=== PATIENT | male | born 1965 | race Caucasian/White ===

== ENCOUNTER → 2017-09-19 06:57 | Outpatient (CLI) | payer BC, SELFPAY ==
--- NOTE | 2017-09-19 07:17 | MRI_ITS ---
STUDY: MRI CERVICAL SPINE WITHOUT CONTRAST REASON FOR EXAM: Male, 52 years old. Neck pain. TECHNIQUE: Standardized fat and water weighted pulse sequences were obtained in the sagittal and axial planes. COMPARISON: Radiographs of cervical spine dated January 08, 2017. FINDINGS: Normal foramen magnum and brainstem-cervical cord junction. Normal craniovertebral junction. Normal anterior atlantoaxial articulation. Normal odontoid process. Normal cervical lordosis. Normal vertebral bodies and posterior osseous elements. C2-3: Normal endplates. Normal disc height and morphology. Normal central canal and intervertebral neural foramina. C3-4: There is a disc bulge and osteophyte complex. There is severe right-sided neural foraminal narrowing with potential nerve impingement. There is mild left-sided neural foraminal narrowing. There is no significant central acquired canal stenosis. C4-5: Normal endplates. Normal disc height, signal and morphology. Normal central canal. There is narrowing of bilateral intervertebral neural foramina without evidence for nerve impingement. There is mild degenerative arthropathy of the facet joints. C5-6: There is a disc bulge and osteophyte complex. There is severe bilateral neural foraminal narrowing with probable nerve impingement. There is no significant central acquired canal stenosis. C6-7: Normal endplates. Normal disc height, signal and morphology. Normal central canal and intervertebral neural foramina. C7-T1: Normal endplates. Normal disc height, signal and morphology. Normal central canal and intervertebral neural foramina. Normal cervical cord. There is no demonstrated cervical cord syrinx cavity. Normal visualized soft tissue structures. MRI/Spine Cervical (Routine) IMPRESSION: Multilevel degenerative disc disease and degenerative arthropathy of cervical spine with neural foraminal narrowing and potential nerve impingement, as described. Electronically Signed: Myranda Corley MD at 9:33 EDT , Service support ,
== END ==
PROVIDERS: Family Provider Family Medicine Geriatric Medicine; PCP Family Medicine Geriatric Medicine; Visit Provider Anesthesiology Pain Medicine
DX: M54.2 Cervicalgia (principal); M79.603 Pain in arm, unspecified
CPT/HCPCS: 72141

== ENCOUNTER → 2017-09-29 17:08 | Outpatient (CLI) | payer BC, SELFPAY | PROVIDERS: Family Provider Family Medicine Geriatric Medicine; PCP Family Medicine Geriatric Medicine; Visit Provider Family Medicine Geriatric Medicine | DX: R50.9 Fever, unspecified (principal) | CPT/HCPCS: 87633 ==

== ENCOUNTER → 2018-01-08 16:34 | Outpatient (CLI) | payer BC, SELFPAY | LOC: POLAB3 16:34 → PSN 16:45 | PROVIDERS: Family Provider Family Medicine Geriatric Medicine; PCP Family Medicine Geriatric Medicine; Referring Provider Family Medicine Geriatric Medicine; Visit Provider Family Medicine Geriatric Medicine | DX: R68.83 Chills (without fever) (principal) | CPT/HCPCS: 36415; 84403; 87633 ==

== ENCOUNTER → 2018-02-16 15:22 | Outpatient (CLI) | payer BC, SELFPAY ==
[2018-02-16 17:15] LABS: Absolute Lymphocyte Count 2.68 X10^3/ul (0.83-4.51); Absolute Neutrophil Count 6.3 X10^3/uL (2.0-7.7); Basophil# 0.03 X10^3/uL; Basophil% 0.3 % (0-1); Eosinophil# 0.02 X10^3/uL; Eosinophils% 0.2 % (0-5); Hematocrit 46.6 % (40-54); Hemoglobin 16.1 g/dl (13.0-16.5); Lymphocyte # 2.68 X10^3/ul (4.0); Lymphocyte % 27.7 % (19-41); Mean Corp Hgb Conc 34.5 g/gl (32-36); Mean Corpuscular Hgb 32.6 pg (27.0-32.0); Mean Corpuscular Volume 94.3 fL (80-94); Mean Platelet Vol. 10.9 fl (6.2-12.0); Monocyte# 0.65 X10^3/uL; Monocyte% 6.7 % (0-10); Neutrophil # 6.27 X10^3/uL (2.7-7.7); Neutrophil % 64.9 % (47-70); Platelet Count 268 K/mm3 (150-450); RBC Distribution Width CV 12.9 % (11.6-14.6); RBC Distribution Width SD 43.6 fl (35.1-43.9); Red Blood Count 4.94 M/mm3 (4.6-6.2); White Blood Count 9.7 K/mm3 (4.4-11.0)
[2018-02-16 17:16] LABS: POSITIVE COUNT NO; POSITIVE DIFFERENTIAL NO; POSITIVE MORPHOLOGY NO
[2018-02-16 17:24] LABS: ALB/GLOB Ratio 1.1 RATIO (0.9-2.4); AST(SGOT) 25 U/L (15-37); Alanine Aminotransfer ALT/SGPT 44 U/L (16-61); Albumin, Serum 4.1 g/dL (3.2-5.0); Alkaline Phosphatase 86 U/L (45-117); Anion Gap 8 (5-15); BUN 11 mg/dL (7-18); BUN/Creat Ratio 12.1 RATIO (10-20); Calcium,Total 9.5 mg/dL (8.5-10.1); Chloride 103 mmol/L (98-107); Creatinine, Serum 0.91 mg/dL (0.70-1.30); EST Glomerular Filtration Rate 93 mL/min (>60); Est Glom Filt Rate - Afr Amer 112 mL/min (>60); Globulin 3.7 g/dL (2.2-4.2); Glucose 84 mg/dL (74-106); Potassium 4.2 mmol/L (3.5-5.1); Protein, Total 7.8 g/dL (6.4-8.2); Sodium Level 141 mmol/L (136-145); Thyroid Stim Hormone (TSH) 2.73 uIU/mL (0.358-3.74)
== END ==
PROVIDERS: Family Provider Family Medicine Geriatric Medicine; PCP Family Medicine Geriatric Medicine; Visit Provider Family Medicine Geriatric Medicine
DX: I10 Essential (primary) hypertension (principal); E23.6 Other disorders of pituitary gland
CPT/HCPCS: 36415; 80053; 84403; 84443; 85025

== ENCOUNTER → 2018-10-07 17:20 | Outpatient (CLI) | payer BC, SELFPAY ==
[2018-10-07 17:52] LABS: Absolute Lymphocyte Count 2.71 X10^3/uL (0.83-4.51); Absolute Neutrophil Count 2.7 X10^3/uL (2.0-7.7); Basophil# 0.04 X10^3/uL; Basophil% 0.6 % (0-1); Eosinophil# 0.44 X10^3/uL; Eosinophils% 6.9 % (0-5); Hematocrit 42.7 % (40-54); Hemoglobin 14.5 g/dL (13.0-16.5); Lymphocyte # 2.71 X10^3/ul (4.0); Lymphocyte % 42.3 % (19-41); Mean Corpuscular Hgb 31.9 pg (27.0-32.0); Mean Corpuscular Volume 94.1 fL (80-94); Mean Platelet Vol. 11.5 fl (6.2-12.0); Monocyte# 0.53 X10^3/uL; Monocyte% 8.3 % (0-10); NRBC Flagged by Analyzer 0 % (0-5); Neutrophil # 2.67 X10^3/uL (2.7-7.7); Neutrophil % 41.6 % (47-70); Platelet Count 221 K/mm3 (150-450); RBC Distribution Width SD 41.8 fl (35.1-43.9); Red Blood Count 4.54 M/mm3 (4.6-6.2); White Blood Count 6.4 K/mm3 (4.4-11.0)
[2018-10-07 18:25] LABS: Anion Gap 6 (5-15); BUN 16 mg/dL (7-18); BUN/Creat Ratio 17.6 RATIO (10-20); Calcium,Total 8.7 mg/dL (8.5-10.1); Chloride 107 mmol/L (98-107); Creatinine, Serum 0.91 mg/dL (0.70-1.30); EST Glomerular Filtration Rate 92 mL/min (>60); Est Glom Filt Rate - Afr Amer 112 mL/min (>60); Glucose 79 mg/dL (74-106); Potassium 4.2 mmol/L (3.5-5.1); Sodium Level 143 mmol/L (136-145); T3 Uptake 29 % (33-40); Thyroid Stim Hormone (TSH) 5.06 uIU/mL (0.358-3.74)
== END ==
PROVIDERS: Family Provider Family Medicine Geriatric Medicine; PCP Family Medicine Geriatric Medicine; Visit Provider Family Medicine Geriatric Medicine
DX: R53.83 Other fatigue (principal)
CPT/HCPCS: 36415; 80048; 84439; 84443; 84479; 85025

== ENCOUNTER → 2018-10-20 17:40 | Outpatient (CLI) | payer BC, SELFPAY ==
--- NOTE | 2018-10-20 17:48 | RAD_ITS ---
STUDY: X-RAY - LUMBAR SPINE REASON FOR EXAM: Male, 53 years old. Pain TECHNIQUE: 3 view(s) of the lumbar spine were obtained. COMPARISON: None FINDINGS: Normal lumbar lordosis. There is no substantial scoliosis. There is a normal alignment of the vertebrae. Degenerative changes of the vertebral bodies with spurring at the endplates. Minimal wedge compression of L1 and L2. Slightly narrowed L5-S1 disc space with vacuum phenomenon. The soft tissue structures are unremarkable. RAD/Lumbar Spine 2 or 3 Views IMPRESSION: Degenerative changes of the lumbar spine. Electronically Signed: Kentrell Koo DO at 18:14 EDT Tel [phone], Service support ,
== END ==
PROVIDERS: Family Provider Family Medicine Geriatric Medicine; PCP Family Medicine Geriatric Medicine; Referring Provider Family Medicine Geriatric Medicine; Visit Provider Family Medicine Geriatric Medicine
DX: M54.5 Low back pain (principal)
CPT/HCPCS: 72100

== ENCOUNTER → 2019-01-25 16:43 | Outpatient (CLI) | payer BC, SELFPAY ==
--- NOTE | 2019-01-25 16:50 | MRI_ITS ---
STUDY: MRI LUMBAR SPINE WITHOUT CONTRAST REASON FOR EXAM: Male, 53 years old. LOWER BACK PAIN RADIATING INTO TESTICLES, NO RELIEF WITH EPIDURAL INJECTIONS TECHNIQUE: Standardized fat and water weighted pulse sequences were obtained in the sagittal and axial planes. COMPARISON: Radiographs 10/20/2018 FINDINGS: T12-L1: Normal endplates. Normal disc height, hydration and morphology. Normal bilateral facet joints. Normal central canal and bilateral lateral recesses. Normal bilateral intervertebral neural foramina. Normal lumbar lordosis. There is no substantial scoliosis. Normal conus medullaris that terminates at the L1-2 level. L1-2: Bulging annulus with mild central canal stenosis. L2-3: Bulging annulus with mild central canal stenosis. L3-4: Bulging annulus and broad left subarticular disc protrusion with deflection of the transiting left L4 nerve root and moderate left and mild right foraminal stenoses. L4-5: Bulging annulus and bilateral facet hypertrophy with mild central canal stenosis and moderate bilateral foraminal stenoses. L5-S1: Disc space narrowing and desiccation with discogenic endplate changes and anterior osteophytes. Bulging annulus and bilateral facet hypertrophy with severe right and moderate to severe left foraminal stenoses. There is mass effect on the exiting right L5 nerve root. Normal visualized sacral ala. Normal visualized paraspinous soft tissue structures. MRI/Spine Lumbar (Routine) IMPRESSION: Multilevel degenerative disease as described. Left-sided disc protrusion at L3-4 with deflection of the transiting left L4 nerve root. Severe right foraminal stenosis at L5-S1, with mass effect on the exiting right L5 nerve root. Electronically Signed: Isaias Lin MD at 21:20 EST Tel , Service support ,
== END ==
PROVIDERS: Family Provider Family Medicine Geriatric Medicine; PCP Family Medicine Geriatric Medicine; Referring Provider Anesthesiology Pain Medicine; Visit Provider Anesthesiology Pain Medicine
DX: M54.9 Dorsalgia, unspecified (principal)
CPT/HCPCS: 72148

== ENCOUNTER → 2019-02-18 16:22 | Outpatient (CLI) | payer BC, SELFPAY ==
[2019-02-18 16:51] LABS: Absolute Lymphocyte Count 3.81 X10^3/uL (0.83-4.51); Absolute Neutrophil Count 4.5 X10^3/uL (2.0-7.7); Basophil# 0.05 X10^3/uL; Basophil% 0.5 % (0-1); Eosinophil# 0.21 X10^3/uL; Eosinophils% 2.2 % (0-5); Hematocrit 43.5 % (40-54); Hemoglobin 14.9 g/dL (13.0-16.5); Lymphocyte # 3.81 X10^3/ul (4.0); Lymphocyte % 40.7 % (19-41); Mean Corp Hgb Conc 34.3 g/dL (32-36); Mean Corpuscular Hgb 32.1 pg (27.0-32.0); Mean Corpuscular Volume 93.8 fL (80-94); Mean Platelet Vol. 10.3 fl (6.2-12.0); Monocyte# 0.81 X10^3/uL; Monocyte% 8.7 % (0-10); NRBC Flagged by Analyzer 0 % (0-5); Neutrophil # 4.45 X10^3/uL (2.7-7.7); Neutrophil % 47.6 % (47-70); Platelet Count 260 K/mm3 (150-450); RBC Distribution Width CV 12.3 % (11.6-14.6); RBC Distribution Width SD 42.5 fl (35.1-43.9); Red Blood Count 4.64 M/mm3 (4.6-6.2); White Blood Count 9.4 K/mm3 (4.4-11.0)
[2019-02-18 17:46] LABS: ALB/GLOB Ratio 1.2 RATIO (0.9-2.4); AST(SGOT) 24 U/L (15-37); Alanine Aminotransfer ALT/SGPT 39 U/L (16-61); Alkaline Phosphatase 101 U/L (45-117); Anion Gap 3 (5-15); BUN 21 mg/dL (7-18); BUN/Creat Ratio 17.2 RATIO (10-20); Chloride 104 mmol/L (98-107); Creatinine, Serum 1.22 mg/dL (0.70-1.30); EST Glomerular Filtration Rate 66 mL/min (>60); Est Glom Filt Rate - Afr Amer 80 mL/min (>60); Globulin 3.4 g/dL (2.2-4.2); Glucose 88 mg/dL (74-106); Potassium 4.2 mmol/L (3.5-5.1); Protein, Total 7.4 g/dL (6.4-8.2); Sodium Level 138 mmol/L (136-145); Thyroid Stim Hormone (TSH) 4.43 uIU/mL (0.358-3.74)
== END ==
PROVIDERS: Family Provider Family Medicine Geriatric Medicine; PCP Family Medicine Geriatric Medicine; Visit Provider Family Medicine Geriatric Medicine
DX: I10 Essential (primary) hypertension (principal); E23.6 Other disorders of pituitary gland
CPT/HCPCS: 36415; 80053; 84403; 84443; 85025

== ENCOUNTER → 2019-03-16 15:57 | Outpatient (CLI) | payer BC, SELFPAY | PROVIDERS: Family Provider Family Medicine Geriatric Medicine; PCP Family Medicine Geriatric Medicine; Referring Provider Family Medicine Geriatric Medicine; Visit Provider Family Medicine Geriatric Medicine | DX: R68.83 Chills (without fever) (principal) | CPT/HCPCS: 87633 ==

== ENCOUNTER → 2019-05-24 | Outpatient (CLI) | payer BC, SELFPAY ==
--- NOTE | 2019-05-24 14:51 | CT_ITS ---
STUDY: CT BRAIN AND SINUSES WITHOUT CONTRAST REASON FOR EXAM: Male, 53 years old. SINUSITIS RADIATION DOSAGE (If Supplied By Facility): CTDIvol = ( 33.06 ) mGy, DLP = ( 871.04 ) mGycm TECHNIQUE: Transaxial CT imaging of the brain was performed without administration of contrast. Individualized dose optimization techniques were used for this CT. COMPARISON: No relevant priors. FINDINGS: CT BRAIN Normal soft tissue structures. Normal calvarium. Normal size ventricles and extra-axial spaces for the patient''s age. Normal white matter tracts of the cerebral hemispheres. Normal basal ganglia and thalami. Normal brainstem. Normal cerebellum. There is no intracranial hemorrhage. There are no findings of an acute ischemic infarction. CT SINUSES Post Surgical Changes: Postsurgical changes status post left uncinatectomy Frontal Sinus and Recess: Normal aeration without mucosal inflammatory disease. Ethmoidal Sinuses: Mild mucosal thickening of the anterior ethmoid air cells bilaterally without air-fluid level. Maxillary Sinuses: There is moderate mucosal thickening of both maxillary sinuses portions of which are calcified on the left. There is no air-fluid level Ostiomeatal Complex: Clear. Sphenoid Sinus: Normal aeration without mucosal inflammatory disease. Sphenoethmoidal Recess: Clear. Nasal Turbinate (Right): Middle Turbinate (Right): Normal. Middle Turbinate (Left): Normal. Inferior Turbinate (Right): Normal. Inferior Turbinate (Left): Normal. Nasal Septum: Midline. Nasal Airway: Clear. Cribiform Plate / Anterior Cranial Fossa: Normal. Orbits: Normal. CT/Sinus/Facial Bone IMPRESSION: Normal enhanced CT scan of the brain. Moderate bilateral maxillary sinusitis and mild anterior ethmoid sinus disease Status post left maxillary uncinatectomy Electronically Signed: Ryan Murdock MD at 16:35 EDT , Service support ,
== END | disposition home or self-care (01) ==
PROVIDERS: PCP Family Medicine Geriatric Medicine; Referring Provider Otolaryngology; Visit Provider Otolaryngology
DX: J32.0 Chronic maxillary sinusitis (principal)
CPT/HCPCS: 70486

== ENCOUNTER → 2019-08-26 | Outpatient (CLI) | payer BC, SELFPAY ==
--- NOTE | 2019-08-26 14:25 | RAD_ITS ---
STUDY: X-RAY - LEFT SHOULDER REASON FOR EXAM: Male, 54 years old. BILAT SHOULDER PAIN, RIGHT SIDE GREATER THAN LEFT SIDE. HX FALL TO RIGHT SHOULDER AND SURGERY TO LEFT SHOULDER TECHNIQUE: 4 view(s) of the shoulder. COMPARISON: None. FINDINGS: Normal glenohumeral articulation. Normal acromioclavicular joint. Normal acromion. Normal humeral head and visualized proximal humerus. The soft tissue structures are unremarkable. There is no demonstrated fracture. Normal visualized pulmonary apex. RAD/Shoulder min 2 Views IMPRESSION: Normal x-ray examination of the shoulder. Electronically Signed: Silver Blair MD at 14:58 EDT , Service support ,
--- NOTE | 2019-08-26 14:25 | RAD_ITS ---
STUDY: X-RAY - RIGHT SHOULDER REASON FOR EXAM: Male, 54 years old. BILAT SHOULDER PAIN, RIGHT SIDE GREATER THAN LEFT SIDE. HX FALL TO RIGHT SHOULDER AND SURGERY TO LEFT SHOULDER TECHNIQUE: 4 view(s) of the shoulder. COMPARISON: None. FINDINGS: Normal glenohumeral articulation. Normal acromioclavicular joint. Normal acromion. Normal humeral head and visualized proximal humerus. The soft tissue structures are unremarkable. There is no demonstrated fracture. Normal visualized pulmonary apex. RAD/Shoulder min 2 Views IMPRESSION: Normal x-ray examination of the shoulder. Electronically Signed: Silver Blair MD at 20:25 EDT , Service support ,
== END | disposition home or self-care (01) ==
PROVIDERS: PCP Family Medicine Geriatric Medicine; Referring Provider Anesthesiology Pain Medicine; Visit Provider Anesthesiology Pain Medicine
DX: M25.512 Pain in left shoulder (principal); M25.511 Pain in right shoulder
CPT/HCPCS: 73030

== ENCOUNTER 2019-09-24 12:21 | Day surgery (SDC) | payer BC, SELFPAY ==
[2019-09-24 12:47] VITALS: BP 130/81; PULSE 59; RESP 14; TEMP 36.9; O2SAT 98; BMI 23.8
[2019-09-24] MEDS: Lactated Ringers 1,000 ML 75 ML IV (13:04)
--- NOTE | 2019-09-24 13:18 | EKG12_ITS ---
Test Reason : PRE OP Blood Pressure : / mmHG Vent. Rate : 051 BPM Atrial Rate : 051 BPM P-R Int : 168 ms QRS Dur : 100 ms QT Int : 444 ms P-R-T Axes : 062 021 007 degrees QTc Int : 409 ms Sinus bradycardia Otherwise normal ECG Confirmed by ANTOINETTE BARBOUR, LYLY ([id number]), commercial production editor TRAMAINE CORTÉS ([id number]) on 09/28/2019 10:19:09 AM Referred By: Fan Dejesus Confirmed By:LYLY CURRY MD
--- NOTE | 2019-09-24 13:25 | CHO_PTH ---
PATIENT: GEN LÓPEZ LOC: [facility] [place] U#:[id number] AGE/SX: 54/M ROOM: RE09/24/[address]: Dr. Fan Dejesus MD : 1965 BED: DIS: 09/24/2019 SPEC #: [id number] RECD: 09/27/19 07:44 STATUS: [place] REJosr #: [id number] GRICEL: 09/24/19 13:[address]: Fan Dejesus DEPT: SURGICAL PATHOLOGY RECD BY: John Rodrigues ENTERED: 09/27/19 09:11 SP TYPE: CHOLESTEAT OTHR DR: Dr. Rogelio Anderson MD Tissues: Soft tissues, NOS Procedures: Surgery Specimen Level III HEADER OPERATION: Tympanoplasty with graft PRE-OP DIAGNOSIS: Cholesteatoma middle ear, hearing loss TISSUE SUBMITTED: Cholesteatoma right middle ear MICROSCOPIC DIAGNOSIS Cholesteatoma of right middle ear, biopsy: Consistent with cholesteatoma. AM:duane 09/28/19 MICROSCOPIC DESCRIPTION Slides are reviewed. GROSS DESCRIPTION Received in fixative is one container labeled with the patient's name and designated cholesteatoma right ear. The specimen consists of multiple irregular fragments of light malik soft tissue that in aggregate measure 0.6 x 0.3 x 0.1 cm. The specimen is totally submitted in one cassette. / AM:duane 09/27/19 TC:5 CPT: 86185
[2019-09-24] MEDS: Epinephrine (1 mg/ml) 1 MG/ML VIAL (15:50)
[2019-09-24] MEDS: Bacitracin 500 UNITS/GM PACKET (15:52)
--- NOTE | 2019-09-24 16:11 | DCINST_ITS ---
You will use the following diet at home:: No restrictions Your food should be the consistency of: Regular Discharge Activity: Return to Normal Activity, May not drive while taking narcotic pain medications. Call your doctor if your incision/area has: Sudden Increased Bleeding, Increased Pain/ Swelling Call your doctor if you observe: Fever of 101 or Higher, Uncontrolled pain Allergies/Adverse Reactions: Allergies No Known Allergies Allergy (Verified 09/16/19 10:12) Medications to take at Discharge montelukast 10 mg tablet 10 mg PO QHS 04/15/17 Azelastine HCl [Astelin] 1 spray NASAL BID 05/31/19 Fluticasone Propionate [Flonase Allergy Relief] 9.9 ml NS DAILY 05/31/19 Naproxen Sodium [Aleve] 440 mg PO BID 05/31/19 Ropinirole HCl [Requip] 3 mg PO QHS 05/31/19 Tramadol HCl [Ultram] 50 mg PO BID 05/31/19 Oxymetazoline 0.05% [Afrin (BKC)] 15 spray NASAL DAILY 09/16/19 Primary Care Physician: Rogelio Anderson Chi, MD [Primary Care Provider] - Test Results: Test results from this visit will be discussed in further detail at your follow- up appointment, if applicable. Please Follow Up With: Fan Dejesus MD When: 2 weeks
--- NOTE | 2019-09-24 16:13 | OP.PCM_ITS ---
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 (2) Perforation of tympanic membrane Status: Chronic Qualifiers: Laterality: right Qualified Code(s): H72.91 - Unspecified perforation of tympanic membrane, right ear Report of Operation Date of Procedure: 09/24/19 Pre-Operative Diagnosis: Right middle ear cholesteatoma, right tympanic membrane perforation Post-Operative Diagnosis: Same Surgery/Procedure Performed:: Right tympanoplasty, excision of right middle ear cholesteatoma, fascial graft harvest with facial nerve monitoring Description of Surgical Findings:: Archie is a 54-year-old male with prior history of tympanoplasty on the right and had suffered persistent perforation. Reaccumulation of cholesteatoma within the middle ear cleft was additionally noted and this had become inflamed with drainage which responded well to otic topical therapy. Surgical treatment to prevent additional progression of the cholesteatoma was advised and he was eager to proceed. The risk of coronavirus transmission during this period was discussed however he was agreeable to accept this risk in the interest of addressing his chronic middle ear disease. The risks, alternatives, potential complications, and benefits were discussed at length and any questions answered to the patient and/or caregiver's satisfaction. Witnessed informed consent was obtained in the office, and the patient and/or caregiver was agreeable to proceed. Procedure went as follows: The patient was identified in the preoperative holding brought to the operating room and was placed under general anesthesia and intubated. The operative ear had been site marked preoperatively in accordance with the office notes patient exam and history. The patient was then placed under general anesthesia and the right ear prepped and draped in usual sterile fashion. The facial nerve monitoring electrodes were then placed in the confirmed to be operational in accordance with the manufactures directions. The planned postauricular incision site for fascial graft harvest was then injected with 1% lidocaine with 100,000 epinephrine for a total of 4 mL. Through a #4 otic speculum the operative microscope was brought into the field and the external auditory canal and tympanic membrane visualized. The lateral canal wall was then injected with 1% lidocaine with 100,000 epinephrine for a total of 0.4 cc. Using a sickle knife the edge of the perforation was then sharply resected and extended to the posterior canal where extensive cholesteatoma of the middle ear cleft encasing the long process of the malleus was encountered. This was then draped anteriorly to allow visualization of the middle ear cleft which was noted to be involved with cholesteatoma. Using a sickle knife this was sharply resected along the length of the malleus and this was withdrawn from middle ear cleft careful examination of the attic and eustachian tube orifice showed no residual squamous epithelium. A 3 cm incision was then created a 15 blade scalpel posterior to the auricle at the previous injection site. The skin and subcutaneous tissues were then dissected and the posterior auricular muscle sharply transected. The subfascial plane was then widely developed and a 2.5 x 2.5 centimeter portion of loose a reolar tissue was then harvested and set aside on a Jacky block for reconstruction of the tympanic membrane. The wound edges were then cauterized with electrocautery for hemostasis and closed deeply with interrupted 3-0 Vicryl sutures followed by running 5-0 Monocryl to the skin. This completed the graft harvest portion of the procedure. Attention was then turned to reconstruction of the tympanic membrane. The operative microscope was replaced and through an otic speculum the middle ear cleft filled with Gelfoam packing material after removal of the epinephrine soaked cotton balls. The previously harvested graft tissue was then placed in an underlay fashion catching it underneath the malleus where a slit in the graft had been created and ensuring that it completely covered the tympanic membrane perforation. The posterior aspect of the graft was then draped over the medial external auditory canal posteriorly. Additional Gelfoam material was then placed to secure the graft in position. Bacitracin ointment was then applied to secure the material and the patient then cleaned of prep solution and the facial nerve monitoring electrodes removed. The patient was then returned to anesthesia, revived and extubated without complication having tolerated the procedure well. Type of Anesthesia:: General Anesthesiologist: Derek Peep Special Medications: none Specimen's removed: cholesteatoma right middle ear Drains: none Estimated Blood Loss (mL): 0 mL Fluids Replaced: 500 mL Grafts/Implants Used: fascia graft - Complications none - Admit VTE Documentation VTE Present on Admission: No VTE Mechan Device Prophylaxis: SCD's VTE Pharm Prophylaxis ordered?: No
[2019-09-24 16:23] VITALS: BP 130/81; BP 146/86; PULSE 69; RESP 16; TEMP 36.7; O2SAT 98
[2019-09-24 16:30] VITALS: BP 130/81; BP 155/92; PULSE 63; RESP 16; TEMP 36.7; O2SAT 99
[2019-09-24 16:45] VITALS: BP 130/81; BP 155/85; PULSE 63; RESP 16; TEMP 36.7; O2SAT 99
[2019-09-24] MEDS: Ibuprofen 200 MG Tablet 400 MG PO (16:54)
[2019-09-24 17:35] VITALS: BP 130/81; BP 149/91; PULSE 52; RESP 16; TEMP 36.6; O2SAT 100
== END 2019-09-24 17:45 | disposition home or self-care (01) ==
LOC: SDC 12:23 → AC 12:23
PROVIDERS: Anesthesiology; PCP Family Medicine Geriatric Medicine; Referring Provider Otolaryngology; Visit Provider Otolaryngology
PROC: (CPT 21235; principal; 2019-09-24 12:55)
DX: H71.11 Cholesteatoma of tympanum, right ear (principal); H72.91 Unspecified perforation of tympanic membrane, right ear; H90.A31 Mixed conductive and sensorineural hearing loss, unilateral, right ear with restricted hearing on the contralateral side; H90.3 Sensorineural hearing loss, bilateral; J32.2 Chronic ethmoidal sinusitis; J32.0 Chronic maxillary sinusitis; G25.81 Restless legs syndrome; F17.200 Nicotine dependence, unspecified, uncomplicated; K21.9 Gastro-esophageal reflux disease without esophagitis; Z11.59 Encounter for screening for other viral diseases; Z79.899 Other long term (current) drug therapy
CPT/HCPCS: 00120; 21235; 69610; 69799; 87635; 88304; 93005; G2023; J7120; J2405; U0003

== ENCOUNTER 2020-04-21 07:54 | Day surgery (SDC) | payer BC, SELFPAY ==
[2019-12-10 09:07] VITALS: BMI 23.8
[2020-04-21 08:30] VITALS: BP 145/97; PULSE 72; RESP 16; TEMP 37.2; O2SAT 99; BMI 24.8
[2020-04-21] MEDS: Lactated Ringers 1,000 ML 100 ML IV ×2 (08:47→10:30)
--- NOTE | 2020-04-21 09:25 | ETH_PTH ---
PATIENT: GEN LÓPEZ LOC: [facility] [place] U#:[id number] AGE/SX: 54/M ROOM: RE04/21/[address]: Dr. Fan Dejesus MD : 1965 BED: DIS: 04/21/2020 SPEC #: [id number] RECD: 04/21/20 12:25 STATUS: [place] RASTA #: [id number] GRICEL: 04/21/20 09:[address]: Fan Dejesus DEPT: SURGICAL PATHOLOGY RECD BY: Dahiana Lopez ENTERED: 04/24/20 09:51 SP TYPE: ETH TISS OTHR DR: Dr. Rogelio Anderson MD Tissues: A - Ethmoid sinus, NOS B - Ethmoid sinus, NOS Procedures: Decalcification bone/plaque Surgery Specimen Level III HEADER OPERATION: Endoscopic nasal sinus with total ethmoidectomy/endoscopic PRE-OP DIAGNOSIS: Chronic maxillary and ethmoidal sinusitis TISSUE SUBMITTED: A - Right maxillary and ethmoid sinus contents, B - Left maxillary and ethmoid sinus contents MICROSCOPIC DIAGNOSIS A. Right maxillary and ethmoid sinus contents, curettage: Consistent with chronic sinusitis. Minute fragments of bone with no pathologic change. B. Left maxillary and ethmoid sinus contents, curettage: Consistent with chronic sinusitis. Minute fragments of bone with no pathologic change. Abundant bacterial colonies present with associated acute inflammation. AM:duane 04/27/2020 MICROSCOPIC DESCRIPTION Slides are reviewed. GROSS DESCRIPTION A - Received in fixative is one container labeled with the patient's name and designated right maxillary and ethmoid sinus contents. The specimen consists of multiple fragments of hemorrhagic soft tissue that in aggregate measure 5 x 5 x 1.5 cm. Also present in the container is a piece of mucosal tissue consistent with turbinate tissue measuring 1.5 x 0.5 x 0.3 cm. Bone Grinder tissue is submitted in three cassettes. Cassette 3 contains the turbinate tissue and submitted after decalcification. B - Received in fixative is one container labeled with the patient's name and designated left maxillary and ethmoid sinus contents. The specimen consists of multiple fragments of hemorrhagic soft tissue that in aggregate measure 6 x 5 x 2 cm. Also present in the container are multiple fragments of malik mucoid tissue measuring in aggregate 3 x 2.5 x 0.2 cm. Bone Grinder tissue is submitted in three cassettes after decalcification as follows: 1 & 2 - hemorrhagic soft tissue, 3 - malik mucoid tissue, submitted in entirety. / SJ:duane 04/24/20 TC:2 CPT: 74382 x2, 56347 x2
[2020-04-21] MEDS: Lidocaine 4% 50 ML Bottle (10:30)
[2020-04-21] MEDS: Oxymetazoline 0.05% 1 SPRAY SPRAY.BTL 15 SPRAY (10:30)
--- NOTE | 2020-04-21 11:19 | OP.PCM_ITS ---
Problem List (1) Chronic ethmoidal sinusitis Status: Chronic (2) Chronic maxillary sinusitis Status: Chronic (3) Chronic sphenoidal sinusitis Status: Chronic Report of Operation Date of Procedure: 04/21/20 Pre-Operative Diagnosis: Chronic sinus disease Post-Operative Diagnosis: Same Surgery/Procedure Performed:: Bilateral revision endoscopic maxillary antrostomies, ethmoidectomies, and sphenoidotomies Description of Surgical Findings:: Yasmany is a 54-year-old male with history of chronic sinusitis and previous surgery. Despite this he continued to suffer large amounts of purulent discharge as well as foul nasal odor that was only temporary relieved by antibiotic therapy and nasal saline rinses. Revision surgery for improved drainage was advised and he was eager to proceed. The risk of coronavirus exposure in this time. Was also discussed and is agreeable accept this risk in exchange for venkat tment of his chronic underlying disease. The risks, alternatives, potential complications, and benefits were discussed at length and any questions answered to the patient and/or caregiver's satisfaction. Witnessed informed consent was obtained in the office, and the patient and/or caregiver was agreeable to proceed. Procedure went as follows: The patient was identified in the preoperative holdi ng and brought to the operating room, was placed under general anesthesia and intubated. When appropriate anesthesia was obtained, the navigational head gear was placed and confirmed to be operational in accordance with the curriculum and instruction specialist's directions. Pledgets soaked in a 50-50 mixture of oxymetazoline and 4% topical lidocaine were placed to decongest the nasal mucosa. These were then removed an d beginning on the left side using a 0? endoscope the nasal cavity examined. The insertion of the middle turbinate was then injected with 1% lidocaine with 100,000 epinephrine for a total of 2 mL, and a similar injection was then carried on the contralateral side. Upon returning to the left side, the middle turbinate was medialized with a Bullock elevator. This allowed examination of the maxillary sinus ostia which was then probed with a double ball seeker. This was noted to be significantly scarred with prior removal of the uncinate process noted. Copious purulent material was identified with portions of it taken for culture for identification of the organism. Instrumentation of the sinus revealed large clumps of mucopurulent material which were removed piecemeal fashion and the sinus irrigated clear with saline solution. Given the significant scarring of the maxillary antrum this was then widened along the posterior fontanelle recreating a wide maxillary antrostomy. Under navigation there is noted to be a posterior residual ethmoid cell which was then opened and widened and the intervening scar tissue obstructing the pre-existing ethmoidectomy sites was then removed. The sphenoid sinus ostia was noted to be occluded with scar tissue and this was then entered under navigational guidance and a wide sphenoidotomy carried out to facilitate drainage of the sinus. Given the extreme narrowing of the nasal passage the middle turbinate was then removed in the hopes of improved drainage from the maxillary and ethmoid sinuses. The posterior aspect of the resection was then cauterized with suction electrocautery to control any potential bleeding from the posterior middle turbinate stub. Attention was then carried to the contralateral side where similar procedure was performed. There is noted to be extensive scarring and obstruction of the ethmoid sinuses with incomplete resection of the ethmoid sinuses along the lateral aspect and along the lamina papyracea. These were then taken down individually using a J curette under navigational guidance improving the patency of this area. Similarly the maxillary sinus ostia was scarred and obstructed and this was again widened by taking down the scarring in the posterior fontanelle resulting in a wide maxillary antrostomy. There was similar scarring of the sphenoid sinus opening and this was again then widened creating a sphenoidotomy. Finally the middle turbinate was again removed and the posterior stub cauterized for hemostasis with suction cautery. Pledgets soaked in oxymetazoline were then placed for hemostasis and upon removal Floseal hemostatic agent was then applied. An NG tube was then placed to decompress the stomach and the patient returned to anesthesia, revived and extubated having tolerated the procedure well. Type of Anesthesia:: General Anesthesiologist: Derek Pepe Special Medications: none Specimen's removed: sinus contents, culture left maxilary sinus Drains: none Estimated Blood Loss (mL): 100 mL Fluids Replaced: 1300 mL Grafts/Implants Used: none - Admit VTE Documentation VTE Present on Admission: No VTE Mechan Device Prophylaxis: SCD's VTE Pharm Prophylaxis ordered?: No
[2020-04-21 11:30] VITALS: BP 145/97; BP 146/87; PULSE 78; RESP 14; TEMP 36.6; O2SAT 97
--- NOTE | 2020-04-21 11:31 | DCINST_ITS ---
- Discharge Diagnoses Current Active Problems: Current Active and Chronic Problems (Last Reviewed 04/15/17 @ 10:54 by Rosalba Ta) Chronic ethmoidal sinusitis (Chronic) Chronic maxillary sinusitis (Chronic) Chronic sphenoidal sinusitis (Chronic) You will use the following diet at home:: No restrictions Your food should be the consistency of: Regular Discharge Activity: Return to Normal Activity Call your doctor if your incision/area has: Sudden Increased Bleeding, Foul Smelling Discharge Call your doctor if you observe: Fever of 101 or Higher, Uncontrolled pain Allergies/Adverse Reactions: Allergies No Known Allergies Allergy (Verified 04/21/20 08:28) Medications to take at Discharge montelukast 10 mg tablet 10 mg PO QHS 04/15/17 Azelastine HCl [Astelin] 1 spray NASAL BID PRN 05/31/19 Fluticasone Propionate [Flonase Allergy Relief] 9.9 ml NS DAILY 05/31/19 Naproxen Sodium [Aleve] 440 mg PO BID 05/31/19 Ropinirole HCl [Requip] 3 mg PO QHS 05/31/19 Tramadol HCl [Ultram] 50 mg PO BID 05/31/19 Oxymetazoline 0.05% [Afrin (BKC)] 15 spray NASAL DAILY 09/16/19 Duloxetine Hcl [Cymbalta] 30 mg PO DAILY 04/14/20 Primary Care Physician: Rogelio Anderson Chi, MD [Primary Care Provider] - Test Results: Test results from this visit will be discussed in further detail at your follow- up appointment, if applicable. Please Follow Up With: Fan Dejesus MD When: 2 weeks
[2020-04-21 11:45] VITALS: BP 145/97; BP 149/93; PULSE 77; RESP 14; O2SAT 97
[2020-04-21 12:00] VITALS: BP 145/97; BP 149/99; PULSE 78; RESP 14; O2SAT 98
[2020-04-21 12:03] VITALS: BP 139/88; BP 145/97; PULSE 78; RESP 14; TEMP 36.9; O2SAT 98
[2020-04-21] MEDS: HYDROcodone Bitartrate/Apap 5/325 Tablet PO (12:41)
[2020-04-21 13:10] VITALS: BP 138/89; BP 145/97; PULSE 78; RESP 16; TEMP 37; O2SAT 96
== END 2020-04-21 13:20 | disposition home or self-care (01) ==
LOC: SDC 07:55 → AC 07:55
PROVIDERS: PCP Family Medicine Geriatric Medicine; Referring Provider Otolaryngology; Visit Provider Otolaryngology
PROC: (CPT 31254; principal; 2020-04-21 08:55)
DX: J32.2 Chronic ethmoidal sinusitis (principal); J32.0 Chronic maxillary sinusitis; J32.3 Chronic sphenoidal sinusitis; F17.200 Nicotine dependence, unspecified, uncomplicated; K21.9 Gastro-esophageal reflux disease without esophagitis; M19.90 Unspecified osteoarthritis, unspecified site; E78.5 Hyperlipidemia, unspecified; G25.81 Restless legs syndrome; Z79.899 Other long term (current) drug therapy; Z20.822 Contact with and (suspected) exposure to COVID-19
CPT/HCPCS: 00160; 31254; 31267; 31287; 87070; 87075; 87077; 87102; 87186; 87205; 87206; 87426; 88304; 88305; 88311; C9803; J7120; J2405

== ENCOUNTER → 2021-02-12 15:56 | Outpatient (CLI) | payer BC, SELFPAY ==
[2021-02-12 17:30] LABS: Absolute Lymphocyte Count 2.76 X10^3/uL (0.83-4.51); Absolute Neutrophil Count 4.6 X10^3/uL (2.0-7.7); Basophil# 0.05 X10^3/uL; Basophil% 0.6 % (0-1); Eosinophil# 0.18 X10^3/uL; Eosinophils% 2.2 % (0-5); Hematocrit 45.1 % (40-54); Hemoglobin 15.1 g/dL (13.0-16.5); Lymphocyte # 2.76 X10^3/ul (0.83-4.51); Lymphocyte % 34.1 % (19-41); Mean Corp Hgb Conc 33.5 g/dL (32-36); Mean Corpuscular Hgb 31.5 pg (27.0-32.0); Monocyte# 0.53 X10^3/uL; Monocyte% 6.5 % (0-10); NRBC Flagged by Analyzer 0 % (0-5); Neutrophil # 4.56 X10^3/uL (2.7-7.7); Neutrophil % 56.4 % (47-70); Platelet Count 254 K/mm3 (150-450); RBC Distribution Width CV 12.8 % (11.6-14.6); RBC Distribution Width SD 44.5 fl (35.1-43.9); White Blood Count 8.1 K/mm3 (4.4-11.0)
[2021-02-12 17:58] LABS: ALB/GLOB Ratio 0.9 RATIO (0.9-2.4); AST(SGOT) 32 U/L (15-37); Alanine Aminotransfer ALT/SGPT 73 U/L (16-61); Albumin, Serum 3.7 g/dL (3.2-5.0); Alkaline Phosphatase 111 U/L (45-117); Anion Gap 6 (5-15); BUN 14 mg/dL (7-18); BUN/Creat Ratio 17.3 RATIO (10-20); Calcium,Total 9.1 mg/dL (8.5-10.1); Chloride 104 mmol/L (98-107); Creatinine, Serum 0.81 mg/dL (0.70-1.30); EST Glomerular Filtration Rate 105 mL/min (>60); Est Glom Filt Rate - Afr Amer 127 mL/min (>60); Globulin 4.3 g/dL (2.2-4.2); Glucose 87 mg/dL (74-106); PSA,Total - Annual Screen 0.25 ng/mL (0.00-4.00); Potassium 3.8 mmol/L (3.5-5.1); Sodium Level 137 mmol/L (136-145)
[2021-02-15 11:11] LABS: Thyroid Stim Hormone (TSH) 2.61 uIU/mL (0.358-3.74)
== END ==
PROVIDERS: PCP Family Medicine Geriatric Medicine; Visit Provider Family Medicine Geriatric Medicine
DX: E23.6 Other disorders of pituitary gland (principal); I10 Essential (primary) hypertension; Z12.5 Encounter for screening for malignant neoplasm of prostate
CPT/HCPCS: 36415; 80053; 84153; 84403; 84443; 85025; G0103

== ENCOUNTER 2021-04-16 17:31 | Outpatient (CLI) | payer BC, SELFPAY ==
[2021-04-16 18:42] LABS: Amphetamine Urine VISTA NEGATIVE (<1000 ng/mL); Barbiturate Urine VISTA NEGATIVE (< 200 ng/mL); Benzodiazepine Urine VISTA NEGATIVE (< 200 ng/mL); Cocaine Urine VISTA NEGATIVE (< 300 ng/mL); Ecstacy Urine VISTA NEGATIVE (< 500 ng/mL); Methadone Urine VISTA NEGATIVE (< 300 ng/mL); PCP Urine VISTA NEGATIVE (< 25 ng/mL); THC Urine VISTA NEGATIVE (< 50 ng/mL); Vista UDS pH Range 5
== END 2021-04-16 23:59 | disposition short-term general hospital (02) ==
PROVIDERS: PCP Family Medicine Geriatric Medicine; Visit Provider Anesthesiology Pain Medicine
DX: F11.20 Opioid dependence, uncomplicated (principal)
CPT/HCPCS: 80307

== ENCOUNTER 2021-05-29 15:01 | Outpatient (CLI) | payer BC, SELFPAY ==
--- NOTE | 2021-05-29 15:28 | MRI_ITS ---
STUDY: MRI RIGHT SHOULDER REASON FOR EXAM: Right shoulder pain for 4 years. TECHNIQUE: Standardized fat and water weighted pulse sequences were obtained in all 3 orthogonal planes. COMPARISON: Radiographs 08/26/2019. FINDINGS: There is mild supraspinatus tendinosis and a small high-grade partial thickness tear of the articular surface of the distal anterior supraspinatus tendon at the greater tuberosity insertion (T2 coronal image 15; T2 sagittal image 17) measuring approximately 0.3 x 0.9 cm (length x width). There is mild infraspinatus tendinosis and a small low-grade partial-thickness tear of the articular surface of the distal infraspinatus tendon (T2 coronal image 8) measuring 0.3 cm in length. Normal subscapularis tendon. Normal teres minor tendon. Normal supraspinatus muscle. Normal infraspinatus muscle. Normal subscapularis muscle. Normal teres minor muscle. Normal glenohumeral articulation. Normal humeral head and visualized proximal humerus. Normal biceps labral complex. Normal intracapsular long biceps tendon. Normal labrum. Normal capsulo- ligamentous complex. There is acromioclavicular arthrosis with small undersurface osteophytes of the distal clavicle effacing the subacromial fat (T2 sagittal images 8, 9). There is a Type I morphology (flat undersurface), with a neutral orientation. There is a very small volume of subacromial-subdeltoid bursal fluid (T2 coronal images 9-11). Normal visualized coracohumeral and coracoacromial ligaments. Normal deltoid muscle. Normal trapezius muscle. MRI/Upper Ext Joint Only(Routine) IMPRESSION: Small partial-thickness tear and mild tendinosis of the supraspinatus tendon. Small partial-thickness tear and mild tendinosis of the infraspinatus tendon. Acromioclavicular arthrosis. Very mild subacromial-subdeltoid bursitis. Electronically Signed: Orville Chandler MD at 8:37 EDT ,
--- NOTE | 2021-05-29 16:01 | MRI_ITS ---
EXAM: MR LEFT UPPER EXTREMITY WITHOUT INTRAVENOUS CONTRAST, SHOULDER CLINICAL INDICATION: pain TECHNIQUE: Multiplanar and multisequence MR images of the left shoulder without intravenous contrast. This report was created using [employer] report [employer] technology. COMPARISON: None. FINDINGS: TENDONS: SUPRASPINATUS: Full-thickness tearing at the insertion of the supraspinatus tendon. INFRASPINATUS: Linear interstitial tear involving the infraspinatus tendon (extending all the way to the musculotendinous junction) and supraspinatus tendon at their respective footprints. SUBSCAPULARIS: Unremarkable. Intact. TERES MINOR: Unremarkable. Intact. BICEPS BRACHII, LONG HEAD: Lungs the biceps tendon is intact. The extra-articular biceps tendon is in the bicipital groove. LIGAMENTS: GLENOHUMERAL: Unremarkable. Intact. MUSCLES: No muscle atrophy or edema. FLUID: Unremarkable. No joint effusion. No subacromial-subdeltoid space bursal fluid. CARTILAGE: Unremarkable. Articular cartilage intact. GLENOID LABRUM: No labral tear. BONES/JOINTS: Unremarkable. No fracture. No abnormal bone marrow signal. OTHER SOFT TISSUES: Unremarkable. No rotator interval edema. MRI/Upper Ext Joint Only(Routine) IMPRESSION: 1. Focal full-thickness tear at the insertion of the supraspinatus tendon. 2. Low-grade partial-thickness tear involving the interstitial portion of the supraspinatus and infraspinatus tendon which are likely to be concealed at the time of arthroscopy. Electronically Signed: Bolivar Mcpherson MD at 4:30 EDT ,
== END 2021-05-29 23:59 | disposition home or self-care (01) ==
LOC: MRI 15:05
PROVIDERS: PCP Family Medicine Geriatric Medicine; Referring Provider Orthopaedic Surgery; Visit Provider Orthopaedic Surgery
DX: M75.21 Bicipital tendinitis, right shoulder (principal); M75.22 Bicipital tendinitis, left shoulder; M75.51 Bursitis of right shoulder; M75.52 Bursitis of left shoulder; M75.42 Impingement syndrome of left shoulder
CPT/HCPCS: 73221

== ENCOUNTER → 2021-08-24 | Outpatient (CLI) | payer BC, SELFPAY ==
--- NOTE | 2021-08-24 11:37 | CT_ITS ---
EXAM: CT ABDOMEN AND PELVIS WITH INTRAVENOUS CONTRAST CLINICAL INDICATION: ABD PAIN TECHNIQUE: Helically acquired images were obtained of the abdomen and pelvis with intravenous contrast. This CT exam was performed using one or more of the following dose reduction techniques: automated exposure control, adjustment of the mA and/or kV according to patient size, and/or use of iterative reconstruction technique. This report was created using [employer] report generation technology. CONTRAST: IV 100mL Isovue-300 COMPARISON: None. FINDINGS: LOWER THORAX: Unremarkable. Lung bases are clear. No cardiomegaly. No significant pericardial effusion. ABDOMEN: LIVER: Unremarkable. Homogeneous. No focal mass. GALLBLADDER AND BILE DUCTS: Unremarkable. No calcified gallstones. No gallbladder distention or wall edema. No intra- or extrahepatic biliary ductal dilation. PANCREAS: Unremarkable. No focal cystic or solid mass. SPLEEN: Unremarkable. Normal size without focal cystic or solid mass. ADRENALS: Unremarkable. No nodules. KIDNEYS AND URETERS: Unremarkable. Normal renal size and position. No hydronephrosis. STOMACH AND BOWEL: Unremarkable. No stomach or bowel distention. No focal inflammatory change. PELVIS: APPENDIX: No evidence of acute appendicitis. BLADDER: Unremarkable. REPRODUCTIVE: Unremarkable as visualized. No mass. ABDOMEN and PELVIS: INTRAPERITONEAL SPACE: Unremarkable. No ascites or other fluid collection. No free air. BONES/JOINTS: Unremarkable. No suspicious lytic or blastic abnormality. SOFT TISSUES: Unremarkable. No discrete abdominal or pelvic wall hernia. VASCULATURE: Unremarkable. Abdominal aorta is non-dilated. LYMPH NODES: Unremarkable. No enlarged lymph nodes. CT/Abdomen/Pelvis WITH Contrast IMPRESSION: Negative CT of the abdomen and pelvis with intravenous contrast. Electronically Signed: Micheal Sullivan MD at 14:29 EDT ,
[2021-08-24 12:30] LABS: Absolute Lymphocyte Count 2.88 X10^3/uL (0.83-4.51); Absolute Neutrophil Count 6.5 X10^3/uL (2.0-7.7); Basophil# 0.04 X10^3/uL; Basophil% 0.4 % (0-1); Eosinophil# 0.03 X10^3/uL; Eosinophils% 0.3 % (0-5); Hematocrit 43.9 % (40-54); Hemoglobin 14.9 g/dL (13.0-16.5); Lymphocyte # 2.88 X10^3/ul (0.83-4.51); Lymphocyte % 28.6 % (19-41); Mean Corp Hgb Conc 33.9 g/dL (32-36); Mean Corpuscular Hgb 32.7 pg (27.0-32.0); Mean Corpuscular Volume 96.3 fL (80-94); Mean Platelet Vol. 11.6 fl (6.2-12.0); Monocyte# 0.54 X10^3/uL; Monocyte% 5.4 % (0-10); NRBC Flagged by Analyzer 0 % (0-5); Neutrophil # 6.53 X10^3/uL (2.7-7.7); Neutrophil % 64.8 % (47-70); Platelet Count 271 K/mm3 (150-450); RBC Distribution Width CV 13.1 % (11.6-14.6); Red Blood Count 4.56 M/mm3 (4.6-6.2); White Blood Count 10.1 K/mm3 (4.4-11.0)
[2021-08-24 12:45] LABS: ALB/GLOB Ratio 1.2 RATIO (0.9-2.4); AST(SGOT) 21 U/L (15-37); Alanine Aminotransfer ALT/SGPT 63 U/L (16-61); Albumin, Serum 4.2 g/dL (3.2-5.0); Alkaline Phosphatase 82 U/L (45-117); Anion Gap 5 (5-15); BUN 15 mg/dL (7-18); BUN/Creat Ratio 16.6 RATIO (10-20); Calcium,Total 9.7 mg/dL (8.5-10.1); Chloride 105 mmol/L (98-107); EST Glomerular Filtration Rate 92 mL/min (>60); Est Glom Filt Rate - Afr Amer 111 mL/min (>60); Globulin 3.5 g/dL (2.2-4.2); Glucose 99 mg/dL (74-106); Potassium 4.3 mmol/L (3.5-5.1); Protein, Total 7.7 g/dL (6.4-8.2); Sodium Level 139 mmol/L (136-145)
== END | disposition home or self-care (01) ==
LOC: CT 11:22
PROVIDERS: PCP Family Medicine Geriatric Medicine; Visit Provider Family Medicine Geriatric Medicine
DX: R10.9 Unspecified abdominal pain (principal)
CPT/HCPCS: 36415; 74177; 80053; 85025; Q9967

== ENCOUNTER → 2022-02-13 | Outpatient (CLI) | payer BC, SELFPAY ==
[2022-02-13 17:03] LABS: Absolute Lymphocyte Count 2.83 X10^3/uL (0.83-4.51); Absolute Neutrophil Count 2.8 X10^3/uL (2.0-7.7); Basophil# 0.05 X10^3/uL; Basophil% 0.8 % (0-1); Eosinophils% 4.6 % (0-5); Hemoglobin 14.4 g/dL (13.0-16.5); Lymphocyte # 2.83 X10^3/ul (0.83-4.51); Lymphocyte % 43.5 % (19-41); Mean Corp Hgb Conc 33.5 g/dL (32-36); Mean Corpuscular Hgb 31.9 pg (27.0-32.0); Mean Corpuscular Volume 95.1 fL (80-94); Mean Platelet Vol. 11.4 fl (6.2-12.0); Monocyte# 0.49 X10^3/uL; Monocyte% 7.5 % (0-10); NRBC Flagged by Analyzer 0 % (0-5); Neutrophil # 2.82 X10^3/uL (2.7-7.7); Neutrophil % 43.3 % (47-70); Platelet Count 208 K/mm3 (150-450); RBC Distribution Width CV 13.2 % (11.6-14.6); RBC Distribution Width SD 46.5 fl (35.1-43.9); Red Blood Count 4.52 M/mm3 (4.6-6.2); White Blood Count 6.5 K/mm3 (4.4-11.0)
[2022-02-13 17:55] LABS: ALB/GLOB Ratio 1.3 RATIO (0.9-2.4); AST(SGOT) 14 U/L (15-37); Alanine Aminotransfer ALT/SGPT 27 U/L (16-61); Albumin, Serum 3.7 g/dL (3.2-5.0); Alkaline Phosphatase 83 U/L (45-117); Anion Gap 5 (5-15); BUN 18 mg/dL (7-18); BUN/Creat Ratio 21.1 RATIO (10-20); Calcium,Total 8.6 mg/dL (8.5-10.1); Chloride 109 mmol/L (98-107); Creatinine, Serum 0.85 mg/dL (0.70-1.30); EST Glomerular Filtration Rate 98 mL/min (>60); Est Glom Filt Rate - Afr Amer 119 mL/min (>60); Globulin 2.9 g/dL (2.2-4.2); Glucose 77 mg/dL (74-106); PSA,Total - Annual Screen 0.21 ng/mL (0.00-4.00); Potassium 3.8 mmol/L (3.5-5.1); Protein, Total 6.6 g/dL (6.4-8.2); Sodium Level 142 mmol/L (136-145); Thyroid Stim Hormone (TSH) 3.03 uIU/mL (0.358-3.74)
== END | disposition home or self-care (01) ==
LOC: POLAB3 15:54
PROVIDERS: PCP Family Medicine Geriatric Medicine; Visit Provider Family Medicine Geriatric Medicine
DX: R53.83 Other fatigue (principal); Z12.5 Encounter for screening for malignant neoplasm of prostate
CPT/HCPCS: 36415; 80053; 84153; 84443; 85025; G0103

== ENCOUNTER → 2023-04-29 | Outpatient (CLI) | payer BC, SELFPAY ==
[2023-04-29 16:26] LABS: Absolute Lymphocyte Count 3.17 X10^3/uL (0.83-4.51); Basophil# 0.05 X10^3/uL; Basophil% 0.7 % (0-1); Eosinophil# 0.37 X10^3/uL; Eosinophils% 5.3 % (0-5); Hematocrit 39.9 % (40-54); Lymphocyte # 3.17 X10^3/ul (0.83-4.51); Lymphocyte % 45.4 % (19-41); Mean Corp Hgb Conc 32.6 g/dL (32-36); Mean Corpuscular Hgb 30.4 pg (27.0-32.0); Mean Corpuscular Volume 93.4 fL (80-94); Mean Platelet Vol. 11.1 fl (6.2-12.0); Monocyte# 0.35 X10^3/uL; NRBC Flagged by Analyzer 0 % (0-5); Neutrophil # 3.02 X10^3/uL (2.7-7.7); Neutrophil % 43.3 % (47-70); Platelet Count 266 K/mm3 (150-450); RBC Distribution Width CV 12.4 % (11.6-14.6); RBC Distribution Width SD 42.5 fl (35.1-43.9); Red Blood Count 4.27 M/mm3 (4.6-6.2)
[2023-04-29 16:42] LABS: ALB/GLOB Ratio 1.1 RATIO (0.9-2.4); AST(SGOT) 16 U/L (15-37); Alanine Aminotransfer ALT/SGPT 18 U/L (16-61); Albumin, Serum 3.6 g/dL (3.2-5.0); Alkaline Phosphatase 109 U/L (45-117); Anion Gap 5 (5-15); BUN 15 mg/dL (7-18); BUN/Creat Ratio 18.5 RATIO (10-20); Calcium,Total 8.8 mg/dL (8.5-10.1); Chloride 108 mmol/L (98-107); Creatinine, Serum 0.81 mg/dL (0.70-1.30); EST Glomerular Filtration Rate 103 mL/min (>60); Est Glom Filt Rate - Afr Amer 125 mL/min (>60); Globulin 3.4 g/dL (2.2-4.2); Glucose 85 mg/dL (74-106); PSA,Total - Annual Screen 0.26 ng/mL (0.00-4.00); Potassium 3.9 mmol/L (3.5-5.1); Sodium Level 142 mmol/L (136-145); Thyroid Stim Hormone (TSH) 2.63 uIU/mL (0.358-3.74)
== END | disposition home or self-care (01) ==
LOC: POLAB3 14:38
PROVIDERS: PCP Family Medicine Geriatric Medicine; Visit Provider Family Medicine Geriatric Medicine
DX: Z12.5 Encounter for screening for malignant neoplasm of prostate (principal); R53.83 Other fatigue
CPT/HCPCS: 36415; 80053; 84153; 84443; 85025; G0103

== ENCOUNTER 2023-05-07 08:02 | Day surgery (SDC) | payer BC, SELFPAY ==
--- NOTE | 2023-04-29 13:35 | EKG12_ITS ---
Test Reason : PRE OP Blood Pressure : / mmHG Vent. Rate : 052 BPM Atrial Rate : 052 BPM P-R Int : 168 ms QRS Dur : 100 ms QT Int : 436 ms P-R-T Axes : 072 070 063 degrees QTc Int : 405 ms Sinus bradycardia Otherwise normal ECG Confirmed by Chilo Johnson ([id number]), acquisitions editor TRAMAINE CORTÉS ([id number]) on 04/30/2023 8:08:31 AM Referred By: James Justin Confirmed By:Chilo Johnson
[2023-05-07] VITALS (8 sets, daily range): BP systolic 125–145; BP diastolic 80–90; PULSE 51–71; RESP 14–16; TEMP 36.3–37.1; O2SAT 96–100; BMI 22.4
[2023-05-07] MEDS: Lactated Ringers 1,000 ML 15 ML IV (08:30)
--- OUTSIDE RECORDS SUMMARY | 2023-05-07 08:51 | XMS RPT_ITS | CCD ---
Author Name Unknown Address [address] [place] [id number] Organization [facility] Care Team Providers Care Health Information Clerk Name Role Phone Rogelio Anderson Chi Primary Care Provider [phone] CARI BRIAN Attending [facility] PHYSICIAN, NONE Primary Care Unavailable Allergies Allergy Classification Reported Allergen(s) Allergy Type Date of Onset Reaction(s) Facility (1 source) Acetaminophen / oxyCODONE Drug Allergy 7 Other: See Comments [facility] (1 source) Clarithromycin Drug Allergy 5 GI Upset [facility] Medications Current Medications Medication Drug Class(es) Dates Sig (Normalized) Sig (Original) amoxicillin 875 mg / clavulanate 125 mg oral tablet (1 source) Penicillin-class Antibacterial Start: 10-27-2021 End: 11-01-2021 take 1 tablet by mouth twice daily amoxicillin-clav ulanic acid (AUGMENTIN) 875-125 mg per tablet Indications: Viral URI with cough Take 1 tablet by mouth twice daily for 5 days. 10 tablet 0 10/27/2021 11/01/2021 Active Completed/Discontinued Medications Medication Drug Class(es) Dates Sig (Normalized) Sig (Original) cyclobenzaprine hydrochloride 10 mg oral tablet (1 source) Muscle Relaxant Start: 10-02-2021 take 1 tablet by mouth once daily cyclobenzaprine (FLEXERIL) 10 mg tablet Take 10 mg by mouth once daily. 0 10/02/2021 Active Problems Problem Classification Problem Date Documented Da te Episodic/Chronic Other circulatory disease (1 source) Elevated blood pressure; Translations: [Elevated blood-pressure reading, without diagnosis of hypertension] Episodic Other upper respiratory infections (1 source) Viral upper respiratory tract infection; Translations: [Acute upper respiratory infection, unspecified] Episodic Residual codes; unclassified (1 source) Past medication; Translations: [Personal history of other drug therapy] Episodic Results Test Name Value Interpretation Reference Range Facil ity Vital Signs Date Time Vital Sign Value Performing Clinician Johnny johnston 10-23-2021 14:22-0400 Body height 180.3 cm Nicolle Brewer APRN.EMORY Work Phone: [facility] 10-23-2021 14:22-0400 Body weight 78.47 kg Nicolle Brewer ADULT CARE MANAGER.FURNITURE RENTAL CONSULTANT Work Phone: [facility] 10-23-2021 14:22-0400 Diastolic blood pressure 80 mm[Hg] Nicolle Brewer ADULT CARE MANAGER.FURNITURE RENTAL CONSULTANT Work Phone: [facility] 10-23-2021 14:22-0400 Heart rate 69 /min Nicolle Brewer ADULT CARE MANAGER.FURNITURE RENTAL CONSULTANT Work Phone: [facility] 10-23-2021 14:22-0400 Respiratory rate 16 /min Nicolle Brewer ADULT CARE MANAGER.FURNITURE RENTAL CONSULTANT Work Phone: [facility] 10-23-2021 14:22-0400 Systolic blood pressure 153 mm[Hg] Nicolle Brewer ADULT CARE MANAGER.FURNITURE RENTAL CONSULTANT Work Phone: [facility] Encounters Encounter Date Encounter Type Care Provider Facility Start: 11-22-2021 End: 11-22-2021 ambulatory CARI SINGH APRN-EMORY Facility:A Start: 10-23-2021 End: 10-23-2021 Patient encounter procedure Nicolle Brewer APRN.FURNITURE RENTAL CONSULTANT Work Phone: [facility] Plan of Treatment Date Care Activity Detail Author Start: 11-15-2021 Influenza vaccination INFLUENZA (#1) [facility] Start: 08-10-2019 PROSTATE CANCER SCREENING DISCUSSION PROSTATE CANCER SCREENING DISCUSSION [facility] Start: 2014 SHINGRIX VACCINE (1 of 2) SHINGRIX VACCINE (1 of 2) [facility] Start: 2009 COLOGUARD (FIT-DNA) COLOGUARD (FIT-DNA) [facility] Start: 2009 Colonoscopy COLONOSCOPY [facility] Start: 2009 COLORECTAL CANCER SCREENING COLORECTAL CANCER SCREENING [facility] Start: [address] COLONOGRAPHY [facility] Start: 2009 DIABETES SCREEN DIABETES SCREEN [facility] Start: 2009 FECAL OCCULT BLOOD FECAL OCCULT BLOOD [facility] Start: 2009 SIGMOIDOSCOPY SIGMOIDOSCOPY [facility] Start: 08-10-1999 LIPID SCREEN LIPID SCREEN [facility] Start: 08-10-1983 Urine microalbumin profile DTAP,TDAP,TD (1 - Tdap) [facility] Start: 1982 HEPATITIS C SCREENING HEPATITIS C SCREENING [facility] Start: 1982 HIV SCREENING HIV SCREENING [facility] Start: 1976 Adult depression screening assessment DEPRESSION SCREENING [facility] Start: 02-09-1965 COVID-19 VACCINE (#1) COVID-19 VACCINE (#1) [facility] Start: 1964 HEPATITIS B (1 of 3 - 3-dose series) HEPATITIS B (1 of 3 - 3-dose series) [facility] SARS-CoV-2 (COVID-19 ) RNA [Presence] in Respiratory specimen by PO with probe detection 2019 CORONAVIRUS Microbiology Routine Viral URI with cough Ordered: 10/23/2021 [facility] Work Phone: Payers Date Payer Category Payer Unknown [id number] 2016 Unknown KIM RONNELL GARCIA PPO [id number] 2016-Present [phone] [id number] [place] [address] PPO [id number] 1965 Unknown [id number] Social History Date Type Detail Facility [facility] consumption unknown [facility] Start: 1965 Sex Assigned At Not on file C [facility] Start: 10-13-2021 End: 10-23-2021 Exposure to SARS-CoV-2 (event) Not sure [facility] Progress note 10-23-2021 Note Date & Type Note Facility 10-23-2021 Note HNO ID: [id number] Author: Nicolle Brewer APRN.FURNITURE RENTAL CONSULTANT Service: ? Author Type: Nurse Practitioner Type: Progress Notes Filed: 10/23/2021 2:41 PM Note Text: This note was created using NoteWriter. Subjective Gen Potts is a 56 year old male. HPI by patient: Gen Potts is a 56 year old male presenting to the office with the complaint of viral symptoms. Started approximately 4-5 days prior, on Friday. Associated symptoms include sinus congestion, facial pressure, right sided ear pain, headache, slight cough, chills, and fatigue. Has had nasal surgery. Denies shortness of breath, fevers, body aches, nausea, vomiting, and diarrhea. Vaccinated for influenza: yes. Covid Immunization Dates Overdue - COVID-19 VACCINE (1) Overdue - never done No completion, postpone, frequency change, or communication history exists for this topic. Personal history of Covid: none. Flu/RSV contacts: none. Strep contacts: none. Sick contacts: none. Covid + contacts: none. Travel in the last 14 days: none. Smoking history/second hand smoke: smoker. OTC saline lavage with vinegar. In the last 60 days no other antibiotic asides the Augmentin. ALLERGIES No Known Allergies No family history on file. Active Ambulatory Problems No Active Ambulatory Problems Resolved Ambulatory Problems No Resolved Ambulatory Problems No Additional Past Medical History Review of Systems Constitutional: Positive for chills and fatigue. Negative for fever. HENT: Positive for congestion, ear pain and sinus pressure. Negative for sore throat. Eyes: Negative. Respiratory: Positive for cough. Negative for shortness of breath. Cardiovascular: Negative. Gastrointestinal: Negative. Endocrine: Negative. Genitourinary: Negative. Musculoskeletal: Negative. Skin: Negative. Neurological: Positive for headaches. Objective BP 153/80 Pulse 69 Resp 16 Ht 180.3 cm (5' 11 ) Wt 78.5 kg (173 lb) BMI 24.13 kg/m? Physical Exam Vitals reviewed. Constitutional: General: He is awake. He is not in acute distress. Appearance: He is not ill-appearing, toxic-appearing or diaphoretic. HENT: Head: Normocephalic and atraumatic. Right Ear: Tympanic membrane, ear canal and external ear normal. Left Ear: Tympanic membrane, ear canal and external ear normal. Nose: Nose normal. Right Sinus: No maxillary sinus tenderness or frontal sinus tenderness. Left Sinus: No maxillary sinus tenderness or frontal sinus tenderness. Cardiovascular: Rate and Rhythm: Normal rate and regular rhythm. Pulmonary: Effort: Pulmonary effort is normal. Breath sounds: Normal breath sounds. Lymphadenopathy: Head: Right side of head: No submandibular or tonsillar adenopathy. Left side of head: No submandibular or tonsillar adenopathy. Cervical: No cervical adenopathy. Neurological: Mental Status: He is alert. Psychiatric: Behavior: Behavior is cooperative. Assessment and Plan (Z92.29) Antibiotic treatment within past 2 months (primary encounter diagnosis) (R03.0) Elevated blood pressure reading (J06.9) Viral URI with cough Plan: fluticasone (FLONASE ALLERGY RELIEF) 50 mcg/actuation nasal spray, dextromethorphan-guaiFENesin (MUCINEX DM) 30-600 mg per tablet, 2019 CORONAVIRUS, amoxicillin-clavulanic acid (AUGMENTIN) 875-125 mg per tablet Education on viral vs bacterial infections. Most viral infections will last 10 days, sometimes 14. It is possible to have back to back viral infections. An antibiotic will not treat a virus. -Covid test for rule out, results in 48 hours, isolation in the interim. Will call with result. Should you be positive and want outpatient covid treatment you can contact your primary care provider. If symptomatic for a full 10 days after starting supportive care, you may fill script for antibiotic. Please remember if no improvement, that is because this is likely not bacterial and needs to run it's course. -Drink lots of fluids and get plenty of rest. -Vaporizers, cool mist humidifiers, warm showers, and warm fluids help open respiratory and sinus passages. Clean humidifiers daily. -OTC tylenol as directed on the bottle. May use OTC Ibuprofen if there is no underlying blood pressure/heart disease. -Saline nasal spray as needed. Flonase twice daily can help reduce inflammation through the sinus cavities. -OTC Mucinex DM or generic version for cough/congestion for those over the age of 12. -Cough/deep breathing education, promote clearing of the airways and good lung expansion. -Make follow up with primary care for monitoring and resolution in symptoms, follow up in 2 weeks for blood pressure recheck. -Signs that warrant an ER evaluation: Sudden change/worsening in condition, lethargy, signs of dehydration, fever greater than 102 F that is not responding to Tylenol or ibuprofen (Motrin, Advil), drooling, difficulty swallowing, difficulty breathing, shortness o (more content not included)... [facility] History of Present illness Narrative 10-23-2021 Nicolle Brewer APRN.FURNITURE RENTAL CONSULTANT - 10/23/2021 2:19 PM EDT Note Date & Type Note Facility 10-23-2021 History of Presen t illness Narrative This note was created using RupeeTimesriter. Subjective Gen Potts is a 56 year old male. HPI by patient: Gen Potts is a 56 year old male presenting to the office with the complaint of viral symptoms. Started approximately 4-5 days prior, on Friday. Associated symptoms include sinus congestion, facial pressure, right sided ear pain, headache, slight cough, chills, and fatigue. Has had nasal surgery. Denies shortness of breath, fevers, body aches, nausea, vomiting, and diarrhea. Vaccinated for influenza: yes. Covid Immunization Dates Overdue - COVID-19 VACCINE (1) Overdue - never done No completion, postpone, frequency change, or communication history exists for this topic. Personal history of Covid: none. Flu/RSV contacts: none. Strep contacts: none. Sick contacts: none. Covid + contacts: none. Travel in the last 14 days: none. Smoking history/second hand smoke: smoker. OTC saline lavage with vinegar. In the last 60 days no other antibiotic asides the Augmentin. ALLERGIES No Known Allergies No family history on file. Active Ambulatory Problems No Active Ambulatory Problems Resolved Ambulatory Problems No Resolved Ambulatory Problems No Additional Past Medical History Review of Systems Constitutional: Positive for chills and fatigue. Negative for fever. HENT: Positive for congestion, ear pain and sinus pressure. Negative for sore throat. Eyes: Negative. Respiratory: Positive for cough. Negative for shortness of breath. Cardiovascular: Negative. Gastrointestinal: Negative. Endocrine: Negative. Genitourinary: Negative. Musculoskeletal: Negative. Skin: Negative. Neurological: Positive for headaches. Objective BP 153/80 Pulse 69 Resp 16 Ht 180.3 cm (5' 11 ) Wt 78.5 kg (173 lb) BMI 24.13 kg/m Physical Exam Vitals reviewed. Constitutional: General: He is awake. He is not in acute distress. Appearance: He is not ill-appearing, toxic-appearing or diaphoretic. HENT: Head: Normocephalic and atraumatic. Right Ear: Tympanic membrane, ear canal and external ear normal. Left Ear: Tympanic membrane, ear canal and external ear normal. Nose: Nose normal. Right Sinus: No maxillary sinus tenderness or frontal sinus tenderness. Left Sinus: No maxillary sinus tenderness or frontal sinus tenderness. Cardiovascular: Rate and Rhythm: Normal rate and regular rhythm. Pulmonary: Effort: Pulmonary effort is normal. Breath sounds: Normal breath sounds. Lymphadenopathy: Head: Right side of head: No submandibular or tonsillar adenopathy. Left side of head: No submandibular or tonsillar adenopathy. Cervical: No cervical adenopathy. Neurological: Mental Status: He is alert. Psychiatric: Behavior: Behavior is cooperative. Assessment and Plan (Z92.29) Antibiotic treatment within past 2 months (primary encounter diagnosis) (R03.0) Elevated blood pressure reading (J06.9) Viral URI with cough Plan: fluticasone (FLONASE ALLERGY RELIEF) 50 mcg/actuation nasal spray, dextromethorphan-guaiFENesin (MUCINEX DM) 30-600 mg per tablet, 2019 CORONAVIRUS, amoxicillin-clavulanic acid (AUGMENTIN) 875-125 mg per tablet Education on viral vs bacterial infections. Most viral infections will last 10 days, sometimes 14. It is possible to have back to back viral infections. An antibiotic will not treat a virus. -Covid test for rule out, results in 48 hours, isolation in the interim. Will call with result. Should you be positive and want outpatient covid treatment you can contact your primary care provider. If symptomatic for a full 10 days after starting supportive care, you may fill script for antibiotic. Please remember if no improvement, that is because this is likely not bacterial and needs to run it's course. -Drink lots of fluids and get plenty of rest. -Vaporizers, cool mist humidifiers, warm showers, and warm fluids help open respiratory and sinus passages. Clean humidifiers daily. -OTC tylenol as directed on the bottle. May use OTC Ibuprofen if there is no underlying blood pressure/heart disease. -Saline nasal spray as needed. Flonase twice daily can help reduce inflammation through the sinus cavities. -OTC Mucinex DM or generic version for cough/congestion for those over the age of 12. -Cough/deep breathing education, promote clearing of the airways and good lung expansion. -Make follow up with primary care for monitoring and resolution in symptoms, follow up in 2 weeks for blood pressure recheck. -Signs that warrant an ER evaluation: Sudden change/worsening in condition, lethargy, signs of dehydration, fever greater than 102 F that is not responding to Tylenol or ibuprofen (Motrin, Advil), drooling, difficulty swallowing, difficulty breathing, shortness of breath, chest pain, evidence of airway compromise (tripod position, neck extension, retractions), seizures, changes in mental status, or other concerns. The patient will pursue further outpatient evaluation with the primary care physician or another Urgent Care/Express Care as outlined in the after visit summary. The patient is agreeable to this plan of care and follow-up instructions have been explained in detail. The patient has received these instructions in written format and have expressed an understanding of the after visit summary. Medical Decision Making: Level: 3 - Low I spent a total of 20 minutes on the date of the service which included preparing to see the patient, [id number] patient care, completing clinical documentation, obtaining and/or reviewing separately obtained history, performing a medically appropriate examination, counseling and educating the patient/family/caregiver, and ordering medications, tests, or procedures. This patient encounter involved the screening or treatment of novel coronavirus infection (COVID-19). documented in this encounter [facility] Instructions 10-23-2021 Patient Instructions Note Date & Type Note Facility 10-23-2021 Instructions Nicolle Brewer APRN.CNP - 10/23/2021 2:19 PM EDT (Z92.29) Antibiotic treatment within past 2 months (primary encounter diagnosis) (R03.0) Elevated blood pressure reading (J06.9) Viral URI with cough Plan: fluticasone (FLONASE ALLERGY RELIEF) 50 mcg/actuation nasal spray, dextromethorphan-guaiFENesin (MUCINEX DM) 30-600 mg per tablet, 2019 CORONAVIRUS, amoxicillin-clavulanic acid (AUGMENTIN) 875-125 mg per tablet Education on viral vs bacterial infections. Most viral infections will last 10 days, sometimes 14. It is possible to have back to back viral infections. An antibiotic will not treat a virus. -Covid test for rule out, results in 48 hours, isolation in the interim. Will call with result. Should you be positive and want outpatient covid treatment you can contact your primary care provider. If symptomatic for a full 10 days after starting supportive care, you may fill script for antibiotic. Please remember if no improvement, that is because this is likely not bacterial and needs to run it's course. -Drink lots of fluids and get plenty of rest. -Vaporizers, cool mist humidifiers, warm showers, and warm fluids help open respiratory and sinus passages. Clean humidifiers daily. -OTC tylenol as directed on the bottle. May use OTC Ibuprofen if there is no underlying blood pressure/heart disease. -Saline nasal spray as needed. Flonase twice daily can help reduce inflammation through the sinus cavities. -OTC Mucinex DM or generic version for cough/congestion for those over the age of 12. -Cough/deep breathing education, promote clearing of the airways and good lung expansion. -Make follow up with primary care for monitoring and resolution in symptoms, follow up in 2 weeks for blood pressure recheck. -Signs that warrant an ER evaluation: Sudden change/worsening in condition, lethargy, signs of dehydration, fever greater than 102 F that is not responding to Tylenol or ibuprofen (Motrin, Advil), drooling, difficulty swallowing, difficulty breathing, shortness of breath, chest pain, evidence of airway compromise (tripod position, neck extension, retractions), seizures, changes in mental status, or other concerns. Clear. You re in the normal range. Straight mucus is mostly water, with proteins, antibodies and dissolved salts. Your nasal tissues produce it 24/7. Most of it flows down the back of your throat to be dissolved in the stomach. White. You re congested. Swollen, inflamed tissues in your nose are slowing the flow of mucus, causing it to lose moisture and become thick and cloudy. This can be a sign of a nasal infection or cold. Yellow. Your cold or infection is progressing. Infection-fighting cells might be rushing to the site of the microbial infection. White blood cells are among them as well. Once exhausted, they re carried off on the mucosal tide, lending it a yellowish tinge. Colds inevitably last 10 to 14 days. [place] down and wait it out. Green. Your immune system is really fighting back. The mucus is thick with white cells and other wreckage from the oliva. If you re still sick after about 12 days, you may want to see a doctor. It could be sinusitis, a bacterial infection. If you re feverish or nauseated, see a doctor soon. [place] or red. This is blood. Your nasal tissue in the nose has somehow become broken -- perhaps because it s dry, irritated or suffered some kind of impact. Brown. This shade could be blood, but likely it s something inhaled, like dirt, snuff or paprika. documented in this encounter [facility] Evaluation note 08-23-2021 Note Date & Type Note Facility documented in this encounter [facility] Summary Purpose Family History No Family History Records FoundNo Family History Records Found Advance Directives No Advanced Directives Records FoundNo Advanced Directives Records Found Additional Source Comments Source Comments (unrecognize d section and content) In the event this informatio n is protected by the Federal Confidentiality of Alcohol and Drug Abuse Patient Records regulations: The Federal rules restrict any use of the information to criminally investigate or prosecute any alcohol or drug abuse patient.[facility] Reason for Visit (unrecogniz ed section and content) Care Teams (unrecognized sec tion and content) (unrecognized sect ion and content) No Status Records FoundNo Status Records Found INFORMATION SOURCE (unrecogn ized section and content) DATE CREATED AUTHOR AUTHOR'S ORGANIZ ATION 11/27/2021 [facility] ([place]) FOR RECORDS PERTAINING TO PATIENTS WHO ARE OR HAVE BEEN ENROLLED IN A CHEMICAL DEPENDENCY/SUBSTANCEABUSE PROGRAM, SOME INFORMATION MAY BE OMITTED. This clinical summary was aggregated from multiple sources. Caution should be exercised in using it in the provision of clinical care. This summary normalizes information from multiple sources, and as a consequence, information in this document may materially change the coding, format and clinical context of patient data. In addition, data may be omitted in some cases. CLINICAL DECISIONS SHOULD BE BASED ON THE PRIMARY CLINICAL RECORDS. [facility]. provides no warranty or guarantee of the accuracy or completeness of information in this document.
--- NOTE | 2023-05-07 11:14 | PCM.HP.STD ---
HPI - General HPI Narrative GEN LÓPEZ, is a 57 M who presents for left shoulder arthroscopy, subacromial decompression, rotator cuff repair. no changes to h and p. shoulder marked. ok to proceed, rab and narcotic counselling, post op instructions given. MR#: [id number] Acct: [id number] Name: GEN LÓPEZ Rep #: [id number] : 1965 Provider: Dr. James Justin MD Age/Sex: 57/M Location: [facility] [place] Status: Signed Intake Vital Signs 04/21/2107:30 Height 5 ft 11 in Intake Visit Reasons: BI LAT SHOULDERS Chief Complaint: BL Shoulders Accompanied by: Self Is patient in pain?: Yes Allergies No Known Allergies Allergy (Verified 03/14/23 13:17) Medications naproxen sodium 220 mg capsule 440 mg PO BID 05/31/19 [History Confirmed 03/14/23] cyclobenzaprine 10 mg tablet 10 mg PO DAILY 04/27/21 [History Confirmed 03/14/23] tamsulosin 0.4 mg capsule 0.4 mg PO DAILY 04/27/21 [History Confirmed 03/14/23] tramadol 50 mg tablet 50 mg PO QHS 04/27/21 [History Confirmed 03/14/23] melatonin 10 mg capsule 10 mg PO HS PRN 04/05/22 [History Confirmed 03/14/23] pantoprazole 40 mg granules delayed-release for susp in packet 40 mg PO DAILY 04/05/22 [History Confirmed 03/14/23] pramipexole 1 mg tablet 1 mg PO BID 04/05/22 [History Confirmed 03/14/23] PFSH Medical History Cervicalgia Left rotator cuff tear Right rotator cuff tear Spondylosis of cervical region without myelopathy or radiculopathy Surgical History H/O shoulder surgery H/O sinus surgery Social History household members: spouse housing: house current occupational status: employed pets and animals: Yes Smoking Status: Current every day smoker tobacco type: cigarettes alcohol intake: never substance use type: does not use what type of physical activity do you participate in: none HPI BI LAT SHOULDERS Details: This documentation accurately reflects the service provided and the decisions made by me, Dr. James Justin MD 03/14/23 8603. Part of today?s visit was documented by [ ], acting as scribe. GEN LÓPEZ is a 57 year old M here today for bilateral shoulder pain. has had multiple injections into both shoulders. at first they were helping. in 2002 had an operation on the left side, bone spur per the patient did well for many years. then lots of problems. mostly anteriorly and 'inner' shoulder and posteriorly in the shoulder blade. 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 LHD. wakes him up at night. PT - went to [facility] [place] for a year. Ortho Exam General General: Yes no acute distress Neurologic: Yes alert and Yes oriented x3 Psychologic: Yes reasonable and appropriate Right Shoulder Skin/Wound: Yes CDI, No ecchymosis, No erythema and No swelling Testing: Positive Hawkin's, Neer's, TTP Biceps, empty can and belly press normal; Negative Speed's, TTP AC Joint, Drop Arm, cross arm or scapular winging SHOULDER: normal motor and sens to ax nerve, and MRU and AIN/PIN active fe 120, passive 160, er 45 Strength in forward elevation and external rotation both 4+/5. Strong radial pulse. Left Shoulder Skin/Wound: Yes CDI, No ecchymosis, No erythema and No swelling Testing: Yes Hawkin's, Yes Neer's, No Speed's, No TTP Biceps, No TTP AC Joint, Yes empty can, No Theresa, No scapular winging and Yes belly press normal SHOULDER: normal motor and sens to ax nerve, and MRU and AIN/PIN active fe 120, passive 160, er 45 Strength in forward elevation and external rotation both 4+/5. Strong radial pulse. Supplemental Info [facility] Imaging Services [address] [place] [address] Shoulder min 2 Views MR#: [id number] Acct: [id number] Name: GEN LÓPEZ . Rep #: [id number] : 1965 M 54 From: Silver Blair MD PCP: Dr. Rogelio Anderson MD Status: REG CLI Study: Shoulder min 2 Views Date of Exam: 08/26/19 Exam# [id number] Ordering Dr: Sowmya Conti MD STUDY: X-RAY - LEFT SHOULDER REASON FOR EXAM: Male, 54 years old. BILAT SHOULDER PAIN, RIGHT SIDE GREATER THAN LEFT SIDE. HX FALL TO RIGHT SHOULDER AND SURGERY TO LEFT SHOULDER TECHNIQUE: 4 view(s) of the shoulder. COMPARISON: None. FINDINGS: Normal glenohumeral articulation. Normal acromioclavicular joint. Normal acromion. Normal humeral head and visualized proximal humerus. The soft tissue structures are unremarkable. There is no demonstrated fracture. Normal visualized pulmonary apex. RAD/Shoulder min 2 Views IMPRESSION: Normal x-ray examination of the shoulder. Electronically Signed: Silver Blair MD at 14:58 EDT , Service support , [facility] Imaging Services [address] [place] [address] Shoulder min 2 Views MR#: [id number] Acct: [id number] Name: GEN LÓPEZ Jr. Rep #: [id number] : 1965 M 54 From: Silver Blair MD PCP: Dr. Rogelio Anderson MD Status: REG CLI Study: Shoulder min 2 Views Date of Exam: 08/26/19 Exam# [id number] Ordering Dr: Sowmya Conti MD STUDY: X-RAY - RIGHT SHOULDER REASON FOR EXAM: Male, 54 years old. BILAT SHOULDER PAIN, RIGHT SIDE GREATER THAN LEFT SIDE. HX FALL TO RIGHT SHOULDER AND SURGERY TO LEFT SHOULDER TECHNIQUE: 4 view(s) of the shoulder. COMPARISON: None. FINDINGS: Normal glenohumeral articulation. Normal acromioclavicular joint. Normal acromion. Normal humeral head and visualized proximal humerus. The soft tissue structures are unremarkable. There is no demonstrated fracture. Normal visualized pulmonary apex. RAD/Shoulder min 2 Views IMPRESSION: Normal x-ray examination of the shoulder. Electronically Signed: Silver Blair MD at 20:25 EDT , Service support , [facility] Imaging Services [address] [place] [id number] Upper Ext Joint Only(Routine) MR#: [id number] Acct: [id number] Name: GEN LÓPEZ Rep #: [id number] : 1965 M 55 From: Orville Chandler MD PCP: Dr. Rogelio Anderson MD Status: REG CLI Study: Upper Ext Joint Only(Routine) Date of Exam: 05/29/21 Exam# [id number] Ordering Dr: Sean Mckeon DO STUDY: MRI RIGHT SHOULDER REASON FOR EXAM: Right shoulder pain for 4 years. TECHNIQUE: Standardized fat and water weighted pulse sequences were obtained in all 3 orthogonal planes. COMPARISON: Radiographs 08/26/2019. FINDINGS: There is mild supraspinatus tendinosis and a small high-grade partial thickness tear of the articular surface of the distal anterior supraspinatus tendon at the greater tuberosity insertion (T2 coronal image 15; T2 sagittal image 17) measuring approximately 0.3 x 0.9 cm (length x width). There is mild infraspinatus tendinosis and a small low-grade partial-thickness tear of the articular surface of the distal infraspinatus tendon (T2 coronal image 8) measuring 0.3 cm in length. Normal subscapularis tendon. Normal teres minor tendon. Normal supraspinatus muscle. Normal infraspinatus muscle. Normal subscapularis muscle. Normal teres minor muscle. Normal glenohumeral articulation. Normal humeral head and visualized proximal humerus. Normal biceps labral complex. Normal intracapsular long biceps tendon. Normal labrum. Normal capsulo- ligamentous complex. There is acromioclavicular arthrosis with small undersurface osteophytes of the distal clavicle effacing the subacromial fat (T2 sagittal images 8, 9). There is a Type I morphology (flat undersurface), with a neutral orientation. There is a very small volume of subacromial-subdeltoid bursal fluid (T2 coronal images 9-11). Normal visualized coracohumeral and coracoacromial ligaments. Normal deltoid muscle. Normal trapezius muscle. MRI/Upper Ext Joint Only(Routine) IMPRESSION: Small partial-thickness tear and mild tendinosis of the supraspinatus tendon. Small partial-thickness tear and mild tendinosis of the infraspinatus tendon. Acromioclavicular arthrosis. Very mild subacromial-subdeltoid bursitis. Electronically Signed: Orville Chandler MD at 8:37 EDT Reading Location ID and State: [facility] / [place] Tel , Service support , [facility] Imaging Services [address] [place] [id number] Upper Ext Joint Only(Routine) MR#: [id number] Acct: [id number] Name: GEN LÓPEZ Rep #: [id number] : 1965 M 55 From: Bolivar Mcpherson MD PCP: Dr. Rogelio Anderson MD Status: REG CLI Study: Upper Ext Joint Only(Routine) Date of Exam: 05/29/21 Exam# [id number] Ordering Dr: Sean Mckeon DO EXAM: MR LEFT UPPER EXTREMITY WITHOUT INTRAVENOUS CONTRAST, SHOULDER CLINICAL INDICATION: pain TECHNIQUE: Multiplanar and multisequence MR images of the left shoulder without intravenous contrast. This report was created using [employer] report [employer] technology. COMPARISON: None. FINDINGS: TENDONS: SUPRASPINATUS: Full-thickness tearing at the insertion of the supraspinatus tendon. INFRASPINATUS: Linear interstitial tear involving the infraspinatus tendon (extending all the way to the musculotendinous junction) and supraspinatus tendon at their respective footprints. SUBSCAPULARIS: Unremarkable. Intact. TERES MINOR: Unremarkable. Intact. BICEPS BRACHII, LONG HEAD: Lungs the biceps tendon is intact. The extra-articular biceps tendon is in the bicipital groove. LIGAMENTS: GLENOHUMERAL: Unremarkable. Intact. MUSCLES: No muscle atrophy or edema. FLUID: Unremarkable. No joint effusion. No subacromial-subdeltoid space bursal fluid. CARTILAGE: Unremarkable. Articular cartilage intact. GLENOID LABRUM: No labral tear. BONES/JOINTS: Unremarkable. No fracture. No abnormal bone marrow signal. OTHER SOFT TISSUES: Unremarkable. No rotator interval edema. MRI/Upper Ext Joint Only(Routine) IMPRESSION: 1. Focal full-thickness tear at the insertion of the supraspinatus tendon. 2. Low-grade partial-thickness tear involving the interstitial portion of the supraspinatus and infraspinatus tendon which are likely to be concealed at the time of arthroscopy. Electronically Signed: Bolivar Mcpherson MD at 4:30 EDT Reading Location ID and State: [facility] [place] [facility] [place] / [place] Tel , Service support , Coding Level of Care Code Off vis,est,level 4 Diagnoses Subacromial bursitis of both shoulders M75.51; M75.52 Subacromial impingement of left shoulder M75.42 Subacromial impingement of right shoulder M75.41 Right rotator cuff tear M75.101 Left rotator cuff tear M75.102 Assessment and Plan Assessment and Plan (1) Subacromial bursitis of both shoulders: Status: Acute Plan: 57-year-old man bilateral shoulder pain and rotator cuff tears. These are small but the MRI was from 2 years ago however I favor this to be the same problem. Could consider getting new MRI but likely to be same picture. He had good results with subacromial decompression on the left side about 20 years ago. The patient has failed multiple rounds of conservative management over a year multiple injections the most recent one was about a week ago. His surgical option here would be arthroscopy subacromial decompression and rotator cuff repair we discussed the diagnosis prognosis aftercare and postop restrictions 2 weeks in the sling 6 weeks to regain range of motion and up to 3 to 6 months before going back to have any sort of heavy over head lifting. The patient is a 7 cigarette a day smoker that can increase the risks but the patient said he is going to quit. Other than that he does not have many surgical risks although I did warn him this can increase the chance of getting an infection the tendon not healing or having other problems postoperatively. He understands. Patient wishes to go ahead with left shoulder arthroscopy, subacromial decompression, rotator cuff repair. Booked and consented the patient for surgery today. We will delay this at least 6 weeks from last cortisone injection which was about a week ago dt incr chance of infection. Pros and cons risks and benefits were discussed with the patient including but not limited to infection, pain, stiffness, bleeding, damage to surrounding structures, neurovascular injury, recurrence or retear, failure or wear of hardware or fixation, instability, fracture, deep vein thrombosis and pulmonary embolism, anesthetic risks, , patient dissatisfaction, need for further surgery and other risks. Patient understood and wished to proceed with surgery, and signed the informed consent documentation. [facility] Medical History (Updated 04/28/23 @ 11:20 by Soco Tan) Anxiety Arthritis Back pain Cervicalgia Former smoker Gastric reflux History of steroid therapy Hx of head injury Injury of back Left rotator cuff tear Leg cramps Restless legs Right rotator cuff tear Spondylosis of cervical region without myelopathy or radiculopathy Wears contact lenses Home Medications naproxen sodium 220 mg capsule 220 mg PO BID 05/31/19 [History Last Taken Unknown] tamsulosin 0.4 mg capsule 0.4 mg PO DAILY 04/27/21 [History Last Taken Unknown] tramadol 50 mg tablet 50 mg PO QHS 04/27/21 [History Last Taken Unknown] melatonin 10 mg capsule 10 mg PO HS sleep 04/05/22 [History Last Taken Unknown] pramipexole 1 mg tablet 2 mg PO QHS 04/05/22 [History Last Taken Unknown] baclofen 10 mg tablet 10 mg PO QHS 04/28/23 [History Last Taken Unknown] multivitamin 1 tab PO DAILY 04/28/23 [History Last Taken Unknown] Allergy/AdvReac Type Severity Reaction Status Date / Time No Known Allergies Allergy Verified 05/07/23 08:24 Surgical History (Updated 04/28/23 @ 11:20 by Soco Tan) H/O shoulder surgery H/O sinus surgery History of ear surgery Social History household members: spouse housing: house current occupational status: employed pets and animals: Yes Smoking Status: Former smoker alcohol intake: never substance use type: does not use what type of physical activity do you participate in: none Vital Signs Vital Signs Vital Signs: 05/07/23 08:25 05/07/23 08:25 Temperature 98.7 F Temperature Source Temporal Pulse Rate 54 L Respiratory Rate 16 Respiratory Pattern Normal Blood Pressure 142/82 H Blood Pressure Mean 102 Blood Pressure Source Monitor Blood Pressure Position Semi-Fowlers Blood Pressure Location Right Arm Pulse Ox 100 Oxygen Delivery Method Room Air Weight Weight: 161 lb Body Mass Index (BMI) 22.4
--- NOTE | 2023-05-07 11:17 | SUR.PREOP ---
pt and family updated about delay
[2023-05-07] MEDS: Cefazolin 2 GM in 0.9% Normal Saline (100mL Bag) 100 ML IV (11:22)
[2023-05-07] MEDS: Epinephrine (1 mg/ml) 1 MG/ML VIAL (11:54)
--- NOTE | 2023-05-07 12:48 | OP.PCM_ITS ---
Problems Associated Problem List Diagnoses (1) Subacromial impingement of left shoulder: (2) Left rotator cuff tear: Report of Operation Date of Procedure: 05/07/23 Pre-Operative Diagnosis: L shoulder impingement and RC tear Post-Operative Diagnosis: same Surgery/Procedure Performed:: L shoulder arthroscopy, sub acromial decompression, RC repair Surgeon: James Justin Type of Anesthesia: Block,Regional and General Anesthesiologist: Fan Tom Estimated Blood Loss (mL): 50 Description of Procedure: Patient brought the operating room theater. Placed supine on the table. General anesthesia induced. 2 g IV Ancef administered prior to start of the procedure. Patient transferred to the left side up lateral decubitus beanbag positioner. Axillary roll used SCDs and legs all bony prominences padded. 10 pounds of inline traction with the arm in 35 degrees of abduction was used. Upp er extremity prepped and draped in the usual sterile fashion with chlorhexidine- based prep solution allowing over 3 minutes drying time prior to draping. Preoperative timeout performed to confirm the site patient with surgery. Began by inserting the scope into the intra-articular portion of the shoulder. Did a full diagnostic arthroscopy. Cartilage on the glenoid and humeral head was normal. Normal rotator interval normal, I made a standard inside-out spinal needle localized to anterior portal through the rotator interval just posterior to the biceps tendon. Biceps tendon appears normal no loose bodies. No SLAP tear. Slight fraying of the anterior labrum gently debrided. Obvious over 50% undersurface anterior leading edge tear of the supraspinatus tendon otherwise no rotator cuff tendon tears as well as upper border fraying of the subscapularis. arthroscope withdrawn into inserted into the subacromial space. Did a complete bursectomy for small amount of normal-appearing bursa and scar tissue. Identified the undersurface of the anterior leading edge of the acromion slight downsloping did a subacromial decompression to flat margins using a high-speed bur instrument. I had previously marked the tear through inside out with a spinal needle identified the tear. I completed this as it was almost full- thicknessabout 90%. I cleared away any soft tissue at the greater tuberosity. I slightly decorticated the bone as well as made multiple trephination's at the greater tuberosity for healing. I used inverted horizontal mattress fiber tape suture try to get the anterior limb anterior to the apex of the tear but the tissue was quite poor and frayed there it pulled out a few times so I had to put the stitch slightly posterior from the ideal position still very good bite into the tendon in that area. I then I used fiber link suture to create a ripstop configuration in the middle of the inverted horizontal mattress suture. I did a slight posterior to anterior shift of the tendon. I used the tap down to the second line and then inserted the [employer] bio composite swivel lock anchor 4.75 mm to appropriate depth at the lateral aspect of the GT. Turbine Blade Assembler was removed suture cut short and then I did use the knotless stay suture to then put another suture just anterior to my previous sutures to try to reapproximate the far anterior aspect of the tendon. This achieved good approximation of the 1 cm x 1 cm full-thickness tear. Arthroscopic pictures were taken and saved onto the system scope withdrawn. Skin cleaned with wet dry dressing followed by closure of the portals with 3-0 Monocryl sutures and Steri-Strips Adaptic 4 x 4 gauze ABD dressing cloth tape and abduction pillow sling for the upper extremity. Patient woken up from the general anesthetic transferred off the operating table taken postanesthetic care unit in stable addition. All sponge needle instrument counts were correct no complications. cpt 21358, [id number], ?[id number] Complications none Admit VTE Documentation VTE Present on Admission: No VTE Mechan Device Prophylaxis: SCD's VTE Pharm Prophylaxis ordered?: No Reason prophylaxis not ordered:: Treatment Not Indicated Procedures Musculoskeletal 20xxx-29xxx: Other Procedure See Report
--- NOTE | 2023-05-07 13:01 | DCINST_ITS ---
Discharge Instructions Diet Discharge Diet: No restrictions Activity Lifting Restrictions: pendulums 4x/day, ok for hand wrist elbow rom Dressing / Incision Call your doctor if your incision/area has: Continuous Slow Oozing, Sudden Increased Bleeding, Increased Pain/ Swelling, Increased Redness, Foul Smelling Discharge and Swelling at the incision site Change Dressing in: leave in place till F/U Follow Up Care Please Follow Up With: James Justin MD When: 2 days Test Results: Test results from this visit will be discussed in further detail at your follow- up appointment, if applicable. Discharge Plan Admission Attending Provider: James Justin Primary Care Provider: Rogelio Anderson Chi Instructions Patient Instructions: After Shoulder Arthroscopy Discharge Orders/Prescriptions Prescriptions: New oxycodone-acetaminophen [Endocet] 5-325 mg tablet 1 tab PO Q4H MDD 6 PRN (Reason: pain) 5 Days Qty: 30 0RF No Action tamsulosin 0.4 mg capsule 0.4 mg PO DAILY Patient Comments: take 1 capsule by mouth once daily take with dinner pramipexole 1 mg tablet 2 mg PO QHS melatonin 10 mg capsule 10 mg PO HS naproxen sodium 220 MG capsule 220 mg PO BID tramadol 50 mg tablet 50 mg PO QHS baclofen 10 mg tablet 10 mg PO QHS Patient Comments: take 1 tablet by mouth nightly multivitamin Tablet 1 tab PO DAILY Referrals / Follow Up: James Justin MD [Med Staff - Active Staff] - Rogelio Anderson Chi, MD [Primary Care Provider] - Disposition Disposition (needs filled in before D/C Order can be placed): Home, Self Care
== END 2023-05-07 14:14 | disposition home or self-care (01) ==
LOC: SDC 08:11 → AC 08:13
PROVIDERS: PCP Family Medicine Geriatric Medicine; Referring Provider Orthopaedic Surgery Sports Medicine; Visit Provider Orthopaedic Surgery Sports Medicine
PROC: (CPT 29805; principal; 2023-05-07 10:25)
DX: M75.102 Unspecified rotator cuff tear or rupture of left shoulder, not specified as traumatic (principal); M75.42 Impingement syndrome of left shoulder; M75.51 Bursitis of right shoulder; M75.52 Bursitis of left shoulder; M75.101 Unspecified rotator cuff tear or rupture of right shoulder, not specified as traumatic; M75.41 Impingement syndrome of right shoulder; M75.22 Bicipital tendinitis, left shoulder; F17.210 Nicotine dependence, cigarettes, uncomplicated; Z79.1 Long term (current) use of non-steroidal anti-inflammatories (NSAID); Z79.899 Other long term (current) drug therapy
CPT/HCPCS: 29826; 29827; 64415; 01630; 93005; J7120; J2405

== ENCOUNTER 2023-06-17 09:30 | Outpatient (RCR) | payer BC, SELFPAY ==
--- NOTE | 2023-05-14 10:12 | HP.PTEVAL_ITS ---
Patient's Visit Information Visit Information Visit Information: GEN LÓPEZ is a 57 year old M referred to Physical Therapy by Dr. James Justin MD with a diagnosis of L shoulder rot cuff repair 03/06/24. Date of Evaluation: 05/14/23 Physical Therapist: Bakari Sánchez, PT, ATC Visit Plan Frequency: 2-3x /Week Duration: 2-4 Months Plan: Begin with L shoulder PROM x 4 weeks, then progress to AROM. Begin strengthening when ordered by surgeon consisting of rot cuff strengthening, scap stab ex's, UBE, and HEP Subjective Subjective: DOS: 05/07/23. Pt reports he had a L rot cuff repair at that time. Pt reports he has lived with B shoulder pain chronically. Pt notes he had MRI's performed in 2021 which revealed B torn rot cuffs. Pt reports he has put the surgeries off secondary to work demanding the need for him to be there. Pt reports he has had significant sleep difficulty since DOS. Pt reports he has to sleep in an oversized moviie chair recliner in order to rest. Pt reports it is too early to tell if he is glad to have had the surgery yet secondary to pain. Pt is L hand dominant. Pt reports he still has intermittent L UE tingling and numbness at this time. 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 3/10 pain while sitting here at rest, 6/10 pain at worst. Pain L shoulder: Pain Intensity (Out of 10): 3 Pain Intensity Range: 6 Objective Objective: Neuro: B UE sensation is WNL to light touch. R bicipital reflex= 2/3 Observation: Incisions are healing well. No signs of infection. ROM: R shoulder AROM: flex= 125, abd= 100, ER= 55, IR= : L shoulder PROM flex= 80, abd= 80 MMT: R shoulder flex= 18, abd= 14, ER= 16, IR= 20; L shoulder not tested Balance/Special Test Scores Quick DASH Score: 65.9075 Goals Goal 1:: Decrease L shoulder pain x 50% to aid with sleep Goal Time Frame: 6-8 Weeks Goal 2:: Increase L shoulder flex and abd x 40 degrees to aid with overhead lifting Goal Time Frame: 6-8 Weeks Goal 3:: Increase L shoulder strength to equal 90 % of R shoulder to aid with RTW Goal Time Frame: 8-12 Weeks Goal 4:: I with HEP Goal Time Frame: 4-6 Weeks Rehabilitation Potential Physical Therapy Diagnosis: Pt has L shoulder pain, weakness, and limited ROM secondary to L rot cuff repair. Rehabilitation Potential: Good Anticipated Interventions Patient/Client Instruction: Educate patient on: Condition and Plan of Care For the Purpose of:: To improve self management Therapeutic Exercise to Include: Strength training, Endurance training, Flexibilty training, Passive ROM, Active ROM and Scapular Strength/Stabilization For the Purpose of:: To decrease pain, To increase ROM and To improve muscle performance and motor function Cryotherapy (ice pack, ice massage): Yes For the Purpose of:: To decrease pain Text: Thank you for the opportunity to evaluate your patient. For Medicare and Medicare HMO plans, please review the plan of care and approve it. It will need to be FAXED BACK to us at [phone] for Medicare purposes. For Medicare only, by signing this I certify the plan of care. Please let me know if there are questions or concerns regarding this plan of care. Physician Signature: Date:
--- NOTE | 2023-10-21 08:49 | HP.PT.NRP ---
Patient Information Patient Information: GEN LÓPEZ was seen in my office for initial evaluation on 05/14/23. The following Plan of Care was established for this patient: POC Established Initial Frequency: 2-3x /Week Initial Duration: 2-4 Months Anticipated Interventions Patient/Client Instruction: Educate patient on: Condition and Plan of Care For the Purpose of:: To improve self management Therapeutic Exercise to Include: Strength training, Endurance training, Flexibilty training, Passive ROM, Active ROM and Scapular Strength/Stabilization For the Purpose of:: To decrease pain, To increase ROM and To improve muscle performance and motor function Cryotherapy (ice pack, ice massage): Yes For the Purpose of:: To decrease pain Last Seen Last Seen: This patient was last seen in our office . Pertinent comments regarding their Physical therapy will appear below: Pt was treated for 5 PT visits for L shoulder pain through the date of 06/17/23. Pt has not returned through todays date and is discontinued at this time. At this point I will be discontinuing this patient from physical therapy. I would be happy to see this patient again in the future if found appropriate by the physician. Thank you! Bakari Sánchez, PT, ATC Balance/Gait/Functional tests Balance/Special Test Scores Quick DASH Score: 65.9075
== END 2023-06-17 19:00 | disposition home or self-care (01) ==
LOC: PT 09:30
PROVIDERS: PCP Family Medicine Geriatric Medicine; Referring Provider Orthopaedic Surgery Sports Medicine; Visit Provider Orthopaedic Surgery Sports Medicine
DX: M75.42 Impingement syndrome of left shoulder (principal); M75.102 Unspecified rotator cuff tear or rupture of left shoulder, not specified as traumatic
CPT/HCPCS: 97110; 97140; 97161

== ENCOUNTER → 2024-01-12 | Outpatient (CLI) | payer BC, SELFPAY ==
--- NOTE | 2024-01-12 16:12 | RAD_ITS ---
INDICATION: CHEST PAIN AND SOB EXAMINATION/TECHNIQUE: X-RAY - XR Chest 2 Views COMPARISON: No relevant prior comparison study available FINDINGS: LINES/DEVICES: None. LUNGS: No consolidation, edema or effusion. No pneumothorax. MEDIASTINUM AND CARDIOVASCULAR STRUCTURES: Cardiac silhouette not enlarged. Central airways and mediastinal contour are unremarkable. BONES AND SOFT TISSUES: Unremarkable. RAD/Chest PA and Lateral IMPRESSION: No radiographic evidence of acute cardiopulmonary disease. Electronically Signed: Hussein Pelayo MD at 11:16 EDT ,
[2024-01-12 17:16] LABS: Absolute Lymphocyte Count 3.42 X10^3/uL (0.83-4.51); Absolute Neutrophil Count 4.1 X10^3/uL (2.0-7.7); Basophil# 0.06 X10^3/uL; Basophil% 0.7 % (0-1); Eosinophil# 0.41 X10^3/uL; Eosinophils% 4.8 % (0-5); Hematocrit 45.5 % (40-54); Hemoglobin 14.8 g/dL (13.0-16.5); Lymphocyte # 3.42 X10^3/ul (0.83-4.51); Lymphocyte % 39.8 % (19-41); Mean Corp Hgb Conc 32.5 g/dL (32-36); Mean Corpuscular Hgb 30.3 pg (27.0-32.0); Mean Corpuscular Volume 93.2 fL (80-94); Monocyte# 0.58 X10^3/uL; Monocyte% 6.7 % (0-10); NRBC Flagged by Analyzer 0 % (0-5); Neutrophil % 47.7 % (47-70); Platelet Count 311 K/mm3 (150-450); RBC Distribution Width CV 13.1 % (11.6-14.6); RBC Distribution Width SD 44.9 fl (35.1-43.9); Red Blood Count 4.88 M/mm3 (4.6-6.2); White Blood Count 8.6 K/mm3 (4.4-11.0)
[2024-01-12 17:45] LABS: ALB/GLOB Ratio 0.9 RATIO (0.9-2.4); AST(SGOT) 14 U/L (15-37); Alanine Aminotransfer ALT/SGPT 25 U/L (16-61); Albumin, Serum 4.1 g/dL (3.2-5.0); Alkaline Phosphatase 128 U/L (45-117); Anion Gap 1 (5-15); BUN 16 mg/dL (7-18); BUN/Creat Ratio 18.3 RATIO (10-20); CPK Total, Creatine Kinase 88 U/L (39-308); Calcium,Total 9.9 mg/dL (8.5-10.1); Chloride 107 mmol/L (98-107); Creatinine, Serum 0.87 mg/dL (0.70-1.30); EST Glomerular Filtration Rate 95 mL/min (>60); Est Glom Filt Rate - Afr Amer 115 mL/min (>60); Globulin 4.4 g/dL (2.2-4.2); Glucose 88 mg/dL (74-106); Potassium 5.4 mmol/L (3.5-5.1); Protein, Total 8.5 g/dL (6.4-8.2); Sodium Level 137 mmol/L (136-145); Troponin-I HS 10 pg/mL (3.0-78.0)
[2024-01-12 18:15] LABS: D-Dimer Quantitative (DVT/PE) 0.51 FEU/ug/m (0.27-0.49)
[2024-01-14 08:13] LABS: Myoglobin, Serum 28 ng/mL (28-72)
== END | disposition home or self-care (01) ==
LOC: RAD 16:08 → LAB 16:24
PROVIDERS: PCP Family Medicine Geriatric Medicine; Referring Provider Family Medicine Geriatric Medicine; Visit Provider Family Medicine Geriatric Medicine
DX: I10 Essential (primary) hypertension (principal); R07.9 Chest pain, unspecified; R06.02 Shortness of breath; J40 Bronchitis, not specified as acute or chronic
CPT/HCPCS: 36415; 71046; 80053; 82550; 83874; 84484; 85025; 85379

== ENCOUNTER → 2024-01-13 | Outpatient (CLI) | payer BC, SELFPAY ==
--- NOTE | 2024-01-13 11:27 | CT_ITS ---
STUDY: CTA CHEST REASON FOR EXAM: Male, 58 years old. Other pulmonary embolism without acute cor pulmonale RADIATION DOSAGE (If Supplied By Facility): CTDIvol = ( 10.65 ) mGy, DLP = ( 423.60 ) mGycm TECHNIQUE: The examination was performed with the intravenous administration of IV 100mL Isovue-370. Post-processing of the angiographic images was performed, with multiplanar reformation and 3D reconstruction. The protocol utilizes one or more of the following dose reduction techniques: automated exposure control, adjustment of mA and/or kV according to patient size,and/or use of iterative reconstruction technique. COMPARISON: CT of the abdomen and pelvis dated August 24, 2021 FINDINGS: Normal enhancement of the main pulmonary artery and right and left pulmonary arteries. Normal enhancement of the bilateral peripheral pulmonary arteries. There is no demonstrated pulmonary embolism. Normal thoracic aorta and visualized great vessels. There is no demonstrated aortic dissection. There are calcifications of the coronary arteries. Normal mediastinum. There are mildly enlarged right hilar and mediastinal lymph nodes. Normal visualized trachea and bronchi. There are scattered bilateral groundglass opacities. There is minimal bibasilar atelectasis and/or scarring. Normal chest wall structures. There are degenerative changes of thoracic spine. Normal visualized upper abdomen. CT/CTA Chest W/WO Contrast IMPRESSION: No demonstrated pulmonary embolism or arterial dissection. Bilateral groundglass opacities, a nonspecific finding may reflect edema and/or an infectious process. Mildly enlarged right hilar and mediastinal lymph nodes, may be reactive. Atherosclerosis. Electronically Signed: Skylar Ambrosio MD at 11:58 EDT ,
--- OUTSIDE RECORDS SUMMARY | 2024-01-13 15:30 | XMS RPT_ITS | CCD ---
Author Organization [facility] Care Team Providers Care Tape Maker Name Role Phone Iftikhar Anderson [facility] Primary Care Provider CARI BRIAN Attending Unavailabl e PHYSICIAN, NONE Primary Care Unavailable DO QUIROS ALAN Attending Unavailable IFTIKHAR ANDERSON [facility] Primary Care Unavailable Allergies Allergy Classification Reported Allergen(s) Allergy Type Date of Onset Reaction(s) Facility (2 sources) Acetaminophen / oxyCODONE; Translations: [OXYCODONE-ACETAMI NOPHEN] Drug Allergy 7 Other: See Comments [facility] (2 sources) Clarithromycin; Translations: [CLARITHROMYCIN] Drug Allergy 5 GI Upset [facility] Medications Current Medications Medication Drug Class(es) Dates Sig (Normalized) Sig (Original) amoxicillin 875 mg / clavulanate 125 mg oral tablet (1 source) Penicillin-class Antibacterial Start: 10-27-2021 End: 11-01-2021 take 1 tablet by mouth twice daily amoxicillin-cla vulanic acid (AUGMENTIN) 875-125 mg per tablet Indications: Viral URI with cough Take 1 tablet by mouth twice daily for 5 days. 10 tablet 0 10/27/2021 11/01/2021 Active Comment on above: Take 1 tablet by bailey twice daily for 5 days. 12 hr dextromethorphan hydrobromide 30 mg / guaiFENesin 600 mg extended release oral tablet (1 source) Uncompetitive R-qtzkyh-U-aspartat e Receptor Antagonist, Sigma-1 Agonist Start: 10-23-2021 End: 10-30-2021 take 1 tablet by mouth twice daily dextromethorpha n-guaiFENesin (MUCINEX DM) 30-600 mg per tablet Indications: Viral URI with cough Take 1 tablet by mouth twice daily for 7 days. 14 tablet 0 10/23/2021 10/30/2021 Active Comment on above: Take 1 tablet by bailey th twice daily for 7 days. Completed/Discontinued Medications Medication Drug Class(es) Dates Sig (Normalized) Sig (Original) cyclobenzaprine hydrochloride 10 mg oral tablet (1 source) Muscle Relaxant Start: 10-02-2021 take 1 tablet by mouth once daily cyclobenzaprine (FLEXERIL) 10 mg tablet Take 10 mg by mouth once daily. 0 10/02/2021 Active Comment on above: Take 10 mg by mouth once daily. fluticasone propionate 0.05 mg/actuat metered dose nasal spray (1 source) Corticosteroid Start: 10-23-2021 take 1 spray(s) nasal route twice daily fluticasone (FLONASE ALLERGY RELIEF) 50 mcg/actuation nasal spray Indications: Viral URI with cough Use 1 [place] in each nostril twice daily. 1 Each 0 10/23/2021 Active Comment on above: Use 1 [place] in each nostril twice daily. magnesium oxide 400 mg oral tablet (1 source) Start: 08-27-2021 take 1 tablet by mouth once daily at bedtime magnesium oxide 400 mg magnesium tab Take 1 tablet by mouth daily at bedtime. 0 08/27/2021 Active Comment on above: Take 1 tablet by bailey th daily at bedtime. pantoprazole 40 mg delayed release oral tablet (1 source) Proton Pump Inhibitor Start: 09-21-2021 take 1 tablet by mouth twice daily pantoprazole DR (PROTONIX) 40 mg tablet Take 40 mg by mouth twice daily. 0 09/21/2021 Active Comment on above: Take 40 mg by mouth twice daily. pramipexole dihydrochloride 0.5 mg oral tablet (1 source) Nonergot Dopamine Agonist Start: 09-25-2021 take 1 tablet by mouth twice daily pramipexole (MIRAPEX) 0.5 mg tablet Take 0.5 mg by mouth twice daily. 0 09/25/2021 Active Comment on above: Take 0.5 mg by mouth twice daily. traMADol hydrochloride 50 mg oral tablet (1 source) Opioid Agonist Start: 10-02-2021 take 1 tablet by mouth twice daily traMADol (ULTRAM) 50 mg tablet Take 50 mg by mouth twice daily. 0 10/02/2021 Active Comment on above: Take 50 mg by mouth twice daily. Problems Problem Classification Problem Date Documented Da te Episodic/Chronic Essential hypertension (1 source) Essential (primary) hypertension; Translations: [Primary hypertension] Onset: 01-03-2024 Chronic Other circulatory disease (1 source) Elevated blood pressure; Translations: [Elevated blood-pressure reading, without diagnosis of hypertension] Episodic Other upper respiratory infections (1 source) Viral upper respiratory tract infection; Translations: [Acute upper respiratory infection, unspecified] Episodic Residual codes; unclassified (1 source) Past medication; Translations: [Personal history of other drug therapy] Episodic Residual codes; unclassified (1 source) Contact with and (suspected) exposure to other hazardous, chiefly nonmedicinal, chemicals; Translations: [Chemical exposure of eye] Onset: 01-03-2024 Episodic Substance-related disorders (1 source) Nicotine dependence, unspecified, uncomplicated; Translations: [Tobacco use disorder] Onset: 01-03-2024 Chronic Results Test Name Value Interpretation Reference Range Facil [facility] ED NOTEon 01-03-2024 ED NOTE HNO ID: [id number] Author: PATRICIA BARRAGAN, PHUONG Service: Emergency Medicine Author Type: Registered Nurse Type: ED Notes Filed: 01/03/2024 15:34 Note Text: Pt awake and alert at time of discharge. patient verbalizes understanding of discharge instructions and will follow up as recommended. Pt taken out to waiting room in wheelchair. Normal [facility] ED NOTE HNO ID: [id number] Author: TEJAS VENTURA RN Service: Emergency Medicine Author Type: Registered Nurse Type: ED Notes Filed: 01/03/2024 14:57 Note Text: pt tolerating eye wash station irrigation well Normal [facility] ED NOTE HNO ID: [id number] Author: CHEVY HERNANDEZ, PHUONG Service: Emergency Medicine Author Type: Registered Nurse Type: ED Notes Filed: 01/03/2024 14:43 Note Text: Pt states that today he accidentally got PVC primer in his right eye. PT states that he flushed his eyes 3 times after it happened and continues to have discomfort. Normal [facility] ED PROV NOTEon 01-03-2024 ED PROV NOTE HNO ID: [id number] Author: SAMSON QUIROS DO Service: Emergency Medicine Author Type: Physician Type: ED Provider Notes Filed: 01/03/2024 16:31 Note Text: ED Provider Note Patient Name: Yasmany Potts : 1965 SERVICE DATE: 01/03/24 History Patient presents with: Chemical Injury Eye This is a 58-year-old male patient who presents to the ED after exposure to right eye with PVC primer. It is a solvent utilized to prepare PVC pipes/plumbing pipes for gluing. It is not the glue. It is typically a combination of acetone and cyclohexanone as per the MDS. The pH of this is not available on the MDS. Poison control contacted. Patient complains of eye irritation and a little burning sensation in the lower eyelid. No blistering noted. No other exposure. No headache. No chest, back or abdominal pain. Patient otherwise without complaints he wears corrective lenses but only on the left side he. He does not utilize a corrective lenses at any time in the right eye and nor does he have 1 and now. No past medical history on file. No past surgical history on file. No family history on file. Social History Tobacco Use Smoking status: Not on file Smokeless tobacco: Not on file Substance and Sexual Activity Alcohol use: Not on file Drug use: Not on file Sexual activity: Not on file ALLERGIES Allergen Reactions Oxycodone-Acetamino* Other: See Comments Severe room spinning Clarithromycin GI Upset (Directed and focused review of systems obtained secondary to limited complaint) Review of Systems Constitutional: Negative for chills and fever. Eyes: Positive for redness. Negative for photophobia, discharge, itching and visual disturbance. Visual acuity 20/30 on involved side and 20/40 overall Skin: Negative for rash and wound. Physical Exam Vitals [01/03/24 1440] BP Pulse Temp Temp src Resp SpO2 Weight Height 172/95 78 37.1 ?C (98.7 ?F) Oral 20 98 % 78.5 kg (173 lb) -- (Directed and focused physical exam performed secondary limited complaint) Physical Exam Vitals reviewed. Constitutional: Appearance: Normal appearance. He is not ill-appearing or diaphoretic. Eyes: General: Lids are normal. Lids are everted, no foreign bodies appreciated. Vision grossly intact. Comments: The area that is encircled above is where he notes irritation however there is no skin findings. No erythema. No blistering. No cellulitis. No skin disruption or laceration. Visual acuity 20/30 on right-20/50 on the left and 20/40 overall Neurological: Mental Status: He is alert. Diagnostic Testing ED Labs Ordered and Reviewed - No data to display Procedures ED Course / Clinical Impression Clinical Impressions as of 01/03/24 1629 Chemical exposure of eye - Right Tobacco use disorder Primary hypertension MDM / Disposition / Plan This is a 58-year-old male patient who presents to ED. Poison control contacted. pH is not a factor with this substance as per their MDS and advised. They note the hydrocarbon component of the solvent is a problem should be in contact for prolonged period of time. Patient washed his eye 3 different times immediately after. We washed and flushed his eye at our eyewash station for approximately 20 minutes at arrival. His vision acuity is intact. He has minimal signs of conjunctival irritation. I will utilize tetracaine and fluorescein stain to see if there is any uptake. He has no signs of skin disruption. History and Record Review Clinical information obtained from an independent historian. History obtained from or confirmed by: see ED course. External record(s) reviewed: prior outpatient record. Findings from review of outpatient records: Last office visit was for multiple medical issues including cough Differential Diagnoses - Corneal injury - Globe injury/perforation is less likely for the following reason(s): HANDP not suggestive - Ocular foreign body is less likely for the following reason(s): HANDP not suggestive Re-evaluation Patient doing very well reassessment. After second flushing in the ED which was greater than 15 minutes at the eyewash station he had just a slight gritty sensation in the eye. No change in visual acuity as it was still intact. Poison control consulted. They have asked to be referred to the care assistant locally down the street from our facility. I given him that number. That has not appointment I can make for him. Patient placed on wetting drops. Encouraged to come back if symptoms get worse in any way. We discussed what to look for and when to return. Disposition The patient was discharged. Counseled patient and family regarding suspected diagnosis. SIGNATURE: DO Shaneka Lindsey ALAN 01/03/24 1631 Normal [facility] Vital Signs Date Time Vital Sign Value Performing Clinician Johnny johnston 10-23-2021 14:22-0400 Body height 180.3 cm Nicolle Brewer APRN.SUPERVISOR OF OFFICIALS Work Phone: [facility] 10-23-2021 14:22-0400 Body weight 78.47 kg Nicolle Brewer APRN.EMORY Work Phone: [facility] 10-23-2021 14:22-0400 Diastolic blood pressure 80 mm[Hg] Nicolle Brewer APRN.SUPERVISOR OF OFFICIALS Work Phone: [facility] 10-23-2021 14:22-0400 Heart rate 69 /min Nicolle Brewer TRACE CLERK.SUPERVISOR OF OFFICIALS Work Phone: [facility] 10-23-2021 14:22-0400 Respiratory rate 16 /min Nicolle Brewer APRN.SUPERVISOR OF OFFICIALS Work Phone: [facility] 10-23-2021 14:22-0400 Systolic blood pressure 153 mm[Hg] Nicolle Brewer APRN.SUPERVISOR OF OFFICIALS Work Phone: [facility] Encounters Encounter Date Encounter Type Care Provider Facility Start: 01-03-2024 End: 01-03-2024 Emergency department patient visit SAMSON QUIROS DO Facility:[facility] Start: 11-22-2021 End: 11-22-2021 ambulatory CARI ALANIS Facility: Start: 10-23-2021 End: 10-23-2021 Patient encounter procedure Nicolle Brewer APRN.SUPERVISOR OF OFFICIALS Work Phone: [facility] Comment on above: Antibiotic treatment within past 2 months (Primary Dx); Elevated blood pressure reading; Viral URI with cough Plan of Treatment Date Care Activity Detail Author Start: 11-15-2021 Influenza vaccination INFLUENZA (#1) [facility] Start: 08-10-2019 PROSTATE CANCER SCREENING DISCUSSION PROSTATE CANCER SCREENING DISCUSSION [facility] Start: 2014 SHINGRIX VACCINE (1 of 2) SHINGRIX VACCINE (1 of 2) [facility] Start: 2009 COLOGUARD (FIT-DNA) COLOGUARD (FIT-D NA) [facility] Start: 2009 Colonoscopy COLONOSCOPY [facility] Start: 2009 COLORECTAL CANCER SCREENING COLORECTAL CANCER SCREENING [facility] Start: [address] COLONOGRAPHY [facility] Start: 2009 DIABETES SCREEN DIABETES SCREEN [facility] Start: 2009 FECAL OCCULT BLOOD FECAL OCCULT BLOO D [facility] Start: 2009 SIGMOIDOSCOPY SIGMOIDOSCOPY [facility] Start: 08-10-1999 LIPID SCREEN LIPID SCREEN [facility] Start: 08-10-1983 Urine microalbumin profile DTAP,TDAP,TD (1 - Tdap) [facility] Start: 1982 HEPATITIS C SCREENING HEPATITIS C SC REENING [facility] Start: 1982 HIV SCREENING HIV SCREENING [facility] Start: 1976 Adult depression screening assessment DEPRESSION SCREENING [facility] Start: 02-09-1965 COVID-19 VACCINE (#1) COVID-19 VACCI NE (#1) [facility] Start: 1965 HEPATITIS B (1 of 3 - 3-dose series) HEPATITIS B (1 of 3 - 3-dose series) [facility] SARS-CoV-2 (COVID-19 ) RNA [Presence] in Respiratory specimen by PO with probe detection 2019 CORONAVIRUS Microbiology Routine Viral URI with cough Ordered: 10/23/2021 [facility] Work Phone: Comment on above: Ordered: 10/23/2021 Payers Date Payer Category Payer Unknown [id number] 2021 Unknown [id number] 2016 Unknown KIM GARCIA PPO [id number] 2016-Present [phone] [address] [place] [address] PPO [id number] 1965 Unknown [id number] Social History Date Type Detail Facility Tobacco smoking stat [facility] Tobacco smoking consumption unknown [facility] Start: 1965 Sex Assigned At Not on file [facility] Start: 10-13-2021 End: 10-23-2021 Exposure to SARS-CoV-2 (event) Not sure [facility] History of Present illness Narrative 10-23-2021 Nicolle Brewer APRN.[facility] - 10/23/2021 2:19 PM EDT Note Date & Type Note Facility 10-23-2021 History of Presen t illness Narrative This note was created using Swing by Swingriter. Subjective Yasmany Potts is a 56 year old male. HPI by patient: Yasmany Potts is a 56 year old male [...] which included preparing to see the patient, [id number] patient care, completing clinical documentation, obtaining and/or reviewing separately obtained history, performing a medically appropriate examination, counseling and educating the patient/family/caregiver, and ordering medications, tests, or procedures. This patient encounter involved the screening or treatment of novel coronavirus infection (COVID-19). documented in this encounter [facility] Instructions 10-23-2021 Patient Instructions Note Date & [...] Colds inevitably last 10 to 14 days. [place] down and wait it out. Green. Your immune system is really fighting back. The mucus is thick with white cells and other wreckage from the oliva. If you re still sick after about 12 days, you may want to see a doctor. It could be sinusitis, a bacterial infection. If you re feverish or nauseated, see a doctor soon. Orr or red. This is blood. Your nasal tissue in the nose has somehow become broken -- perhaps because it s dry, irritated or suffered some kind of impact. Brown. This shade could be blood, but likely it s something inhaled, like dirt, snuff or paprika. documented in this encounter [facility] Evaluation note 08-23-2021 Note Date & Type Note Facility 08-23-2021 Evaluation note Diagnosis Antibiotic treatment within past 2 months- Primary Elevated blood pressure reading Elevated blood pressure reading without diagnosis of hypertension Viral URI with cough Acute upper respiratory infections of unspecified site documented in this encounter [facility] Summary Purpose Family History No Family History [...] or prosecute any alcohol or drug abuse patient.[facility] Reason for Visit (unrecogniz ed section and content) Reason Comments Viral Syndrome Started 4 days ago Care Teams (unrecognized sec tion and content) Tape Maker Relationship Specialty Start Date End Date Justin Iftikhar Martinez [address] [facility] [address] [place] [address] PCP - General Gerontology 04/02/19 (unrecognized sect ion and content) No Status Records FoundNo Status Records Found INFORMATION SOURCE (unrecogn ized section and content) DATE CREATED AUTHOR [facility] DATE CREATED AUTHOR AUTHOR'S HUDSON YOUNG 01/05/2024 [facility] FOR RECORDS PERTAINING TO PATIENTS WHO ARE [...] BE BASED ON THE PRIMARY CLINICAL RECORDS. [employer] provides no warranty or guarantee of the accuracy or completeness of information in this document.
== END | disposition home or self-care (01) ==
PROVIDERS: PCP Family Medicine Geriatric Medicine; Referring Provider Family Medicine Geriatric Medicine; Visit Provider Family Medicine Geriatric Medicine
DX: I26.99 Other pulmonary embolism without acute cor pulmonale (principal); R68.83 Chills (without fever)
CPT/HCPCS: 71275; 87631; Q9967

== ENCOUNTER → 2024-01-14 | Outpatient (CLI) | payer BC, SELFPAY ==
[2024-01-14 16:53] LABS: Anion Gap 3 (5-15); BUN 16 mg/dL (7-18); Calcium,Total 9.1 mg/dL (8.5-10.1); Chloride 107 mmol/L (98-107); Creatinine, Serum 0.84 mg/dL (0.70-1.30); EST Glomerular Filtration Rate 99 mL/min (>60); Est Glom Filt Rate - Afr Amer 120 mL/min (>60); Glucose 83 mg/dL (74-106); Potassium 3.9 mmol/L (3.5-5.1); Sodium Level 139 mmol/L (136-145)
== END | disposition home or self-care (01) ==
PROVIDERS: PCP Family Medicine Geriatric Medicine; Referring Provider Family Medicine Geriatric Medicine; Visit Provider Family Medicine Geriatric Medicine
DX: I10 Essential (primary) hypertension (principal)
CPT/HCPCS: 36415; 80048

== ENCOUNTER → 2024-03-22 | Outpatient (CLI) | payer BC, SELFPAY ==
[2024-03-22 19:21] LABS: Amphetamine Urine VISTA NEGATIVE (<1000 ng/mL); Barbiturate Urine VISTA NEGATIVE (< 200 ng/mL); Benzodiazepine Urine VISTA NEGATIVE (< 200 ng/mL); Cocaine Urine VISTA NEGATIVE (< 300 ng/mL); Ecstacy Urine VISTA NEGATIVE (< 500 ng/mL); Methadone Urine VISTA NEGATIVE (< 300 ng/mL); PCP Urine VISTA NEGATIVE (< 25 ng/mL); THC Urine VISTA NEGATIVE (< 50 ng/mL); Vista UDS pH Range 5
== END | disposition home or self-care (01) ==
PROVIDERS: PCP Family Medicine Geriatric Medicine; Referring Provider Anesthesiology Pain Medicine; Visit Provider Anesthesiology Pain Medicine
DX: F11.20 Opioid dependence, uncomplicated (principal)
CPT/HCPCS: 80307

== ENCOUNTER → 2024-05-10 | Outpatient (CLI) | payer BC, SELFPAY | END | disposition home or self-care (01) | LOC: POLAB3 15:19 | PROVIDERS: PCP Family Medicine Geriatric Medicine; Visit Provider Family Medicine Geriatric Medicine | DX: R68.83 Chills (without fever) (principal) | CPT/HCPCS: 87631 ==

== ENCOUNTER → 2024-05-18 | Outpatient (CLI) | payer BC, SELFPAY | END | disposition home or self-care (01) | LOC: POLAB3 14:15 | PROVIDERS: PCP Family Medicine Geriatric Medicine; Visit Provider Family Medicine Geriatric Medicine | DX: R68.83 Chills (without fever) (principal) | CPT/HCPCS: 87631 ==

== ENCOUNTER → 2024-05-25 | Outpatient (CLI) | payer BC, SELFPAY ==
[2024-05-25 16:57] LABS: Absolute Lymphocyte Count 3.44 X10^3/uL (0.83-4.51); Absolute Neutrophil Count 4.8 X10^3/uL (2.0-7.7); Basophil# 0.04 X10^3/uL; Basophil% 0.5 % (0-1); Eosinophil# 0.07 X10^3/uL; Eosinophils% 0.8 % (0-5); Hematocrit 41.1 % (40-54); Lymphocyte # 3.44 X10^3/ul (0.83-4.51); Lymphocyte % 38.7 % (19-41); Mean Corp Hgb Conc 34.1 g/dL (32-36); Mean Corpuscular Volume 93.8 fL (80-94); Mean Platelet Vol. 10.8 fl (6.2-12.0); Monocyte# 0.55 X10^3/uL; Monocyte% 6.2 % (0-10); NRBC Flagged by Analyzer 0 % (0-5); Neutrophil # 4.75 X10^3/uL (2.7-7.7); Neutrophil % 53.5 % (47-70); Platelet Count 268 K/mm3 (150-450); RBC Distribution Width CV 13.7 % (11.6-14.6); RBC Distribution Width SD 47.3 fl (35.1-43.9); Red Blood Count 4.38 M/mm3 (4.6-6.2); White Blood Count 8.9 K/mm3 (4.4-11.0)
[2024-05-25 17:50] LABS: ALB/GLOB Ratio 1.4 RATIO (0.9-2.4); AST(SGOT) 19 U/L (<=37); Alanine Aminotransfer ALT/SGPT 18 U/L (<=46); Albumin, Serum 4.1 g/dL (3.5-5.0); Alkaline Phosphatase 74 U/L (40-129); Anion Gap 10 (5-15); BUN 18 mg/dL (4-19); Calcium,Total 9.2 mg/dL (7.6-11.0); Carbon Dioxide 24.2 mmol/L (21.0-32.0); Chloride 104 mmol/L (98-108); Creatinine, Serum 0.96 mg/dL (0.70-1.20); EST Glomerular Filtration Rate 91 (>60); Globulin 2.8 g/dL (2.2-4.2); Glucose 86 mg/dL (70-99); PSA,Total - Annual Screen 0.17 ng/mL (0.02-4.00); Protein, Total 6.9 g/dL (5.9-8.4); Sodium Level 138 mmol/L (133-145); Total Bilirubin 0.87 mg/dL (0.00-1.30)
== END | disposition home or self-care (01) ==
LOC: POLAB3 15:57
PROVIDERS: PCP Family Medicine Geriatric Medicine; Visit Provider Family Medicine Geriatric Medicine
DX: Z12.5 Encounter for screening for malignant neoplasm of prostate (principal); I10 Essential (primary) hypertension
CPT/HCPCS: 36415; 80053; 84153; 84443; 85025; G0103

== ENCOUNTER 2024-06-21 22:27 | Inpatient (IN) | payer BC, SELFPAY ==
[2024-06-21 22:30] VITALS: BP 154/88; PULSE 50; RESP 18; TEMP 36.6; O2SAT 98
[2024-06-21 22:33] VITALS: BMI 25.4
--- NOTE | 2024-06-21 22:46 | EKG12_ITS ---
Test Reason : ELEVATED TROPONINS Blood Pressure : */* mmHG Vent. Rate : 49 BPM Atrial Rate : 49 BPM P-R Int : 176 ms QRS Dur : 88 ms QT Int : 448 ms P-R-T Axes : 42 12 13 degrees QTcB Int : 404 ms Sinus bradycardia Inferior infarct , age undetermined Abnormal ECG Confirmed by LYLY CURRY MD ([id number]), image editor TRAMAINE CORTÉS ([id number]) on 06/24/2024 8:27:34 AM Referred By: NELLI Confirmed By: LYLY CURRY MD
--- NOTE | 2024-06-21 22:49 | CT_ITS ---
PROCEDURE: CTA CHEST W/WO CONTRAST 06/21/2024 REASON FOR EXAM: DYSPNEA TECHNIQUE: CTA axial imaging of the chest with intravenous contrast. Coronal and Sagittal reconstruction series were provided. 3D, 3D post processing, 3D reconstructions, Maximum intensity projection (MIPs) Volume rendering and Shaded surface rendering was provided. PATIENT PREPARATION: Per protocol CONTRAST: Isovue 370 VOLUME: 100 mL 18 gauge IV One or more dose reduction techniques were used (e.g., Automated exposure control, adjustment of the mA and/or kV according to patient size, use of iterative reconstruction technique). RADIATION DOSE SUMMARY: CTDlvol: 10.8 mGy DLP: 418.1 mGycm COMPARISON: Chest radiograph dated June 21, 2024 FINDINGS: Hardware: None available Lymph nodes: No lymphadenopathy Heart: Unremarkable RV/LV Diameter Ratio: Unremarkable Thoracic Aorta: Unremarkable Pulmonary Vessels: No evidence of acute pulmonary emboli through the major subsegmental branches. Most Proximal Level of Embolus (if embolus present): Lungs and Airways: Central airways are patent. Dependent bibasilar atelectasis. Pleura: Trace bilateral pleural effusion. Upper Abdomen: Unremarkable Bones: No aggressive osseous lesions. No acute fractures. CT/CTA Chest W/WO Contrast IMPRESSION: No evidence of pulmonary emboli up to the segmental arterial branches. More pe ripheral vessels are not well assessed. Reading Location: [facility]
[2024-06-21 22:58] LABS: Absolute Lymphocyte Count 2.79 X10^3/uL (0.83-4.51); Absolute Neutrophil Count 4.7 X10^3/uL (2.0-7.7); Basophil# 0.04 X10^3/uL; Basophil% 0.5 % (0-1); Eosinophil# 0.07 X10^3/uL; Eosinophils% 0.8 % (0-5); Hematocrit 39.6 % (40-54); Hemoglobin 13.6 g/dL (13.0-16.5); Lymphocyte # 2.79 X10^3/ul (0.83-4.51); Lymphocyte % 33.6 % (19-41); Mean Corp Hgb Conc 34.3 g/dL (32-36); Mean Corpuscular Hgb 32.5 pg (27.0-32.0); Mean Corpuscular Volume 94.5 fL (80-94); Monocyte# 0.66 X10^3/uL; NRBC Flagged by Analyzer 0 % (0-5); Neutrophil # 4.71 X10^3/uL (2.7-7.7); Neutrophil % 56.7 % (47-70); Platelet Count 239 K/mm3 (150-450); RBC Distribution Width CV 13.3 % (11.6-14.6); RBC Distribution Width SD 46.2 fl (35.1-43.9); Red Blood Count 4.19 M/mm3 (4.6-6.2); White Blood Count 8.3 K/mm3 (4.4-11.0)
[2024-06-21 23:07] LABS: Partial Thromboplast Time 28.6 Seconds (24.1-36.2); Prothrombin Time (Protime)PT. 13.1 SECONDS (11.7-14.9)
[2024-06-21 23:21] LABS: Pro- Brain NATRIURETIC PEPTIDE 368 pg/mL (<=900)
[2024-06-21 23:24] LABS: Anion Gap 12 (5-15); BUN 15 mg/dL (4-19); BUN/Creat Ratio 18.9 RATIO (10-20); Calcium,Total 8.7 mg/dL (7.6-11.0); Carbon Dioxide 21.2 mmol/L (21.0-32.0); Chloride 108 mmol/L (98-108); Creatinine, Serum 0.81 mg/dL (0.70-1.20); EST Glomerular Filtration Rate 102 (>60); Estimated Creatinine Clearance 104.58 ml/min (50-250); Glucose 105 mg/dL (70-99); Potassium 4.2 mmol/L (3.3-5.1); Sodium Level 141 mmol/L (133-145); Troponin T High Sensitivity 84 ng/L (<=22)
[2024-06-21 23:29] VITALS: PULSE 44; RESP 16; O2SAT 96
[2024-06-21] MEDS: Aspirin 81 MG TAB.CHEW 324 MG PO (23:29)
[2024-06-22] VITALS (11 sets, daily range): BP systolic 123–178; BP diastolic 77–102; PULSE 40–54; RESP 14–16; TEMP 36.2–36.8; O2SAT 95–100; BMI 24.7
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
--- NOTE | 2024-06-22 01:51 | EX.ED.DYSGE1 ---
HPI History of Present Illness Chief Complaint: Shortness of Breath Informant: patient and family Narrative Narrative: Patient is a 58-year-old male with past medical history of hypertension and tobacco abuse. He states he has been having intermittent chest discomfort and shortness of breath mainly with exertion for the last 1 to 2 weeks. He states that there is a strong family history of heart disease. Because of concern for cardio vascular event he was seen by his family doctor and outpatient laboratory studies were obtained. The patient's troponin was elevated at 73 and secondary to this he was sent to the ER for evaluation. Upon arrival to the ER he does confirm the history of intermittent shortness of breath and chest discomfort but states none are present at this time [facility] Medical History (Updated 06/22/24 @ 05:[address] Bolivar Lockett, ) Bilateral primary osteoarthritis of knee Bilateral knee pain Hx of head injury Wears contact lenses Anxiety History of steroid therapy Arthritis Back pain Injury of back Restless legs Gastric reflux Former smoker Leg cramps Left rotator cuff tear Right rotator cuff tear Cervicalgia Spondylosis of cervical region without myelopathy or radiculopathy Home Medications ?Medication ?Instructions ?Recorded ?Last Taken ?Type naproxen sodium 220 mg capsule 220 mg PO BID 05/31/19 Unknown History tamsulosin 0.4 mg capsule 0.4 mg PO DAILY 04/27/21 Unknown History melatonin 10 mg capsule 10 mg PO HS sleep 04/05/22 Unknown History multivitamin 1 tab PO DAILY 04/28/23 Unknown History tramadol 50 mg tablet 50 mg PO TID 05/20/23 Unknown History gabapentin 300 mg capsule 300 mg PO 4X/DAY 06/21/24 Unknown History metoprolol tartrate 25 mg tablet 25 mg PO BID 06/22/24 Unknown History Allergy/AdvReac Type Severity Reaction Status Date / Time No Known Allergies Allergy Verified 06/21/24 22:33 Surgical History History of arthroscopy of left shoulder History of ear surgery H/O shoulder surgery H/O sinus surgery Social History household members: spouse housing: house current occupational status: employed pets and animals: Yes Smoking Status: Former smoker alcohol intake: never substance use type: does not use what type of physical activity do you participate in: none ROS ROS ED Constitutional Constitutional ED: Denies chills or fever(s) Eyes Eyes: Denies blurry vision or change in vision ENT ENT ED: Denies sore throat Cardiovascular Cardiovascular: Reports chest pain; Denies palpitations or racing heartbeat Respiratory/Chest Respiratory/Chest: Reports dyspnea and dyspnea on exertion; Denies cough Gastrointestinal Gastrointestinal: Denies abdominal pain, diarrhea, nausea or vomiting Genitourinary Genitourinary ED: Denies dysuria Musculoskeletal Musculoskeletal: Denies myalgias Integumentary Denies rash Neurologic Neurologic: Denies headache(s) Hematologic/Lymphatic Hematologic/Lymphatic: Denies easy bleeding or easy bruising EXAM Physical Exam Const Vital Signs: 06/21/24 22:30 06/21/24 22:46 06/21/24 23:26 Temperature 97.8 F Temperature Source Oral Pulse Rate 50 L Respiratory Rate 18 Respiratory Effort Normal Blood Pressure 154/88 H Blood Pressure Mean 110 Pulse Ox 98 Oxygen Delivery Method Room Air Room Air 06/21/24 23:29 06/22/24 00:06 06/22/24 01:00 Temperature Temperature Source Pulse Rate 44 L 43 L 48 L Respiratory Rate 16 14 16 Respiratory Effort Blood Pressure 178/89 H 160/91 H Blood Pressure Mean 118 114 Pulse Ox 96 96 96 Oxygen Delivery Method Room Air Room Air Room Air 06/22/24 01:33 06/22/24 02:00 06/22/24 03:00 Temperature 98.0 F Temperature Source Pulse Rate 43 L 45 L 41 L Respiratory Rate 14 Respiratory Effort Blood Pressure 167/89 H Blood Pressure Mean 115 Pulse Ox 97 Oxygen Delivery Method Positive well nourished and well developed General Appearance ED: well developed; Negative for pallor HEENT HEENT Narrative: No tongue or lip swelling no oral lesions no airway edema or compromise No secondary findings in the posterior pharynx to suggest infection Eyes PERRL and EOMs intact bilaterally General Eye ED: Negative for scleral icterus Neck supple and no JVD Chest Wall palpation of chest normal Chest Narrative: No reproducible pain with palpation no bony deformity or subcutaneous emphysema noted Resp normal respiratory effort Resp Narrative: Breath sounds are slight diminished throughout with faint rhonchi in the bilateral bases consistent with history of smoking but no signs of respiratory distress Cardio regular rhythm Rate: bradycardia and other Other Details: Bradycardic rate with regular rhythm No murmurs rubs or gallops Radial and carotid pulses are equal and symmetric GI normal to inspection, nondistended, normoactive bowel sounds, non-tender, non-distended and no masses GI Narrative: No voluntary guarding or rigidity or pulsatile mass No fluid wave noted Auscultation: normoactive bowel sounds Palpation: soft Extremity normal to inspection Extremity Narrative: No asymmetric edema no pitting edema negative Homans' sign bilaterally Neuro oriented x3, CN's II-XII intact bilaterally and no sensory deficits noted Sensorium / Orientation: alert Motor Exam: strength 5/5 throughout Psych mental status grossly normal Skin no rashes or lesions noted General Skin Exam: Negative for jaundice or pallor MDM MDM MDM Narrative Medical decision making narrative: Patient arrived to the ER slightly hypertensive but has a past medical history of this. He denied any active chest pain at this time but reported intermittent symptoms with exertion over the last 1 to 2 weeks. With differential diagnosis being acute coronary syndrome versus cardiac dysrhythmia versus pulmonary embolus versus acute kidney injury I did elect to perform basic laboratory studies. Patient's creatinine is normal going against MATILDE. His initial troponin was 73 and the 2-hour delta trended up to 84. Based on the algorithm this is a rule in finding. In order to ensure that the mild elevation to his troponin was not related to a potential dissection or pulmonary embolus I did elect to perform a CTA of the chest. This revealed no acute findings. The case was discussed with cardiology on-call Dr. Hebert who recommends just treatment with aspirin at this time as he does not have EKG findings of ischemia and his troponins are elevated but essentially remaining flat. However he will require further inpatient workup and therefore the case was discussed with the hospitalist who agrees to accept the patient for continued care History & Record Review Discussion w/independent historian: Patient Lab Data Attestation: I reviewed the patient's lab results. Labs: Laboratory Results - last 24 hr 06/21/24 06/22/24 22:40 00:45 WBC 8.3 RBC 4.19 L Hgb 13.6 Hct 39.6 L MCV 94.5 H MCH 32.5 H MCHC 34.3 RDW Std Deviation 46.2 H RDW Coeff of Liz 13.3 Plt Count 239 MPV 11.0 Immature Gran % (Auto) 0.400 Neut % (Auto) 56.7 Lymph % (Auto) 33.6 [place] % (Auto) 8.0 Eos % (Auto) 0.8 Baso % (Auto) 0.5 Absolute Neuts (auto) 4.7 Absolute Lymphs (auto) 2.79 Nucleated RBC % 0 PT 13.1 INR 1.0 APTT 28.6 Sodium 141 Potassium 4.2 Chloride 108 Carbon Dioxide 21.2 Anion Gap 12 BUN 15 Creatinine 0.81 Estim Creat Clear Calc 104.58 Est GFR (MDRD) Non-Af 102 BUN/Creatinine Ratio 18.9 Glucose 105 H Hemoglobin A1c 5.4 L Calcium 8.7 Troponin T High Sens 84 H* D Troponin T Hi Sens 2 Hr 76 H* NT pro BNP II 368 Radiography Diagnostic Testing: Clinical Impression(s) from Imaging Studies Chest CTA 06/21/24 22:49 IMPRESSION: No evidence of pulmonary emboli up to the segmental arterial branches. More peripheral vessels are not well assessed. Reading Location: [facility] Management Discussion w/another healthcare provider: Hospitalist and Senior Information Security Consultant Discharge Plan Dx/Rx/DC Orders Clinical Impression: Elevated troponin, Essential hypertension, Tobacco abuse Disposition Disposition: Acute Care Hospital [facility] Discharge Date/Time: 06/22/24 03:21
[2024-06-22 02:51] LABS: Troponin T High Sens 2 HR 76 ng/L (<=22)
--- NOTE | 2024-06-22 03:29 | ECHOD_ITS ---
Reason For Study Reason For Study: CHEST PAIN Procedure This was a 2D Doppler, Color Flow transthoracic echocardiogram. Exam performed portable in ICU/CCU. Left Ventricle Normal LV size. The left ventricular ejection fraction is 60 %. No regional wall motion abnormalities noted. Right Ventricle Normal RV size. Normal systolic function. Atria Normal left atrium. Normal right atrium. Mitral Valve Normal mitral valve. Tricuspid Valve Normal tricuspid valve. Aortic Valve Trisinus/trileaflet aortic valve. Pulmonic Valve Normal pulmonic valve. Great Vessels Normal aortic root. The pulmonary artery is normal size. Normal inferior vena cava. Pericardium/Pleural No pericardial effusion. MMode/2D Measurements & Calculations LVIDd: 5.1 cm IVSd: 1.1 cm Ao root diam: 3.1 cm LVIDs: 2.9 cm LVPWd: 1.1 cm RVDd: 3.3 cm FS: 43.5 % LAV(MOD-bp): 36.3 ml LVAd ap4: 29.6 cm2 LVAd ap2: 22.0 cm2 LAV(MOD-bp) Indexed: 18.1 ml/m2 LVLd ap4: 7.9 cm LVLd ap2: 7.1 cm LAV(MOD-sp2): 34.9 ml EDV(MOD-sp4): 90.4 ml EDV(MOD-sp2): 57.5 ml LAV(MOD-sp4): 34.4 ml EDV(sp4-el): 94.6 ml EDV(sp2-el): 57.7 ml LVAs ap4: 13.6 cm2 LVAs ap2: 8.9 cm2 LVLs ap4: 6.4 cm LVLs ap2: 5.5 cm ESV(MOD-sp4): 25.6 ml ESV(MOD-sp2): 13.7 ml ESV(sp4-el): 24.6 ml ESV(sp2-el): 12.2 ml EF(MOD-sp4): 71.7 % EF(MOD-sp2): 76.2 % EF(sp4-el): 74.0 % SV(MOD-sp4): 64.8 ml SV(MOD-sp2): 43.8 ml SV(sp4-el): 70.0 ml SI(MOD-sp4): 32.4 ml/m2 SI(MOD-sp2): 21.9 ml/m2 LA A4 area: 14.7 cm2 LA dimension(2D): 3.7 cm RA A4 area: 14.2 cm2 TAPSE: 2.7 cm Time Measurements MV dec time: 0.21 sec Doppler Measurements & Calculations MV E max itz: 82.2 cm/sec Lat Peak E' Itz: 12.7 cm/sec Med Peak E' Itz: 10.0 cm/sec MV A max itz: 43.6 cm/sec E/E' lat: 6.5 E/E' med: 8.2 MV E/A: 1.9 MV V2 max: 84.9 cm/sec MV P1/2t max itz: 82.7 cm/sec Ao V2 max: 97.8 cm/sec MV max P.9 mmHg MV P1/2t: 55.6 msec Ao max P.8 mmHg MV V2 mean: 32.1 cm/sec Ao V2 mean: 64.5 cm/sec MV mean P.55 mmHg MV dec slope: 435.1 cm/sec2 Ao mean P.8 mmHg MV V2 VTI: 26.3 cm MVA(P1/2t): 4.0 cm2 Ao V2 VTI: 22.0 cm AV (velocity ratio): 0.90 LV V1 max: 90.1 cm/sec PA V2 max: 85.1 cm/sec LV V1 max P.2 mmHg PA V2 mean: 64.7 cm/sec LV V1 mean P.6 mmHg LV V1 mean: 58.6 cm/sec LV V1 VTI: 19.9 cm ECHO/Echo Complete Interpretation Summary The left ventricular ejection fraction is 60 %. Normal LV size. Structurally normal valves. Ordering Physician: Humberto Martinez Referring Physician: Rogelio Anderson Chi Performed By: Rosalinda Carias RDCS, RVT
--- NOTE | 2024-06-22 03:29 | EKG12_ITS ---
Test Reason : Blood Pressure : */* mmHG Vent. Rate : 41 BPM Atrial Rate : 41 BPM P-R Int : 176 ms QRS Dur : 90 ms QT Int : 476 ms P-R-T Axes : 65 20 14 degrees QTcB Int : 392 ms Marked sinus bradycardia Abnormal ECG When compared with ECG of 21-Jun-2024 22:38, MANUAL COMPARISON REQUIRED DATA IS UNCONFIRMED Confirmed by ANTOINETTE BARBOUR, LYLY ([id number]), field map editor TRAMAINE CORTÉS ([id number]) on 06/22/2024 8:11:27 AM Referred By: Confirmed By: LYLY CURRY MD
[2024-06-22 03:39] LABS: Troponin T High Sens 4 HR 73 ng/L (<=22)
[2024-06-22 04:36] LABS: Hemoglobin 13.4 g/dL (13.0-16.5); Mean Corp Hgb Conc 33.5 g/dL (32-36); Mean Corpuscular Hgb 32.1 pg (27.0-32.0); Mean Corpuscular Volume 95.7 fL (80-94); Mean Platelet Vol. 10.8 fl (6.2-12.0); Platelet Count 225 K/mm3 (150-450); RBC Distribution Width CV 13.5 % (11.6-14.6); RBC Distribution Width SD 48.3 fl (35.1-43.9); Red Blood Count 4.18 M/mm3 (4.6-6.2); White Blood Count 7.3 K/mm3 (4.4-11.0)
[2024-06-22 05:03] LABS: Scan Indicated on CBC? Y/N NO
[2024-06-22 05:16] LABS: Hemoglobin A1c 5.4 % (<=5.6)
[2024-06-22 05:23] LABS: ALB/GLOB Ratio 1.2 RATIO (0.9-2.4); AST(SGOT) 14 U/L (<=37); Alanine Aminotransfer ALT/SGPT 11 U/L (<=46); Albumin, Serum 3.7 g/dL (3.5-5.0); Alkaline Phosphatase 81 U/L (40-129); Anion Gap 11 (5-15); BUN 15 mg/dL (4-19); BUN/Creat Ratio 17.9 RATIO (10-20); Calcium,Total 8.9 mg/dL (7.6-11.0); Carbon Dioxide 21.5 mmol/L (21.0-32.0); Chloride 107 mmol/L (98-108); Cholesterol 177 mg/dL (<=200); Creatinine, Serum 0.83 mg/dL (0.70-1.20); EST Glomerular Filtration Rate 101 (>60); Estimated Creatinine Clearance 102.06 ml/min (50-250); Globulin 3.2 g/dL (2.2-4.2); Glucose 87 mg/dL (70-99); High Density Lipoprotein 39 mg/dL; Low Density Lipoprotein Calc. 130 mg/dL; Potassium 4.3 mmol/L (3.3-5.1); Sodium Level 140 mmol/L (133-145); Total Bilirubin 0.58 mg/dL (0.00-1.30); Triglycerides 43 mg/dL; Very Low Density Lipoprotein 9 mg/dL (5-40)
[2024-06-22 05:29] LABS: D-Dimer Quantitative (DVT/PE) 0.44 FEU/ug/m (0.27-0.49)
[2024-06-22] MEDS: Atorvastatin Calcium 80 MG Tablet PO (05:32)
[2024-06-22] MEDS: Enoxaparin 80 MG/0.8 ML Syringe SC (05:32)
[2024-06-22] MEDS: 0.9% Saline Lock 10 ML Syringe IV (05:33)
--- NOTE | 2024-06-22 07:17 | PCM.CONS.C ---
Assessment & Plan Assessment/Plan (1) Essential hypertension: PLAN: Patient presents with hypertension and likely diastolic dysfunction. His blood pressure needs to be better controlled. I think he is too bradycardic from the beta-singh and recommendation will be for us to consider an MARICARMEN inhibitor. With regard to his dizziness I will rather try away from a calcium channel singh at this time. Will recommend an echocardiogram to assess his ventricular function He is also noted to have an elevated TSH and this may be contributing to some of his bradycardia. (2) Elevated troponin: PLAN: He does have elevated troponin levels with a basically flat pattern. I will recommend an exercise myocardial perfusion stress test. Unless the above is significantly abnormal we can manage this expectantly and medically. I explained the above to him he understands and agrees to proceed. Smoking cessation has been emphasized HPI Consult Data Date of Consult: 06/22/24 HPI Narrative HPI Narrative: GEN LÓPEZ, is a 58 M who presents after he went to see his primary physician complaining of dizziness as well as some shortness of breath with exertion and a troponin level was drawn which was abnormal and so he was asked to come to the emergency room. He denies any chest pain per se with exertion but his major problem has been dizziness. He says this occurs at random times. Occasionally he has had some chest discomfort in the more shortness of breath. He has never had any syncopal spells no palpitations no paroxysmal nocturnal dyspnea or pedal edema. He does have a history of hypertension, does not know his lipid status and does occasionally use tobacco products. Emergency room he was evaluated his electrocardiogram demonstrated normal sinus rhythm with sinus bradycardia and no acute changes. [facility] Medical History Bilateral primary osteoarthritis of knee Bilateral knee pain Hx of head injury Wears contact lenses Anxiety History of steroid therapy Arthritis Back pain Injury of back Restless legs Gastric reflux Former smoker Leg cramps Left rotator cuff tear Right rotator cuff tear Cervicalgia Spondylosis of cervical region without myelopathy or radiculopathy Home Medications ?Medication ?Instructions ?Recorded ?Last Taken ?Type naproxen sodium 220 mg capsule 220 mg PO BID 05/31/19 Unknown History tamsulosin 0.4 mg capsule 0.4 mg PO DAILY 04/27/21 Unknown History melatonin 10 mg capsule 10 mg PO HS sleep 04/05/22 Unknown History multivitamin 1 tab PO DAILY 04/28/23 Unknown History tramadol 50 mg tablet 50 mg PO TID 05/20/23 Unknown History gabapentin 300 mg capsule 300 mg PO 4X/DAY 06/21/24 Unknown History metoprolol tartrate 25 mg tablet 25 mg PO BID 06/22/24 Unknown History Allergy/AdvReac Type Severity Reaction Status Date / Time No Known Allergies Allergy Verified 06/21/24 22:33 Surgical History History of arthroscopy of left shoulder History of ear surgery H/O shoulder surgery H/O sinus surgery Social History household members: spouse housing: house current occupational status: employed pets and animals: Yes Smoking Status: Former smoker alcohol intake: never substance use type: does not use what type of physical activity do you participate in: none ROS Constitutional Constitutional: Denies fever(s) or weight loss Eyes Eyes: Reports systems reviewed and no addt'l complaints, except as documented ENT HEENT: Reports systems reviewed and no addt'l complaints, except as documented Cardiovascular Cardiovascular: Denies chest pain at rest, chest pain with activity, dyspnea at rest, dyspnea on exertion, edema, palpitations or paroxysmal nocturnal dyspnea Respiratory/Chest Respiratory/Chest: Denies dyspnea on exertion, productive cough, shortness of breath at rest or shortness of breath with exertion Gastrointestinal Gastrointestinal: Denies change in bowel habits, nausea, vomiting or weight changes Genitourinary Genitourinary: Denies difficulty urinating Musculoskeletal Musculoskeletal: Denies joint stiffness or muscle weakness Integumentary Integumentary: Denies lesions Neurologic Neurologic: Denies dizziness or syncope Psychiatric Psychiatric: Denies anxiety Endocrine Endocrinology: Denies excessive sweating or fatigue Hematologic/Lymphatic Hematologic/Lymphatic: Denies anemia Allergic/Immunologic Allergic/Immunologic: Denies seasonal rhinorrhea Physical Exam Const alert, oriented x3 and no apparent distress General Appearance: cooperative HEENT hearing grossly normal bilaterally Head and Scalp: atraumatic Eyes EOMs intact bilaterally Neck General: normal visual inspection Chest inspection of chest normal and palpation of chest normal Resp normal respiratory effort Auscultation: clear to auscultation bilaterally Cardio regular rate, regular rhythm, S1 normal heart sound and S2 normal heart sound Jugular Venous Distention: JVD GI normal to inspection, nondistended, normoactive bowel sounds Extremity normal capillary refill and no pedal edema Peripheral Pulses: Yes pulses 2+ throughout and femoral pulses present Skin no rashes or lesions noted Neuro oriented x3 and CN's II-XII intact bilaterally Psych Appearance: grossly normal and appropriate Risk Stratification Risk Stratification Applicable: Yes Age >/= 65: No >/= 3 CAD Risk Factors (HTN, HLD, DM, family hx of CAD, or current smoker): Yes Aspirin Use in the Past 7 Days: No Severe Angina (>/= episodes in 24 hours): No EKG ST Changes >/= 0.5mm: No Positive Cardiac Marker: Yes KRYSTYNA Risk Stratification Score: 2 KRYSTYNA % Risk: 8% Risk Objective Data Vital Signs: Vital Signs Temp Pulse Resp BP Pulse Ox O2 Del Method 97.9 F 48 L 16 169/102 H 100 Room Air 06/22/24 05:41 06/22/24 05:41 06/22/24 05:41 06/22/24 05:41 06/22/24 05:41 06/22/24 06:02 Oxygen Delivery Method Room Air Weight: 177 lb 0.499 oz Body Mass Index (BMI) 24.7 Intake & Output: Intake and Output for Last 24 Hours 06/20/24 06/21/24 06/22/24 23:59 23:59 23:59 Intake Total 50 / 50 Output Total 250 / 250 Balance -200 / -200 Lab / Micro Data 06/22/24 04:27 06/22/24 04:27 Labs: Laboratory Results - last 24 hr 06/21/24 22:40: WBC 8.3, RBC 4.19 L, Hgb 13.6, Hct 39.6 L, MCV 94.5 H, MCH 32.5 H, MCHC 34.3, RDW Std Deviation 46.2 H, RDW Coeff of Liz 13.3, Plt Count 239, MPV 11.0, Immature Gran % (Auto) 0.400, Neut % (Auto) 56.7, Lymph % (Auto) 33.6, Bacon % (Auto) 8.0, Eos % (Auto) 0.8, Baso % (Auto) 0.5, Absolute Neuts (auto) 4.7, Absolute Lymphs (auto) 2.79, Nucleated RBC % 0, PT 13.1, INR 1.0, APTT 28.6, Sodium 141, Potassium 4.2, Chloride 108, Carbon Dioxide 21.2, Anion Gap 12, BUN 15, Creatinine 0.81, Estim Creat Clear Calc 104.58, Est GFR (MDRD) Non-Af 102, BUN/Creatinine Ratio 18.9, Glucose 105 H, Hemoglobin A1c 5.4 L, Calcium 8.7, Troponin T High Sens 84 H* D, NT pro BNP II 368 06/22/24 00:45: Troponin T Hi Sens 2 Hr 76 H* 06/22/24 03:10: Troponin T Hi Sens 4Hr 73 H* 06/22/24 04:27: WBC 7.3, RBC 4.18 L, Hgb 13.4, Hct 40.0, MCV 95.7 H, MCH 32.1 H, MCHC 33.5, RDW Std Deviation 48.3 H, RDW Coeff of Liz 13.5, Plt Count 225, MPV 10.8, D-Dimer Quant (PE/DVT) 0.44, Sodium 140, Potassium 4.3, Chloride 107, Carbon Dioxide 21.5, Anion Gap 11, BUN 15, Creatinine 0.83, Estim Creat Clear Calc 102.06, Est GFR (MDRD) Non-Af 101, BUN/Creatinine Ratio 17.9, Glucose 87, Calcium 8.9, Total Bilirubin 0.58, AST 14, ALT 11, Alkaline Phosphatase 81, Total Protein 7.0, Albumin 3.7, Globulin 3.2, Albumin/Globulin Ratio 1.2, Triglycerides 43, Cholesterol 177, LDL Cholesterol, Calc 130, VLDL Cholesterol 9, HDL Cholesterol 39 L, Cholesterol/HDL Ratio 4.60, TSH 5.630 H Cardiology Labs/Tests 06/21/24 22:40: WBC 8.3, RBC 4.19 L, Hgb 13.6, Hct 39.6 L, MCV 94.5 H, MCH 32.5 H, MCHC 34.3, Plt Count 239, MPV 11.0, Immature Gran % (Auto) 0.400, Neut % (Auto) 56.7, Lymph % (Auto) 33.6, Bacon % (Auto) 8.0, Eos % (Auto) 0.8, Baso % (Auto) 0.5, Absolute Neuts (auto) 4.7, Nucleated RBC % 0, PT 13.1, INR 1.0, APTT 28.6, Sodium 141, Potassium 4.2, Chloride 108, Carbon Dioxide 21.2, Anion Gap 12, BUN 15, Creatinine 0.81, Est GFR (MDRD) Non-Af 102, BUN/Creatinine Ratio 18.9, Glucose 105 H, Hemoglobin A1c 5.4 L, Calcium 8.7 06/22/24 04:27: WBC 7.3, RBC 4.18 L, Hgb 13.4, Hct 40.0, MCV 95.7 H, MCH 32.1 H, MCHC 33.5, Plt Count 225, MPV 10.8, D-Dimer Quant (PE/DVT) 0.44, Sodium 140, Potassium 4.3, Chloride 107, Carbon Dioxide 21.5, Anion Gap 11, BUN 15, Creatinine 0.83, Est GFR (MDRD) Non-Af 101, BUN/Creatinine Ratio 17.9, Glucose 87, Calcium 8.9, Total Bilirubin 0.58, Triglycerides 43, Cholesterol 177, VLDL Cholesterol 9, HDL Cholesterol 39 L, Cholesterol/HDL Ratio 4.60 Rhythm: EKG: ECHO: Stress Test: Cardiac Cath: PCI: CT Surgery: Holter monitor: EPS: PPM: CXR: Chest CT Scan: Radiography Diagnostic Testing: Radiology Impression Chest CTA 06/21/24 22:49 IMPRESSION: No evidence of pulmonary emboli up to the segmental arterial branches. More peripheral vessels are not well assessed. Reading Location: [facility]
[2024-06-22] MEDS: Aspirin E.C. 81 MG Tablet PO (08:47)
[2024-06-22] MEDS: Tamsulosin HCl 0.4 MG Capsule PO (11:26)
[2024-06-22] MEDS: Losartan Potassium 100 MG Tablet PO (11:26)
[2024-06-22] MEDS: Multivitamins,Therapeutic Tablet 1 TABLET PO (11:26)
--- NOTE | 2024-06-22 12:20 | CASEMGMT ---
RN CM Face to Face with patient for initial transition planning/care coordination assessment. RN CM introduced self and role at [facility]. Patient lying in bed, alert and oriented, at bedside. Patient willing to participate in assessment and is able to answer all questions appropriately. Care providers, pharmacy, and demographics verified. Strata: 1 PCP: Justin Specialists: Basali, pain Preferred Pharmacy: [facility]; [facility] Retail at discharge. Insurance: Learned Prescription Benefit: yes Living Will/HPOA: none LNOK: Living Arrangements: Patient lives with in 2 story home with bed and bath on first floor, 3 steps and railing to enter. Patient is indpendent at home. Transportation: self, , son DME/HHC: patient has cane at home. No previous HHC or SNF. Patient wishes to discharge home, denies need for home health at this time. Patient states he has no further needs or concerns at this time. CM to follow for discharge planning needs that may arise. Disposition Plan: Patient to discharge home with family support and follow-up plans in place. Daphne ACEVEDO, RN, CM
--- NOTE | 2024-06-22 12:31 | STRESSREP ---
Stress Test Report Pharmacologic myocardial perfusion stress test. 58-year-old man with a history of dizziness Resting EKG demonstrates sinus bradycardia with a rate of 48 bpm. Resting blood pressure is 160/90 mmHg. 0.4 mg of regadenoson was infused per usual protocol followed by rapid intravenous saline flush injection. Continuous EKG monitoring was performed. The maximum heart rate was 92 bpm which was 57% of max impacted heart rate the maximum workload was 1 metabolic equivalent. At rest there were no ST or T wave changes noted to suggest ischemia and at peak infusion nonspecific ST changes were noted which did not meet the criteria for ischemia. No clinical angina is noted. The final blood pressure was 160/88 mmHg. patient also complained of being dizzy but orthostatic blood pressures were noted to be negative with lying blood pressure 144/80, sitting 130/88, and standing 138/92. Heart rate ranged between 47 and 51 bpm. Myocardial perfusion protocol. 11.6 mCi of technetium 99m sestamibi was injected at rest. 0.4 mg of regadenoson was infused per usual protocol. At peak infusion 33.6 mCi of technetium 99m sestamibi was injected stress images were obtained stress and rest images were reconstructed and compared in the short axis vertical long and horizontal long axis. Gated images were also obtained. Perfusion SPECT analysis: Review of the stress images demonstrate normal uptake of tracer noted in all areas of the myocardium. The resting images similar demonstrated normal uptake of tracer noted in all areas of the myocardium. No areas of reversibility are noted to suggest ischemia and no previous infarct is noted. Gated SPECT analysis: The gated ejection fraction is 56%. Conclusion: Normal pharmacologic myocardial perfusion stress test. Preserved ejection fraction.
[2024-06-22] MEDS: Gabapentin 300 MG Capsule PO (13:25)
--- NOTE | 2024-06-22 14:00 | CHAPLAIN ---
Type of Pastoral Visit _x__ Initial Visit ___ Follow-up Visit ___ On-call Visit ___ General Patient Visit ___ Spiritual Assessment ___ Family Conference ___ Bereavement ___ Rapid Response ___ Code Blue ___ Other (describe below) Pastoral Care Referral From _x__ Patient _x__ Family ___ Nurse ___ Physician ___ Traveling Nurse ___ Life Scientist ___ Other (describe below) Sacrament/Intervention _x__ Active listening ___ Anointing ___ Samaritan ___ Bereavement ___ Communion _x__ Kenyetta exploration ___ _x__ Life review _x__ Prayer ___ Reconciliation ___ Sacrament of Sick ___ Supportive presence ___ Wedding ___ Other (describe below) Pastoral Comments spouse was in the room but ready to live which she did so you two can talk; pt gives information about why they are testing his heart; pt is waiting for the answers from test results; pt states that he is not too concerned about his health right now; pt speaks of his job and how he handles the work load; pt says that he relies on his kenyetta in God for support; no other needs identified
--- NOTE | 2024-06-22 15:12 | DCINST_ITS ---
Discharge Instructions Diet Discharge Diet: - (DASH diet) DC O2, CPAP, BIPAP needs Home O2 Discharge instructions: No Dressing / Incision Discharge Activity: Return to Normal Activity Follow Up Care Test Results: Test results from this visit will be discussed in further detail at your follow- up appointment, if applicable. Discharge Plan Admission Admit Date/Time: 06/22/24 03:03 Primary Reason for Your Visit: Shortness of breath Attending Provider: Yadira Cruz Primary Care Provider: Rogelio Anderson Chi Consulting Providers: Tejinder Hebert; Humberto Martinez Instructions Patient Instructions: ED How to Quit Smoking Additional Instructions / Restrictions: DISCHARGE INSTRUCTIONS PLEASE READ *Please take this with you to your next doctors appointment* - You will stop taking your metoprolol due to low heart rate and you have been switched to losartan -Would recommend lab work (BMP) to check your kidney function in 2 to 3 days through your primary care physician's office. Please call their office upon d ischarge to obtain order for lab work. -Would recommend against any NSAIDs/naproxen while on losartan as this could increase the chances of harming her kidneys, recommend discussing with your primary care physician at your follow-up appointment -Please call your primary care provider's office upon discharge to schedule a hospital follow up within 1 week. -For any concerning signs or symptoms please call 911 or proceed to the nearest emergency department Discharge Orders/Prescriptions Prescriptions: New losartan 100 mg Tablet 100 mg PO DAILY 30 Days Qty: 30 0RF Continued tamsulosin 0.4 mg capsule 0.4 mg PO DAILY Patient Comments: take 1 capsule by mouth once daily take with dinner melatonin 10 mg capsule 10 mg PO HS tramadol 50 mg tablet 50 mg PO TID Patient Comments: take 1 tablet by mouth three times a day multivitamin Tablet 1 tab PO DAILY gabapentin 300 mg capsule 300 mg PO 4X/DAY Discontinued naproxen sodium 220 MG capsule 220 mg PO BID metoprolol tartrate 25 mg tablet 25 mg PO BID Referrals / Follow Up: Rogelio Anderson Chi, MD [Primary Care Provider] - Disposition Disposition (needs filled in before D/C Order can be placed): Home, Self Care
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
--- NOTE | 2024-06-22 16:13 | PHA.DC.MC.R ---
Pharmacy [facility] has performed discharge medication reconciliation and counseling for this patient. The patient's discharge medication list was reviewed for discrepancies and discrepancies were resolved. The patient was counseled on the following discharge medications and changes in medications for homegoing were reviewed. The Reason for Use, instructions for use, and potential side effects were reviewed for all new medications. The patient's questions regarding all of their medications were answered. 1. Losartan 100 mg PO daily The patient was able to verbally demonstrate an understanding of their discharge medications. Medications at Discharge Home Medications tamsulosin 0.4 mg capsule 0.4 mg PO DAILY urinary retention 04/27/21 melatonin 10 mg capsule 10 mg PO HS sleep 04/05/22 multivitamin 1 tab PO DAILY supplement 04/28/23 tramadol 50 mg tablet 50 mg PO TID pain 05/20/23 gabapentin 300 mg capsule 300 mg PO 4X/DAY restless leg 06/21/24 losartan 100 mg tablet 100 mg PO DAILY 30 days #30 tabs 06/22/24
== END 2024-06-22 16:24 | disposition home or self-care (01) | DRG 313 ==
LOC: ED 06-22 01:52 → PCU 06-22 03:12
PROVIDERS: Admitting Provider Internal Medicine; Emergency Provider Emergency Medicine; PCP Family Medicine Geriatric Medicine; Visit Provider Internal Medicine
DX: R07.9 Chest pain, unspecified (principal); F41.9 Anxiety disorder, unspecified; G25.81 Restless legs syndrome; I10 Essential (primary) hypertension; G62.9 Polyneuropathy, unspecified; M50.30 Other cervical disc degeneration, unspecified cervical region; J32.3 Chronic sphenoidal sinusitis; J32.0 Chronic maxillary sinusitis; J32.2 Chronic ethmoidal sinusitis; K21.9 Gastro-esophageal reflux disease without esophagitis; M75.41 Impingement syndrome of right shoulder; M75.42 Impingement syndrome of left shoulder; M47.812 Spondylosis without myelopathy or radiculopathy, cervical region; R00.1 Bradycardia, unspecified; M19.011 Primary osteoarthritis, right shoulder; M19.012 Primary osteoarthritis, left shoulder; M25.561 Pain in right knee; M25.562 Pain in left knee; H53.9 Unspecified visual disturbance; Z79.1 Long term (current) use of non-steroidal anti-inflammatories (NSAID); R79.89 Other specified abnormal findings of blood chemistry; Z87.891 Personal history of nicotine dependence; Z87.828 Personal history of other (healed) physical injury and trauma; H71.91 Unspecified cholesteatoma, right ear; N40.0 Benign prostatic hyperplasia without lower urinary tract symptoms; R06.09 Other forms of dyspnea; Z79.899 Other long term (current) drug therapy; G89.29 Other chronic pain
CPT/HCPCS: 71275; 78452; 80048; 80053; 80061; 83036; 83880; 84443; 84484; 85025; 85027; 85379; 85610; 85730; 93005; 93017; 93306; 99285; A9500; Q9967; A4216; J2785

== ENCOUNTER → 2024-06-21 | Outpatient (CLI) | payer BC, SELFPAY ==
--- NOTE | 2024-06-21 17:01 | CT_ITS ---
PROCEDURE: BRAIN/HEAD WITHOUT CONTRAST 06/21/2024 REASON FOR EXAM: HEADACH,CONFUSION, DISORIENTATION TECHNIQUE: Head CT without intravenous contrast. Coronal and Sagittal reconstruction series were provided. One or more dose reduction techniques were used (e.g., Automated exposure control, adjustment of the mA and/or kV according to patient size, use of iterative reconstruction technique. COMPARISON: None FINDINGS: * ACUTE: No acute infarct or hemorrhage. No mass effect or herniation. * BRAIN PARENCHYMA: Signal intensities are within normal limits for age. Metallic density along the left temporal scalp with resultant streak artifact. * VENTRICLES/EXTRA-AXIAL SPACES: No hydrocephalus or extra-axial fluid collections. * EXTRACRANIAL STRUCTURES: Visualized osseous structures are normal. Soft tissues are normal. CT/Brain/Head without Contrast IMPRESSION: No acute intracranial abnormality. Reading Location[facility]
--- NOTE | 2024-06-21 17:11 | RAD_ITS ---
PROCEDURE: PA and lateral chest radiographs, two views 06/21/2024 REASON FOR EXAM: Shortness of breath TECHNIQUE: PA and lateral views of the chest. COMPARISON: None available FINDINGS: The bones are osteopenic with mild degenerative changes in the spine. No pneumothorax, focal airspace consolidation, or pleural effusion. Scattered coarse interstitial markings in both lungs. RAD/Chest PA and Lateral IMPRESSION: Scattered coarse interstitial markings in both lungs, which could be due to chr onic interstitial lung disease. No focal pneumonia or sizable pleural effusion is demonstrated. Follow-up nonemergent high-resolution chest CT evaluation may be considered. Reading Location: [facility]
== END | disposition home or self-care (01) ==
PROVIDERS: PCP Family Medicine Geriatric Medicine; Referring Provider Family Medicine Geriatric Medicine; Visit Provider Family Medicine Geriatric Medicine
DX: R51.9 Headache, unspecified (principal); R41.0 Disorientation, unspecified; R06.02 Shortness of breath; I10 Essential (primary) hypertension; R07.9 Chest pain, unspecified; R68.83 Chills (without fever); G93.40 Encephalopathy, unspecified
CPT/HCPCS: 70450; 71046

== ENCOUNTER → 2024-06-21 | Outpatient (CLI) | payer BC, SELFPAY ==
[2024-06-21 18:06] LABS: Absolute Lymphocyte Count 2.63 X10^3/uL (0.83-4.51); Absolute Neutrophil Count 4.8 X10^3/uL (2.0-7.7); Basophil# 0.05 X10^3/uL; Basophil% 0.6 % (0-1); Eosinophils% 1.2 % (0-5); Hematocrit 42.2 % (40-54); Hemoglobin 14.4 g/dL (13.0-16.5); Lymphocyte # 2.63 X10^3/ul (0.83-4.51); Lymphocyte % 32.2 % (19-41); Mean Corp Hgb Conc 34.1 g/dL (32-36); Mean Corpuscular Hgb 32.4 pg (27.0-32.0); Mean Corpuscular Volume 94.8 fL (80-94); Mean Platelet Vol. 10.8 fl (6.2-12.0); Monocyte% 7.3 % (0-10); NRBC Flagged by Analyzer 0 % (0-5); Neutrophil # 4.77 X10^3/uL (2.7-7.7); Neutrophil % 58.3 % (47-70); Platelet Count 237 K/mm3 (150-450); RBC Distribution Width CV 13.3 % (11.6-14.6); RBC Distribution Width SD 46.7 fl (35.1-43.9); Red Blood Count 4.45 M/mm3 (4.6-6.2); White Blood Count 8.2 K/mm3 (4.4-11.0)
[2024-06-21 18:18] LABS: D-Dimer Quantitative (DVT/PE) 0.47 FEU/ug/m (0.27-0.49)
[2024-06-21 19:38] LABS: ALB/GLOB Ratio 1.1 RATIO (0.9-2.4); AST(SGOT) 16 U/L (<=37); Alanine Aminotransfer ALT/SGPT 10 U/L (<=46); Albumin, Serum 3.9 g/dL (3.5-5.0); Alkaline Phosphatase 87 U/L (40-129); Anion Gap 12 (5-15); BUN 15 mg/dL (4-19); Calcium,Total 9.1 mg/dL (7.6-11.0); Carbon Dioxide 20.3 mmol/L (21.0-32.0); Chloride 108 mmol/L (98-108); Creatinine, Serum 0.81 mg/dL (0.70-1.20); EST Glomerular Filtration Rate 102 (>60); Globulin 3.5 g/dL (2.2-4.2); Glucose 84 mg/dL (70-99); Potassium 4.2 mmol/L (3.3-5.1); Protein, Total 7.4 g/dL (5.9-8.4); Sodium Level 140 mmol/L (133-145); Total Bilirubin 0.51 mg/dL (0.00-1.30)
[2024-06-21 20:11] LABS: Amphetamine Urine NEGATIVE (<1000 ng/mL); Barbiturate Urine NEGATIVE (< 200 ng/mL); Benzodiazepine Urine PRESUMPTIVE POSITIVE (< 200 ng/mL); Buprenorphine Urine NEGATIVE (< 200 ng/mL); Cocaine Urine NEGATIVE (< 300 ng/mL); Fentanyl, Urine NEGATIVE; Methadone Urine NEGATIVE (< 300 ng/mL); Opiates Urine NEGATIVE (< 300 ng/mL); Oxycodone, Urine NEGATIVE (< 100 ng/mL); PCP Urine NEGATIVE (< 25 ng/mL); THC Urine NEGATIVE (< 50 ng/mL)
[2024-06-21 21:03] LABS: CPK Total, Creatine Kinase 34 U/L (24-195); Pro- Brain NATRIURETIC PEPTIDE 370 pg/mL (<=900); Troponin T High Sensitivity 73 ng/L (<=22)
[2024-06-23 08:09] LABS: Myoglobin, Serum < 21 ng/mL (28-72)
== END | disposition home or self-care (01) ==
LOC: LABSPEC 17:26
PROVIDERS: PCP Family Medicine Geriatric Medicine; Visit Provider Family Medicine Geriatric Medicine
DX: R07.9 Chest pain, unspecified (principal); I10 Essential (primary) hypertension; R68.83 Chills (without fever); G93.40 Encephalopathy, unspecified
CPT/HCPCS: 36415; 80053; 80307; 82550; 83874; 83880; 84443; 84484; 85025; 85379; 87631

== ENCOUNTER → 2024-06-21 | Outpatient (CLI) | payer BC, SELFPAY | END | disposition home or self-care (01) | LOC: LABSPEC 17:15 | PROVIDERS: PCP Family Medicine Geriatric Medicine; Visit Provider Family Medicine Geriatric Medicine | DX: R68.83 Chills (without fever) (principal) | CPT/HCPCS: 87631 ==

== ENCOUNTER → 2024-10-04 | Outpatient (CLI) | payer BC, SELFPAY ==
[2024-10-04 20:05] LABS: Barbiturate Urine NEGATIVE (< 200 ng/mL); Benzodiazepine Urine PRESUMPTIVE POSITIVE (< 200 ng/mL); PCP Urine NEGATIVE (< 25 ng/mL); THC Urine NEGATIVE (< 50 ng/mL)
== END | disposition home or self-care (01) ==
LOC: LABSPEC 18:10
PROVIDERS: PCP Family Medicine Geriatric Medicine; Visit Provider Anesthesiology Pain Medicine
DX: F11.20 Opioid dependence, uncomplicated (principal)
CPT/HCPCS: 80307

== ENCOUNTER → 2024-10-21 | Outpatient (CLI) | payer BC, SELFPAY ==
--- OUTSIDE RECORDS SUMMARY | 2024-10-21 17:45 | XMS RPT_ITS | CCD ---
Author Organization [facility] Care Team Providers Care Machine Stamper Name Role Phone Justin, Dr. Rogelio Martinez Primary Care Provider 1([facility])[phone] Justin, Dr. Rogelio Martinez Referring Provider 1([facility])[phone] Sean Mckeon Attending Provider 1([facility])[phone] Justin, Rogelio Chi Primary Care Provider 1([facility])[phone] CARI BRIAN Attending [facility] PHYSICIAN, NONE Primary Care Unavailable Justin, Dr. Rogelio Martinez Primary Care Provider 1([facility])[phone] Justin, Dr. Rogelio Martinez Referring Provider 1([facility])[phone] Sean Mckeon Attending Provider 1([facility])[phone] Dr. Tejinder Hebert Attending Provider 1([facility])[phone] Justin, Dr. Rogelio Martinez Primary Care Provider 1([facility])[phone] Justin, Dr. Rogelio Martinez Referring Provider 1([facility])[phone] Sean Mckeon Attending Provider 1([facility]) -[phone] MD James Justin Attending Provider 1([facility]) 342 Dr. Chilo Johnson Attending Provider 1([facility]) 570 MD James Justin Referring Provider 1([facility])- 342 MD James Justin Other Provider 1([facility])[phone] Justin, Rogelio Chi Primary Care Provider 1([facility])[phone] SAMSON QUIROS Attending Unavailable JUSTIN, ROGELIO CHI Primary Care Unavailable JUSTIN, ROGELIO CHI Primary Care Unavailable Justin, Rogelio Chi Primary Care Unavailable Yadira Cruz Attending Unavailable Humberto Martinez Admitting Unavailable Tejinder Hebert Consulting Unavailable Humberto Martinez Consulting Unavailable Justin, Rogelio Chi Attending Unavailable Justin, Rogelio Chi Primary Care Unavailable Justin, Rogelio Chi Referring Unavailable James Justin Attending Unavailable Justin, Rogelio Chi Primary Care Unavailable Justin, Rogelio Chi Referring Unavailable James Justin Attending Unavailable Justin, Rogelio Chi Primary Care Unavailable Justin, Rogelio Chi Referring Unavailable Justin, Rogelio Chi Primary Care Unavailable Justin, Rogelio Chi Attending Unavailable Justin, Rogelio Chi Referring Unavailable Justin, Rogelio Chi Primary Care Unavailable Justin, Rogelio Chi Attending Unavailable Justin, Rogelio Chi Referring Unavailable Justin, Rogelio Chi Primary Care Unavailable Justin, Rogelio Chi Attending Unavailable Justin, Rogelio Chi Referring Unavailable Justin, Rogelio Chi Primary Care Unavailable Justin, Rogelio Chi Attending Unavailable Justin, Rogelio Chi Referring Unavailable James Justin Attending Unavailable Justin, Rogelio Chi Primary Care Unavailable Justin, Rogelio Chi Primary Care Unavailable Justin, Rogelio Chi Attending Unavailable Basali, Ayman Attending Unavailable Justin, Rogelio Chi Primary Care Unavailable Basali, Ayman Attending Unavailable Justin, Rogelio Chi Primary Care Unavailable Basali, Ayman Referring Unavailable Justin, Rogelio Chi Primary Care Unavailable Justin, Rogelio Chi Attending Unavailable Justin, Rogelio Chi Primary Care Unavailable Justin, Rogelio Chi Attending Unavailable James Justin Attending Unavailable Justin, Rogelio Chi Referring Unavailable Justin, Rogelio Chi Primary Care Unavailable Justin, Rogelio Chi Primary Care Unavailable Saira Wylie Attending Unavailable Wylie, Saira Attending Unavailable Justin, Rogelio Chi Primary Care Unavailable Justin, Rogelio Chi Primary Care Unavailable Humberto Martinez Attending Unavailable Humberto Martinez Admitting Unavailable Anup, Navajo Consulting Unavailable Humberto Martinez Consulting Unavailable Yadira Cruz Consulting Unavailable Anup, Tejinder Attending Unavailable Justin, Rogelio Chi Primary Care Unavailable Anup, Tejinder Attending Unavailable Justin, Rogelio Chi Primary Care Unavailable Justin, Rogelio Chi Attending Unavailable Justin, Rogelio Chi Primary Care Unavailable Justin, Rogelio Chi Referring Unavailable Justin, Rogelio Chi Attending Unavailable Justin, Rogelio Chi Primary Care Unavailable Justin, Rogelio Chi Attending Unavailable Allergies Allergy Classification Reported Allergen(s) Allergy Type Date of Onset Reaction(s) Facility (2 sources) Acetaminophen / oxyCODONE; Translations: [OXYCODONE-ACETAMI NOPHEN] Drug Allergy 7 Other: See Comments [facility] (3 sources) Clarithromycin; Translations: [CLARITHROMYCIN] Drug Allergy 5 GI Upset [facility] Medications Current Medications Medication Drug Class(es) Dates Sig (Normalized) Sig (Original) acetaminophen 325 mg / oxyCODONE hydrochloride 5 mg oral tablet (1 source) Opioid Agonist Start: 05-07-2023 take 1 tablet by mouth every four hours Oxycodone-Acetamino phen (Endocet) 5-325 mg tablet Active 1 TABLET PO Q4H 30 5 May 07, 2023 amoxicillin 875 mg / clavulanate 125 mg oral tablet (1 source) Penicillin-class Antibacterial Start: 10-27-2021 End: 11-01-2021 take 1 tablet by mouth twice daily amoxicillin-clavula manuel acid (AUGMENTIN) 875-125 mg per tablet Indications: Viral URI with cough Take 1 tablet by mouth twice daily for 5 days. 10 tablet 0 10/27/2021 11/01/2021 Active Comment on above: Take 1 tablet by bailey th twice daily for 5 days. baclofen 10 mg oral tablet (2 sources) gamma-Aminobutyric Acid-ergic Agonist Start: 04-28-2023 take 10 mg by mouth at bedtime Baclofen Active 10 MG PO AT BEDTIME April 28, 2023 12:00am benzonatate 100 mg oral capsule (1 source) Non-narcotic Antitussive Start: 02-22-2024 take 1 capsule by mouth every eight hours as needed benzonatate (TESSALON PERLE) 100 mg capsule Indications: URI with cough and congestion Take 1-2 capsules by mouth every 8 hours as needed. 30 capsule 02/22/2024 Active busPIRone hydrochloride 10 mg oral tablet (1 source) Start: 01-20-2024 busPIRone (BUSPAR) 10 mg tablet 01/20/2024 Active cetirizine hydrochloride 10 mg oral tablet (1 source) Histamine-1 Receptor Antagonist Start: 02-22-2024 take 1 tablet by mouth once daily cetirizine (ZYRTEC) 10 mg tablet Indications: Sinus drainage Take 1 tablet by mouth once daily. 20 tablet 02/22/2024 Active cyclobenzaprine hydrochloride 10 mg oral tablet (4 sources) Muscle Relaxant Start: 04-27-2021 take 1 tablet by mouth once daily cyclobenzaprine (FLEXERIL) 10 mg tablet Take 10 mg by mouth once daily. 10/02/2021 Active Comment on above: Take 10 mg by mouth once daily. 12 hr dextromethorphan hydrobromide 30 mg / guaiFENesin 600 mg extended release oral tablet (1 source) Uncompetitive N-xosanw-F-aspartat e Receptor Antagonist, Sigma-1 Agonist Start: 10-23-2021 End: 10-30-2021 take 1 tablet by mouth twice daily dextromethorphan-gu aiFENesin (MUCINEX DM) 30-600 mg per tablet Indications: Viral URI with cough Take 1 tablet by mouth twice daily for 7 days. 14 tablet 0 10/23/2021 10/30/2021 Active Comment on above: Take 1 tablet by bailey twice daily for 7 days. fluticasone propionate 0.05 mg/actuat metered dose nasal spray (7 sources) Corticosteroid Start: 02-22-2024 take 2 spray(s) nasal route once daily fluticasone (FLONASE) 50 mcg/actuation nasal spray Indications: Sinus drainage Use 2 Sprays in each nostril once daily. 9.9 mL 02/22/2024 Active Start: 10-23-2021 End: 02-22-2024 take 1 spray(s) nasal route twice daily fluticasone (FLONASE ALLERGY RELIEF) 50 mcg/actuation nasal spray Indications: Viral URI with cough Use 1 [employer] in each nostril twice daily. 1 Each 10/23/2021 02/22/2024 Discontinued Start: 05-31-2019 End: 05-12-2020 Fluticasone Propionate Disco ntinued 9.9 ML NS DAILY May 30, 2019 11:00pm May 12, 2020 8:14am Comment on above: Use 1 [employer] in each nostril twice daily. melatonin 10 mg oral capsule (2 sources) Start: 04-05-19 23 take 10 mg by mouth at bedtime Melatonin Active 10 MG PO BEDTIME April 05, 2022 12:00am Multivitamin preparation (2 sources) Start: 04-28-19 24 take 1 tablet by mouth once daily Multivitamin Active 1 TABLET PO DAILY April 28, 2023 12:00am naproxen sodium 220 mg oral capsule (4 sources) Nonsteroidal Anti-inflammatory Drug Start: 05-31-19 20 take 220 mg by mouth twice daily Naproxen Sodium Active 220 MG PO TWICE A DAY May 30, 2019 11:00pm Start: 05-31-2019 take 440 mg by mouth twice sydni ly Naproxen Sodium Active 440 MG PO TWICE A DAY May 31, 2019 8:00am pramipexole dihydrochloride 1 mg oral tablet (4 sources) Nonergot Dopamine Agonist Start: 04-05-2022 take 2 mg by mouth at bedtime Pramipexole Active 2 MG PO AT BEDTIME April 05, 2022 12:00am Start: 09-25-2021 End: 02-22-2024 take 1 tablet by mouth twice daily pramipexole (MIRAPEX) 0.5 mg tablet Take 0.5 mg by mouth twice daily. 09/25/2021 02/22/2024 Discontinued Comment on above: Take 0.5 mg by mouth twice daily. predniSONE 20 mg oral tablet (1 source) Start: 4 End: 4 take 2 tablets by mouth once daily predniSONE (DELTASONE) 20 mg tablet Indications: URI with cough and congestion Take 2 tablets by mouth once daily for 5 days. 10 tablet 02/22/2024 02/27/2024 Active tamsulosin hydrochloride 0.4 mg oral capsule (4 sources) alpha-Adrenergic Singh Start: 2 take 0.4 mg by mouth once daily Tamsulosin Active 0.4 MG PO DAILY April 27, 2021 12:00am tiZANidine 4 mg oral tablet (1 source) Central alpha-2 Adrenergic Agonist Start: 4 take 1 tablet by mouth three times daily tiZANidine (ZANAFLEX) 4 mg tablet TAKE 1 TABLET BY MOUTH THREE TIMES DAILY FOR 28 DAYS 12/22/2023 Active traMADol hydrochloride 50 mg oral tablet (10 sources) Opioid Agonist Start: 2 take 1 tablet by mouth twice daily traMADol (ULTRAM) 50 mg tablet Take 50 mg by mouth twice daily. 10/02/2021 Active Start: 05-31-2019 End: 04-27-2021 take 50 mg by mouth at bedtime Tramadol Active 50 MG P O AT BEDTIME April 27, 2021 8:18am Comment on above: Take 50 mg by mouth twice daily. Completed/Discontinued Medications Medication Drug Class(es) Dates Sig (Normalized) Sig (Original) acetaminophen 500 mg oral tablet (4 sources) Start: 04-21-2020 End: 11-25-2022 take 500 mg by mouth every four hours as needed Acetaminophen Discontinued 500 MG PO EVERY 4 HOURS NEEDED April 21, 2020 12:00am November 25, 2022 1:39pm acetaminophen 325 mg / HYDROcodone bitartrate 5 mg oral tablet (4 sources) Opioid Agonist Start: 04-21-2020 End: 04-26-2020 take 2 tablets by mouth every six hours as needed Hydrocodone-Acetam inophen Discontinued 2 TABLET PO EVERY 6 HOURS NEEDED 08 08April 21, 2020 April 26, 2020 12:03am azelastine hydrochloride 0.137 mg/actuat metered dose nasal spray (4 sources) Histamine-1 Receptor Antagonist Start: 05-31-2019 End: 05-12-2020 Azelastine Discontinued 1 SPRAY NASAL TWICE A DAY May 30, 2019 11:00pm May 12, 2020 8:15am DULoxetine 60 mg delayed release oral capsule (8 sources) Serotonin and Norepinephrine Reuptake Inhibitor Start: 04-27-2021 End: 04-05-2022 take 60 mg by mouth once daily Duloxetine Discontinued 60 MG PO DAILY April 27, 2021 12:00am April 05, 2022 8:06am Start: 04-14-2020 End: 04-27-2021 take 30 mg by mouth once daily Duloxetine Discontinued 30 MG PO DAILY April 14, 2020 12:00am April 27, 2021 8:18am gabapentin 300 mg oral capsule (1 source) Anti-epileptic Agent Start: 12-22-2023 End: 02-22-2024 take 1 capsule by mouth every twelve hours gabapentin (NEURONTIN) 300 mg capsule Take 1 capsule by mouth every 12 hours. 12/22/2023 02/22/2024 Discontinued magnesium oxide 400 mg oral tablet (2 sources) Start: 08-27-2021 End: 02-22-2024 take 1 tablet by mouth once daily at bedtime magnesium oxide 400 mg magnesium tab Take 1 tablet by mouth daily at bedtime. 08/27/2021 02/22/2024 Discontinued Comment on above: Take 1 tablet by bailey th daily at bedtime. methylPREDNISolone acetate 40 mg/ml injectable suspension (6 sources) Corticosteroid Start: 01-19-2021 End: 01-19-2021 Depo-Medrol (methylprednisol one acetate) 40 mg/mL suspension for injection Discontinued 80 MG INTRAARTIC ONCE 2 January 19, 2021 8:27am January 19, 2021 9:12am Start: 10-02-2020 End: 10-02-2020 Depo-Medrol (methylprednisol one acetate) 40 mg/mL suspension for injection Discontinued 40 MG INTRAARTIC ONCE October 02, 2020 1:52pm October 02, 2020 4:19pm Start: 08-11-2020 End: 08-11-2020 Depo-Medrol (methylprednisol one acetate) 40 mg/mL suspension for injection Discontinued 40 MG INTRAARTIC ONCE August 11, 2020 9:20am August 11, 2020 9:48am Start: 05-12-2020 End: 05-12-2020 Depo-Medrol (methylprednisol one acetate) 40 mg/mL suspension for injection Discontinued 40 MG INTRAARTIC ONCE May 12, 2020 9:01am May 12, 2020 9:33am Start: 12-10-2019 End: 12-10-2019 Depo-Medrol (methylprednisol one acetate) 40 mg/mL suspension for injection Discontinued 80 MG INTRAARTIC ONCE 2 December 10, 2019 8:18am December 10, 2019 9:07am Start: 09-08-2019 End: 09-08-2019 Depo-Medrol (methylprednisol one acetate) 40 mg/mL suspension for injection Discontinued 80 MG INTRAARTIC ONCE 2 September 08, 2019 7:56am September 08, 2019 8:34am montelukast 10 mg oral tablet (4 sources) Leukotriene Receptor Antagonist Start: 04-15-2017 End: 08-11-2020 take 1 tablet by mouth at bedtime Montelukast (Singulair) 10 mg tablet Discontinued 10 MG PO AT BEDTIME April 15, 2017 12:00am August 11, 2020 8:31am oxymetazoline hydrochloride 0.5 mg/ml nasal spray (4 sources) Start: 09-16-2019 End: 05-12-2020 Oxymetazoline Discontinued 15 SPRAY NASAL DAILY September 15, 2019 11:00pm May 12, 2020 8:14am pantoprazole 40 mg delayed release oral tablet (2 sources) Proton Pump Inhibitor Start: 09-21-2021 End: 02-22-2024 take 1 tablet by mouth twice daily pantoprazole DR (PROTONIX) 40 mg tablet Take 40 mg by mouth twice daily. 09/21/2021 02/22/2024 Discontinued Comment on above: Take 40 mg by mouth twice daily. rOPINIRole 3 mg oral tablet (4 sources) Nonergot Dopamine Agonist Start: 05-31-2019 End: 04-05-2022 take 3 mg by mouth at bedtime Ropinirole Discontinued 3 MG PO AT BEDTIME May 30, 2019 11:00pm April 05, 2022 8:06am triamcinolone acetonide 40 mg/ml injectable suspension (2 sources) Corticosteroid Start: 08-16-2021 End: 08-16-2021 Kenalog (triamcinolone acetonide) 40 mg/mL suspension for injection Discontinued 80 MG INTRAARTIC ONCE 2 August 16, 2021 8:01am August 16, 2021 8:15am Start: 04-27-2021 End: 04-27-2021 Kenalog (triamcinolone aceto nide) 40 mg/mL suspension for injection Discontinued 120 MG INTRAARTIC ONCE 3 April 27, 2021 9:08am April 27, 2021 9:57am Problems Active Problems Problem Classification Problem Date Documented Date Episodic/Chronic Essential hypertension (3 sources) Essential (primary) hypertension; Translations: [Primary hypertension] Onset: 01-03-2024 Chronic Headache; including migraine (1 source) Headache; including migraine; Translations: [Headache, unspecified] Onset: 06-25-2024 Osteoarthritis (1 source) Bilateral primary osteoarthritis of knee; Translations: [Bilateral primary osteoarthritis of knee] Onset: 03-04-2024 Chronic Other circulatory disease (1 source) Elevated blood pressure; Translations: [Elevated blood-pressure reading, without diagnosis of hypertension] Episodic Other connective tissue disease (4 sources) Bilateral subacromial bursitis of shoulders; Translations: [Bursitis of right shoulder] 05-12-2020 Episodic Other connective tissue disease (8 sources) Subacromial impingement; Translations: [Impingement syndrome of left shoulder] 05-12-2020 Episodic Other connective tissue disease (4 sources) Biceps tendinitis; Translations: [Bicipital tendinitis, right shoulder] 08-11-2020 Episodic Other connective tissue disease (7 sources) Bursitis of right shoulder; Translations: [Other specified disorders of bursae and tendons in shoulder region] Episodic Other connective tissue disease (2 sources) Bicipital tendinitis, right shoulder; Translations: [Bicipital tenosynovitis] Episodic Other connective tissue disease (4 sources) Impingement syndrome of left shoulder; Translations: [Other specified disorders of bursae and tendons in shoulder region] Episodic Other connective tissue disease (3 sources) Impingement syndrome of right shoulder; Translations: [Other specified disorders of bursae and tendons in shoulder region] Episodic Other connective tissue disease (2 sources) Tear of left rotator cuff; Translations: [Unspecified rotator cuff tear or rupture of left shoulder, not specified as traumatic] 03-14-2023 Episodic Other connective tissue disease (2 sources) Tear of right rotator cuff; Translations: [Unspecified rotator cuff tear or rupture of right shoulder, not specified as traumatic] 03-14-2023 Episodic Other connective tissue disease (3 sources) Unspecified rotator cuff tear or rupture of left shoulder, not specified as traumatic; Translations: [Rotator cuff (capsule) sprain] 03-14-2023 Episodic Other connective tissue disease (2 sources) Unspecified rotator cuff tear or rupture of right shoulder, not specified as traumatic; Translations: [Rotator cuff (capsule) sprain] 03-14-2023 Episodic Other ear and sense organ disorders (4 sources) Cholesteatoma of right middle ear; Translations: [Unspecified cholesteatoma, right ear] 04-21-2020 Episodic Other upper respiratory disease (1 source) Nasal sinus problem; Translations: [Other specified disorders of nose and nasal sinuses] 02-22-2024 Episodic Other upper respiratory infections (12 sources) Chronic maxillary sinusitis; Translations: [Chronic maxillary sinusitis] 04-21-2020 Chronic Other upper respiratory infections (2 sources) Viral upper respiratory tract infection; Translations: [Acute upper respiratory infection, unspecified] Episodic Otitis media and related conditions (4 sources) Perforation of tympanic membrane; Translations: [Unspecified perforation of tympanic membrane, unspecified ear] 04-21-2020 Episodic Residual codes; unclassified (1 source) Past medication; Translations: [Personal history of other drug therapy] Episodic Residual codes; unclassified (1 source) Contact with and (suspected) exposure to other hazardous, chiefly nonmedicinal, chemicals; Translations: [Chemical exposure of eye] Onset: 01-03-2024 Episodic Spondylosis; intervertebral disc disorders; other back problems (4 sources) Degeneration of cervical intervertebral disc; Translations: [Other cervical disc degeneration, unspecified cervical region] Chronic Substance-related disorders (2 sources) Nicotine dependence, unspecified, uncomplicated; Translations: [Opioid dependence, uncomplicated] Onset: 01-03-2024 Chronic Thyroid disorders (1 source) Hypothyroidism, unspecified; Translations: [Hypothyroidism, unspecified] Onset: 07-14-2024 Chronic Past or Other Problems Problem Classification Problem Date Documented Da te Episodic/Chronic Blindness and vision defects (1 source) Other visual disturbances; Translations: [Other visual disturbances] Onset: 07-07-2024 Episodic Nonspecific chest pain (2 sources) Chest pain, unspecified; Translations: [Chest pain, unspecified] Onset: 07-07-2024 Episodic Other lower respiratory disease (1 source) Shortness of breath; Translations: [Shortness of breath] Onset: 02-16-2024 Episodic Other non-traumatic joint disorders (1 source) Pain in right knee; Translations: [Pain in right knee] Onset: 03-04-2024 Episodic Other non-traumatic joint disorders (1 source) Pain in left knee; Translations: [Pain in left knee] Onset: 03-04-2024 Episodic Other screening for suspected conditions (not mental disorders or infectious disease) (2 sources) Other specified abnormal findings of blood chemistry; Translations: [Encounter for screening for malignant neoplasm of prostate] Onset: 06-04-2024 Episodic Pulmonary heart disease (1 source) Other pulmonary embolism without acute cor pulmonale; Translations: [Other pulmonary embolism without acute cor pulmonale] Onset: 02-03-2024 Episodic Residual codes; unclassified (1 source) Tobacco use; Translations: [Tobacco use] Onset: 07-07-2024 Episodic Residual codes; unclassified (1 source) Chills (without fever); Translations: [Chills (without fever)] Onset: 06-25-2024 Episodic Results Test Name Value Interpretation Reference Range Facility [id number] 10-08-2024 [facility] Misc. COMMENT Normal . [facility] Comment on above: Order Comment: [id number] 0URINE TOX Result Comment: Test Ordered: [id number] Amphetamines Screen, Urine Negative ng/mL UI Reference Range: Oagpso=231 Amphetamine test includes Amphetamine and Methamphetamine. Barbiturates Negative ng/mL UI Reference Range: Xtwifr=120 Benzodiazepines Negative ng/mL UI Reference Range: Kgnwgv=236 Cocaine (Metab.), Urine Negative ng/mL UI Reference Range: Mhtceq=434 Opiates Negative ng/mL UI Reference Range: Rwyvle=908 Opiate test includes Codeine, Morphine, Hydromorphone, Hydrocodone. 6-Acetylmorphine, Urine Negative ng/mL UI Reference Range: Cutoff=10 Oxycodone/Oxymorphone, Urine Negative ng/mL UI Reference Range: Qefnka=182 Test includes Oxycodone and Oxymorphone PCP, Urine Negative ng/mL UI Reference Range: Cutoff=25 Methadone Screen, Urine Negative ng/mL UI Reference Range: Wawhao=836 Propoxyphene, Urine Negative ng/mL UI Reference Range: Evurxf=839 Fentanyl, Urine Negative ng/mL UI Reference Range: Cutoff=2.0 Test includes Fentanyl and Norfentanyl This test was developed and its performance characteristics determined by [facility]. It has not been cleared or approved by the Food and Drug Administration. Tramadol Note: ng/mL UI See Final Results Reference Range: Vijsto=946 Tramadol Positive [A ] UI Reference Range: Xlxhab=417 Tramadol Conf, [place], UR >[address] ng/mL UI Reference Range: Dwcjmv=598 Buprenorphine, Urine Negative ng/mL UI Reference Range: Cutoff=10 Creatinine, Urine 351.6 [H ] mg/dL UI Reference Range: 20.0-300.0 pH, Urine 5.2 UI Reference Range: 4.5-8.9 Performed at: [facility] [address] [place], [place] [id number] District Ranger: Jos Villafuerte PhD, Phone: [phone] Performed at: [facility] [address] [id number] District Ranger: Mata Green PhD, Phone: [phone] Performed By: #### L 505.5000, [id number] ####[facility] [id number] [place], [place], [id number] Urine Drug Screen (VISTA)on 10-04-2024 AMPHETAMINES Negative Normal <1000 ng/mL [facility] Comment on above: Order Comment: UNK Performed By: #### L 505.5000, [id number] ####[facility] [id number] [facility] [address] BARBITIURATES Negative Normal < 200 ng/mL [facility] Comment on above: Order Comment: UNK Performed By: #### L 505.5000, [id number] ####[facility] [id number] [place] [address] BENZODIAZIPINE Positive Normal < 200 ng/mL [facility] Comment on above: Order Comment: UNK Result Comment: If c onfirmation testing is needed, a separate order will be required to send out testing to the reference laboratory. Performed By: #### L 505.5000, [id number] ####[facility] [address] [place] [address] BUP Ur Drug Scr Negative Normal < 200 ng/mL [facility] Comment on above: Order Comment: UNK Performed By: #### L 505.5000, [id number] ####[facility] [address] [place] [address] COCAINE Negative Normal < 300 ng/mL [facility] Comment on above: Order Comment: UNK Performed By: #### L 505.5000, [id number] ####[facility] [address] [place] [address] Fentanyl Negative Normal [facility] Comment on above: Order Comment: UNK Performed By: #### L 505.5000, [id number] ####[facility] [address] [place] [address] METHADONE Positive Normal < 300 ng/mL [facility] Comment on above: Order Comment: UNK Result Comment: If c onfirmation testing is needed, a separate order will be required to send out testing to the reference laboratory. Performed By: #### L 505.5000, [id number] ####[facility] [id number] [place], [address] OPIATES Negative Normal < 300 ng/mL [facility] Comment on above: Order Comment: UNK Performed By: #### L 505.5000, L3410.9992 ####[facility] [address] [place], [address] OXYCODONE Negative Normal < 100 ng/mL [facility] Comment on above: Order Comment: UNK Performed By: #### L 505.5000, L3410.9992 ####[facility] [address] [place], [address] PCP Negative Normal < 25 ng/mL [facility] Comment on above: Order Comment: UNK Performed By: #### L 505.5000, L3410.9992 ####[facility] [address] [place], [address] THC Negative Normal < 50 ng/mL [facility] Comment on above: Order Comment: UNK Performed By: #### L 505.5000, L3410.9992 ####[facility] [address] [place], [address] MR/BMS.BPon 09-08-2024 MR/BMS.BP [address], [address] [place] [address] OFFICE VISIT Date of Service: 09/08/24 MR#: [id number] Acct: [id number] Name: GEN POTTS Rep #: [id number] : 1965 Provider: ADDIE cho Age/Sex: 59/M Location: [facility].BP Status: Signed Intake Vital Signs 07/14/24 08:07 07/26/24 10:11 09/08/24 06:57 Height 5 ft 11 in 5 ft 11 in 5 ft 11 in Weight: 170 lb 175 lb BMI 23.7 24.4 BP 143/86 H 174/93 H Blood Pressure Location Lt brachial Lt brachial Position Sitting Sitting Respiration 16 16 Pulse 69 69 Pulse Source Monitor Monitor BP Intake Visit Reasons: 8wfu Accompanied by: Self Allergies No Known Allergies Allergy (Verified 09/08/24 07:04) Medications ???Medication ???Instructions ???Recorded ???Confirmed ???Type tamsulosin 0.4 mg capsule 0.4 mg PO DAILY urinary retention 04/27/21 09/08/24 History tramadol 50 mg tablet 50 mg PO TID pain 05/20/23 5 History carbidopa 25 mg-levodopa 100 mg 1 tab PO QHS 07/14/24 09/08/24 His tory tablet clonazepam 0.5 mg tablet 0.5 mg PO TID 08/02/24 09/08/24 Hi story levothyroxine 50 mcg tablet 50 mcg PO QDAY 08/02/24 09/08/24 H istory [facility] Medical History Blurring of vision Elevated troponin Bilateral primary osteoarthritis of knee Bilateral knee pain Hx of head injury Wears contact lenses Anxiety History of steroid therapy Arthritis Back pain Injury of back Restless legs Gastric reflux Former smoker Leg cramps Left rotator cuff tear Right rotator cuff tear Cervicalgia Spondylosis of cervical region without myelopathy or radiculopathy Surgical History History of arthroscopy of left shoulder History of ear surgery H/O shoulder surgery H/O sinus surgery Family History Other Cancer Heart disease Social History household members: spouse housing: house current occupational status: employed pets and animals: Yes Smoking Status: Former smoker alcohol intake: former details: 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 Reports he stopped taking the medication prescribed at last appointment. Reports his anxiety has been much reduced as PCP has started him on clonazepam 0.5mg TID. Feels he is returning to baseline. Reports he was having a lack of energy but with clonazepam is feeling better. Has been seeing improvements at work. Denies feelings of depression. Denies SI/HI. Sleep has been good. Reports good quality sleep. Is getting 8 hours per night. Appetite has been good. Denies any changes in weight or in appetite. Previous similar episode: Yes Age of first onset of symptoms: 51-60 years Review of Systems Constitutional Reports: fatigue; Denies: fever(s), chills, change in weight or change in sleep pattern Eyes Reports: blurry vision; Denies: change in vision Ears, Nose, Mouth, Throat Reports: neck pain; Denies: throat pain Cardiovascular Reports: chest pain, palpitations and dyspnea Respiratory Reports: dyspnea; Denies: wheezing Gastrointestinal Reports: abdominal pain; Denies: nausea, vomiting, diarrhea or constipation Genitourinary Denies: dysuria, urinary frequency or urinary urgency Musculoskeletal Reports: back pain and neck pain Integumentary/Breast Reports: new lesions Neurological Reports: headache(s), dizziness and confusion Psychiatric Reports: memory loss (forgetful) and difficulty concentrating; Denies: anxiety, mood swings, panic attacks, change in sleep pattern, hopelessness, loss of interest, irritability, paranoia, visual hallucinations, auditory hallucinations, suicidal ideation or homicidal ideation Endocrine Reports: fatigue Hematologic/Lymphatic Reports: easy bruising Allergic/Immunologic Denies: wheezing Exam Mental Status Exam - Psych Appearance casually dressed, adequately groomed and no apparent distress Attitude cooperative and calm Activity/Motor Behavior MSE activity/motor behavior finding no adventitious movements and appropriate eye contact Speech regular rate, regular volume and regular prosody Mood euythmic Affect full range Thought Process linear, logical and coherent Thought Content no delusions and no hallucinations Suicidal Ideation none Homicidal Ideation none Attention impaired (per patient self report ) Concentration impaired (per patient self report ) Sensorium/O (more content not included)... Normal [facility] Orthopedic Visit Reporton Orthopedic Visit Report [facility] [address] [place], [place] [id number] OFFICE VISIT Date of Service: 08/02/24 MR#: [id number] Acct: [id number] Name: ANDREADEBBIEEliazarGEN JAMEY Rep #: [id number] : 1965 Provider: Dr. James lagunas MD Age/Sex: 58/M Location: [facility].RENETTA Status: Signed with Addenda ADDENDUM by JULIO Beal on 08/02/24 at 1541 Office Procedure Documentation entered by Chidi Beal MA 08/02/24 15:41: Ortho Injections Injections Yes Knee Left Is this a patient provided medication?: No Details: Obtained consent for injection. Under sterile conditions, injected the patients left knee with 2cc Kenalog, and 4cc Bupivacaine. The patient tolerated the injection well without any noted complication. Patient should call our office if redness develops, pain worsens or if they have any concerns. Office Meds Kenalog 40 mg/mL suspension for injection Performing Provider: James Justin MD Performing Location: [facility] Administered by: James Justin MD on 08/02/24 15:39 Dose Route Admin Location Dispensed Lot Number Expiration Date NDC Man ufacturer 40 mg intra-articular Left knee 1 mL [id number] 10/15/26 2152-0593-94 [facility] Date cc: * Signed Intake Vital Signs 07/14/24 08:07 07/26/24 10:11 Height 5 ft 11 in 5 ft 11 in Weight: 170 lb BMI 23.7 BP 143/86 H Blood Pressure Location Lt brachial Position Sitting Respiration 16 Pulse 69 Pulse Source Monitor Intake Visit Reasons: LEFT KNEE Chief Complaint: Left Knee Pain Accompanied by: Self Is patient in pain?: Yes Pain scale (1-10): 8 Allergies No Known Allergies Allergy (Verified 08/02/24 15:24) Medications ???Medication ???Instructions ???Recorded ???Confirmed ???Type tamsulosin 0.4 mg capsule 0.4 mg PO DAILY urinary retention 04/27/21 08/02/24 History melatonin 10 mg capsule 10 mg PO HS sleep 04/05/22 5 History multivitamin 1 tab PO DAILY supplement 04/28/23 08/02/24 History tramadol 50 mg tablet 50 mg PO TID pain 05/20/23 5 History carbidopa 25 mg-levodopa 100 mg 1 tab PO QHS 07/14/24 08/02/24 His tory tablet chlorthalidone 25 mg tablet 25 mg PO QDAY 07/14/24 08/02/24 Hi story fluticasone propionate 50 2 spray intranasal QDAY 07/14/24 0 08/02/24 History mcg/actuation nasal spray,suspension hydralazine 25 mg tablet 25 mg PO TID 07/14/24 08/02/24 His tory hydroxyzine HCl 10 mg tablet 10 mg PO TID PRN anxiety #60 tabs 07/14/24 08/02/24 Rx lorazepam 1 mg tablet 1 mg PO QDAY PRN anxiety #30 tabs 07/14/24 08/02/24 Rx ondansetron 8 mg disintegrating 8 mg PO TID 07/14/24 08/02/24 Hist ory tablet sertraline 50 mg tablet 50 mg PO QDAY #30 tabs 07/14/24 Rx clonazepam 0.5 mg tablet 0.5 mg PO TID 08/02/24 08/02/24 Hi story levothyroxine 50 mcg tablet 50 mcg PO QDAY 08/02/24 08/02/24 H istory [facility] Medical History Blurring of vision Elevated troponin Bilateral primary osteoarthritis of knee Bilateral knee pain Hx of head injury Wears contact lenses Anxiety History of steroid therapy Arthritis Back pain Injury of back Restless legs Gastric reflux Former smoker Leg cramps Left rotator cuff tear Right rotator cuff tear Cervicalgia Spondylosis of cervical region without myelopathy or radiculopathy Surgical History History of arthroscopy of left shoulder History of ear surgery H/O shoulder surgery H/O sinus surgery Family History Other Cancer Heart disease Social History household members: spouse housing: house current occupational status: employed pets and animals: Yes Smoking Status: Former smoker alcohol intake: former details: 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 James Justin MD 08/02/24 8384. Part of today???s visit was documented by [ ], acting as scribe. GEN POTTS is a 58 year old M here today for follow-up left knee pain OA prior a cortisone injection about 5 months ago now. Patient would like to try bilateral knee cortisone injections at today's visit. He has been happy with the results so far. Coding Level of Care Code Attention Lowerator Operator Diagnoses Bilateral primary osteoarthritis of knee M17.0 Comment 62875 and cpt inject major joint x2 Assessmen (more content not included)... Normal [facility] MR/BMS.BPon 07-14-2024 MR/BMS.BP [facility], [address] [place] [address] OFFICE VISIT Date of Service: 07/14/24 MR#: [id number] Acct: [id number] Name: GEN POTTS Rep #: [id number] : 1965 Provider: ADDIE cho Age/Sex: 58/M Location: [facility].BP Status: Signed Intake Vital Signs 03/04/24 10:13 06/22/24 03:30 07/14/24 08:07 Height 5 ft 11 in 5 ft 11 in 5 ft 11 in Weight: 170 lb BMI 23.7 BP 143/86 H Blood Pressure Location Lt brachial Position Sitting Respiration 16 Pulse 69 Pulse Source Monitor BP Intake Visit Reasons: Panic Disorder, Anxiety Accompanied by: Self Allergies No Known Allergies Allergy (Verified 07/14/24 08:10) Medications ???Medication ???Instructions ???Recorded ???Confirmed ???Type tamsulosin 0.4 mg capsule 0.4 mg PO DAILY urinary retention 04/27/21 07/14/24 History melatonin 10 mg capsule 10 mg PO HS sleep 04/05/22 5 History multivitamin 1 tab PO DAILY supplement 04/28/23 07/14/24 History tramadol 50 mg tablet 50 mg PO TID pain 05/20/23 5 History carbidopa 25 mg-levodopa 100 mg 1 tab PO QHS 07/14/24 07/14/24 His tory tablet chlorthalidone 25 mg tablet 25 mg PO QDAY 07/14/24 07/14/24 Hi story fluticasone propionate 50 2 spray intranasal QDAY 07/14/24 0 07/14/24 History mcg/actuation nasal spray,suspension hydralazine 25 mg tablet 25 mg PO TID 07/14/24 07/14/24 His tory hydroxyzine HCl 10 mg tablet 10 mg PO TID PRN anxiety #60 tabs 07/14/24 07/14/24 Rx levothyroxine 25 mcg tablet 25 mcg PO QDAY 07/14/24 07/14/24 H istory lorazepam 1 mg tablet 1 mg PO QDAY PRN anxiety #30 tabs 07/14/24 07/14/24 Rx ondansetron 8 mg disintegrating 8 mg PO TID 07/14/24 07/14/24 Hist ory tablet sertraline 50 mg tablet 50 mg PO QDAY #30 tabs 07/14/24 Rx PFSH Medical History Bilateral primary osteoarthritis of knee Bilateral knee pain Hx of head injury Wears contact lenses Anxiety History of steroid therapy Arthritis Back pain Injury of back Restless legs Gastric reflux Former smoker Leg cramps Left rotator cuff tear Right rotator cuff tear Cervicalgia Spondylosis of cervical region without myelopathy or radiculopathy Surgical History History of arthroscopy of left shoulder History of ear surgery H/O shoulder surgery H/O sinus surgery Family History (Updated 07/14/24 @ 08:16 by Sahara Aguirre) Other Cancer Heart disease Social History (Updated 07/14/24 @ 08:17 by Sahara Aguirre) household members: spouse housing: house current occupational status: employed pets and animals: Yes Smoking Status: Former smoker alcohol intake: former details: 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 Reports having some anxiety around financial concerns if he does not get his hours at work or if he is overwhelmed at work. also has anxiety about his physical health and about his 's physical health. Sleep: Does not sleep well. Is sleeping 3-4 hours per night. Admits to concerns with falling asleep and staying asleep due to RLS. Denies daytime napping. Denies nightmares. Interest: Denies feeling a depressed mood. Does enjoy woodworking and making bird houses. Energy: Does not often feel well rested but will at times. Admits to a lack of energy and motivation. Guilt: Denies feelings of hopelessness. Does report feeling disappointment in regards to his physical health. Denies worthlessness or feelings of guilt. Concentration: Does not typically have concerns with focus, concentration, or attention but does feel with making adjustments to cardiac medication this has become an issue. Appetite: Does report an increase in appetite recently. Does appear to have lost about 15 pounds in the last 3 month. Psychomotor: WNL Suicide: Denies SI/HI. 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 Does report some forgetfulness. Will forget a part of a conversation. Denies misplacing frequently used items Anxiety: Admits to feelings of anxiety all the time at baseline. Does report anxiety to worsen in regards to workplace stress. Denies panic attacks. During episodes of heightened anxiety does use his shay as a way to reduce this. Does take lorazepam at bedtime for anxiety and feels it is beneficial. Obsessions: Denies Compulsions: Denies Lane[place]: Admits to having times of only sleeping 4 hours but being able to do a lot of things and having a good attitude about it. (more content not included)... Normal [facility] Myoglobin, Serumon 5 Myoglobin, Ser < 21 Low 28-72 [facility] Comment on above: Result Comment: Perf ormed at: - [facility] [address], [place], [place] [id number] District Ranger: Mata Green PhD, Phone: [phone] Performed By: #### L 503.5817, L501.2447, L3600.5100, L500.4050, L100.0100, L501.3620, L505.5000, L501.4021, L300.8000, M100.678 ####[facility] [address] [place], [address] 12 Lead EKGon 06-22-2024 12 Lead EKG [facility] [address] [place] [address] 12 Lead EKG 06/22/24 0344 MR#: [id number] Acct: [id number] Name: GEN POTTS Rep #: [id number] : 1965 58 From: Tejinder Hebert MD Attending Dr: Dr. Yadira Cruz MD Status: ADM IN Ordering Dr: Humberto Martinez DO Date: 06/22/24 Location: [facility] Sex: M C Admitted: 06/22/24 Test Reason : Blood Pressure : */* mmHG Vent. Rate : 41 BPM Atrial Rate : 41 BPM P-R Int : 176 ms QRS Dur : 90 ms QT Int : 476 ms P-R-T Axes : 65 20 14 degrees QTcB Int : 392 ms Marked sinus bradycardia Abnormal ECG When compared with ECG of 21-Jun-2024 22:38, MANUAL COMPARISON REQUIRED DATA IS UNCONFIRMED Confirmed by ANUP BARBOUR, TEJINDER ([id number]), pictures editor TRAMAINE CORTÉS ([id number]) on 06/22/2024 8:11:27 AM Referred By: Confirmed By: TEJINDER HEBERT MD 06/22/24 0811 Date Tejinder Hebert MD CC: Dr. Humberto Martinez DO; Dr. Yadira Cruz MD; Dr. Rogelio Velazquez MD Signed Normal [facility] CBC-Complete Blood Cnt No Di ffon 06-22-2024 Erythrocyte distribution width (RBC) [Ratio] 13.5 % Normal 11.6-14.6 [facility] Comment on above: Performed By: #### L 100.0500, L500.4100, L300.8000, L500.4050, L501.9520 #### [facility] [address] [place], [address] Hematocrit (Bld) [Volume fraction] 40.0 % Normal 40-54 [facility] Comment on above: Performed By: #### L 100.0500, L500.4100, L300.8000, L500.4050, L501.9520 #### [facility] [address] [place], [address] Hemoglobin (Bld) [Mass/Vol] 13.4 g/dL Normal 13.0-16.5 [facility] Comment on above: Performed By: #### L 100.0500, L500.4100, L300.8000, L500.4050, L501.9520 #### [facility] [address] [place], [address] MCH (RBC) [Entitic mass] 32.1 pg High 27.0-32.0 [facility] Comment on above: Performed By: #### L 100.0500, L500.4100, L300.8000, L500.4050, L501.9520 #### [facility] [address] [place], [address] MCHC (RBC) [Mass/Vol] 33.5 g/dL Normal 32-[address] [facility] Comment on above: Performed By: #### L 100.0500, L500.4100, L300.8000, L500.4050, L501.9520 #### [facility] [address] [place], [address] MCV (RBC) [Entitic vol] 95.7 fL High 80-94 [facility] Comment on above: Performed By: #### L 100.0500, L500.4100, L300.8000, L500.4050, L501.9520 #### [facility] [address] [place], [address] Platelet mean volume (Bld) [Entitic vol] 10.8 fL Normal 6.2-12.0 [facility] Comment on above: Performed By: #### L 100.0500, L500.4100, L300.8000, L500.4050, L501.9520 #### [facility] [address] [place], [address] Platelets (Bld) [#/Vol] 225 10*3/uL Normal 150-450 [facility] Comment on above: Performed By: #### L 100.0500, L500.4100, L300.8000, L500.4050, L501.9520 #### [facility] [address] [place], [address] RBC (Bld) [#/Vol] 4.18 10*6/uL Low 4.6-6.2 [facility] Comment on above: Performed By: #### L 100.0500, L500.4100, L300.8000, L500.4050, L501.9520 #### [facility] [address] [place], [address] RDW SD 48.3 fl High 35.1-43.9 [facility] Comment on above: Performed By: #### L 100.0500, L500.4100, L300.8000, L500.4050, L501.9520 #### [facility] [address] [place], [address] WBC (Bld) [#/Vol] 7.3 10*3/uL Normal 4.4-11.0 [facility] Comment on above: Performed By: #### L 100.0500, L500.4100, L300.8000, L500.4050, L501.9520 #### [facility] [address] [place], [address] Comprehensive Metabolic Prof ilon 06-22-2024 Albumin [Mass/Vol] 3.7 g/dL Normal 3.5-5.0 [facility] Comment on above: Performed By: #### L 100.0500, L500.4100, L300.8000, L500.4050, L501.9520 #### [facility] [address] [place], [address] Albumin/Globulin [Mass ratio] 1.2 {ratio} Normal 0.9-2.4 [facility] Comment on above: Performed By: #### L 100.0500, L500.4100, L300.8000, L500.4050, L501.9520 #### [facility] [address] [place], [address] ALK PHOS 81 U/L Normal 40-129 [facility] Comment on above: Performed By: #### L 100.0500, L500.4100, L300.8000, L500.4050, L501.9520 #### [facility] [address] [place], [address] ALT [Catalytic activity/Vol] 11 U/L Normal <=46 [facility] Comment on above: Performed By: #### L 100.0500, L500.4100, L300.8000, L500.4050, L501.9520 #### [facility] [address] [place], [address] AST [Catalytic activity/Vol] 14 U/L Normal <=37 [facility] Comment on above: Performed By: #### L 100.0500, L500.4100, L300.8000, L500.4050, L501.9520 #### [facility] [address] [place], [address] Bilirubin [Mass/Vol] 0.58 mg/dL Normal 0.00-1.30 [facility] Comment on above: Performed By: #### L 100.0500, L500.4100, L300.8000, L500.4050, L501.9520 #### [facility] [address] [place], [address] BUN/CRE 17.9 RATIO Normal 10-20 [facility] Comment on above: Performed By: #### L 100.0500, L500.4100, L300.8000, L500.4050, L501.9520 #### [facility] [address] [place], [address] Calcium [Mass/Vol] 8.9 mg/dL Normal 7.6-11.0 [facility] Comment on above: Performed By: #### L 100.0500, L500.4100, L300.8000, L500.4050, L501.9520 #### [facility] [address] [place], [address] Chloride [Moles/Vol] 107 mmol/L Normal 98-108 [facility] Comment on above: Performed By: #### L 100.0500, L500.4100, L300.8000, L500.4050, L501.9520 #### [facility] [address] [place], [address] CO2 [Moles/Vol] 21.5 mmol/L Normal 21.0-32.0 [facility] Comment on above: Performed By: #### L 100.0500, L500.4100, L300.8000, L500.4050, L501.9520 #### [facility] [address] [place], [address] Creatinine [Mass/Vol] 0.83 mg/dL Normal 0.70-1.[address] [facility] Comment on above: Performed By: #### L 100.0500, L500.4100, L300.8000, L500.4050, L501.9520 #### [facility] [address] [place], [address] ECRCL 102.06 ml/min Normal 50-250 [facility] Comment on above: Performed By: #### L 100.0500, L500.4100, L300.8000, L500.4050, L501.9520 #### [facility] [address] [place], [address] GAP 11 Normal 5-15 [facility] Comment on above: Performed By: #### L 100.0500, L500.4100, L300.8000, L500.4050, L501.9520 #### [facility] [address] [place], [address] GFR/1.73 sq M.predicted among non-blacks MDRD (S/P/Bld) [Vol rate/Area] 101 mL/min/{1.73_m2} Normal >60 [facility] Comment on above: Result Comment: mL/m in/1.73m2 CKD-EPI Creatinine Equation (2020) Performed By: #### L 100.0500, L500.4100, L300.8000, L500.4050, L501.9520 #### [facility] [address] [place], [address] Globulin (S) [Mass/Vol] 3.2 g/dL Normal 2.2-4.2 [facility] Comment on above: Performed By: #### L 100.0500, L500.4100, L300.8000, L500.4050, L501.9520 #### [facility] [address] [place], [address] Glucose [Mass/Vol] 87 mg/dL Normal 70-99 [facility] Comment on above: Performed By: #### L 100.0500, L500.4100, L300.8000, L500.4050, L501.9520 #### [facility] [address] [place], [address] Potassium [Moles/Vol] 4.3 mmol/L Normal 3.3-5.[address] [facility] Comment on above: Performed By: #### L 100.0500, L500.4100, L300.8000, L500.4050, L501.9520 #### [facility] [address] [place], [address] Sodium [Moles/Vol] 140 mmol/L Normal 133-145 [facility] Comment on above: Performed By: #### L 100.0500, L500.4100, L300.8000, L500.4050, L501.9520 #### [facility] [address] [place], [address] T PROT 7.0 g/dL Normal 5.9-8.4 [facility] Comment on above: Performed By: #### L 100.0500, L500.4100, L300.8000, L500.4050, L501.9520 #### [facility] [address] [place], [address] Urea nitrogen [Mass/Vol] 15 mg/dL Normal 4-19 [facility] Comment on above: Performed By: #### L 100.0500, L500.4100, L300.8000, L500.4050, L501.9520 #### [facility] [address] [place], [address] Consultation - Cardiologyon 06-22-2024 Consultation - Cardiology [facility] Medical Records Department [address] [place] [address] Consultation - Cardiology 06/22/24 0717 MR#: [id number] Acct: [id number] Name: GEN POTTS Rep #: [id number] : 1965 58 From: Tejinder Hebert MD PCP: Dr. Rogelio Velazquez MD Status:ADM IN Location: [place] [address] Assessment Plan Assessment/Plan (1) Essential hypertension: PLAN: Patient presents with hypertension and likely diastolic dysfunction. His blood pressure needs to be better controlled. I think he is too bradycardic from the beta-singh and recommendation will be for us to consider an MARICARMEN inhibitor. With regard to his dizziness I will rather try away from a calcium channel singh at this time. * Will recommend an echocardiogram to assess his ventricular function * He is also noted to have an elevated TSH and this may be contributing to some of his bradycardia. (2) Elevated troponin: PLAN: He does have elevated troponin levels with a basically flat pattern. I will recommend an exercise myocardial perfusion stress test. Unless the above is significantly abnormal we can manage this expectantly and medically. I explained the above to him he understands and agrees to proceed. Smoking cessation has been emphasized HPI Consult Data Date of Consult: 06/22/24 HPI Narrative HPI Narrative: GEN POTTS, is a 58 M who presents after he went to see his primary physician complaining of dizziness as well as some shortness of breath with exertion and a troponin level was drawn which was abnormal and so he was asked to come to the emergency room. He denies any chest pain per se with exertion but his major problem has been dizziness. He says this occurs at random times. Occasionally he has had some chest discomfort in the more shortness of breath. He has never had any syncopal spells no palpitations no paroxysmal nocturnal dyspnea or pedal edema. He does have a history of hypertension, does not know his lipid status and does occasionally use tobacco products. Emergency room he was evaluated his electrocardiogram demonstrated normal sinus rhythm with sinus bradycardia and no acute changes. [facility] Medical History Bilateral primary osteoarthritis of knee Bilateral knee pain Hx of head injury Wears contact lenses Anxiety History of steroid therapy Arthritis Back pain Injury of back Restless legs Gastric reflux Former smoker Leg cramps Left rotator cuff tear Right rotator cuff tear Cervicalgia Spondylosis of cervical region without myelopathy or radiculopathy Home Medications ???Medication ???Instructions ???Recorded ???Last Taken ???Type naproxen sodium 220 mg capsule 220 mg PO BID 05/31/19 Unknown His tory tamsulosin 0.4 mg capsule 0.4 mg PO DAILY 04/27/21 Unknown H istory melatonin 10 mg capsule 10 mg PO HS sleep 04/05/22 Unknown History multivitamin 1 tab PO DAILY 04/28/23 Unknown Hi story tramadol 50 mg tablet 50 mg PO TID 05/20/23 Unknown Hist ory gabapentin 300 mg capsule 300 mg PO 4X/DAY 06/21/24 Unknown History metoprolol tartrate 25 mg tablet 25 mg PO BID 06/22/24 Unknown Hist ory Allergy/AdvReac Type Severity Reaction Status Date / Time No Known Allergies Allergy Verified 06/21/24 22:33 Surgical History History of arthroscopy of left shoulder History of ear surgery H/O shoulder surgery H/O sinus surgery Social History household members: spouse housing: house current occupational status: employed pets and animals: Yes Smoking Status: Former smoker alcohol intake: never substance use type: does not use what type of physical activity do you participate in: none ROS Constitutional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 Comment on above: Performed By: #### L 100.0100, L501.4021, L500.2500 ####[facility] [address] [place], [address] Potassium [Moles/Vol] 4.2 mmol/L Normal 3.3-5.[address] [facility] Comment on above: Performed By: #### L 100.0100, L501.4021, L500.2500 ####[facility] [address] [place], [address] Sodium [Moles/Vol] 141 mmol/L Normal 133-145 [facility] Comment on above: Performed By: #### L 100.0100, L501.4021, L500.2500 ####[facility] [address] [place], [address] Urea nitrogen [Mass/Vol] 15 mg/dL Normal 4-19 [facility] Comment on above: Performed By: #### L 100.0100, L501.4021, L500.2500 ####[facility] [address] [place], [address] Brain/Head without Contrasto n 06-21-2024 Brain/Head without Contrast [facility] Imaging Services [address] [place] [address] Brain/Head without Contrast MR#: [id number] Acct: [id number] Name: GEN POTTS Rep #: [id number] : 1965 M 58 From: Merritt caldera MD PCP: Dr. Rogelio Velazquez MD Status: REG CLI Study: Brain/Head without Contrast Date of Exam: 10/08 Exam# [id number] Ordering Dr: Rogelio Velazquez MD PROCEDURE: BRAIN/HEAD WITHOUT CONTRAST 06/21/2024 REASON FOR EXAM: HEADACH,CONFUSION, DISORIENTATION TECHNIQUE: Head CT without intravenous contrast. Coronal and Sagittal reconstruction series were provided. One or more dose reduction techniques were used (e.g., Automated exposure control, adjustment of the mA and/or kV according to patient size, use of iterative reconstruction technique. COMPARISON: None FINDINGS: * ACUTE: No acute infarct or hemorrhage. No mass effect or herniation. * BRAIN PARENCHYMA: Signal intensities are within normal limits for age. Metallic density along the left temporal scalp with resultant streak artifact. * VENTRICLES/EXTRA-AXIA L SPACES: No hydrocephalus or extra-axial fluid collections. * EXTRACRANIAL STRUCTURES: Visualized osseous structures are normal. Soft tissues are normal. CT/Brain/Head without Contrast IMPRESSION: No acute intracranial abnormality. Reading Location: [facility] CC: Dr. Rogelio Velazquez MD Still Tender: Signed Normal [facility] CBC W/Diff, Automatedon 04-0 Absolute Lymph 2.79 X10 3/uL Normal 0.83-4.51 [facility] Comment on above: Performed By: #### L 100.0100, L501.4021, L500.2500 #### [facility] [address] [place], [address] Absolute Neut 4.7 X10 3/uL Normal 2.0-7.7 [facility] Comment on above: Performed By: #### L 100.0100, L501.4021, L500.2500 #### [facility] [address] [place], [address] Basophils/100 WBC (Bld) 0.5 % Normal 0-1 [facility] Comment on above: Performed By: #### L 100.0100, L501.4021, L500.2500 #### [facility] [address] [place], [address] Eosinophils/100 WBC (Bld) 0.8 % Normal 0-5 [facility] Comment on above: Performed By: #### L 100.0100, L501.4021, L500.2500 #### [facility] [address] [place], [address] Erythrocyte distribution width (RBC) [Ratio] 13.3 % Normal 11.6-14.6 [facility] Comment on above: Performed By: #### L 100.0100, L501.4021, L500.2500 #### [facility] [address] [place], [address] Hematocrit (Bld) [Volume fraction] 39.6 % Low 40-54 [facility] Comment on above: Performed By: #### L 100.0100, L501.4021, L500.2500 #### [facility] [address] [place], [address] Hemoglobin (Bld) [Mass/Vol] 13.6 g/dL Normal 13.0-16.5 [facility] Comment on above: Performed By: #### L 100.0100, L501.4021, L500.2500 #### [facility] [address] [place], [address] IG% 0.400 Normal 0.0-0.9 [facility] Comment on above: Result Comment: IG% - Immature Granulocytes (promyelocytes, myelocytes and metamyelocytes) > 1% indicates that a LEFT SHIFT is Present. Performed By: #### L 100.0100, L501.4021, L500.2500 #### [facility] [address] [place], [address] Lymphocytes/100 WBC (Bld) 33.6 % Normal 19-41 [facility] Comment on above: Performed By: #### L 100.0100, L501.4021, L500.2500 #### [facility] [address] [place], [address] MCH (RBC) [Entitic mass] 32.5 pg High 27.0-32.0 [facility] Comment on above: Performed By: #### L 100.0100, L501.4021, L500.2500 #### [facility] [address] [place], [address] MCHC (RBC) [Mass/Vol] 34.3 g/dL Normal 32-[address] [facility] Comment on above: Performed By: #### L 100.0100, L501.4021, L500.2500 #### [facility] [address] [place], [address] MCV (RBC) [Entitic vol] 94.5 fL High 80-94 [facility] Comment on above: Performed By: #### L 100.0100, L501.4021, L500.2500 #### [facility] [address] [place], [address] Monocytes/100 WBC (Bld) 8.0 % Normal 0-10 [facility] Comment on above: Performed By: #### L 100.0100, L501.4021, L500.2500 #### [facility] [address] [place], [address] Neutrophils/100 WBC (Bld) 56.7 % Normal 47-70 [facility] Comment on above: Performed By: #### L 100.0100, L501.4021, L500.2500 #### [facility] [address] [place], [address] Nucleated RBC (Bld) [#/Vol] 0 10*3/uL Normal 0-5 [facility] Comment on above: Performed By: #### L 100.0100, L501.4021, L500.2500 #### [facility] [address] [place], [address] Platelet mean volume (Bld) [Entitic vol] 11.0 fL Normal 6.2-12.0 [facility] Comment on above: Performed By: #### L 100.0100, L501.4021, L500.2500 #### [facility] [address] [place], [address] Platelets (Bld) [#/Vol] 239 10*3/uL Normal 150-450 [facility] Comment on above: Performed By: #### L 100.0100, L501.4021, L500.2500 #### [facility] [address] [place], [address] RBC (Bld) [#/Vol] 4.19 10*6/uL Low 4.6-6.2 [facility] Comment on above: Performed By: #### L 100.0100, L501.4021, L500.2500 #### [facility] [address] [place], [address] RDW SD 46.2 fl High 35.1-43.9 [facility] Comment on above: Performed By: #### L 100.0100, L501.4021, L500.2500 #### [facility] [address] [place], [address] WBC (Bld) [#/Vol] 8.3 10*3/uL Normal 4.4-11.0 [facility] Comment on above: Performed By: #### L 100.0100, L501.4021, L500.2500 #### [facility] [address] [place], [address] Absolute Lymph 2.63 X10 3/uL Normal 0.83-4.51 [facility] Comment on above: Performed By: #### L 503.7505, L501.9520, L3600.5100, L500.4050, L100.0100, L501.3620, L505.5000, L501.4021, L300.8000, M100.678 ####[facility] [address] [place], [address] Absolute Neut 4.8 X10 3/uL Normal 2.0-7.7 [facility] Comment on above: Performed By: #### L 503.7505, L501.9520, L3600.5100, L500.4050, L100.0100, L501.3620, L505.5000, L501.4021, L300.8000, M100.678 ####[facility] [address] [place], [address] Basophils/100 WBC (Bld) 0.6 % Normal 0-1 [facility] Comment on above: Performed By: #### L 503.7505, L501.9520, L3600.5100, L500.4050, L100.0100, L501.3620, L505.5000, L501.4021, L300.8000, M100.678 ####[facility] [address] [place], [address] Eosinophils/100 WBC (Bld) 1.2 % Normal 0-5 [facility] Comment on above: Performed By: #### L 503.7505, L501.9520, L3600.5100, L500.4050, L100.0100, L501.3620, L505.5000, L501.4021, L300.8000, M100.678 ####[facility] [address] [place], [address] Erythrocyte distribution width (RBC) [Ratio] 13.3 % Normal 11.6-14.6 [facility] Comment on above: Performed By: #### L 503.7505, L501.9520, L3600.5100, L500.4050, L100.0100, L501.3620, L505.5000, L501.4021, L300.8000, M100.678 ####[facility] [address] [place], [address] Hematocrit (Bld) [Volume fraction] 42.2 % Normal 40-54 [facility] Comment on above: Performed By: #### L 503.7505, L501.9520, L3600.5100, L500.4050, L100.0100, L501.3620, L505.5000, L501.4021, L300.8000, M100.678 ####[facility] [address] [place], [place], [id number] Hemoglobin (Bld) [Mass/Vol] 14.4 g/dL Normal 13.0-16.5 [facility] Comment on above: Performed By: #### L 503.7505, L501.9520, L3600.5100, L500.4050, L100.0100, L501.3620, L505.5000, L501.4021, L300.8000, M100.678 ####[facility] [address] [place], [place], [phone] IG% 0.400 Normal 0.0-0.9 [facility] Comment on above: Result Comment: IG% - Immature Granulocytes (promyelocytes, myelocytes and metamyelocytes) > 1% indicates that a LEFT SHIFT is Present. Performed By: #### L 503.7505, L501.9520, L3600.5100, L500.4050, L100.0100, L501.3620, L505.5000, L501.4021, L300.8000, M100.678 ####[facility] [address] [place], [place], [phone] Lymphocytes/100 WBC (Bld) 32.2 % Normal 19-41 [facility] Comment on above: Performed By: #### L 503.7505, L501.9520, L3600.5100, L500.4050, L100.0100, L501.3620, L505.5000, L501.4021, L300.8000, M100.678 ####[facility] [address] [place], [place], [address] MCH (RBC) [Entitic mass] 32.4 pg High 27.0-32.0 [facility] Comment on above: Performed By: #### L 503.7505, L501.9520, L3600.5100, L500.4050, L100.0100, L501.3620, L505.5000, L501.4021, L300.8000, M100.678 ####[facility] [address] [place], [address] MCHC (RBC) [Mass/Vol] 34.1 g/dL Normal 32-[address] [facility] Comment on above: Performed By: #### L 503.7505, L501.9520, L3600.5100, L500.4050, L100.0100, L501.3620, L505.5000, L501.4021, L300.8000, M100.678 ####[facility] [address] [place], [address] MCV (RBC) [Entitic vol] 94.8 fL High 80-94 [facility] Comment on above: Performed By: #### L 503.7505, L501.9520, L3600.5100, L500.4050, L100.0100, L501.3620, L505.5000, L501.4021, L300.8000, M100.678 ####[facility] [address] [place], [address] Monocytes/100 WBC (Bld) 7.3 % Normal 0-10 [facility] Comment on above: Performed By: #### L 503.7505, L501.9520, L3600.5100, L500.4050, L100.0100, L501.3620, L505.5000, L501.4021, L300.8000, M100.678 ####[facility] [address] [place], [address] Neutrophils/100 WBC (Bld) 58.3 % Normal 47-70 [facility] Comment on above: Performed By: #### L 503.7505, L501.9520, L3600.5100, L500.4050, L100.0100, L501.3620, L505.5000, L501.4021, L300.8000, M100.678 ####[facility] [address] [place], [address] Nucleated RBC (Bld) [#/Vol] 0 10*3/uL Normal 0-5 [facility] Comment on above: Performed By: #### L 503.7505, L501.9520, L3600.5100, L500.4050, L100.0100, L501.3620, L505.5000, L501.4021, L300.8000, M100.678 ####[facility] [address] [place], [address] Platelet mean volume (Bld) [Entitic vol] 10.8 fL Normal 6.2-12.0 [facility] Comment on above: Performed By: #### L 503.7505, L501.9520, L3600.5100, L500.4050, L100.0100, L501.3620, L505.5000, L501.4021, L300.8000, M100.678 ####[facility] [address] [place], [address] Platelets (Bld) [#/Vol] 237 10*3/uL Normal 150-450 [facility] Comment on above: Performed By: #### L 503.7505, L501.9520, L3600.5100, L500.4050, L100.0100, L501.3620, L505.5000, L501.4021, L300.8000, M100.678 ####[facility] [address] [place], [address] RBC (Bld) [#/Vol] 4.45 10*6/uL Low 4.6-6.2 [facility] Comment on above: Performed By: #### L 503.7505, L501.9520, L3600.5100, L500.4050, L100.0100, L501.3620, L505.5000, L501.4021, L300.8000, M100.678 ####[facility] [address] [place], [address] RDW SD 46.7 fl High 35.1-43.9 [facility] Comment on above: Performed By: #### L 503.7505, L501.9520, L3600.5100, L500.4050, L100.0100, L501.3620, L505.5000, L501.4021, L300.8000, M100.678 ####[facility] [address] [place], [address] WBC (Bld) [#/Vol] 8.2 10*3/uL Normal 4.4-11.0 [facility] Comment on above: Performed By: #### L 503.7505, L501.9520, L3600.5100, L500.4050, L100.0100, L501.3620, L505.5000, L501.4021, L300.8000, M100.678 ####[facility] [address] [place], [address] CPK Total, Creatine Kinaseon 06-21-2024 CPK TOTAL 34 U/L Normal 24-195 [facility] Comment on above: Performed By: #### L 503.7505, L501.9520, L3600.5100, L500.4050, L100.0100, L501.3620, L505.5000, L501.4021, L300.8000, M100.678 ####[facility] [address] [place], [address] CTA Chest W/WO Contraston CTA Chest W/WO Contrast [facility] Imaging Services [address] [place] [address] CTA Chest W/WO Contrast MR#: [id number] Acct: [id number] Name: GEN POTTS Rep #: [id number] : 1965 M 58 From: Tamika Isaac MD PCP: Dr. Rogelio Velazquez MD Status: REG ER Study: CTA Chest W/WO Contrast Date of Exam: 06/21/24 Exam# [id number] Ordering Dr: Bolivar Lockett DO PROCEDURE: CTA CHEST W/WO CONTRAST 06/21/2024 REASON FOR EXAM: DYSPNEA TECHNIQUE: CTA axial imaging of the chest with intravenous contrast. Coronal and Sagittal reconstruction series were provided. 3D, 3D post processing, 3D reconstructions, Maximum intensity projection (MIPs) Volume rendering and Shaded surface rendering was provided. PATIENT PREPARATION: Per protocol CONTRAST: Isovue 370 VOLUME: 100 mL 18 gauge IV One or more dose reduction techniques were used (e.g., Automated exposure control, adjustment of the mA and/or kV according to patient size, use of iterative reconstruction technique). RADIATION DOSE SUMMARY: CTDlvol: 10.8 mGy DLP: 418.1 mGycm COMPARISON: Chest radiograph dated June 21, 2024 FINDINGS: Hardware: None available Lymph nodes: No lymphadenopathy Heart: Unremarkable RV/LV Diameter Ratio: Unremarkable Thoracic Aorta: Unremarkable Pulmonary Vessels: No evidence of acute pulmonary emboli through the major subsegmental branches. Most Proximal Level of Embolus (if embolus present): Lungs and Airways: Central airways are patent. Dependent bibasilar atelectasis. Pleura: Trace bilateral pleural effusion. Upper Abdomen: Unremarkable Bones: No aggressive osseous lesions. No acute fractures. CT/CTA Chest W/WO Contrast IMPRESSION: No evidence of pulmonary emboli up to the segmental arterial branches. More peripheral vessels are not well assessed. Reading Location: [facility] CC: Dr. Rogelio Velazquez MD; Bolivar Lockett DO Still Tender: Signed Normal [facility] Chest PA and Lateralon 06-21 Chest PA and Lateral [facility] Imaging Services [address] [place] [address] Chest PA and Lateral MR#: [id number] Acct: [id number] Name: GEN POTTS Rep #: [id number] : 1965 M 58 From: Kamlesh Panchal i, DO PCP: Dr. Rogelio Velazquez MD Status: REG CLI Study: Chest PA and Lateral Date of Exam: 06/21/24 Exam# [id number] Ordering Dr: Rogelio Velazquez MD PROCEDURE: PA and lateral chest radiographs, two views 06/21/2024 REASON FOR EXAM: Shortness of breath TECHNIQUE: PA and lateral views of the chest. COMPARISON: None available FINDINGS: The bones are osteopenic with mild degenerative changes in the spine. No pneumothorax, focal airspace consolidation, or pleural effusion. Scattered coarse interstitial markings in both lungs. RAD/Chest PA and Lateral IMPRESSION: Scattered coarse interstitial markings in both lungs, which could be due to chronic interstitial lung disease. No focal pneumonia or sizable pleural effusion is demonstrated. Follow-up nonemergent high-resolution chest CT evaluation may be considered. Reading Location: [facility] CC: Dr. Rogelio Velazquez MD Still Tender: Signed Normal [facility] Comprehensive Metabolic Prof ilon 06-21-2024 Albumin [Mass/Vol] 3.9 g/dL Normal 3.5-5.0 [facility] Comment on above: Performed By: #### L 503.7505, L501.9520, L3600.5100, L500.4050, L100.0100, L501.3620, L505.5000, L501.4021, L300.8000, M100.678 ####[facility] [address] [place], [address] Albumin/Globulin [Mass ratio] 1.1 {ratio} Normal 0.9-2.4 [facility] Comment on above: Performed By: #### L 503.7505, L501.9520, L3600.5100, L500.4050, L100.0100, L501.3620, L505.5000, L501.4021, L300.8000, M100.678 ####[facility] [address] [place], [address] ALK PHOS 87 U/L Normal 40-129 [facility] Comment on above: Performed By: #### L 503.7505, L501.9520, L3600.5100, L500.4050, L100.0100, L501.3620, L505.5000, L501.4021, L300.8000, M100.678 ####[facility] [address] [place], [address] ALT [Catalytic activity/Vol] 10 U/L Normal <=46 [facility] Comment on above: Performed By: #### L 503.7505, L501.9520, L3600.5100, L500.4050, L100.0100, L501.3620, L505.5000, L501.4021, L300.8000, M100.678 ####[facility] [address] [place], [address] AST [Catalytic activity/Vol] 16 U/L Normal <=37 [facility] Comment on above: Performed By: #### L 503.7505, L501.9520, L3600.5100, L500.4050, L100.0100, L501.3620, L505.5000, L501.4021, L300.8000, M100.678 ####[facility] [address] [place], [address] Bilirubin [Mass/Vol] 0.51 mg/dL Normal 0.00-1.30 [facility] Comment on above: Performed By: #### L 503.7505, L501.9520, L3600.5100, L500.4050, L100.0100, L501.3620, L505.5000, L501.4021, L300.8000, M100.678 ####[facility] [address] [place], [address] BUN/CRE 19.0 RATIO Normal 10-20 [facility] Comment on above: Performed By: #### L 503.7505, L501.9520, L3600.5100, L500.4050, L100.0100, L501.3620, L505.5000, L501.4021, L300.8000, M100.678 ####[facility] [address] [place], [address] Calcium [Mass/Vol] 9.1 mg/dL Normal 7.6-11.0 [facility] Comment on above: Performed By: #### L 503.7505, L501.9520, L3600.5100, L500.4050, L100.0100, L501.3620, L505.5000, L501.4021, L300.8000, M100.678 ####[facility] [address] [facility] [place], [address] Chloride [Moles/Vol] 108 mmol/L Normal 98-108 [facility] Comment on above: Performed By: #### L 503.7505, L501.9520, L3600.5100, L500.4050, L100.0100, L501.3620, L505.5000, L501.4021, L300.8000, M100.678 ####[facility] [address] [place], [address] CO2 [Moles/Vol] 20.3 mmol/L Low 21.0-32.0 [facility] Comment on above: Performed By: #### L 503.7505, L501.9520, L3600.5100, L500.4050, L100.0100, L501.3620, L505.5000, L501.4021, L300.8000, M100.678 ####[facility] [address] [facility] [address] [place], [address] Creatinine [Mass/Vol] 0.81 mg/dL Normal 0.70-1.[address] [facility] Comment on above: Performed By: #### L 503.7505, L501.9520, L3600.5100, L500.4050, L100.0100, L501.3620, L505.5000, L501.4021, L300.8000, M100.678 ####[facility] [address] [place], [address] GAP 12 Normal 5-15 [facility] Comment on above: Performed By: #### L 503.7505, L501.9520, L3600.5100, L500.4050, L100.0100, L501.3620, L505.5000, L501.4021, L300.8000, M100.678 ####[facility] [address] [place], [address] GFR/1.73 sq M.predicted among non-blacks MDRD (S/P/Bld) [Vol rate/Area] 102 mL/min/{1.73_m2} Normal >60 [facility] Comment on above: Result Comment: mL/m in/1.73m2 CKD-EPI Creatinine Equation (2020) Performed By: #### L 503.7505, L501.9520, L3600.5100, L500.4050, L100.0100, L501.3620, L505.5000, L501.4021, L300.8000, M100.678 ####[facility] [address] [place], [address] Globulin (S) [Mass/Vol] 3.5 g/dL Normal 2.2-4.2 [facility] Comment on above: Performed By: #### L 503.7505, L501.9520, L3600.5100, L500.4050, L100.0100, L501.3620, L505.5000, L501.4021, L300.8000, M100.678 ####[facility] [address] [place], [address] Glucose [Mass/Vol] 84 mg/dL Normal 70-99 [facility] Comment on above: Performed By: #### L 503.7505, L501.9520, L3600.5100, L500.4050, L100.0100, L501.3620, L505.5000, L501.4021, L300.8000, M100.678 ####[facility] [address] [place], [address] Potassium [Moles/Vol] 4.2 mmol/L Normal 3.3-5.[address] [facility] Comment on above: Performed By: #### L 503.7505, L501.9520, L3600.5100, L500.4050, L100.0100, L501.3620, L505.5000, L501.4021, L300.8000, M100.678 ####[facility] [address] [place], [address] Sodium [Moles/Vol] 140 mmol/L Normal 133-145 [facility] Comment on above: Performed By: #### L 503.7505, L501.9520, L3600.5100, L500.4050, L100.0100, L501.3620, L505.5000, L501.4021, L300.8000, M100.678 ####[facility] [address] [place], [address] T PROT 7.4 g/dL Normal 5.9-8.4 [facility] Comment on above: Performed By: #### L 503.7505, L501.9520, L3600.5100, L500.4050, L100.0100, L501.3620, L505.5000, L501.4021, L300.8000, M100.678 ####[facility] [address] [place], [address] Urea nitrogen [Mass/Vol] 15 mg/dL Normal 4-19 [facility] Comment on above: Performed By: #### L 503.7505, L501.9520, L3600.5100, L500.4050, L100.0100, L501.3620, L505.5000, L501.4021, L300.8000, M100.678 ####[facility] [address] [place], [place], [id number] D-Dimer Quantitative (DVT/PE )on 06-21-2024 D-DIMER QUANT 0.47 FEU/ug/m Normal 0.27-0.49 [facility] Comment on above: Result Comment: NORM AL D-Dimer level (<0.50) indicates no DVT or PE. Performed By: #### L 503.7505, L501.9520, L3600.5100, L500.4050, L100.0100, L501.3620, L505.5000, L501.4021, L300.8000, M100.678 ####[facility] [address] [place], [place], [id number] L501.4021on 06-21-2024 Trop T High Sen 84 ng/L Invalid Interpretation Code <=22 [facility] Comment on above: Result Comment: Crit ical Result(s) Called at:2323 by:??MORENO LANGLEY TO IKE LOPEZ Results read back by same. Performed By: #### L 100.0100, L501.4021, L500.2500 ####[facility] [address] [place], [place], [id number] Trop T High Sen 73 ng/L Invalid Interpretation Code <=22 [facility] Comment on above: Result Comment: Crit ical Result(s) Called at: 2100 by: JEFF [place] TO DR. VELAZQUEZ??Results read back by same. Performed By: #### L 503.7505, L501.9520, L3600.5100, L500.4050, L100.0100, L501.3620, L505.5000, L501.4021, L300.8000, M100.678 ####[facility] [address] [place], [place], [address] L503.7505on 06-21-2024 Natriuretic peptide B (Bld) [Mass/Vol] 368 pg/mL Normal <=900 [facility] Comment on above: Result Comment: Hear t Failure Unlikely: < 300 pg/mL Heart Failure Likely < 50 Years: > 450 pg/mL 50-75 Years: > 900 pg/mL >75 Years: > 1800 pg/mL Performed By: #### L 503.7505 #### [facility] [address] [facility] [place], [place], [address] Natriuretic peptide B (Bld) [Mass/Vol] 370 pg/mL Normal <=900 [facility] Comment on above: Result Comment: Hear t Failure Unlikely: < 300 pg/mL Heart Failure Likely < 50 Years: > 450 pg/mL 50-75 Years: > 900 pg/mL >75 Years: > 1800 pg/mL Performed By: #### L 503.7505, L501.9520, L3600.5100, L500.4050, L100.0100, L501.3620, L505.5000, L501.4021, L300.8000, M100.678 ####[facility] [address] [facility] [place], [place], [id number] M100.678on 06-21-2024 M100.678 Pending SARS-CoV-2 (COVID 19) Negative INFLUENZA A Negative INFLUENZA B Negative RSV PCR Negative [facility] Comment on above: Performed By: #### L 503.7505, L501.9520, L3600.5100, L500.4050, L100.0100, L501.3620, L505.5000, L501.4021, L300.8000, M100.678 ####[facility] [address] [place], [address] M100.678 Pending SARS-CoV-2 (COVID 19) Negative INFLUENZA A Negative INFLUENZA B Negative RSV PCR Negative [facility] Comment on above: Performed By: #### L 100.0500, L500.4100, L300.8000, L500.4050, L501.9520 #### [facility] [address] [place], [address] Partial Thromboplast Timeon 06-21-2024 aPTT Coag (Bld) [Time] 28.6 s Normal 24.1-36.2 [facility] Comment on above: Performed By: #### L 100.0500, L500.4100, L300.8000, L500.4050, L501.9520 #### [facility] [address] [place], [address] Prothrombin Time w/INRon INR Coag (PPP) [Relative time] 1.0 {INR} Normal [facility] Comment on above: Performed By: #### L 100.0500, L500.4100, L300.8000, L500.4050, L501.9520 #### [facility] [address] [place], [address] PT Coag (PPP) [Time] 13.1 s Normal 11.7-14.9 [facility] Comment on above: Performed By: #### L 100.0500, L500.4100, L300.8000, L500.4050, L501.9520 #### [facility] [address] [place], [address] Thyroid Stim Hormone (TSH)on 06-21-2024 TSH 5.800 uIU/mL High 0.300-4.200 [facility] Comment on above: Performed By: #### L 503.7505, L501.9520, L3600.5100, L500.4050, L100.0100, L501.3620, L505.5000, L501.4021, L300.8000, M100.678 ####[facility] [address] [place], [address] Urine Drug Screen (VISTA)on 06-21-2024 AMPHETAMINES Negative Normal <1000 ng/mL [facility] Comment on above: Order Comment: UNKNO WN Performed By: #### L 503.7505, L501.9520, L3600.5100, L500.4050, L100.0100, L501.3620, L505.5000, L501.4021, L300.8000, M100.678 ####[facility] [address] [place], [place], [phone] BARBITIURATES Negative Normal < 200 ng/mL [facility] Comment on above: Order Comment: UNKNO WN Performed By: #### L 503.7505, L501.9520, L3600.5100, L500.4050, L100.0100, L501.3620, L505.5000, L501.4021, L300.8000, M100.678 ####[facility] [address] [place], [place], [phone] BENZODIAZIPINE Positive Normal < 200 ng/mL [facility] Comment on above: Order Comment: UNKNO WN Result Comment: If c onfirmation testing is needed, a separate order will be required to send out testing to the reference laboratory. Performed By: #### L 503.7505, L501.9520, L3600.5100, L500.4050, L100.0100, L501.3620, L505.5000, L501.4021, L300.8000, M100.678 ####[facility] [address] [place], [place], [phone]) BUP Ur Drug Scr Negative Normal < 200 ng/mL [facility] Comment on above: Order Comment: UNKNO WN Performed By: #### L 503.7505, L501.9520, L3600.5100, L500.4050, L100.0100, L501.3620, L505.5000, L501.4021, L300.8000, M100.678 ####[facility] [address] [place], [place], [phone]) COCAINE Negative Normal < 300 ng/mL [facility] Comment on above: Order Comment: UNKNO WN Performed By: #### L 503.7505, L501.9520, L3600.5100, L500.4050, L100.0100, L501.3620, L505.5000, L501.4021, L300.8000, M100.678 ####[facility] [address] [place], [address] Fentanyl Negative Normal [facility] Comment on above: Order Comment: UNKNO WN Performed By: #### L 503.7505, L501.9520, L3600.5100, L500.4050, L100.0100, L501.3620, L505.5000, L501.4021, L300.8000, M100.678 ####[facility] [address] [place], [place], [phone] METHADONE Negative Normal < 300 ng/mL [facility] Comment on above: Order Comment: UNKNO WN Performed By: #### L 503.7505, L501.9520, L3600.5100, L500.4050, L100.0100, L501.3620, L505.5000, L501.4021, L300.8000, M100.678 ####[facility] [address] [place], [address] OPIATES Negative Normal < 300 ng/mL [facility] Comment on above: Order Comment: UNKNO WN Performed By: #### L 503.7505, L501.9520, L3600.5100, L500.4050, L100.0100, L501.3620, L505.5000, L501.4021, L300.8000, M100.678 ####[facility] [address] [place], [address] OXYCODONE Negative Normal < 100 ng/mL [facility] Comment on above: Order Comment: UNKNO WN Performed By: #### L 503.7505, L501.9520, L3600.5100, L500.4050, L100.0100, L501.3620, L505.5000, L501.4021, L300.8000, M100.678 ####[facility] [address] [place], [address] PCP Negative Normal < 25 ng/mL [facility] Comment on above: Order Comment: UNKNO WN Performed By: #### L 503.7505, L501.9520, L3600.5100, L500.4050, L100.0100, L501.3620, L505.5000, L501.4021, L300.8000, M100.678 ####[facility] [address] [place], [address] THC Negative Normal < 50 ng/mL [facility] Comment on above: Order Comment: UNKNO WN Performed By: #### L 503.7505, L501.9520, L3600.5100, L500.4050, L100.0100, L501.3620, L505.5000, L501.4021, L300.8000, M100.678 ####[facility] [address] [place], [address] CBC W/Diff, Automatedon 05-15 Absolute Lymph 3.44 X10 3/uL Normal 0.83-4.51 [facility] Comment on above: Performed By: #### L 100.0100, L501.9520, L500.4050, L501.9910 ####[facility] [address] [place], [address] Absolute Neut 4.8 X10 3/uL Normal 2.0-7.7 [facility] Comment on above: Performed By: #### L 100.0100, L501.9520, L500.4050, L501.9910 ####[facility] [address] [place], [address] Basophils/100 WBC (Bld) 0.5 % Normal 0-1 [facility] Comment on above: Performed By: #### L 100.0100, L501.9520, L500.4050, L501.9910 ####[facility] [address] [place], [address] Eosinophils/100 WBC (Bld) 0.8 % Normal 0-5 [facility] Comment on above: Performed By: #### L 100.0100, L501.9520, L500.4050, L501.9910 ####[facility] [address] [place], [address] Erythrocyte distribution width (RBC) [Ratio] 13.7 % Normal 11.6-14.6 [facility] Comment on above: Performed By: #### L 100.0100, L501.9520, L500.4050, L501.9910 ####[facility] [address] [place], [address] Hematocrit (Bld) [Volume fraction] 41.1 % Normal 40-54 [facility] Comment on above: Performed By: #### L 100.0100, L501.9520, L500.4050, L501.9910 ####[facility] [address] [place], [address] Hemoglobin (Bld) [Mass/Vol] 14.0 g/dL Normal 13.0-16.5 [facility] Comment on above: Performed By: #### L 100.0100, L501.9520, L500.4050, L501.9910 ####[facility] [address] [place], [address] IG% 0.300 Normal 0.0-0.9 [facility] Comment on above: Result Comment: IG% - Immature Granulocytes (promyelocytes, myelocytes and metamyelocytes) > 1% indicates that a LEFT SHIFT is Present. Performed By: #### L 100.0100, L501.9520, L500.4050, L501.9910 ####[facility] [address] [place], [address] Lymphocytes/100 WBC (Bld) 38.7 % Normal 19-41 [facility] Comment on above: Performed By: #### L 100.0100, L501.9520, L500.4050, L501.9910 ####[facility] [address] [place], [address] MCH (RBC) [Entitic mass] 32.0 pg Normal 27.0-32.0 [facility] Comment on above: Performed By: #### L 100.0100, L501.9520, L500.4050, L501.9910 ####[facility] [address] [place], [address] MCHC (RBC) [Mass/Vol] 34.1 g/dL Normal 32-[address] [facility] Comment on above: Performed By: #### L 100.0100, L501.9520, L500.4050, L501.9910 ####[facility] [address] [place], [address] MCV (RBC) [Entitic vol] 93.8 fL Normal 80-94 [facility] Comment on above: Performed By: #### L 100.0100, L501.9520, L500.4050, L501.9910 ####[facility] [address] [place], [address] Monocytes/100 WBC (Bld) 6.2 % Normal 0-10 [facility] Comment on above: Performed By: #### L 100.0100, L501.9520, L500.4050, L501.9910 ####[facility] [address] [place], [address] Neutrophils/100 WBC (Bld) 53.5 % Normal 47-70 [facility] Comment on above: Performed By: #### L 100.0100, L501.9520, L500.4050, L501.9910 ####[facility] [address] [place], [address] Nucleated RBC (Bld) [#/Vol] 0 10*3/uL Normal 0-5 [facility] Comment on above: Performed By: #### L 100.0100, L501.9520, L500.4050, L501.9910 ####[facility] [address] [place], [address] Platelet mean volume (Bld) [Entitic vol] 10.8 fL Normal 6.2-12.0 [facility] Comment on above: Performed By: #### L 100.0100, L501.9520, L500.4050, L501.9910 ####[facility] [address] [place], [address] Platelets (Bld) [#/Vol] 268 10*3/uL Normal 150-450 [facility] Comment on above: Performed By: #### L 100.0100, L501.9520, L500.4050, L501.9910 ####[facility] [address] [place], [address] RBC (Bld) [#/Vol] 4.38 10*6/uL Low 4.6-6.2 [facility] Comment on above: Performed By: #### L 100.0100, L501.9520, L500.4050, L501.9910 ####[facility] [address] [place], [address] RDW SD 47.3 fl High 35.1-43.9 [facility] Comment on above: Performed By: #### L 100.0100, L501.9520, L500.4050, L501.9910 ####[facility] [address] [place], [address] WBC (Bld) [#/Vol] 8.9 10*3/uL Normal 4.4-11.0 [facility] Comment on above: Performed By: #### L 100.0100, L501.9520, L500.4050, L501.9910 ####[facility] [address] [place], [address] Comprehensive Metabolic Prof ilon 05-25-2024 Albumin [Mass/Vol] 4.1 g/dL Normal 3.5-5.0 [facility] Comment on above: Performed By: #### L 100.0100, L501.9520, L500.4050, L501.9910 ####[facility] [address] [place], [address] Albumin/Globulin [Mass ratio] 1.4 {ratio} Normal 0.9-2.4 [facility] Comment on above: Performed By: #### L 100.0100, L501.9520, L500.4050, L501.9910 ####[facility] [address] [place], [address] ALK PHOS 74 U/L Normal 40-129 [facility] Comment on above: Performed By: #### L 100.0100, L501.9520, L500.4050, L501.9910 ####[facility] [address] [place], [address] ALT [Catalytic activity/Vol] 18 U/L Normal <=46 [facility] Comment on above: Performed By: #### L 100.0100, L501.9520, L500.4050, L501.9910 ####[facility] [address] [place], [address] AST [Catalytic activity/Vol] 19 U/L Normal <=37 [facility] Comment on above: Performed By: #### L 100.0100, L501.9520, L500.4050, L501.9910 ####[facility] [address] [place], [address] Bilirubin [Mass/Vol] 0.87 mg/dL Normal 0.00-1.30 [facility] Comment on above: Performed By: #### L 100.0100, L501.9520, L500.4050, L501.9910 ####[facility] [address] [place], [address] BUN/CRE 19.0 RATIO Normal 10-20 [facility] Comment on above: Performed By: #### L 100.0100, L501.9520, L500.4050, L501.9910 ####[facility] [address] [place], [address] Calcium [Mass/Vol] 9.2 mg/dL Normal 7.6-11.0 [facility] Comment on above: Performed By: #### L 100.0100, L501.9520, L500.4050, L501.9910 ####[facility] [address] [place], [address] Chloride [Moles/Vol] 104 mmol/L Normal 98-108 [facility] Comment on above: Performed By: #### L 100.0100, L501.9520, L500.4050, L501.9910 ####[facility] [address] [place], [address] CO2 [Moles/Vol] 24.2 mmol/L Normal 21.0-32.0 [facility] Comment on above: Performed By: #### L 100.0100, L501.9520, L500.4050, L501.9910 ####[facility] [address] [place], [address] Creatinine [Mass/Vol] 0.96 mg/dL Normal 0.70-1.[address] [facility] Comment on above: Performed By: #### L 100.0100, L501.9520, L500.4050, L501.9910 ####[facility] [address] [place], [address] GAP 10 Normal 5-15 [facility] Comment on above: Performed By: #### L 100.0100, L501.9520, L500.4050, L501.9910 ####[facility] [address] [place], [address] GFR/1.73 sq M.predicted among non-blacks MDRD (S/P/Bld) [Vol rate/Area] 91 mL/min/{1.73_m2} Normal >60 [facility] Comment on above: Result Comment: mL/m in/1.73m2 CKD-EPI Creatinine Equation (2020) Performed By: #### L 100.0100, L501.9520, L500.4050, L501.9910 ####[facility] [address] [place], [address] Globulin (S) [Mass/Vol] 2.8 g/dL Normal 2.2-4.2 [facility] Comment on above: Performed By: #### L 100.0100, L501.9520, L500.4050, L501.9910 ####[facility] [address] [place], [address] Glucose [Mass/Vol] 86 mg/dL Normal 70-99 [facility] Comment on above: Performed By: #### L 100.0100, L501.9520, L500.4050, L501.9910 ####[facility] [address] [place], [address] Potassium [Moles/Vol] 4.0 mmol/L Normal 3.3-5.[address] [facility] Comment on above: Performed By: #### L 100.0100, L501.9520, L500.4050, L501.9910 ####[facility] [address] [place], [address] Sodium [Moles/Vol] 138 mmol/L Normal 133-145 [facility] Comment on above: Performed By: #### L 100.0100, L501.9520, L500.4050, L501.9910 ####[facility] [address] [place], [address] T PROT 6.9 g/dL Normal 5.9-8.4 [facility] Comment on above: Performed By: #### L 100.0100, L501.9520, L500.4050, L501.9910 ####[facility] [address] [place], [address] Urea nitrogen [Mass/Vol] 18 mg/dL Normal 4-19 [facility] Comment on above: Performed By: #### L 100.0100, L501.9520, L500.4050, L501.9910 ####[facility] [address] [place], [address] PSA,Total - Annual Screenon 05-25-2024 PSA,TOT SCREEN 0.17 ng/mL Normal 0.02-4.00 [facility] Comment on above: Result Comment: This test was performed using the [employer] tPSA method. Measured values of a patient??sample can vary depending on the testing procedure used. PSA values determined on patient samples by different testing procedures cannot be used interchangeably. If there is a change in PSA assays while monitoring therapy, sequential testing should be performed to confirm baseline values. Performed By: #### L 100.0100, L501.9520, L500.4050, L501.9910 ####[facility] [address] [place], [address] Thyroid Stim Hormone (TSH)on 05-25-2024 TSH 3.110 uIU/mL Normal 0.300-4.200 [facility] Comment on above: Performed By: #### L 100.0100, L501.9520, L500.4050, L501.9910 ####[facility] [address] [place], [address] M100.678on 05-18-2024 M100.678 SARS-CoV-2 (COVID 19 ) Negative INFLUENZA A Negative INFLUENZA B Negative RSV PCR Negative Normal [facility] Comment on above: Performed By: #### L 100.0500, L500.4100, L300.8000, L500.4050, L501.9520 #### [facility] [address] [facility] [place], [address] M100.678on 05-10-2024 M100.678 SARS-CoV-2 (COVID 19 ) Negative INFLUENZA A Negative INFLUENZA B Negative RSV PCR Negative Normal [facility] Comment on above: Performed By: #### L 100.0500, L500.4100, L300.8000, L500.4050, L501.9520 #### [facility] [address] [facility] [place], [address] Miscellaneous Lab Procedureo n 03-26-2024 [facility] [place] [facility] Comment on above: Order Comment: [id number] Result Comment: [id number] 6+OXYCODONE-BUND (ng/mL) DRUG RESULT SCREEN CUTOFF ____ Amphetamines,Urine Negative ng/mL 1000 Amphetamine test includes Amphetamine and Methamphetamine. Barbiturates Negative ng/mL 200 Benzodiazepines Negative ng/mL 200 Cannabinoid Negative ng/mL 20 Cocaine (Metab) Negative ng/mL 300 Opiates Negative ng/mL 300 Opiates test includes Codeine, Morphine, Hydromorphone, Hydrocodone. Oxycodone/Oxymorphone,Urine Negative ng/mL 300 Test includes Oxycodone and Oxymorphone. TESTING PERFORMED AT [facility]. ORIGINAL REPORT ON FILE IN LAB CONTAINS ADDITIONAL TEST SITE INFORMATION. Performed By: #### L 100.0500, L500.4100, L300.8000, L500.4050, L501.9520 #### [facility] [address] [place], [address] [facility] 2on 03-26-2024 [facility] [place] 2 Normal [facility] Comment on above: Order Comment: [id number] Result Comment: TEST RESULTS LIMITS Tramadol, Urine Tramadol Positive Fhlala=704 Tramadol Conf, [place], [place] 6667 ng/mL Sdgzrp=599 Tramadol detected; this finding can be consistent with use of medications that include Ultram, Topalgic, Tradol, Zydol, or generic formulations. Drugs listed are financial representative of common sources of the compound detected and are not intended to include all possible sources. Please Note: Drug test results should be interpreted in the context of clinical information. Patient metabolic variables, specific drug chemistry, and specimen characteristics can affect test outcome. Technical consultation is available if a test result is inconsistent with an expected outcome. Email: [email or web address] TESTING PERFORMED AT [facility]. ORIGINAL REPORT ON FILE IN LAB CONTAINS ADDITIONAL TEST SITE INFORMATION. Performed By: #### L 100.0500, L500.4100, L300.8000, L500.4050, L501.9520 #### [facility] [address] [place], [address] Urine Drug Screen (VIST[facility])on 03-22-2024 AMPHETAMINES Negative Normal <1000 ng/mL [facility] Comment on above: Order Comment: UNK Performed By: #### L 100.0500, L500.4100, L300.8000, L500.4050, L501.9520 #### [facility] [address] [place], [address] BARBITIURATES Negative Normal < 200 ng/mL [facility] Comment on above: Order Comment: UNK Performed By: #### L 100.0500, L500.4100, L300.8000, L500.4050, L501.9520 #### [facility] [address] [place], [address] BENZODIAZIPINE Negative Normal < 200 ng/mL [facility] Comment on above: Order Comment: UNK Performed By: #### L 100.0500, L500.4100, L300.8000, L500.4050, L501.9520 #### [facility] [address] [place], [address] COCAINE Negative Normal < 300 ng/mL [facility] Comment on above: Order Comment: UNK Performed By: #### L 100.0500, L500.4100, L300.8000, L500.4050, L501.9520 #### [facility] [address] [place], [address] ECSTACY Negative Normal < 500 ng/mL [facility] Comment on above: Order Comment: UNK Performed By: #### L 100.0500, L500.4100, L300.8000, L500.4050, L501.9520 #### [facility] [address] [place], [address] METHADONE Negative Normal < 300 ng/mL [facility] Comment on above: Order Comment: UNK Performed By: #### L 100.0500, L500.4100, L300.8000, L500.4050, L501.9520 #### [facility] [address] [place], [address] OPIATES Negative Normal < 300 ng/mL [facility] Comment on above: Order Comment: UNK Performed By: #### L 100.0500, L500.4100, L300.8000, L500.4050, L501.9520 #### [facility] [address] [place], [address] PCP Negative Normal < 25 ng/mL [facility] Comment on above: Order Comment: UNK Performed By: #### L 100.0500, L500.4100, L300.8000, L500.4050, L501.9520 #### [facility] [address] [place], [address] THC Negative Normal < 50 ng/mL [facility] Comment on above: Order Comment: UNK Performed By: #### L 100.0500, L500.4100, L300.8000, L500.4050, L501.9520 #### [facility] [address] [place], [address] VISTA UDS PH 5 Normal [facility] Comment on above: Order Comment: UNK Performed By: #### L 100.0500, L500.4100, L300.8000, L500.4050, L501.9520 #### [facility] [address] [place], [address] Knee 4 or More Viewson 03-04 Knee 4 or More Views [facility] [address] [place] [address] Knee 4 or More Views MR#: [id number] Acct: [id number] Name: GEN POTTS Rep #: [id number] : 1965 M 58 From: Darryn Butler MD PCP: Dr. Rogelio Velazquez MD Status: DEP AMB Study: Knee 4 or More Views Date of Exam: 03/04/24 Exam# [id number] Ordering Dr: James Justin MD [id number] STUDY: X-RAY - LEFT KNEE REASON FOR EXAM: Male, 58 years old. Chronic pain. TECHNIQUE: 4 views of the left knee. COMPARISON: None. FINDINGS: Normal visualized distal femur. Normal visualized proximal tibia and fibula. Normal proximal tibiofibular articulation. There is no demonstrated fracture. Normal medial femorotibial compartment. Normal lateral femorotibial compartment. Normal patellofemoral articulation. There is no significant joint effusion. The soft tissue structures are unremarkable. RAD/Knee 4 or More Views IMPRESSION: Normal x-ray examination of the left knee. Electronically Signed: Darryn Butler MD at 15:10 EST Reading Location ID and State: [address] [place] [address] , Service support , CC: Dr. James Justin MD; Dr. Rogelio Velazquez MD Still Tender: Signed Normal [facility] Knee 4 or More Views [facility] [address] [place] [address] Knee 4 or More Views MR#: [id number] Acct: [id number] Name: GEN POTTS Rep #: [id number] : 1965 M 58 From: Darryn Butler MD PCP: Dr. Rogelio Velazquez MD Status: DEP AMB Study: Knee 4 or More Views Date of Exam: 03/04/24 Exam# [id number] Ordering Dr: James Justin MD [id number] STUDY: X-RAY - RIGHT KNEE REASON FOR EXAM: Male, 58 years old. Pain. TECHNIQUE: 4 views of the right knee. COMPARISON: None. FINDINGS: Normal visualized distal femur. Normal visualized proximal tibia and fibula. Normal proximal tibiofibular articulation. There is no demonstrated fracture. Normal medial femorotibial compartment. Normal lateral femorotibial compartment. Normal patellofemoral articulation. There is no demonstrated joint effusion. The soft tissue structures are unremarkable. RAD/Knee 4 or More Views IMPRESSION: Normal x-ray examination of the right knee. Electronically Signed: Darryn Butler MD at 15:09 EST Reading Location ID and State: [facility] / [place] , Service support , CC: Dr. James Justin MD; Dr. Rogelio Velazquez MD Still Tender: Signed Normal [facility] Orthopedic Visit Reporton Orthopedic Visit Report [facility] [address] [place] [address] OFFICE VISIT Date of Service: 03/04/24 MR#: [id number] Acct: [id number] Name: GEN POTTS Rep #: [id number] : 1965 Provider: Dr. James lagunas MD Age/Sex: 58/M Location: [facility] Status: Signed Intake Vital Signs 06/17/23 09:14 03/04/24 10:13 Height 5 ft 11 in 5 ft 11 in Weight: 184 lb 2 oz BMI 25.7 Intake Visit Reasons: BL KNEES Chief Complaint: Bilateral Knee Accompanied by: Self Is patient in pain?: Yes (L - 9 R - 5) Allergies No Known Allergies Allergy (Verified 03/04/24 10:14) Medications ???Medication ???Instructions ???Recorded ???Confirmed ???Type naproxen sodium 220 mg capsule 220 mg PO BID 05/31/19 03/04/24 History tamsulosin 0.4 mg capsule 0.4 mg PO DAILY 04/27/21 03/04/24 History melatonin 10 mg capsule 10 mg PO HS sleep 04/05/22 03/04/24 History multivitamin 1 tab PO DAILY 04/28/23 03/04/24 History tramadol 50 mg tablet 50 mg PO TID 05/20/23 03/04/24 History tizanidine 4 mg tablet 4 mg PO TID 03/04/24 03/04/24 History PFSH Medical History (Updated 03/04/24 @ 10:40 by James Justin MD) Bilateral primary osteoarthritis of knee Bilateral knee pain Hx of head injury Wears contact lenses Anxiety History of steroid therapy Arthritis Back pain Injury of back Restless legs Gastric reflux Former smoker Leg cramps Left rotator cuff tear Right rotator cuff tear Cervicalgia Spondylosis of cervical region without myelopathy or radiculopathy Surgical History History of arthroscopy of left shoulder History of ear surgery H/O shoulder surgery H/O sinus surgery Social History household members: spouse housing: house current occupational status: employed pets and animals: Yes Smoking Status: Former smoker alcohol intake: never substance use type: does not use what type of physical activity do you participate in: none HPI BL KNEES Details: This documentation accurately reflects the service provided and the decisions made by me, Dr. James Justin MD 03/04/24 0914. Part of today???s visit was documented by [ ], acting as scribe. GEN POTTS is a 58 year old M here today for bilateral knee pain. years. getting worse. anterior pain. and posterior in the ' center' feels like a 'muscle knot' - lidocaine patches and ice. helps but still not taking it away. worse on the left side. 9/10 hard time walking. no surgeries in the past. no injury. Office Procedures Ortho Injections Injections Yes Knee Left Is this a patient provided medication?: No Details: Obtained consent for injection. Under sterile conditions, injected the patients left knee with 2.0mL Kenalog and 4.0mL Bupivacaine. The patient tolerated the injection well without any noted complication. Patient should call our office if redness develops, pain worsens or if they have any concerns. Office Meds Kenalog 40 mg/mL suspension for injection Performing Provider: James Justin MD Performing Location: [facility] Administered by: James Justin MD on 03/04/24 10:57 Dose Route Admin Location Dispensed Lot Number Expiration Date MIKE Tadeo ufacturer 80 mg intra-articular Left Knee 2 mL [id number] 07/15/25 9037-5778-70 [facility] Supplemental Info X-rays 4 views of both knees obtained today that shows some moderate medial compartment joint space narrowing on both sides. Coding Level of Care Code Attention Kevin Diagnoses Bilateral knee pain M25.561; M25.562 Bilateral primary osteoarthritis of knee M17.0 CPT Codes time clock mechanic.knee (12920) Comment 48015 and CPT inject major joint Assessment and Plan Assessment and Plan (1) Bilateral knee pain: Status: Acute Plan: GEN POTTS is a 58 year old M here today for bilateral knee pain. Patient has evidence of bilateral medial compartment osteoarthritis with moderate loss of the joint space. Could also have tendinitis bursitis meniscus tears or other problems about the knee. Explained the diagnosis prognosis different treatment options available to the patient including but not limited to rest ice anti-inflammatories activity modifications therapy bracing intra-articular cortisone injections viscosupplementation as well as surgery possible repair of the meniscus or knee arthroplasty surgery patient understands wishes to try cortisone injection we discussed doing both or just starting with the left side he would prefer to start with just the left side for now and will follow-up in a couple weeks to consider doing the right side if the patient wants to proceed with that he understands no further questions or (more content not included)... Normal [facility] JUSTICEOVon 02-22-2024 OV Office Visit (WALKWA ) CREADONGEN ([id number]) 1965 M Date Time Provider Department 02/22/24 1:10 PM [facility] During your visit today, we recorded the following information about you: Temperature Pulse Respiration Blood pressure 98.4 degrees 67/minute 18/minute 172/92 Weight Height 82.2 kg 1.803 m [facility] PA-C 02/22/2024 2:12 PM Signed Surgical mask and gloves worn for all in-person care. 02/22/2024 Patient presents with: Viral Syndrome: Sinus congestion, coughing up yellow mucous, sinus pressure in the frontal and maxillary sinus cavities, headaches, hot/cold, Right ear pain(pt has a blown ear drum), SUBJECTIVE: This is a 58 year old that is here today for concern for URI symptoms. HPI per the patient. The patient complains of cough, body aches, and sinus congestion/pressure/d rainage x 7 days. He denies fever, chills, sweats, or fatigue. He denies wheezing, shortness of breath, increased WOB, or chest pain. He complains mostly of copious sinus drainage dripping down his face. In the last 6 weeks he has had a course of Zpak and later Levaquin for other cough/URI symptoms with negative CXR from his PCP. This is per the patient. COVID exposure: none Influenza exposure: none RSV exposure: none Covid Immunization Dates Overdue - Covid-19 Vaccine ( season) Overdue since 11/16/2023 02/12/2021 Outside Immunization: COVID-19, mRNA, LNP-S, PF, 100 mcg/0.5mL dose or 50 mcg/0.25mL dose 08/05/2020 Imm Admin: COVID-19 original vaccine, full dose, monovalent (MODERNA) 07/08/2020 Imm Admin: COVID-19 original vaccine, full dose, monovalent (MODERNA) COVID vaccine this year: none Influenza vaccine this year: none RSV vaccine this year: none Asthma: none Pneumonia: none Tobacco: none Pain on scale of 0-10 with 0 being no pain and 10 being greatest pain: - Nothing makes the symptoms better. Nothing makes them worse. Self-treatment:. none The severity is mild and the symptoms are not improving. The patient did not have a similar problem in the last 3 months. The patient did not take any antibiotics in the last 3 months. Barriers to learning: none. Reviewed meds, OTCs, herbals or supplements. Reviewed allergies, medications, social history, and past medical history. No past medical history on file. ALLERGIES Clarithromycin MEDICATIONS Current Outpatient Medications Medication Sig tiZANidine (ZANAFLEX) 4 mg tablet TAKE 1 TABLET BY MOUTH THREE TIMES DAILY FOR 28 DAYS cyclobenzaprine (FLEXERIL) 10 mg tablet Take 10 mg by mouth once daily. traMADol (ULTRAM) 50 mg tablet Take 50 mg by mouth twice daily. fluticasone (FLONASE) 50 mcg/actuation nasal spray Use 2 Sprays in each nostril once daily. cetirizine (ZYRTEC) 10 mg tablet Take 1 tablet by mouth once daily. predniSONE (DELTASONE) 20 mg tablet Take 2 tablets by mouth once daily for 5 days. No current facility-administered medications for this visit. Medications and allergies reviewed by this provider. SOCIAL HISTORY REVIEW OF SYSTEMS Review of Systems ROS: constitutional: body aches, HENT- sinus congestion/pressure/d rainage, Eyes- neg, heart-neg, respiratory-Cough, GI-neg, -neg, skin-neg, Allergy- neg, lymph-neg, neuro-neg, psych-neg- All systems neg except as noted above in HPI. OBJECTIVE: BP 172/92 (BP Site: Right Arm, BP Position: Sitting, BP Cuff Size: Regular Adult) Pulse 67 Temp 36.9 ?C (98.4 ?F) (Right Tympanic) Resp 18 Ht 180.3 cm (5' 11) Wt 82.2 kg (181 lb 1.7 oz) SpO2 98% BMI 25.26 kg/m? . Vital signs reviewed by this provider. Physical Exam Vitals reviewed. Constitutional: General: He is not in acute distress. Appearance: Normal appearance. He is well-developed and normal weight. He is not ill-appearing, toxic-appearing or diaphoretic. HENT: Head: Normocephalic and atraumatic. No right periorbital erythema or left periorbital erythema. Salivary Glands: Right salivary gland is not diffusely enlarged or tender. Left salivary gland is not diffusely enlarged or tender. Right Ear: Tympanic membrane, ear canal and external ear normal. Left Ear: Tympanic membrane, ear canal and external ear normal. Nose: Rhinorrhea present. No congestion. Rhinorrhea is clear. Right Sinus: No maxillary sinus tenderness or frontal sinus tenderness. Left Sinus: No maxillary sinus tenderness or frontal sinus tenderness. Mouth/Throat: Lips: [place]. No lesions. Mouth: Mucous membranes are moist. No oral lesions. Dentition: No gum lesions. Tongue: No lesions. Tongue does not deviate from midline. Palate: No mass and lesions. Pharynx: Oropharynx is clear. No pharyngeal swelling, oropharyngeal exudate, posterior oropharyngeal erythema or uvula swelling. Tonsils: No tonsillar exudate or tonsillar abscesses. Eyes: General: Lids are normal. No scleral ict (more content not included)... Normal [facility] Basic Metabolic Profile (BMP )on 01-14-2024 BUN/CRE 19.0 RATIO Normal 01-03 [facility] Comment on above: Performed By: #### L 100.0500, L500.4100, L300.8000, L500.4050, L501.9520 #### [facility] [address] [place], [address] CA,Total 9.1 mg/dL Normal 8.5-10.1 [facility] Comment on above: Performed By: #### L 100.0500, L500.4100, L300.8000, L500.4050, L501.9520 #### [facility] [address] [place], [address] Chloride [Moles/Vol] 107 mmol/L Normal 98-107 [facility] Comment on above: Performed By: #### L 100.0500, L500.4100, L300.8000, L500.4050, L501.9520 #### [facility] [address] [place], [address] CO2 [Moles/Vol] 30.0 mmol/L Normal 21.0-32.0 [facility] Comment on above: Performed By: #### L 100.0500, L500.4100, L300.8000, L500.4050, L501.9520 #### [facility] [address] [place], [address] Creatinine [Mass/Vol] 0.84 mg/dL Normal 0.70-1.[address] [facility] Comment on above: Result Comment: The validity of the calculated GFR GFRAA in patients over 70 years has not been determined. Clinical correlation is essential. Performed By: #### L 100.0500, L500.4100, L300.8000, L500.4050, L501.9520 #### [facility] [address] [place], [address] EST GFR - AA 120 mL/min Normal >60 [facility] Comment on above: Result Comment: Afri can [place] GFR Calc Performed By: #### L 100.0500, L500.4100, L300.8000, L500.4050, L501.9520 #### [facility] [address] [place], [address] GAP 3 Low 5-15 [facility] Comment on above: Performed By: #### L 100.0500, L500.4100, L300.8000, L500.4050, L501.9520 #### [facility] [address] [place], [address] GFR/1.73 sq M.predicted among non-blacks MDRD (S/P/Bld) [Vol rate/Area] 99 mL/min/{1.73_m2} Normal >60 [facility] Comment on above: Result Comment: Non- GFR Calc Performed By: #### L 100.0500, L500.4100, L300.8000, L500.4050, L501.9520 #### [facility] [address] [place], [address] Glucose [Mass/Vol] 83 mg/dL Normal 74-106 [facility] Comment on above: Performed By: #### L 100.0500, L500.4100, L300.8000, L500.4050, L501.9520 #### [facility] [address] [place], [address] Potassium [Moles/Vol] 3.9 mmol/L Normal 3.5-5.[address] [facility] Comment on above: Performed By: #### L 100.0500, L500.4100, L300.8000, L500.4050, L501.9520 #### [facility] [address] [place], [address] Sodium [Moles/Vol] 139 mmol/L Normal 136-145 [facility] Comment on above: Performed By: #### L 100.0500, L500.4100, L300.8000, L500.4050, L501.9520 #### [facility] [address] [place], [address] Urea nitrogen [Mass/Vol] 16 mg/dL Normal 7-18 [facility] Comment on above: Performed By: #### L 100.0500, L500.4100, L300.8000, L500.4050, L501.9520 #### [facility] [address] [place], [address] Myoglobin, Serumon 4 Myoglobin, Ser 28 ng/mL Normal 28-72 [facility] Comment on above: Result Comment: Perf ormed at: - [facility] [address] [id number] District Ranger: Mata Green PhD, Phone: [phone] Performed By: #### L 100.0500, L500.4100, L300.8000, L500.4050, L501.9520 #### [facility] [address] [place], [address] CTA Chest W/WO Contraston CTA Chest W/WO Contrast [facility] Services [address] [place], [place] [id number] CTA Chest W/WO Contrast MR#: [id number] Acct: [id number] Name: GEN POTTS Rep #: [id number] : 1965 M 58 From: Skylar Ambrosio MD PCP: Dr. Rogelio Velazquez MD Status: REG CLI Study: CTA Chest W/WO Contrast Date of Exam: 01/13/24 Exam# [id number] Ordering Dr: Rogelio Velazquez MD [id number] STUDY: CTA CHEST REASON FOR EXAM: Male, 58 years old. Other pulmonary embolism without acute cor pulmonale RADIATION DOSAGE (If Supplied By Facility): CTDIvol = ( 10.65 ) mGy, DLP = ( 423.60 ) mGycm TECHNIQUE: The examination was performed with the intravenous administration of IV 100mL Isovue-370. Post-processing of the angiographic images was performed, with multiplanar reformation and 3D reconstruction. The protocol utilizes one or more of the following dose reduction techniques: automated exposure control, adjustment of mA and/or kV according to patient size,and/or use of iterative reconstruction technique. COMPARISON: CT of the abdomen and pelvis dated August 24, 2021 FINDINGS: Normal enhancement of the main pulmonary artery and right and left pulmonary arteries. Normal enhancement of the bilateral peripheral pulmonary arteries. There is no demonstrated pulmonary embolism. Normal thoracic aorta and visualized great vessels. There is no demonstrated aortic dissection. There are calcifications of the coronary arteries. Normal mediastinum. There are mildly enlarged right hilar and mediastinal lymph nodes. Normal visualized trachea and bronchi. There are scattered bilateral groundglass opacities. There is minimal bibasilar atelectasis and/or scarring. Normal chest wall structures. There are degenerative changes of thoracic spine. Normal visualized upper abdomen. CT/CTA Chest W/WO Contrast IMPRESSION: No demonstrated pulmonary embolism or arterial dissection. Bilateral groundglass opacities, a nonspecific finding may reflect edema and/or an infectious process. Mildly enlarged right hilar and mediastinal lymph nodes, may be reactive. Atherosclerosis. Electronically Signed: Skylar Ambrosio MD at 11:58 EDT , CC: Dr. Rogelio Velazquez MD Still Tender: Signed Normal [facility] M100.678on 01-13-2024 M100.678 Pending SARS-CoV-2 (COVID 19) Negative INFLUENZA A Negative INFLUENZA B Negative RSV PCR Negative [facility] Comment on above: Performed By: #### L 100.0500, L500.4100, L300.8000, L500.4050, L501.9520 #### [facility] [address] [place], [address] CBC W/Diff, Automatedon 12-16 Absolute Lymph 3.42 X10 3/uL Normal 0.83-4.51 [facility] Comment on above: Performed By: #### L 100.0500, L500.4100, L300.8000, L500.4050, L501.9520 #### [facility] [address] [place], [address] Absolute Neut 4.1 X10 3/uL Normal 2.0-7.7 [facility] Comment on above: Performed By: #### L 100.0500, L500.4100, L300.8000, L500.4050, L501.9520 #### [facility] [address] [place], [address] Basophils/100 WBC (Bld) 0.7 % Normal 0-1 [facility] Comment on above: Performed By: #### L 100.0500, L500.4100, L300.8000, L500.4050, L501.9520 #### [facility] [address] [place], [address] Eosinophils/100 WBC (Bld) 4.8 % Normal 0-5 [facility] Comment on above: Performed By: #### L 100.0500, L500.4100, L300.8000, L500.4050, L501.9520 #### [facility] [address] [place], [address] Erythrocyte distribution width (RBC) [Ratio] 13.1 % Normal 11.6-14.6 [facility] Comment on above: Performed By: #### L 100.0500, L500.4100, L300.8000, L500.4050, L501.9520 #### [facility] [address] [place], [address] Hematocrit (Bld) [Volume fraction] 45.5 % Normal 40-54 [facility] Comment on above: Performed By: #### L 100.0500, L500.4100, L300.8000, L500.4050, L501.9520 #### [facility] [address] [place], [address] Hemoglobin (Bld) [Mass/Vol] 14.8 g/dL Normal 13.0-16.5 [facility] Comment on above: Performed By: #### L 100.0500, L500.4100, L300.8000, L500.4050, L501.9520 #### [facility] [address] [place], [address] IG% 0.300 Normal 0.0-0.9 [facility] Comment on above: Result Comment: IG% - Immature Granulocytes (promyelocytes, myelocytes and metamyelocytes) > 1% indicates that a LEFT SHIFT is Present. Performed By: #### L 100.0500, L500.4100, L300.8000, L500.4050, L501.9520 #### [facility] [address] [place], [address] Lymphocytes/100 WBC (Bld) 39.8 % Normal 19-41 [facility] Comment on above: Performed By: #### L 100.0500, L500.4100, L300.8000, L500.4050, L501.9520 #### [facility] [address] [place], [address] MCH (RBC) [Entitic mass] 30.3 pg Normal 27.0-32.0 [facility] Comment on above: Performed By: #### L 100.0500, L500.4100, L300.8000, L500.4050, L501.9520 #### [facility] [address] [place], [address] MCHC (RBC) [Mass/Vol] 32.5 g/dL Normal 32-[address] [facility] Comment on above: Performed By: #### L 100.0500, L500.4100, L300.8000, L500.4050, L501.9520 #### [facility] [address] [place], [address] MCV (RBC) [Entitic vol] 93.2 fL Normal 80-94 [facility] Comment on above: Performed By: #### L 100.0500, L500.4100, L300.8000, L500.4050, L501.9520 #### [facility] [address] [place], [address] Monocytes/100 WBC (Bld) 6.7 % Normal 0-10 [facility] Comment on above: Performed By: #### L 100.0500, L500.4100, L300.8000, L500.4050, L501.9520 #### [facility] [address] [place], [address] Neutrophils/100 WBC (Bld) 47.7 % Normal 47-70 [facility] Comment on above: Performed By: #### L 100.0500, L500.4100, L300.8000, L500.4050, L501.9520 #### [facility] [address] [place], [address] Nucleated RBC (Bld) [#/Vol] 0 10*3/uL Normal 0-5 [facility] Comment on above: Performed By: #### L 100.0500, L500.4100, L300.8000, L500.4050, L501.9520 #### [facility] [address] [place], [address] Platelet mean volume (Bld) [Entitic vol] 10.0 fL Normal 6.2-12.0 [facility] Comment on above: Performed By: #### L 100.0500, L500.4100, L300.8000, L500.4050, L501.9520 #### [facility] [address] [place], [address] Platelets (Bld) [#/Vol] 311 10*3/uL Normal 150-450 [facility] Comment on above: Performed By: #### L 100.0500, L500.4100, L300.8000, L500.4050, L501.9520 #### [facility] [address] [place], [address] RBC (Bld) [#/Vol] 4.88 10*6/uL Normal 4.6-6.2 [facility] Comment on above: Performed By: #### L 100.0500, L500.4100, L300.8000, L500.4050, L501.9520 #### [facility] [address] [place], [address] RDW SD 44.9 fl High 35.1-43.9 [facility] Comment on above: Performed By: #### L 100.0500, L500.4100, L300.8000, L500.4050, L501.9520 #### [facility] [address] [place], [address] WBC (Bld) [#/Vol] 8.6 10*3/uL Normal 4.4-11.0 [facility] Comment on above: Performed By: #### L 100.0500, L500.4100, L300.8000, L500.4050, L501.9520 #### [facility] [address] [place], [address] CPK Total, Creatine Kinaseon 01-12-2024 CPK TOTAL 88 U/L Normal 39-308 [facility] Comment on above: Order Comment: 1 Performed By: #### L 100.0500, L500.4100, L300.8000, L500.4050, L501.9520 #### [facility] [address] [place], [address] Chest PA and Lateralon 01-11 Chest PA and Lateral [facility] Imaging Services [address] [place] [address] Chest PA and Lateral MR#: [id number] Acct: [id number] Name: GEN POTTS Rep #: [id number] : 1965 M 58 From: Hussein uLa PCP: Dr. Rogelio Velazquez MD Status: [facility] Study: Chest PA and Lateral Date of Exam: 01/12/24 Exam# [id number] Ordering Dr: Rogelio Velazquez MD [id number] INDICATION: CHEST PAIN AND SOB EXAMINATION/TECHNIQUE : X-RAY - XR Chest 2 Views COMPARISON: No relevant prior comparison study available __ FINDINGS: LINES/DEVICES: None. LUNGS: No consolidation, edema or effusion. No pneumothorax. MEDIASTINUM AND CARDIOVASCULAR STRUCTURES: Cardiac silhouette not enlarged. Central airways and mediastinal contour are unremarkable. BONES AND SOFT TISSUES: Unremarkable. RAD/Chest PA and Lateral IMPRESSION: No radiographic evidence of acute cardiopulmonary disease. Electronically Signed: Hussein Pelayo MD at 11:16 EDT , CC: Dr. Rogelio Velazquez MD Still Tender: Signed Normal [facility] Comprehensive Metabolic Prof ilon 01-12-2024 Albumin [Mass/Vol] 4.1 g/dL Normal 3.2-5.0 [facility] Comment on above: Order Comment: 1 Performed By: #### L 100.0500, L500.4100, L300.8000, L500.4050, L501.9520 #### [facility] [address] [place], [address] Albumin/Globulin [Mass ratio] 0.9 {ratio} Normal 0.9-2.4 [facility] Comment on above: Order Comment: 1 Performed By: #### L 100.0500, L500.4100, L300.8000, L500.4050, L501.9520 #### [facility] [address] [place], [address] ALK P 128 U/L High 45-117 [facility] Comment on above: Order Comment: 1 Performed By: #### L 100.0500, L500.4100, L300.8000, L500.4050, L501.9520 #### [facility] [address] [place], [address] ALT [Catalytic activity/Vol] 25 U/L Normal 16-61 [facility] Comment on above: Order Comment: 1 Performed By: #### L 100.0500, L500.4100, L300.8000, L500.4050, L501.9520 #### [facility] [address] [place], [address] AST [Catalytic activity/Vol] 14 U/L Low 15-37 [facility] Comment on above: Order Comment: 1 Performed By: #### L 100.0500, L500.4100, L300.8000, L500.4050, L501.9520 #### [facility] [address] [place], [address] Bilirubin [Mass/Vol] 0.60 mg/dL Normal 0.20-1.00 [facility] Comment on above: Order Comment: 1 Result Comment: For patients on eltrombopag therapy, use of Dimension [place] TBIL is not recommended. Performed By: #### L 100.0500, L500.4100, L300.8000, L500.4050, L501.9520 #### [facility] [address] [place], [address] BUN/CRE 18.3 RATIO Normal 10-20 [facility] Comment on above: Order Comment: 1 Performed By: #### L 100.0500, L500.4100, L300.8000, L500.4050, L501.9520 #### [facility] [address] [place], [address] CA,Total 9.9 mg/dL Normal 8.5-10.1 [facility] Comment on above: Order Comment: 1 Performed By: #### L 100.0500, L500.4100, L300.8000, L500.4050, L501.9520 #### [facility] [address] [place], [address] Chloride [Moles/Vol] 107 mmol/L Normal 98-107 [facility] Comment on above: Order Comment: 1 Performed By: #### L 100.0500, L500.4100, L300.8000, L500.4050, L501.9520 #### [facility] [address] [place], [address] CO2 [Moles/Vol] 29.0 mmol/L Normal 21.0-32.0 [facility] Comment on above: Order Comment: 1 Performed By: #### L 100.0500, L500.4100, L300.8000, L500.4050, L501.9520 #### [facility] [address] [place], [address] Creatinine [Mass/Vol] 0.87 mg/dL Normal 0.70-1.[address] [facility] Comment on above: Order Comment: 1 Result Comment: The validity of the calculated GFR GFRAA in patients over 70 years has not been determined. Clinical correlation is essential. Performed By: #### L 100.0500, L500.4100, L300.8000, L500.4050, L501.9520 #### [facility] [address] [place], [address] EST GFR - AA 115 mL/min Normal >60 [facility] Comment on above: Order Comment: 1 Result Comment: Afri can [place] GFR Calc Performed By: #### L 100.0500, L500.4100, L300.8000, L500.4050, L501.9520 #### [facility] [address] [place], [address] GAP 1 Low 5-15 [facility] Comment on above: Order Comment: 1 Performed By: #### L 100.0500, L500.4100, L300.8000, L500.4050, L501.9520 #### [facility] [address] [place], [address] GFR/1.73 sq M.predicted among non-blacks MDRD (S/P/Bld) [Vol rate/Area] 95 mL/min/{1.73_m2} Normal >60 [facility] Comment on above: Order Comment: 1 Result Comment: Non- GFR Calc Performed By: #### L 100.0500, L500.4100, L300.8000, L500.4050, L501.9520 #### [facility] [address] [place], [address] Globulin (S) [Mass/Vol] 4.4 g/dL High 2.2-4.2 [facility] Comment on above: Order Comment: 1 Performed By: #### L 100.0500, L500.4100, L300.8000, L500.4050, L501.9520 #### [facility] [address] [place], [address] Glucose [Mass/Vol] 88 mg/dL Normal 74-106 [facility] Comment on above: Order Comment: 1 Performed By: #### L 100.0500, L500.4100, L300.8000, L500.4050, L501.9520 #### [facility] [address] [place], [address] Potassium [Moles/Vol] 5.4 mmol/L High 3.5-5.[address] [facility] Comment on above: Order Comment: 1 Performed By: #### L 100.0500, L500.4100, L300.8000, L500.4050, L501.9520 #### [facility] [address] [place], [address] Sodium [Moles/Vol] 137 mmol/L Normal 136-145 [facility] Comment on above: Order Comment: 1 Performed By: #### L 100.0500, L500.4100, L300.8000, L500.4050, L501.9520 #### [facility] [address] [place], [address] T PROT 8.5 g/dL High 6.4-8.2 [facility] Comment on above: Order Comment: 1 Performed By: #### L 100.0500, L500.4100, L300.8000, L500.4050, L501.9520 #### [facility] [address] [place], [address] Urea nitrogen [Mass/Vol] 16 mg/dL Normal 7-18 [facility] Comment on above: Order Comment: 1 Performed By: #### L 100.0500, L500.4100, L300.8000, L500.4050, L501.9520 #### [facility] [address] [place], [address] D-Dimer Quantitative (DVT/PE )on 01-12-2024 D-DIMER QUANT 0.51 FEU/ug/m Invalid Interpretation Code 0.27-0.49 [facility] Comment on above: Order Comment: CRITI EDNA VALUE CALLED TO DR.TAI CARMEN VELAZQUEZ01/12/24 1815 EMILY SAMANIEGO.RESULTS READ BACK BY SAME. Result Comment: D-Di marcia ELEVATED (>0.49): Additional studies and clinical assessments are indicated to conclude diagnosis of: Deep Vein Thrombosis (DVT) or Pulmonary Embolism (PE) Performed By: #### L 100.0500, L500.4100, L300.8000, L500.4050, L501.9520 #### [facility] [address] [place], [address] L501.4020on 01-12-2024 TROPONIN-I HS 10 pg/mL Normal 3.0-78.0 [facility] Comment on above: Order Comment: 1 Result Comment: Plea se Note: New Test Units and Gender Specific Reference Ranges. For more information see Policy Stat Procedure [place] High Sensitivity Troponin (TNIH) and attachments. Performed By: #### L 100.0500, L500.4100, L300.8000, L500.4050, L501.9520 #### [facility] [address] [place], [address] ED NOTEon 01-03-2024 ED NOTE HNO ID: [id number] Author: PATRICIA BARRAGAN, RN Service: Emergency Medicine Author Type: Registered Nurse Type: ED Notes Filed: 01/03/2024 15:34 Note Text: Pt awake and alert at time of discharge. patient verbalizes understanding of discharge instructions and will follow up as recommended. Pt taken out to waiting room in wheelchair. Normal [facility] ED NOTE HNO ID: [id number] Author: TEJAS VENTURA RN Service: Emergency Medicine Author Type: Registered Nurse Type: ED Notes Filed: 01/03/2024 14:57 Note Text: pt tolerating eye wash station irrigation well Normal [facility] ED NOTE HNO ID: [id number] Author: CHEVY HERNANDEZ RN Service: Emergency Medicine Author Type: Registered Nurse Type: ED Notes Filed: 01/03/2024 14:43 Note Text: Pt states that today he accidentally got PVC primer in his right eye. PT states that he flushed his eyes 3 times after it happened and continues to have discomfort. Normal [facility] ED PROV NOTEon 01-03-2024 ED PROV NOTE HNO ID: [id number] Author: SAMSON QUIROS DO Service: Emergency Medicine Author Type: Physician Type: ED Provider Notes Filed: 01/03/2024 16:31 Note Text: ED Provider Note Patient Name: Gen Potts : 1965 SERVICE DATE: 01/03/24 History [...] have asked to be referred to the court recorder locally down the street from our facility. [...] DO Shaneka Lindsey ALAN 01/03/24 [address] [facility] Orthopedic Visit Reporton Orthopedic Visit Report [facility] [address] [place] [address] OFFICE VISIT Date of Service: 10/30/23 MR#: [id number] Acct: [id number] Name: GEN POTTS Rep #: [id number] : 1965 Provider: Dr. James lagunas MD Age/Sex: 58/M Location: [facility] Status: Signed Intake Vital Signs 06/17/23 09:14 Height 5 ft 11 in Intake Visit Reasons: LEFT SHOULDER Accompanied by: Self Is patient in pain?: Yes Pain scale (1-10): 1 Allergies No Known Allergies Allergy (Verified 10/30/23 07:53) Medications ???Medication ???Instructions ???Recorded ???Confirmed ???Type naproxen sodium 220 mg capsule 220 mg PO BID 05/31/19 10/30/23 History tamsulosin 0.4 mg capsule 0.4 mg PO DAILY 04/27/21 10/30/23 History melatonin 10 mg capsule 10 mg PO HS sleep 04/05/22 10/30/23 History pramipexole 1 mg tablet 2 mg PO QHS 04/05/22 10/30/23 History baclofen 10 mg tablet 10 mg PO QHS 04/28/23 10/30/23 History multivitamin 1 tab PO DAILY 04/28/23 10/30/23 History tramadol 50 mg tablet 50 mg PO TID 05/20/23 10/30/23 History PFSH Medical History Anxiety Arthritis Back pain Cervicalgia Former smoker Gastric reflux History of steroid therapy Hx of head injury Injury of back Left rotator cuff tear Leg cramps Restless legs Right rotator cuff tear Spondylosis of cervical region without myelopathy or radiculopathy Wears contact lenses Surgical History H/O shoulder surgery H/O sinus surgery History of arthroscopy of left shoulder History of ear surgery Social History household members: spouse housing: house current occupational status: employed pets and animals: Yes Smoking Status: Former smoker alcohol intake: never substance use type: does not use what type of physical activity do you participate in: none HPI LEFT SHOULDER Details: This documentation accurately reflects the service provided and the decisions made by me, Dr. James Justin MD 10/30/23 0752. Part of today???s visit was documented by [ ], acting as scribe. GEN POTTS is a 58 year old M here today for 6 months FU L shoulder arthroscopy, sub acromial decompression, RC repair, and FU R shoulder injection. 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 He slipped and fell about 2 weeks ago really bumped his shoulder pain is settling down from that. He has told his employer that he will not be going back to full duties until the end of the year. He is interested to have the right shoulder operated on before the end of this year. Ortho Exam General General: Yes no acute distress Neurologic: Yes alert and Yes oriented x3 Psychologic: Yes reasonable and appropriate Right Shoulder Skin/Wound: Yes CDI, No ecchymosis, No erythema and No swelling Testing: Positive AROM-Forward Elevation 0-180 and AROM-External Rotation at side 0-60; Negative Hawkin's or Neer's Left Shoulder Skin/Wound: Yes CDI, Yes healed, No ecchymosis, No erythema and No swelling Testing: No Hawkin's and No Neer's SHOULDER: nvi to ax nerve, mru and ain/pin, strong radial pulse, hand a bit swollen. active and passive fe 160, er 40, IR to L5. strength FE 4+, ER 5 Coding Level of Care Code Off vis,est,level 3 Diagnoses Subacromial bursitis of both shoulders M75.51; M75.52 Subacromial impingement of left shoulder M75.42 Subacromial impingement of right shoulder M75.41 Assessment and Plan Assessment and Plan (1) Subacromial bursitis of both shoulders: Status: Acute Plan: GEN POTTS is a 58 year old M here today for 6 months FU L shoulder arthroscopy, sub acromial decompression, RC repair, and FU R shoulder injection. Patient doing well progressing as expected. He can return to full strengthening of the upper extremity and follow-up before the end of the year if he is interested to have the contralateral shoulder operated on. (2) Subacromial impingement of left shoulder: Status: Acute (3) Subacromial impingement of right shoulder: Status: Acute 10/30/23 0804 Date James Romeroign Signature: Date (if applicable) CC: Normal [facility] Absolute lymphocyte countOrd ered By: Rogelio Velazquez on 04-29-2023 Lymphocytes Auto (Unsp spec) [#/Vol] 3.17 10*3/uL 0.83-4.51 [facility] Automated lymphocyte count a s percentage of total leukocytesOrdered By: Rogelio Velazquez on 04-29-2023 Lymphocytes/100 WBC Auto (Unsp spec) 45.4 % 19-41 [facility] Basophil percentageOrdered B y: Rogelio Velazquez on 04-29-2023 Basophils/100 WBC (Bld) 0.7 % 0-1 [facility] Bilirubin [Mass/Vol] 0.40 mg/dL 0.20-1.00 [facility] Comment on above: For patients on eltr ombopag therapy, use of Dimension [place] TBIL is not recommended. Chloride [Moles/Vol] 108 mmol/L 98-107 [facility] Eosinophils/100 WBC (Bld) 5.3 % 0-5 [facility] Glucose [Mass/Vol] 85 mg/dL 74-106 [facility] Hemoglobin (Bld) [Mass/Vol] 13.0 g/dL 13.0-16.5 [facility] Monocytes/100 WBC (Bld) 5.0 % 0-10 [facility] Neutrophils (Bld) [#/Vol] 3.0 10*3/uL 2.0-7.7 [facility] Neutrophils/100 WBC (Bld) 43.3 % 47-70 [facility] Potassium [Moles/Vol] 3.9 mmol/L 3.5-5.[address] [facility] Protein [Mass/Vol] 7.0 g/dL 6.4-8.2 [facility] Sodium [Moles/Vol] 142 mmol/L 136-145 [facility] WBC (Bld) [#/Vol] 7.0 10*3/uL 4.4-11.0 [facility] Determination of erythrocyte mean corpuscular volume (MCV)Ordered By: Rogelio Velazquez on 04-29-2023 MCV (RBC) [Entitic vol] 93.4 fL 80-94 [facility] Erythrocyte distribution wid th ratioOrdered By: Rogelio Justin on 04-29-2023 Erythrocyte distribution width (RBC) [Ratio] 12.4 % 11.6-14.6 [facility] Erythrocyte distribution wid th standard deviationOrdered By: [facility] Justin on 04-29-2023 Erythrocyte distribution width (RBC) [Entitic vol] 42.5 fL 35.1-43.9 [facility] Hematocrit Auto (Bld) [Volum e fraction]Ordered By: Rogelio Velazquez on 04-29-2023 Hematocrit (Bld) [Volume fraction] 39.9 % 40-54 [facility] Immature granulocytes/100 WB C Auto (Bld)Ordered By: Rogelio Velazquez on 04-29-2023 Immature granulocytes/100 WBC (Bld) 0.300 % 0.0-0.9 [facility] Comment on above: IG% - Immature Granu locytes (promyelocytes, myelocytes and metamyelocytes) > 1% indicates that a LEFT SHIFT is Present. Laboratory - Chemistry and C hemistry - challengeOrdered By: Rogelio Velazquez on 04-29-2023 Albumin/Globulin [Mass ratio] 1.1 {ratio} 0.9-2.4 [facility] ALP [Catalytic activity/Vol] 109 U/L 45-117 [facility] ALT [Catalytic activity/Vol] 18 U/L 16-61 [facility] CO2 [Moles/Vol] 29.0 mmol/L 21.0-32.0 [facility] Globulin (S) [Mass/Vol] 3.4 g/dL 2.2-4.2 [facility] Urea nitrogen/Creatinine [Mass ratio] 18.5 mg/mg 10-20 [facility] - Hematology and Cell countsOrdered By: Rogelio Velazquez on 04-29-2023 MCH (RBC) [Entitic mass] 30.4 pg 27.0-32.0 [facility] MCHC (RBC) [Mass/Vol] 32.6 g/dL 32-[address] [facility] Nucleated RBC/100 WBC (Bld) [Ratio] 0 % 0-5 [facility] Platelet mean volume (Bld) [Entitic vol] 11.1 fL 6.2-12.0 [facility] Platelets (Bld) [#/Vol] 266 10*3/uL 150-450 [facility] No Panel InformationOrdered By: Rogelio Velazquez on 04-29-2023 Estimated GFR (MDRD) Amer 125 mL/min >60 [facility] Comment on above: GFR Calc Estimated GFR (MDRD) Non-Af Amer 103 mL/min >60 [facility] Comment on above: Non- GFR Calc Prostate Specific Antigen Screen 0.26 ng/mL 0.00-4.00 [facility] Comment on above: This test was perfor med using the TPSA assay method for the[employer] chemistry system. Values obtained with differentassay methods cannot be used interchangably.When changing PSA assays in the course of monitoring apatient, additional sequential testing should be carriedout to confirm baseline values. RBC Auto (Bld) [#/Vol]Ordere d By: Rogelio Velazquez on 04-29-2023 RBC (Bld) [#/Vol] 4.27 10*6/uL 4.6-6.2 [facility] Serum or plasma calcium vinnie urement (mass/volume)Ordered By: Rogelio Velazquez on 04-29-2023 Calcium [Mass/Vol] 8.8 mg/dL 8.5-10.1 [facility] Serum or plasma creatinine m easurement (mass/volume)Ordered By: Rogelio Velazquez on 04-29-2023 Creatinine [Mass/Vol] 0.81 mg/dL 0.70-1.[address] [facility] Comment on above: The validity of the calculated GFR & GFRAA in patients over 70 years has not been determined. Clinical correlation is essential. Serum or plasma thyroid stim ulating hormone (TSH) measurement (units/volume)Ordered By: Rogelio Velazquez on 04-29-2023 TSH Qn 2.63 uIU/mL 0.358-3.74 [facility] Serum or plasma urea nitroge n measurement (mass/volume)Ordered By: Rogelio Velazquez on 04-29-2023 Urea nitrogen [Mass/Vol] 15 mg/dL 7-18 [facility] Thin prep Papanicolaou smear with manual screeningOrdered By: Rogelio Velazquez on 04-29-2023 Thin prep Papanicolaou smear with manual screening 3.6 g/dL 3.2-5.0 [facility] Thin prep Papanicolaou smear with manual screening 16 U/L 15-37 [facility] Thin prep Papanicolaou smear with manual screening 5 5-15 [facility] Absolute lymphocyte counton 02-13-2022 Lymphocytes Auto (Unsp spec) [#/Vol] 2.83 10*3/uL 0.83-4.51 [facility] Work Phone: Basophil percentageon 2021 Basophils/100 WBC (Bld) 0.8 % 0-1 [facility] Work Phone: Bilirubin [Mass/Vol] 0.60 mg/dL 0.20-1.00 [facility] Work Phone: Comment on above: For patients on eltr ombopag therapy, use of Dimension [place] TBIL is not recommended. Chloride [Moles/Vol] 109 mmol/L 98-107 [facility] Work Phone: Eosinophils/100 WBC (Bld) 4.6 % 0-5 [facility] Work Phone: Glucose [Mass/Vol] 77 mg/dL 74-106 [facility] Work Phone: Neutrophils (Bld) [#/Vol] 2.8 10*3/uL 2.0-7.7 [facility] Work Phone: Neutrophils/100 WBC (Bld) 43.3 % 47-70 [facility] Work Phone: Potassium [Moles/Vol] 3.8 mmol/L 3.5-5.[address] [facility] Work Phone: Protein [Mass/Vol] 6.6 g/dL 6.4-8.2 [facility] Work Phone: Sodium [Moles/Vol] 142 mmol/L 136-145 [facility] Work Phone: WBC (Bld) [#/Vol] 6.5 10*3/uL 4.4-11.0 [facility] Work Phone: Blood erythrocytes count (nu mber/volume)on 02-13-2022 RBC (Bld) [#/Vol] 4.52 10*6/uL 4.6-6.2 [facility] Work Phone: Blood hemoglobin measurement (mass/volume)on 02-13-2022 Hemoglobin (Bld) [Mass/Vol] 14.4 g/dL 13.0-16.5 [facility] Work Phone: Blood lymphocytes/100 leukoc yteson 02-13-2022 Lymphocytes/100 WBC (Bld) 43.5 % 19-41 [facility] Work Phone: Blood monocytes/100 leukocyt eson 02-13-2022 Monocytes/100 WBC (Bld) 7.5 % 0-10 [facility] Work Phone: Blood platelet mean volumeon 02-13-2022 Platelet mean volume (Bld) [Entitic vol] 11.4 fL 6.2-12.0 [facility] Work Phone: Determination of erythrocyte mean corpuscular volume (MCV)on 02-13-2022 MCV (RBC) [Entitic vol] 95.1 fL 80-94 [facility] Work Phone: Hematocrit Auto (Bld) [Volum e fraction]on 02-13-2022 Hematocrit (Bld) [Volume fraction] 43.0 % 40-54 [facility] Work Phone: Laboratory - Chemistry and C hemistry - challengeon 02-13-2022 ALP [Catalytic activity/Vol] 83 U/L 45-117 [facility] Work Phone: ALT [Catalytic activity/Vol] 27 U/L 16-61 [facility] Work Phone: CO2 [Moles/Vol] 28.0 mmol/L 21.0-32.0 [facility] Work Phone: [phone] Globulin (S) [Mass/Vol] 2.9 g/dL 2.2-4.2 [facility] Work Phone: Urea nitrogen/Creatinine [Mass ratio] 21.1 mg/mg 10-20 [facility] Work Phone: Laboratory - Hematology and Cell countson 02-13-2022 Erythrocyte distribution width (RBC) [Entitic vol] 46.5 fL 35.1-43.9 [facility] Work Phone: Erythrocyte distribution width (RBC) [Ratio] 13.2 % 11.6-14.6 [facility] Work Phone: Immature granulocytes/100 WBC (Bld) 0.300 % 0.0-0.9 [facility] Work Phone: Comment on above: IG% - Immature Granu locytes (promyelocytes, myelocytes and metamyelocytes) > 1% indicates that a LEFT SHIFT is Present. MCH (RBC) [Entitic mass] 31.9 pg 27.0-32.0 [facility] Work Phone: Nucleated RBC/100 WBC (Bld) [Ratio] 0 % 0-5 [facility] Work Phone: MCHC Auto (RBC) [Mass/Vol]on 02-13-2022 MCHC (RBC) [Mass/Vol] 33.5 g/dL 32-[address] [facility] Work Phone: No Panel Informationon 02-13 Estimated GFR (MDRD) Amer 119 mL/min >60 [facility] Work Phone: Comment on above: GFR Calc Estimated GFR (MDRD) Non-Af Amer 98 mL/min >60 [facility] Work Phone: Comment on above: Non- GFR Calc Prostate Specific Antigen Screen 0.21 ng/mL 0.00-4.00 [facility] Work Phone: Comment on above: This test was perfor med using the TPSA assay method for the[employer] chemistry system. Values obtained with differentassay methods cannot be used interchangably.When changing PSA assays in the course of monitoring apatient, additional sequential testing should be carriedout to confirm baseline values. Thyroid Stimulating Hormone (TSH) 3.03 uIU/mL 0.358-3.74 [facility] Work Phone: Platelets bldon 02-13-2022 Platelets (Bld) [#/Vol] 208 10*3/uL 150-450 [facility] Work Phone: Serum or plasma albumin vinnie urement (mass/volume)on 02-13-2022 Albumin [Mass/Vol] 3.7 g/dL 3.2-5.0 [facility] Work Phone: [phone] Serum or plasma albumin/glob ulin mass ratioon 02-13-2022 Albumin/Globulin [Mass ratio] 1.3 {ratio} 0.9-2.4 [facility] Work Phone: [phone] Serum or plasma calcium vinnie urement (mass/volume)on 02-13-2022 Calcium [Mass/Vol] 8.6 mg/dL 8.5-10.1 [facility] Work Phone: [phone] Serum or plasma creatinine m easurement (mass/volume)on 02-13-2022 Creatinine [Mass/Vol] 0.85 mg/dL 0.70-1.[address] [facility] Work Phone: Comment on above: The validity of the calculated GFR & GFRAA in patients over 70 years has not been determined. Clinical correlation is essential. Serum or plasma urea nitroge n measurement (mass/volume)on 02-13-2022 Urea nitrogen [Mass/Vol] 18 mg/dL 7-18 [facility] Work Phone: Thin prep Papanicolaou smear with manual screeningon 02-13-2022 Thin prep Papanicolaou smear with manual screening 14 U/L 15-37 [facility] Work Phone: [phone] Thin prep Papanicolaou smear with manual screening 5 5-15 [facility] Work Phone: [phone] Absolute lymphocyte counton 08-24-2021 Lymphocytes Auto (Unsp spec) [#/Vol] 2.88 10*3/uL 0.83-4.51 [facility] Work Phone: Basophil percentageon 2021 Basophils/100 WBC (Bld) 0.4 % 0-1 [facility] Work Phone: [phone] Bilirubin [Mass/Vol] 0.70 mg/dL 0.20-1.00 [facility] Work Phone: [phone] Comment on above: For patients on eltr ombopag therapy, use of Dimension [place] TBIL is not recommended. Chloride [Moles/Vol] 105 mmol/L 98-107 [facility] Work Phone: Eosinophils/100 WBC (Bld) 0.3 % 0-5 [facility] Work Phone: Glucose [Mass/Vol] 99 mg/dL 74-106 [facility] Work Phone: Neutrophils (Bld) [#/Vol] 6.5 10*3/uL 2.0-7.7 [facility] Work Phone: Neutrophils/100 WBC (Bld) 64.8 % 47-70 [facility] Work Phone: Potassium [Moles/Vol] 4.3 mmol/L 3.5-5.1 [facility] Work Phone: Protein [Mass/Vol] 7.7 g/dL 6.4-8.2 [facility] Work Phone: Sodium [Moles/Vol] 139 mmol/L 136-145 [facility] Work Phone: WBC (Bld) [#/Vol] 10.1 10*3/uL 4.4-11.0 [facility] Work Phone: Blood erythrocytes count (nu mber/volume)on 08-24-2021 RBC (Bld) [#/Vol] 4.56 10*6/uL 4.6-6.2 [facility] Work Phone: Blood hemoglobin measurement (mass/volume)on 08-24-2021 Hemoglobin (Bld) [Mass/Vol] 14.9 g/dL 13.0-16.5 [facility] Work Phone: Blood lymphocytes/100 leukoc yteson 08-24-2021 Lymphocytes/100 WBC (Bld) 28.6 % 19-41 [facility] Work Phone: Blood monocytes/100 leukocyt eson 08-24-2021 Monocytes/100 WBC (Bld) 5.4 % 0-10 [facility] Work Phone: Blood platelet mean volumeon 08-24-2021 Platelet mean volume (Bld) [Entitic vol] 11.6 fL 6.2-12.0 [facility] Work Phone: [phone] Determination of erythrocyte mean corpuscular volume (MCV)on 08-24-2021 MCV (RBC) [Entitic vol] 96.3 fL 80-94 [facility] Work Phone: [phone] Hematocrit Auto (Bld) [Volum e fraction]on 08-24-2021 Hematocrit (Bld) [Volume fraction] 43.9 % 40-54 [facility] Work Phone: [phone] Laboratory - Chemistry and C hemistry - challengeon 08-24-2021 ALP [Catalytic activity/Vol] 82 U/L 45-117 [facility] Work Phone: [phone] ALT [Catalytic activity/Vol] 63 U/L 16-61 [facility] Work Phone: [phone] CO2 [Moles/Vol] 29.0 mmol/L 21.0-32.0 [facility] Work Phone: [phone] Globulin (S) [Mass/Vol] 3.5 g/dL 2.2-4.2 [facility] Work Phone: [phone] Urea nitrogen/Creatinine [Mass ratio] 16.6 mg/mg 10-20 [facility] Work Phone: [phone] Laboratory - Hematology and Cell countson 08-24-2021 Erythrocyte distribution width (RBC) [Entitic vol] 46.0 fL 35.1-43.9 [facility] Work Phone: [phone] Erythrocyte distribution width (RBC) [Ratio] 13.1 % 11.6-14.6 [facility] Work Phone: [phone] Immature granulocytes/100 WBC (Bld) 0.500 % 0.0-0.9 [facility] Work Phone: [phone] Comment on above: IG% - Immature Granu locytes (promyelocytes, myelocytes and metamyelocytes) > 1% indicates that a LEFT SHIFT is Present. MCH (RBC) [Entitic mass] 32.7 pg 27.0-32.0 [facility] Work Phone: Nucleated RBC/100 WBC (Bld) [Ratio] 0 % 0-5 [facility] Work Phone: MCHC Auto (RBC) [Mass/Vol]on 08-24-2021 MCHC (RBC) [Mass/Vol] 33.9 g/dL 32-[address] [facility] Work Phone: No Panel Informationon 08-24 Estimated GFR (MDRD) Amer 111 mL/min >60 [facility] Work Phone: Comment on above: GFR Calc Estimated GFR (MDRD) Non-Af Amer 92 mL/min >60 [facility] Work Phone: Comment on above: Non- GFR Calc Platelets bldon 08-24-2021 Platelets (Bld) [#/Vol] 271 10*3/uL 150-450 [facility] Work Phone: Serum or plasma albumin vinnie urement (mass/volume)on 08-24-2021 Albumin [Mass/Vol] 4.2 g/dL 3.2-5.0 [facility] Work Phone: Serum or plasma albumin/glob ulin mass ratioon 08-24-2021 Albumin/Globulin [Mass ratio] 1.2 {ratio} 0.9-2.4 [facility] Work Phone: Serum or plasma calcium vinnie urement (mass/volume)on 08-24-2021 Calcium [Mass/Vol] 9.7 mg/dL 8.5-10.1 [facility] Work Phone: Serum or plasma creatinine m easurement (mass/volume)on 08-24-2021 Creatinine [Mass/Vol] 0.90 mg/dL 0.70-1.[address] [facility] Work Phone: Comment on above: The validity of the calculated GFR & GFRAA in patients over 70 years has not been determined. Clinical correlation is essential. Serum or plasma urea nitroge n measurement (mass/volume)on 08-24-2021 Urea nitrogen [Mass/Vol] 15 mg/dL 7-18 [facility] Work Phone: Thin prep Papanicolaou smear with manual screeningon 08-24-2021 Thin prep Papanicolaou smear with manual screening 21 U/L 15-37 [facility] Work Phone: Thin prep Papanicolaou smear with manual screening 5 5-15 [facility] Work Phone: Vital Signs Date Time Vital Sign Value Performing Clinician Johnny johnston 02-22-2024 13:36-0500 Body height 180.3 cm Bigg Slabaugh PA-C Work Phone: [facility] 02-22-2024 13:36-0500 Body mass index (BMI) [Ratio] 25.26 kg/m2 Bigg Slabaugh PA-C Work Phone: [facility] 02-22-2024 13:36-0500 Body temperature 98.4 [degF] Bigg Slabaugh PA-C Work Phone: [facility] 02-22-2024 13:36-0500 Body weight 82.15 kg Bigg Slabaugh PA-C Work Phone: [facility] 02-22-2024 13:36-0500 Diastolic blood pressure 92 mm[Hg] Bigg Slabaugh PA-C Work Phone: [facility] 02-22-2024 13:36-0500 Heart rate 67 /min Bigg Slabaugh PA-C Work Phone: [facility] 02-22-2024 13:36-0500 Respiratory rate 18 /min Bigg Slabaugh PA-C Work Phone: [facility] 02-22-2024 13:36-0500 SaO2% (BldA) [Mass fraction] 98 % Bigg Slabaugh PA-C Work Phone: [facility] 02-22-2024 13:36-0500 Systolic blood pressure 172 mm[Hg] Bigg Slabaugh PA-C Work Phone: [facility] 05-07-2023 13:31-0500 Body temperature 97.8 [degF] Dr. Rogelio Velazquez Work Phone: [facility] 05-07-2023 13:31-0500 Diastolic blood pressure 84 mm[Hg] Dr. Rogelio Velazquez Work Phone: [facility] 05-07-2023 13:31-0500 Heart rate 51 /min Dr. Rogelio Velazquez Work Phone: [facility] 05-07-2023 13:31-0500 Respiratory rate 16 /min Dr. Rogelio Velazquez Work Phone: [facility] 05-07-2023 13:31-0500 SaO2% (BldA) [Mass fraction] 97 % Dr. Rogelio Velazquez Work Phone: [facility] 05-07-2023 13:31-0500 Systolic blood pressure 145 mm[Hg] Dr. Rogelio Velazquez Work Phone: [facility] 05-07-2023 08:25-0500 Body height 180.[address] Rogelio Velazquez Work Phone: [facility] 05-07-2023 08:25-0500 Body mass index (BMI) [Ratio] 22.4 kg/m2 Dr. Rogelio Velazquez Work Phone: [facility] 05-07-2023 08:25-0500 Body weight 73.[address] Rogelio Velazquez Work Phone: [facility] 10-23-2021 14:22-0400 Body height 180.3 cm Nicolle Parishye [employer] Work Phone: [facility] 10-23-2021 14:22-0400 Body weight 78.47 kg Nicolle Brewer [employer]LE [employer]IVER.[employer] Work Phone: [facility] 10-23-2021 14:22-0400 Diastolic blood pressure 80 mm[Hg] Nicolle Parishye MULE DRIVER.[employer]NER Work Phone: [facility] 10-23-2021 14:22-0400 Heart rate 69 /min Nicolle Brewer MULE DRIVER.[employer] PL[employer]NER Work Phone: [facility] 10-23-2021 14:22-0400 Respiratory rate 16 /min Nicolle Osamn MULE DRIVER.[employer]NER Work Phone: [facility] 10-23-2021 14:22-0400 Systolic blood pressure 153 mm[Hg] Nicollepauline Parishye MULE DRIVER.[employer]FORMATION [employer] PL[employer]NER Work Phone: [facility] Encounters Encounter Date Encounter Type Care Provider Facility Start: 10-04-2024 End: 10-04-2024 ambulatory Ayman Basali Facility:[facility] Start: 09-08-2024 End: 09-08-2024 ambulatory Saira Wylie Facility:[facility] Start: 08-02-2024 End: 08-02-2024 [facility] Start: 07-29-2024 ambulatory Rogelio Chi Justin Facility:[facility] Start: 07-14-2024 End: 07-14-2024 ambulatory Rogelio Chi Justin Facility:[facility] Start: 06-22-2024 ambulatory Rogelio Chi Justin [facility] Start: 06-22-2024 End: 06-22-2024 Evaluation and management of inpatient Rogelio Chi Justin Facility:[facility] Start: 06-21-2024 End: 06-21-2024 ambulatory Rogelio Chi Justin Facility:[facility] Start: 05-25-2024 End: 05-25-2024 ambulatory Rogelio Chi Justin Facility:[facility] Start: 05-18-2024 End: 05-18-2024 ambulatory Rogelio Chi Justin Facility:[facility] Start: 05-10-2024 End: 05-10-2024 ambulatory Rogelio Chi Justin Facility:[facility] Start: 03-22-2024 End: 03-22-2024 ambulatory Ayman Basali Facility:[facility] Start: 03-04-2024 End: 03-04-2024 ambulatory Rogelio Chi Justin Facility:[facility] Start: 02-22-2024 End: 02-22-2024 ambulatory ROGELIO CHI JUSTIN Facility:[facility] Start: 02-22-2024 End: 02-22-2024 Patient encounter procedure Bigg West PA-C Work Phone: [facility] Comment on above: URI with cough and c ongestion (Primary Dx); Sinus drainage Start: 02-19-2024 ambulatory Rogelio Chi Justin Facility:[facility] Start: 01-14-2024 End: 01-14-2024 ambulatory [facility] Justin Facility:[facility] Start: 01-13-2024 End: 01-13-2024 ambulatory Rogelio [facility] Justin Facility:[facility] Start: 01-12-2024 End: 01-12-2024 ambulatory Rogelio Chi Justin Facility:[facility] Start: 01-05-2024 ambulatory Rogelio [facility] Justin [facility] Start: 01-03-2024 End: 01-03-2024 Emergency department patient visit SAMSON QUIROS Facility:[facility] Start: 10-30-2023 End: 10-30-2023 ambulatory Rogelio Castillook Facility:[facility] Start: 05-07-2023 Non-patient / Non-visit Dr. Gil Velazquez Work Phone: [facility] Start: 05-07-2023 End: 05-07-2023 Admission to same day surgery center Dr. Rogelio Velazquez Work Phone: [facility] Start: 05-07-2023 End: 05-07-[address] Roeglio Velazquez Work Phone: [facility] Work Phone: Start: 04-29-2023 End: 04-29-[address] Rogelio Velazquez Work Phone: [facility] Work Phone: Start: 04-29-2023 End: 04-29-[address] Rogelio Velazquez Work Phone: [facility] Phy [facility] 3rd Flr Start: 04-29-2023 End: 04-29-2023 Non-patient / Non-visit Dr. Rogelio Velazquez Work Phone: [facility] Work Phone: Start: 03-14-2023 End: 03-14-[address] Rogelio Velazquez Work Phone: [facility] Work Phone: Start: 03-05-2023 End: 03-05-[address] Rogelio Velazquez Work Phone: [facility] Work Phone: Start: 02-13-2022 End: 02-13-[address] Rogelio Velazquez Work Phone: [facility] Work Phone: Start: 02-13-2022 End: 02-13-[address] Rogelio Velazquez Work Phone: [facility] 3rd Flr Start: 11-22-2021 End: 11-22-2021 ambulatory CARI SINGH APRN-[facility] Facility:[facility] Start: 11-21-2021 End: 11-21-[address] Rogelio Velazquez Work Phone: [facility] Start: 10-23-2021 End: 10-23-2021 Patient encounter procedure Nicolle Brewer APRN.[facility] Work Phone: [facility] Comment on above: Antibiotic treatment within past 2 months (Primary Dx); Elevated blood pressure reading; Viral URI with cough Start: 08-24-2021 End: 08-24-[address] Rogelio Velazquez Work Phone: [facility] Start: 08-16-2021 End: 08-16-[address] Rogelio Velazquez Work Phone: [facility] Start: 06-06-2021 End: 06-06-[address] Rogelio Velazquez Work Phone: [facility] Start: 05-29-2021 End: 05-29-[address] [facility] Date Procedure Procedure Detail Performing Clinician Start: 05-07-2023 Procedure on shoulde r joint Dr. Rogelio Velazquez Work Phone: Start: 11-21-2021 X-ray of cervical spine Dr. Rogelio Velazquez Work Phone: Start: 08-24-2021 Computed tomography of abdomen and pelvis with contrast Dr. Rogelio Velazquez Work Phone: Start: 05-29-2021 End: 05-29-2021 MRI of joint of lower extremity Dr. Rogelio Velazquez Work Phone: Plan of Treatment Date Care Activity Detail Author Start: 12-09-2025 Screening for malign ant neoplasm of colon [facility] Start: 11-16-2023 Covid-19 Vaccine () Covid-19 Vaccine () [facility] Start: 05-07-2023 Patient discharge [facility] Start: 05-07-2023 Application of ice collar, cap or bag [facility] Start: 05-07-2023 Assessment of risk o f venous thromboembolism [facility] Start: 05-07-2023 Catheterization of vein [facility] Start: 05-07-2023 Deep breathing and coughing exercises [facility] Start: 05-07-2023 Following clinical pathway protocol [facility] Start: 05-07-2023 Incentive spirometry [facility] Start: 05-07-2023 Introduction of urin vane catheter [facility] Start: 05-07-2023 Patient education [facility] Start: 05-07-2023 Taking patient vital signs [facility] Start: 05-07-2023 Vital signs measurements [facility] Start: 05-07-2023 End: 05-07-2023 [facility] Start: 05-07-2023 Medication education [facility] Start: 11-15-2021 Influenza vaccination INFLUENZA (#1) [facility] Start: 08-10-2019 PROSTATE CANCER SCRE ENING DISCUSSION PROSTATE CANCER SCREENING DISCUSSION [facility] Start: 08-10-2019 Prostate specific an tigen measurement Prostate Cancer Screening Discussion [facility] Start: 2014 SHINGRIX VACCINE (1 of 2) KLINE GRIX VACCINE (1 of 2) [facility] Start: 10-28-2012 Urine microalbumin profile DTaP,Tdap,Td Vaccine (1 - Tdap) [facility] Start: 2009 COLOGUARD (FIT-DNA) COLOGUARD (FIT-D NA) [facility] Start: 2009 Colonoscopy COLONOSCOPY [facility] Start: 2009 COLORECTAL CANCER SCREENING COLORECTAL CANCER SCREENING [facility] Start: [address] COLONOGRAPHY [facility] Start: 2009 DIABETES SCREEN DIABETES SCREEN [facility] Start: 2009 Diabetes Screening Diabetes Screenin g [facility] Start: 2009 FECAL OCCULT BLOOD FECAL OCCULT BLOO D [facility] Start: 2009 Screening for malign ant neoplasm of colon [facility] Start: 2009 SIGMOIDOSCOPY SIGMOIDOSCOPY [facility] Start: 08-10-1999 Lipid panel Lipid Screening [facility] Start: 08-10-1999 LIPID SCREEN LIPID SCREEN [facility] Start: 08-10-1983 Urine microalbumin profile DTAP,TDAP,TD (1 - Tdap) [facility] Start: 1982 Anxiety Screening Anxiety Screening [facility] Start: 1982 Depression Screening Depression Scre [facility] Start: 1982 HEPATITIS C SCREENING HEPATITIS C [facility] Start: 1982 Hepatitis C screening Hepatitis C [facility] Start: 1982 HIV SCREENING HIV SCREENING [facility] Start: 1982 HIV screening HIV Screening [facility] Start: 1976 Adult depression screening assessment DEPRESSION SCREENING [facility] Start: 02-09-1965 COVID-19 VACCINE (#1) COVID-19 VACCI NE (#1) [facility] Start: 1964 HEPATITIS B (1 of 3 - 3-dose series) HEPATITIS B (1 of 3 - 3-dose series) [facility] Patient Education After Shoulder Arthroscopy [facility] Work Phone: Patient referral [facility] Work Phone: SARS-CoV-2 (COVID-19 ) RNA [Presence] in Respiratory specimen by PO with probe detection 2019 CORONAVIRUS Microbiology Routine Viral URI with cough Ordered: 10/23/2021 [facility] Work Phone: Comment on above: Ordered: 10/23/2021 End: 03-23-2025 XR Chest PA and Lateral XR CHEST 2V FRONTAL/LAT Radiology STAT URI with cough and congestion 1 Occurrences starting 02/22/2024 until 03/23/2025 [facility] Work Phone: Comment on above: 1 Occurrences starti ng 02/22/2024 until 03/23/2025 Payers Date Payer Category Payer Unknown [id number] 2023 Self-pay [id number] 2022 Unknown [id number] 2021 Unknown [id number] 2016 Unknown [id number] 1965 Unknown [id number] 2.16.8 [id number] Unknown [id number] Unknown [id number] 2.16.8 [id number] Unknown [id number] 2.16.8 40.1.132345.3.579.2.462 Unknown [id number] 2.16.8 40.1.412242.3.579.2.462 Unknown [id number] 2.16.8 40.1.883015.3.579.2.462 Unknown [id number] 2.16.8 40.1.289884.3.579.2.462 Unknown [id number] 2.16.8 40.1.161502.3.579.2.462 Unknown [id number] 2.16.8 40.1.850346.3.579.2.462 Unknown [id number] 2.16.8 40.1.040044.3.579.2.462 Unknown [id number] 2.16.8 40.1.409965.3.579.2.462 Unknown [id number] 2.16.8 40.1.594047.3.579.2.462 Unknown [id number] 2.16.8 40.1.286262.3.579.2.462 Unknown [id number] 2.16.8 40.1.808697.3.579.2.462 Unknown [id number] 2.16.8 40.1.005436.3.579.2.462 Unknown [id number] 2.16.8 40.1.532986.3.579.2.462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 both 4+/5. Strong radial pulse. Supplemental Info [facility] Imaging Services [address] [place] [address] Shoulder min 2 Views MR#: [id number] Acct: [id number] Name: GEN POTTS Jr. Rep #: [id number] : 1965 M 54 From: Silver Blair MD PCP: Dr. Rogelio Velazquez MD Status: REG CLI Study: Shoulder min 2 Views Date of Exam: 08/26/19 Exam# [id number] Ordering Dr: Sowmya Conti MD STUDY: X-RAY - LEFT SHOULDER REASON FOR EXAM: Male, 54 years old. BILAT SHOULDER PAIN, RIGHT SIDE GREATER THAN LEFT SIDE. HX FALL TO RIGHT SHOULDER AND SURGERY TO LEFT SHOULDER TECHNIQUE: 4 view(s) of the shoulder. COMPARISON: None. FINDINGS: Normal glenohumeral articulation. Normal acromioclavicular joint. Normal acromion. Normal humeral head and visualized proximal humerus. The soft tissue structures are unremarkable. There is no demonstrated fracture. Normal visualized pulmonary apex. RAD/Shoulder min 2 Views IMPRESSION: Normal x-ray examination of the shoulder. Electronically Signed: Silver Blair MD at 14:58 EDT , Service support , [facility] Imaging Services [address] [place] [address] Shoulder min 2 Views MR#: [id number] Acct: [id number] Name: GEN POTTS Jr. Rep #: [id number] : 1965 M 54 From: Silver Blair MD PCP: Dr. Rogelio Velazquez MD Status: REG CLI Study: Shoulder min 2 Views Date of Exam: 08/26/19 Exam# [id number] Ordering Dr: Sowmya Conti MD STUDY: X-RAY - RIGHT SHOULDER REASON FOR EXAM: Male, 54 years old. BILAT SHOULDER PAIN, RIGHT SIDE GREATER THAN LEFT SIDE. HX FALL TO RIGHT SHOULDER AND SURGERY TO LEFT SHOULDER TECHNIQUE: 4 view(s) of the shoulder. COMPARISON: None. FINDINGS: Normal glenohumeral articulation. Normal acromioclavicular joint. Normal acromion. Normal humeral head and visualized proximal humerus. The soft tissue structures are unremarkable. There is no demonstrated fracture. Normal visualized pulmonary apex. RAD/Shoulder min 2 Views IMPRESSION: Normal x-ray examination of the shoulder. Electronically Signed: Silver Blair MD at 20:25 EDT , Service support , [facility] Imaging Services [address] [place] [address] Upper Ext Joint Only(Routine) MR#: [id number] Acct: [id number] Name: GEN POTTS Rep #: [id number] : 1965 M 55 From: Orville Chandler MD PCP: Dr. Rogelio Velazquez MD Status: REG CLI Study: Upper Ext Joint Only(Routine) Date of Exam: 05/29/21 Exam# [id number] Ordering Dr: Sean Mckeon DO STUDY: MRI RIGHT SHOULDER REASON FOR EXAM: Right shoulder pain for 4 years. TECHNIQUE: Standardized fat and water weighted pulse sequences were obtained in all 3 orthogonal planes. COMPARISON: Radiographs 08/26/2019. FINDINGS: There is mild supraspinatus tendinosis and a small high-grade partial thickness tear of the articular surface of the distal anterior supraspinatus tendon at the greater tuberosity insertion (T2 coronal image 15; T2 sagittal image 17) measuring approximately 0.3 x 0.9 cm (length x width). There is mild infraspinatus tendinosis and a small low-grade partial-thickness tear of the articular surface of the distal infraspinatus tendon (T2 coronal image 8) measuring 0.3 cm in length. Normal subscapularis tendon. Normal teres minor tendon. Normal supraspinatus muscle. Normal infraspinatus muscle. Normal subscapularis muscle. Normal teres minor muscle. Normal glenohumeral articulation. Normal humeral head and visualized proximal humerus. Normal biceps labral complex. Normal intracapsular long biceps tendon. Normal labrum. Normal capsulo- ligamentous complex. There is acromioclavicular arthrosis with small undersurface osteophytes of the distal clavicle effacing the subacromial fat (T2 sagittal images 8, 9). There is a Type I morphology (flat undersurface), with a neutral orientation. There is a very small volume of subacromial-subdeltoid bursal fluid (T2 coronal images 9-11). Normal visualized coracohumeral and coracoacromial ligaments. Normal deltoid muscle. Normal trapezius muscle. MRI/Upper Ext Joint Only(Routine) IMPRESSION: Small partial-thickness tear and mild tendinosis of the supraspinatus tendon. Small partial-thickness tear and mild tendinosis of the infraspinatus tendon. Acromioclavicular arthrosis. Very mild subacromial-subdeltoid bursitis. Electronically Signed: Orville Chandler MD at 8:37 EDT Reading Location ID and State: [facility] / [place] , Service support , [facility] Imaging Services [address] [place] [address] Upper Ext Joint Only(Routine) MR#: [id number] Acct: [id number] Name: GEN POTTS Rep #: [id number] : 1965 M 55 From: Bolivar Mcpherson MD PCP: Dr. Rogelio Velazquez MD Status: REG CLI Study: Upper Ext Joint Only(Routine) Date of Exam: 05/29/21 Exam# [id number] Ordering Dr: Sean Mckeon DO EXAM: MR LEFT UPPER EXTREMITY WITHOUT INTRAVENOUS CONTRAST, SHOULDER CLINICAL INDICATION: pain TECHNIQUE: Multiplanar and multisequence MR images of the left shoulder without intravenous contrast. This report was created using POPAPP report generation technology. COMPARISON: None. FINDINGS: TENDONS: SUPRASPINATUS: Full-thickness tearing at the insertion of the supraspinatus tendon. INFRASPINATUS: Linear interstitial tear involving the infraspinatus tendon (extending all the way to the musculotendinous junction) and supraspinatus tendon at their respective footprints. SUBSCAPULARIS: Unremarkable. Intact. TERES MINOR: Unremarkable. Intact. BICEPS BRACHII, LONG HEAD: Lungs the biceps tendon is intact. The extra-articular biceps tendon is in the bicipital groove. LIGAMENTS: GLENOHUMERAL: Unremarkable. Intact. MUSCLES: No muscle atrophy or edema. FLUID: Unremarkable. No joint effusion. No subacromial-subdeltoid space bursal fluid. CARTILAGE: Unremarkable. Articular cartilage intact. GLENOID LABRUM: No labral tear. BONES/JOINTS: Unremarkable. No fracture. No abnormal bone marrow signal. OTHER SOFT TISSUES: Unremarkable. No rotator interval edema. MRI/Upper Ext Joint Only(Routine) IMPRESSION: 1. Focal full-thickness tear at the insertion of the supraspinatus tendon. 2. Low-grade partial-thickness tear involving the interstitial portion of the supraspinatus and infraspinatus tendon which are likely to be concealed at the time of arthroscopy. Electronically Signed: Bolivar Mcpherson MD at 4:30 EDT , Coding Level of Care Code Off vis,est,level 4 Diagnoses Subacromial bursitis of both shoulders M75.51; M75.52 Subacromial impingement of left shoulder M75.42 Subacromial impingement of right shoulder M75.41 Right rotator cuff tear M75.101 Left rotator cuff tear M75.102 Assessment and Plan Assessment and Plan (1) Subacromial bursitis of both shoulders: Status: Acute Plan: 57-year-old man bilateral shoulder pain and rotator cuff tears. These are small but the MRI was from 2 years ago however I favor this to be the same problem. Could consider getting new MRI but likely to be same picture. He had good results with subacromial decompression on the left side about 20 years ago. Thepatient has failed multiple rounds of conservative management over a year multiple injections the most recent one was about a week ago. His surgical option here would be arthroscopy subacromial decompression and rotator cuff repair we discussed the diagnosis prognosis aftercare and postop restrictions 2 weeks in the sling 6 weeks to regain range of motion and up to 3 to 6 months before going back to have any sort of heavy over head lifting. The patient is a7 cigarette a day smoker that can increase the risks but the patient said he is going to quit. Other than that he does not have many surgical risks although I did warn him this can increase the chance of getting an infection the tendon nothealing or having other problems postoperatively. He understands. Patient wishes to go ahead with left shoulder arthroscopy, subacromial decompression, rotator cuff repair. Booked and consented the patient for surgery today. We will delay this at least 6 weeks from last cortisone injection which was about aweek ago dt incr chance of infection. Pros and cons risks and benefits were discussed with the patient including but not limited to infection, pain, stiffness, bleeding, damage to surrounding structures, neurovascular injury, recurrence or retear, failure or wear of hardware or fixation, instability, fracture, deep vein thrombosis and pulmonary embolism, anesthetic risks, , patient dissatisfaction, need for further surgery and other risks. Patient understood and wished to proceed with surgery,and signed the informed consent documentation. [facility] Medical History (Updated 04/28/23 @ 11:20 by Soco aTn) Anxiety Arthritis Back pain Cervicalgia Former smoker Gastric reflux History of steroid therapy Hx of head injury Injury of back Left rotator cuff tear Leg cramps Restless legs Right rotator cuff tear Spondylosis of cervical region without myelopathy or radiculopathy Wears contact lenses Home Medications naproxen sodium 220 mg capsule 220 mg PO BID 05/31/19 [History Last Taken Unknown] tamsulosin 0.4 mg capsule 0.4 mg PO DAILY 04/27/21 [History Last Taken Unknown] tramadol 50 mg tablet 50 mg PO QHS 04/27/21 [History Last Taken Unknown] melatonin 10 mg capsule 10 mg PO HS sleep 04/05/22 [History Last Taken Unknown] pramipexole 1 mg tablet 2 mg PO QHS 04/05/22 [History Last Taken Unknown] baclofen 10 mg tablet 10 mg PO QHS 04/28/23 [History Last Taken Unknown] multivitamin 1 tab PO DAILY 02/12/24 [History Last Taken Unknown] Allergy/AdvReac Type Severity Reaction Status Date / Time No Known Allergies Allergy Verified 05/07/23 08:24 Surgical History (Updated 04/28/23 @ 11:20 by Soco Tan) H/O shoulder surgery H/O sinus surgery History of ear surgery Social History household members: spouse housing: house current occupational status: employed pets and animals: Yes Smoking Status: Former smoker alcohol intake: never substance use type: does not use what type of physical activity do you participate in: none Vital Signs Vital Signs Vital Signs: 05/07/23 08:25 05/07/23 08:25 Temperature 98.7 F Temperature Source Temporal Pulse Rate 54 L Respiratory Rate 16 Respiratory Pattern Normal Blood Pressure 142/82 H Blood Pressure Mean 102 Blood Pressure Source Monitor Blood Pressure Position Semi-Fowlers Blood Pressure Location Right Arm Pulse Ox 100 Oxygen Delivery Method Room Air Weight Weight: 161 lb Body Mass Index (BMI) 22.4 05/07/23 1120 <Electronically signed by James Justin MD> Cosigner Signature (if applicable): CC: Dr. James Justin MD; Dr. Rogelio Velazquez MD~ Signed [facility] Work Phone: 1(601) 939-617702-21-2024 Procedure [facility] 10-23-2021 History of Present illness Narrative* Nicolle Brewer APRN.INFORMATION SYSTEMS PLANNER - 10/23/2021 2:19 PM EDT This note was created using NoteWriter. Subjective [...] 69 Resp 16 Ht 180.3 cm (5' 11) Wt 78.5 kg (173 lb) BMI 24.13 [...] of dehydration, fever greater than 102 F thatis not responding to Tylenol or ibuprofen (Motrin, [...] summary. The patient is agreeable to this planof care and follow-up instructions have been explained in detail. The patient has received these instructions in written format and have expressed an understanding of the after visit summary. Medical Decision Making: Level: 3 - Low I spent a total of 20 minutes on the date of the service which included preparing to see the patient, [id number] patient care, completing clinical documentation, obtaining and/or reviewing separately obtained history, performing a medically appropriate examination, counseling and educating the pat ient/family/caregiver, and ordering medications, tests, or procedures. This patient encounter involved the screening or treatment of novel coronavirus infection (COVID-19). [facility] Inst[facility]* Patient Instructions* Nicolle Brewer APRN.CNP - 10/23/2021 2:19 PM [...] of dehydration, fever greater than 102 F thatis not responding to Tylenol or ibuprofen (Motrin, Advil), drooling, difficulty swallowing, difficulty breathing, shortness of breath, chest pain, evidence of airway compromise (tripod position, neck extension, retractions), seizures, changes in mental status, or other concerns. Clear. You re in the normal range. Straight mucus is mostly water, with proteins, antibodies and dissolved salts. Your nasal tissues produce it /. Most of it flows down the back [...] Colds inevitably last 10 to 14 days. [place] down and wait it out. Green. Your immune system is really fighting back. The mucus is thick with white cells and other wreckage from the oliva. If you re still sick after about 12 days, you may want to see a doctor.It could be sinusitis, a bacterial infection. If you re feverish or nauseated, see a doctor soon. [place] or red. This is blood. Your nasal tissue in the nose has somehow become broken -- perhaps because it s dry, irritated or suffered some kind of impact. Brown. This shade could be blood, but likely it s something inhaled, like dirt, snuff or paprika. [facility] Evaluation note* Diagnosis Antibiotic treatment within past 2 months- Primary Elevated blood pressure reading Elevated blood pressure reading without diagnosis of hypertension Viral URI with cough Acute upper respiratory infections of unspecified site documented [facility] encounter [facility] summary Author James Justin [facility] May 07, 2023 1:03pm Note Date/Time May 07, 2023 1:02pm [facility] Medical Records Department [address] [place] [address] Instructions for Home/Discharge Instructions 05/07/23 1301 MR#: [id number] Acct: [id number] Name: GEN POTTS Rep #:[id number] : 1965 57 From: James Justin MD PCP: Dr. Rogelio Velazquez MD Status:REG S DC Discharge Instructions Diet Discharge Diet: No restrictions Activity Lifting Restrictions: pendulums 4x/day, ok for hand wrist elbow rom Dressing / Incision Call your doctor if your incision/area has: Continuous Slow Oozing, Sudden Increased Bleeding, Increased Pain/ Swelling, Increased Redness, Foul Smelling Discharge and Swelling at the incision site Change Dressing in: leave in place till F/U Follow Up Care Please Follow Up With: James Justin MD When: 2 days Test Results: Test results from this visit will be discussed in further detail at your follow- up appointment, if applicable. Discharge Plan Admission Attending Provider: James Justin Primary Care Provider: Rogelio Velazquez Chi Instructions Patient Instructions: After Shoulder Arthroscopy Discharge Orders/Prescriptions Prescriptions: New oxycodone-acetaminophen [Endocet] 5-325 mg tablet 1 tab PO Q4H MDD 6 PRN (Reason: pain) 5 Days Qty: 30 0RF No Action tamsulosin 0.4 mg capsule 0.4 mg PO DAILY Patient Comments: take 1 capsule by mouth once daily take with dinner pramipexole 1 mg tablet 2 mg PO QHS melatonin 10 mg capsule 10 mg PO HS naproxen sodium 220 MG capsule 220 mg PO BID tramadol 50 mg tablet 50 mg PO QHS baclofen 10 mg tablet 10 mg PO QHS Patient Comments: take 1 tablet by mouth nightly multivitamin Tablet 1 tab PO DAILY Referrals / Follow Up: James Justin MD [Med Staff - Active Staff] - Rogelio Velazquez Chi, MD [Primary Care Provider] - Disposition Disposition (needs filled in before D/C Order can be placed): Home, Self Care 05/07/23 1303<Electronically signed by James Justin MD>James Justin MD CC: Dr. Rogelio Velazquez MD ~ Signed [facility] Work Phone: Evaluation note* Diagnosis Onset Date Resolution Status Subacromial bursitis of both shoulders acute Biceps tendinitis of both upper extremities acute Subacromial bursitis of both shoulders acute Subacromial impingement of left shoulder acute Subacromial impingement of right shoulder acute [facility] Work Phone: Evaluation note* Diagnosis Onset Date Resolution Status Biceps tendinitis of both upper extremities acute Degenerative cervical disc a cute Subacromial bursitis of both shoulders acute [facility] Work Phone: Evaluation note* Diagnosis Onset Date Resolution Status Subacromial bursitis of both shoulders acute Left rotator cuff tear acute Right rotator cuff tear acut e Subacromial bursitis of both shoulders acute Subacromial impingement of left shoulder acute Subacromial impingement of right shoulder acute [facility] Work Phone: Evaluation note* Diagnosis Onset Date Resolution Status Subacromial bursitis of both shoulders acute Left rotator cuff tear acute Right rotator cuff tear acut e Subacromial bursitis of both shoulders acute Subacromial impingement of left shoulder acute Subacromial impingement of right shoulder acute Left rotator cuff tear acute Subacromial impingement of left shoulder acute [facility] Work Phone: Evaluation note* Diagnosis URI with cough and congestion- Primary Sinus drainage Other diseases of nasal cavity and sinuses documented in this encounter [facility] Chief Complaint and Reason for Visit Chief Complaint LEFT SHOULDER PAIN BILAT SHOULDERS Bilat shoulders ABD PAIN Reason for Visit Subacromial bursitis of both shoulders Biceps tendinitis of both upper extremities Subacromial bursitis of both shoulders Subacromial impingement of left shoulder Subacromial impingement of right shoulder Chief Complaint Bilat shoulders xray Reason for Visit Biceps tendinitis of both upper extremities Degenerative cervical disc Subacromial bursitis of both shoulders Chief Complaint BI LAT SHOULDERS BI LAT SHOULDERS PREOP Reason for Visit Subacromial bursitis of both shoulders Left rotator cuff tear Right rotator cuff tear Subacromial bursitis of both shoulders Subacromial impingement of left shoulder Subacromial impingement of right shoulder Chief Complaint BI LAT SHOULDERS BI LAT SHOULDERS PREOP Left shoulder Arthroscopy, subacrom Left shoulder Arthroscopy, subacrom Reason for Visit Subacromial bursitis of both shoulders Left rotator cuff tear Right rotator cuff tear Subacromial bursitis of both shoulders Subacromial impingement of left shoulder Subacromial impingement of right shoulder Left rotator cuff tear Subacromial impingement of left shoulder Advance Directives No Advanced Directives Records Found Advance Directive Response Recorded Date/ Time Living Will No August 07, 2020 1 :52pm Power of Clarity Specialists No August 07, 2020 1:52pm Advance Directive Response Recorded Date/ Time Living Will No August 07, 2020 1 2:52pm Power of Clarity Specialists No August 07, 2020 12:52pm Advance Directive Response Recorded Date/ Time Living Will No April 28 11:09am Power of Clarity Specialists No April 28, 2023 11:09am Summary Purpose Family History No Family History Records FoundNo Family History Records FoundNo Family History Records Found Additional Source Comments Goals (unrecognized section and content) Goals may be documented in a n alternate sectionGoals may be documented in an alternate sectionGoals may be documented in an alternate section Source Comments (unrecognize d section and content) In the event this informatio n is protected by the Federal Confidentiality of Alcohol and Drug Abuse Patient Records regulations: The Federal rules restrict any use of the information to criminally investigate or prosecute any alcohol or drug abuse patient.[facility] Hospital[facility] the event this information is protected by the Federal Confidentiality of Alcohol and Drug Abuse Patient Records regulations: The Federal rules restrict any use of the information to criminally investigate or prosecute any alcohol or drug abuse patient.[facility] Reason for Visit (unrecogniz ed section and content) Reason Comments Viral Syndrome Started 4 days ago Reason Comments Viral Syndrome Sinus congestion, co ughing up yellow mucous, sinus pressure in the frontal and maxillary sinus cavities, headaches, hot/cold, Right ear pain(pt has a blown ear drum), Care Teams (unrecognized sec tion and content) Machine Stamper Relationship Specialty Start Date End Date JustinRogelio lai Chi [address] [facility] [address] [place], [place] [id number] PCP - General Gerontology 04/02/19 Team Status: Active Member Role Status Dates Dr. Rogelio Velazquez MD Family Provider Active Dr. Rogelio Velazquez MD Primary Care Provider Active Team Status: Inactive Member Role Status Dates Dr. Rogelio Velazquez MD Primary Care Provider, Referring Provider Active Dr. Sean Mckeon DO Attending Provider Active Team Status: Inactive Member Role Status Dates Dr. Rogelio Velazquez MD Primary Care Provider, Referring Provider Active James Justin MD Attending Provider Active Team Status: Active Member Role Status Dates Dr. Rogelio Velazquez MD Primary Care Provider Active Dr. Chilo Johnson MD Attending Provider Active James Justin MD Referring Provider Active Team Status: Inactive Member Role Status Dates Dr. Rogelio Velazquez MD Primary Care Provider, Attending Provider Active Team Status: Active Member Role Status Dates Dr. Rogelio Velazquez MD Primary Care Provider Active James Justin MD Attending Provider, Referring Provider, Other Provider Active Team Status: Inactive Member Role Status Dates Dr. Rogelio Velazquez MD Primary Care Provider Active James Justin MD Attending Provider, Referring Prov ider Active Machine Stamper Relationship Specialty Start Date End Date Justin Rogelio Martinez [address] [facility] [address] [place], [place] [id number] PCP - General Gerontology 04/02/19 (unrecognized sect ion and content) No Status Records FoundNo Status Records FoundNo Status Records Found INFORMATION SOURCE (unrecogn ized section and content) DATE CREATED AUTHOR 11/27/2021 [facility] ([place]) DATE CREATED AUTHOR AUTHOR'S ORGANIZ ATION 02/25/2024 [facility] CREATED AUTHOR AUTHOR'S HUDSON ATION 10/09/2024 [facility] FOR RECORDS PERTAINING TO PATIENTS WHO ARE [...] BE BASED ON THE PRIMARY CLINICAL RECORDS. [facility]. provides no warranty or guarantee of the accuracy or completeness of information in this document.
--- OUTSIDE RECORDS SUMMARY | 2024-10-21 17:45 | XMS RPT_ITS | CCD ---
Author Organization [facility] CliniSyme Care Team Providers Care Wildlife Refuge Manager Name Role Phone Justin, Dr. Rogelio Martinez Primary Care Provider 1([facility])[phone] Justin, Dr. Rogelio Martinez Referring Provider 1([facility])[phone] Sean Mckeon Attending Provider 1([facility])[phone] Justin, Rogelio Chi Primary Care Provider 1([facility])[phone] CARI BRIAN Attending [facility] PH[facility]IC[facility], NONE Primary Care Unavailable Justin, Dr. Rogelio Martinez Primary Care Provider 1([facility])[phone] Justin, Dr. Rogelio Martinez Referring Provider 1([facility])[phone] Sean Mckeon Attending Provider 1([facility])[phone] Dr. Tejinder Hebert Attending Provider 1([facility])[phone] Justin, Dr. Rogelio Martinez Primary Care Provider 1([facility])[phone] Justin, Dr. Rogelio Martinez Referring Provider 1([facility])[phone] Sean Mckeon Attending Provider 1([facility]) -[phone] MD James Justin Attending Provider 1([facility]) 342 Dr. Chilo Johnson Attending Provider 1([facility]) 570 MD James Justin Referring Provider 1([facility])- 342 MD James Justin Other Provider 1([facility])[phone] Justin, Rogelio Chi Primary Care Provider 1([facility])[phone] SAMSON QUIROS Attending Unavailable JUSTIN, ROGELIO CHI [...] Attending Unavailable Humberto Martinez Admitting Unavailable Anup, [place] [employer] Unavailable Humberto Martinez Consulting Unavailable Yadira [...] NOPHEN] Drug Allergy 7 Other: See Comments [facility] (3 sources) Clarithromycin; Translations: [CLARITHROMYCIN] Drug Allergy 5 GI Upset [facility] Medications Current Medications Medication Drug Class(es) [...] extended release oral tablet (1 source) Uncompetitive W-wgmetj-B-aspartat e Receptor Antagonist, Sigma-1 Agonist Start: 10-23-2021 [...] Indications: Viral URI with cough Use 1 [place] in each nostril twice daily. 1 Each 10/23/2021 02/22/2024 Discontinued Start: 05-31-2019 End: 05-12-2020 Fluticasone Propionate Disco ntinued 9.9 ML NS DAILY May 30, 2019 11:00pm May 12, 2020 8:14am Comment on above: Use 1 [place] in each nostril twice daily. melatonin 10 [...] L3410.9992on 10-08-2024 [facility] Misc. COMMENT Normal . [facility] Comment on above: Order Comment: 33420 0URINE TOX Result Comment: Test Ordered: [id number]+SV2 Amphetamines Screen, Urine Negative ng/mL UI Reference Range: Wtlmbz=684 Amphetamine test includes Amphetamine and Methamphetamine. Barbiturates Negative ng/mL UI Reference Range: Rwdvba=921 Benzodiazepines Negative ng/mL UI Reference Range: Oyqriz=801 Cocaine (Metab.), Urine Negative ng/mL UI Reference Range: Wpgpck=954 Opiates Negative ng/mL UI Reference Range: Qegxrr=511 Opiate test includes Codeine, Morphine, Hydromorphone, Hydrocodone. 6-Acetylmorphine, Urine Negative ng/mL UI Reference Range: Cutoff=10 Oxycodone/Oxymorphone, Urine Negative ng/mL UI Reference Range: Eyflyu=259 Test includes Oxycodone and Oxymorphone PCP, Urine Negative ng/mL UI Reference Range: Cutoff=25 Methadone Screen, Urine Negative ng/mL UI Reference Range: Dbplck=290 Propoxyphene, Urine Negative ng/mL UI Reference Range: Fyisii=766 Fentanyl, Urine Negative ng/mL UI Reference Range: Cutoff=2.0 Test includes Fentanyl and Norfentanyl This test was developed and its performance characteristics determined by [facility]. It has not been cleared or approved by the Food and Drug Administration. Tramadol Note: ng/mL UI See Final Results Reference Range: Juwlcf=718 Tramadol Positive [A ] UI Reference Range: Frhvmd=000 Tramadol Conf, MS, UR >11215 ng/mL UI Reference Range: Hkbcet=850 Buprenorphine, Urine Negative ng/mL UI Reference Range: Cutoff=10 Creatinine, Urine 351.6 [H ] mg/dL UI Reference Range: 20.0-300.0 pH, Urine 5.2 UI Reference Range: 4.5-8.9 Performed at: [facility] [address] [place], [place] [id number] Scraper Meat: Jos Villafuerte PhD, Phone: [phone] Performed at: [facility] [address] [id number] Scraper Meat: Mata Green PhD, Phone: [phone] Performed By: #### L 505.5000, L3410.9992 ####[facility] [address] [place], [place], [id number] Urine Drug Screen (VISTA)on 10-04-2024 AMPHETAMINES Negative Normal <1000 ng/mL [facility] Comment on above: Order Comment: UNK Performed By: #### L 505.5000, L3410.9992 ####[facility] [address] [facility] [address] BARBITIURATES Negative Normal < 200 ng/mL [facility] Comment on above: Order Comment: UNK Performed By: #### L 505.5000, L3410.9992 ####[facility] [address] [place] [address] BENZODIAZIPINE Positive Normal < 200 ng/mL [facility] Comment on above: Order Comment: UNK Result Comment: If c onfirmation testing is needed, a separate order will be required to send out testing to the reference laboratory. Performed By: #### L 505.5000, L3410.9992 ####[facility] [address] [place] [address] BUP Ur Drug Scr Negative Normal < 200 ng/mL [facility] Comment on above: Order Comment: UNK Performed By: #### L 505.5000, L3410.9992 ####[facility] [address] [place] [address] COCAINE Negative Normal < 300 ng/mL [facility] Comment on above: Order Comment: UNK Performed By: #### L 505.5000, L3410.9992 ####[facility] [address] [place] [address] Fentanyl Negative Normal [facility] Comment on above: Order Comment: UNK Performed By: #### L 505.5000, L3410.9992 ####[facility] [address] [place] [address] METHADONE Positive Normal < 300 ng/mL [facility] Comment on above: Order Comment: UNK Result Comment: If c onfirmation testing is needed, a separate order will be required to send out testing to the reference laboratory. Performed By: #### L 505.5000, L3410.9992 ####[facility] [address] [place], [address] OPIATES Negative Normal < 300 ng/mL [facility] Comment on above: Order Comment: UNK Performed By: #### L 505.5000, L3410.9992 ####[facility] [address] [place], [address] OXYCODONE Negative Normal < 100 ng/mL [facility] Comment on above: Order Comment: UNK Performed By: #### L 505.5000, L3410.9992 ####[facility] [address] [place], [address] PCP Negative Normal < 25 ng/mL [facility] Comment on above: Order Comment: UNK Performed By: #### L 505.5000, L3410.9992 ####[facility] [address] [place], [address] THC Negative Normal < 50 ng/mL [facility] Comment on above: Order Comment: UNK Performed By: #### L 505.5000, L3410.9992 ####[facility] [address] [place], [address] MR/BMS.BPon 09-08-2024 MR/BMS.BP [address], [address] [place] [address] OFFICE VISIT Date of Service: 09/08/24 MR#: [id number] Acct: [id number] Name: GEN POTTS Rep #: [id number] : 1965 Provider: ADDIE cho Age/Sex: 59/M Location: [facility].BP Status: Signed Intake Vital Signs 07/14/24 08:07 [...] QDAY 08/02/24 09/08/24 H istory [facility] Medical History Blurring of vision Elevated troponin [...] ) Sensorium/O (more content not included)... Normal [facility] Orthopedic Visit Reporton Orthopedic Visit Report [facility] [address] [place], [place] [id number] OFFICE VISIT Date of Service: 08/02/24 MR#: [id number] Acct: [id number] Name: ANDREADEBBIEEliazarGEN JAMEY Rep #: [id number] : 1965 Provider: Dr. James lagunas MD Age/Sex: 58/M Location: [facility].RENETTA Status: Signed with Addenda ADDENDUM by JULIO [...] Performing Provider: James Justin MD Performing Location: [facility] Administered by: James Justin MD on 08/02/24 15:39 Dose Route Admin Location Dispensed Lot Number Expiration Date NDC Man ufacturer 40 mg intra-articular Left knee 1 mL [id number] 10/15/26 7125-5837-07 [facility] P [facility]IMARY[facility] Date cc: * Signed Intake [...] QDAY 08/02/24 08/02/24 H istory [facility] Medical History Blurring of vision Elevated troponin [...] by me, Dr. James Justin MD 08/02/24 9654. Part of today???s visit was documented by [...] far. Coding Level of Care Code Attention Heel Coverer Diagnoses Bilateral primary osteoarthritis of knee M17.0 Comment 67884 and cpt inject major joint x2 Assessmen (more content not included)... Normal [facility] MR/BMS.BPon 07-14-2024 MR/BMS.BP [facility], [address] [place] [address] OFFICE VISIT Date of Service: 07/14/24 MR#: [id number] Acct: [id number] Name: GEN POTTS Rep #: [id number] : 1965 Provider: ADDIE cho Age/Sex: 58/M Location: [facility].BP Status: Signed Intake Vital Signs 03/04/24 10:13 [...] Suicide: Denies SI/HI. 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 Does report some forgetfulness. Will [...] about it. (more content not included)... Normal [facility] Myoglobin, Serumon 5 Myoglobin, Ser < 21 Low 28-72 [facility] Comment on above: Result Comment: Perf ormed at: - [facility] [address], [place], [place] [id number] Scraper Meat: Mata Green PhD, Phone: [phone] Performed By: #### L 503.7539, L501.2486, L3600.5100, L500.4050, L100.0100, L501.3620, L505.5000, L501.4021, L300.8000, M100.678 ####[facility] [address] [place], [address] 12 Lead EKGon 06-22-2024 12 Lead EKG [facility] [address] [place] [address] 12 Lead EKG 06/22/24 0344 MR#: [id number] Acct: [id number] Name: GEN POTTS Rep #: [id number] : 1965 58 From: Tejinder Hebert MD Attending Dr: Dr. Yadira Cruz MD Status: ADM IN Ordering Dr: Humberto Martinez DO Date: 06/22/24 Location: [facility] Sex: M C Admitted: 06/22/24 Test Reason [...] UNCONFIRMED Confirmed by ANUP BARBOUR, TEJINDER ([id number]), video tape editor TRAMAINE CORTÉS ([id number]) on 06/22/2024 8:11:27 AM Referred By: Confirmed By: TEJINDER HEBERT MD 06/22/24 0811 Date Tejinder Hebert MD CC: Dr. Humberto Martinez DO; Dr. Yadira Cruz MD; Dr. Rogelio Velazquez MD Signed Normal [facility] CBC-Complete Blood Cnt No Di ffon 06-22-2024 Erythrocyte distribution width (RBC) [Ratio] 13.5 % Normal 11.6-14.6 [facility] Comment on above: Performed By: #### L 100.0500, L500.4100, L300.8000, L500.4050, L501.9520 #### [facility] [address] [place], [address] Hematocrit (Bld) [Volume fraction] 40.0 % Normal 40-54 [facility] Comment on above: Performed By: #### L 100.0500, L500.4100, L300.8000, L500.4050, L501.9520 #### [facility] [address] [place], [address] Hemoglobin (Bld) [Mass/Vol] 13.4 g/dL Normal 13.0-16.5 [facility] Comment on above: Performed By: #### L 100.0500, L500.4100, L300.8000, L500.4050, L501.9520 #### [facility] [address] [place], [address] MCH (RBC) [Entitic mass] 32.1 pg High 27.0-32.0 [facility] Comment on above: Performed By: #### L 100.0500, L500.4100, L300.8000, L500.4050, L501.9520 #### [facility] [address] [place], [address] MCHC (RBC) [Mass/Vol] 33.5 g/dL Normal 32-36 [facility] Comment on above: Performed By: #### L 100.0500, L500.4100, L300.8000, L500.4050, L501.9520 #### [facility] [address] [place], [address] MCV (RBC) [Entitic vol] 95.7 fL High 80-94 [facility] Comment on above: Performed By: #### L 100.0500, L500.4100, L300.8000, L500.4050, L501.9520 #### [facility] [address] [place], [address] Platelet mean volume (Bld) [Entitic vol] 10.8 fL Normal 6.2-12.0 [facility] Comment on above: Performed By: #### L 100.0500, L500.4100, L300.8000, L500.4050, L501.9520 #### [facility] [address] [place], [address] Platelets (Bld) [#/Vol] 225 10*3/uL Normal 150-450 [facility] Comment on above: Performed By: #### L 100.0500, L500.4100, L300.8000, L500.4050, L501.9520 #### [facility] [address] [place], [address] RBC (Bld) [#/Vol] 4.18 10*6/uL Low 4.6-6.2 [facility] Comment on above: Performed By: #### L 100.0500, L500.4100, L300.8000, L500.4050, L501.9520 #### [facility] [address] [place], [address] RDW SD 48.3 fl High 35.1-43.9 [facility] Comment on above: Performed By: #### L 100.0500, L500.4100, L300.8000, L500.4050, L501.9520 #### [facility] [address] [place], [address] WBC (Bld) [#/Vol] 7.3 10*3/uL Normal 4.4-11.0 [facility] Comment on above: Performed By: #### L 100.0500, L500.4100, L300.8000, L500.4050, L501.9520 #### [facility] [address] [place], [address] Comprehensive Metabolic Prof ilon 06-22-2024 Albumin [Mass/Vol] 3.7 g/dL Normal 3.5-5.0 [facility] Comment on above: Performed By: #### L 100.0500, L500.4100, L300.8000, L500.4050, L501.9520 #### [facility] [address] [place], [address] Albumin/Globulin [Mass ratio] 1.2 {ratio} Normal 0.9-2.4 [facility] Comment on above: Performed By: #### L 100.0500, L500.4100, L300.8000, L500.4050, L501.9520 #### [facility] [address] [place], [address] ALK PHOS 81 U/L Normal 40-129 [facility] Comment on above: Performed By: #### L 100.0500, L500.4100, L300.8000, L500.4050, L501.9520 #### [facility] [address] [place], [address] ALT [Catalytic activity/Vol] 11 U/L Normal <=46 [facility] Comment on above: Performed By: #### L 100.0500, L500.4100, L300.8000, L500.4050, L501.9520 #### [facility] [address] [place], [address] AST [Catalytic activity/Vol] 14 U/L Normal <=37 [facility] Comment on above: Performed By: #### L 100.0500, L500.4100, L300.8000, L500.4050, L501.9520 #### [facility] [address] [place], [address] Bilirubin [Mass/Vol] 0.58 mg/dL Normal 0.00-1.30 [facility] Comment on above: Performed By: #### L 100.0500, L500.4100, L300.8000, L500.4050, L501.9520 #### [facility] [address] [place], [address] BUN/CRE 17.9 RATIO Normal 10-20 [facility] Comment on above: Performed By: #### L 100.0500, L500.4100, L300.8000, L500.4050, L501.9520 #### [facility] [address] [place], [address] Calcium [Mass/Vol] 8.9 mg/dL Normal 7.6-11.0 [facility] Comment on above: Performed By: #### L 100.0500, L500.4100, L300.8000, L500.4050, L501.9520 #### [facility] [address] [place], [address] Chloride [Moles/Vol] 107 mmol/L Normal 98-108 [facility] Comment on above: Performed By: #### L 100.0500, L500.4100, L300.8000, L500.4050, L501.9520 #### [facility] [address] [place], [address] CO2 [Moles/Vol] 21.5 mmol/L Normal 21.0-32.0 [facility] Comment on above: Performed By: #### L 100.0500, L500.4100, L300.8000, L500.4050, L501.9520 #### [facility] [address] [place], [address] Creatinine [Mass/Vol] 0.83 mg/dL Normal 0.70-1.20 [facility] Comment on above: Performed By: #### L 100.0500, L500.4100, L300.8000, L500.4050, L501.9520 #### [facility] [address] [place], [address] ECRCL 102.06 ml/min Normal 50-250 [facility] Comment on above: Performed By: #### L 100.0500, L500.4100, L300.8000, L500.4050, L501.9520 #### [facility] [address] [place], [address] GAP 11 Normal 5-15 [facility] Comment on above: Performed By: #### L 100.0500, L500.4100, L300.8000, L500.4050, L501.9520 #### [facility] [address] [place], [address] GFR/1.73 sq M.predicted among non-blacks MDRD (S/P/Bld) [Vol rate/Area] 101 mL/min/{1.73_m2} Normal >60 [facility] Comment on above: Result Comment: mL/m in/1.73m2 CKD-EPI Creatinine Equation (2020) Performed By: #### L 100.0500, L500.4100, L300.8000, L500.4050, L501.9520 #### [facility] [address] [place], [address] Globulin (S) [Mass/Vol] 3.2 g/dL Normal 2.2-4.2 [facility] Comment on above: Performed By: #### L 100.0500, L500.4100, L300.8000, L500.4050, L501.9520 #### [facility] [address] [place], [address] Glucose [Mass/Vol] 87 mg/dL Normal 70-99 [facility] Comment on above: Performed By: #### L 100.0500, L500.4100, L300.8000, L500.4050, L501.9520 #### [facility] [address] [place], [address] Potassium [Moles/Vol] 4.3 mmol/L Normal 3.3-5.1 [facility] Comment on above: Performed By: #### L 100.0500, L500.4100, L300.8000, L500.4050, L501.9520 #### [facility] [address] [place], [address] Sodium [Moles/Vol] 140 mmol/L Normal 133-145 [facility] Comment on above: Performed By: #### L 100.0500, L500.4100, L300.8000, L500.4050, L501.9520 #### [facility] [address] [place], [address] T PROT 7.0 g/dL Normal 5.9-8.4 [facility] Comment on above: Performed By: #### L 100.0500, L500.4100, L300.8000, L500.4050, L501.9520 #### [facility] [address] [place], [address] Urea nitrogen [Mass/Vol] 15 mg/dL Normal 4-19 [facility] Comment on above: Performed By: #### L 100.0500, L500.4100, L300.8000, L500.4050, L501.9520 #### [facility] [address] [place], [address] Consultation - Cardiologyon 06-22-2024 Consultation - Cardiology [facility] Medical Records Department [address] [place] [address] Consultation - Cardiology 06/22/24 0717 MR#: [id number] Acct: [id number] Name: GEN POTTS Rep #: [id number] : 1965 58 From: Tejinder Hebert MD PCP: Dr. Rogelio Velazquez MD Status:ADM IN Location: [place] [address] Assessment Plan Assessment/Plan (1) Essential hypertension: PLAN: [...] bradycardia and no acute changes. [facility] Medical History Bilateral primary osteoarthritis of knee [...] fatigue Hematologic/Lymphat (more content not included)... Normal [facility] D-Dimer Quantitative (DVT/PE )on 06-22-2024 D-DIMER QUANT 0.44 FEU/ug/m Normal 0.27-0.49 [facility] Comment on above: Result Comment: NORM AL D-Dimer level (<0.50) indicates no DVT or PE. Performed By: #### L 100.0500, L500.4100, L300.8000, L500.4050, L501.9520 #### [facility] [address] [place], [address] Discharge Instructionon Discharge Instruction [facility] Medical Records Department [address] [place] [address] Instructions for Home/Discharge Instructions 06/22/24 1512 MR#: [id number] Acct: [id number] Name: GEN POTTS Rep #: [id number] : 1965 58 From: Yadira Cruz MD [...] DO; Dr. Rogelio Velazquez MD Signed Normal [facility] Echo Completeon 06-22-2024 Echo Complete [facility] Services [address] [place] [address] Echo Complete 06/22/24 0750 MR#: [id number] Acct: [id number] Name: GEN POTTS Rep #: [id number] : 1965 58 From: Tejinder Hebert MD [...] Date Dictated: 06/22/24 0750 Date Transcribed: 06/22/241317 Die Casting Machine Operator: Signed Normal [facility] Emergency Department Summary on 06-22-2024 Emergency Department Summary [facility] Medical Records Department [address] [place] [address] Emergency Department Summary 06/22/24 MR#: [id number] Acct: [id number] Name: GEN POTTS Rep #: [id number] : 1965 58 From: Bolivar Lockett DO PCP: Dr. Rogelio Velazquez MD Status:ADM IN Location: [place] [address] HPI History of Present Illness Chief Complaint: [...] states none are present at this time [facility] Medical History (Updated 06/22/24 @ 05:53 [...] of ches (more content not included)... Normal [facility] H AND P Exam - Hospitaliston 06-22-2024 H&P Exam - Hospitalist [facility] Medical Records Department [address] [place] [address] H P Exam - Hospitalist 06/22/24 0147 MR#: [id number] Acct: [id number] Name: GEN POTTS Rep #: [id number] : 1965 58 From: Humberto Martinez DO PCP: Dr. Rogelio Velazquez MD Status:ADM IN Location: [place] [address] HPI - General General Date of Admission: [...] Conti of pain management who presents to [facility] ER complaining of chest pain, shortness [...] 84 ng/L suspicious for early non-ST elevation CA in the setting of ongoing tobacco abuse and he was then admitted to the PCU for ongoing care for a stay that is expected to extend beyond 2 midnights. [facility] Medical History (Updated 06/22/24 @ 05:53 by [...] denies heada (more content not included)... Normal [facility] Hemoglobin A1con 06-22-2024 HbA1c (Bld) [Mass fraction] 5.4 % Low <=5.6 [facility] Comment on above: Performed By: #### L 501.9985 #### [facility] [address] [place], [address] L499.0042on 06-22-2024 Trop T High Sen 76 ng/L Invalid Interpretation Code <=22 [facility] Comment on above: Result Comment: Crit ical Result(s) Called at:0130 by: MORENO BRANDT??Results read back by same. Performed By: #### L 100.0500, L500.4100, L300.8000, L500.4050, L501.9520 #### [facility] [address] [place], [place], [address] L499.0043on 06-22-2024 Trop T High Sen 73 ng/L Invalid Interpretation Code <=22 [facility] Comment on above: Result Comment: Crit ical Result(s) Called at: 0338 by:??MORENO HERNANDEZN BLAINE TRACEY Results read back by same. Performed By: #### L 499.0043 ####[facility] [address] [place], [address] Lipid Profileon 06-22-2024 CHOL:HDL 4.60 Normal [facility] Comment on above: Performed By: #### L 100.0500, L500.4100, L300.8000, L500.4050, L501.9520 #### [facility] [address] [place], [address] Cholesterol [Mass/Vol] 177 mg/dL Normal <=200 [facility] Comment on above: Result Comment: Chol esterol level, Desirable <200 mg/dL Borderline high cholesterol 200-239 mg/dL High cholesterol >=240 mg/dL Recommendations of the NCEP Adult Treatment Panel for the following risk-cutoff thresholds for the [place] population. Performed By: #### L 100.0500, L500.4100, L300.8000, L500.4050, L501.9520 #### [facility] [address] [place], [address] Cholesterol in HDL [Mass/Vol] 39 mg/dL Low [facility] Comment on above: Result Comment: [place] Cholesterol Education Program (NCEP) guidelines: <40 mg/dL: Low HDL-cholesterol (major risk factor for CHD) >= 60 mg/dL: High HDL-cholesterol (negative risk factor for CHD) HDL-cholesterol is affected by a number of factors, e.g. smoking, exercise, hormones, sex and age. Performed By: #### L 100.0500, L500.4100, L300.8000, L500.4050, L501.9520 #### [facility] [address] [place], [address] Cholesterol in LDL [Mass/Vol] 130 mg/dL Normal [facility] Comment on above: Result Comment: Bord sfeqsn=160-348 mg/dL Higher Xnks=945 mg/dL or greater Performed By: #### L 100.0500, L500.4100, L300.8000, L500.4050, L501.9520 #### [facility] [address] [place], [address] Cholesterol in VLDL [Mass/Vol] 9 mg/dL Normal 5-40 [facility] Comment on above: Performed By: #### L 100.0500, L500.4100, L300.8000, L500.4050, L501.9520 #### [facility] [address] [facility] [place], [address] Triglyceride [Mass/Vol] 43 mg/dL Normal [facility] Comment on above: Result Comment: The drugs N-Acetylcysteine and Metamizole may falsely depress this assay. Normal range: <150 mg/dL Borderline High: 150-199 mg/dL High: 200-499 mg/dL Very High: >500 mg/dL Performed By: #### L 100.0500, L500.4100, L300.8000, L500.4050, L501.9520 #### [facility] [address] [facility] [place], [address] Stress Reporton 06-22-2024 Stress Report [facility] Cardiovascular Services [address] [place] [address] MR#: [id number] Acct: [id number] Name: GEN POTTS Rep #: [id number] : 1965 58 From: Tejinder Hebert MD [...] Dictated: 06/22/24 1231 Date Transcribed: 06/22/24 1231 Die Casting Machine Operator: CO Signed Normal [facility] Thyroid Stim Hormone (TSH)on 06-22-2024 TSH 5.630 uIU/mL High 0.300-4.200 [facility] Comment on above: Performed By: #### L 100.0500, L500.4100, L300.8000, L500.4050, L501.9520 #### [facility] [address] [facility] [place], [address] 12 Lead EKGon 06-21-2024 12 Lead EKG [facility] Cardiovascular Services [address] [place] [address] 12 Lead EKG 06/21/248 MR#: [id number] Acct: [id number] Name: GEN POTTS Rep #: [id number] : 1965 58 From: Tejinder Hebert MD Attending Dr: Dr. Yaidra Cruz MD Status: DIS IN Ordering Dr: Bolivar Lockett DO Date: 06/21/24 Location: [facility] Sex: M C Admitted: 06/22/24 Test Reason [...] ECG Confirmed by TEJINDER HEBERT MD ([id number]), video tape editor TRAMAINE CORTÉS ([id number]) on 06/24/2024 8:27:34 AM Referred By: NELLI Confirmed By: TEJINDER HEBERT MD 06/24/24826 Date Tejinder Hebert MD CC: Dr. Yadira Cruz MD; Dr. Rogelio Velazquez MD; Bolivar Lockett DO Signed Normal [facility] Basic Metabolic Profile (BMP )on 06-21-2024 BUN/CRE 18.9 RATIO Normal 10-20 [facility] Comment on above: Performed By: #### L 100.0100, L501.4021, L500.2500 ####[facility] [address] [place], [address] Calcium [Mass/Vol] 8.7 mg/dL Normal 7.6-11.0 [facility] Comment on above: Performed By: #### L 100.0100, L501.4021, L500.2500 ####[facility] [address] [place], [address] Chloride [Moles/Vol] 108 mmol/L Normal 98-108 [facility] Comment on above: Performed By: #### L 100.0100, L501.4021, L500.2500 ####[facility] [address] [place], [address] CO2 [Moles/Vol] 21.2 mmol/L Normal 21.0-32.0 [facility] Comment on above: Performed By: #### L 100.0100, L501.4021, L500.2500 ####[facility] [address] [place], [address] Creatinine [Mass/Vol] 0.81 mg/dL Normal 0.70-1.20 [facility] Comment on above: Performed By: #### L 100.0100, L501.4021, L500.2500 ####[facility] [address] [place], [address] ECRCL 104.58 ml/min Normal 50-250 [facility] Comment on above: Performed By: #### L 100.0100, L501.4021, L500.2500 ####[facility] [address] [place], [address] GAP 12 Normal 5-15 [facility] Comment on above: Performed By: #### L 100.0100, L501.4021, L500.2500 ####[facility] [address] [place], [address] GFR/1.73 sq M.predicted among non-blacks MDRD (S/P/Bld) [Vol rate/Area] 102 mL/min/{1.73_m2} Normal >60 [facility] Comment on above: Result Comment: mL/m in/1.73m2 CKD-EPI Creatinine Equation (2020) Performed By: #### L 100.0100, L501.4021, L500.2500 ####[facility] [address] [place], [address] Glucose [Mass/Vol] 105 mg/dL High 70-99 [facility] Comment on above: Performed By: #### L 100.0100, L501.4021, L500.2500 ####[facility] [address] [place], [address] Potassium [Moles/Vol] 4.2 mmol/L Normal 3.3-5.1 [facility] Comment on above: Performed By: #### L 100.0100, L501.4021, L500.2500 ####[facility] [address] [place], [address] Sodium [Moles/Vol] 141 mmol/L Normal 133-145 [facility] Comment on above: Performed By: #### L 100.0100, L501.4021, L500.2500 ####[facility] [address] [place], [address] Urea nitrogen [Mass/Vol] 15 mg/dL Normal 4-19 [facility] Comment on above: Performed By: #### L 100.0100, L501.4021, L500.2500 ####[facility] [address] [place], [address] Brain/Head without Contrasto n 06-21-2024 Brain/Head without Contrast [facility] Imaging Services [address] [place] [address] Brain/Head without Contrast MR#: [id number] Acct: [id number] Name: GEN POTTS Rep #: [id number] : 1965 M 58 From: Merritt caldera MD PCP: Dr. Rogelio Velazquez MD Status: REG CLI Study: Brain/Head without Contrast Date of Exam: 10/08 Exam# [id number] Ordering Dr: Rogelio Velazquez MD PROCEDURE: BRAIN/HEAD [...] Location: [facility] CC: Dr. Rogelio Velazquez MD Die Casting Machine Operator: Signed Normal [facility] CBC W/Diff, Automatedon 04-0 Absolute Lymph 2.79 X10 3/uL Normal 0.83-4.51 [facility] Comment on above: Performed By: #### L 100.0100, L501.4021, L500.2500 #### [facility] [address] [place], [address] Absolute Neut 4.7 X10 3/uL Normal 2.0-7.7 [facility] Comment on above: Performed By: #### L 100.0100, L501.4021, L500.2500 #### [facility] [address] [place], [address] Basophils/100 WBC (Bld) 0.5 % Normal 0-1 [facility] Comment on above: Performed By: #### L 100.0100, L501.4021, L500.2500 #### [facility] [address] [place], [address] Eosinophils/100 WBC (Bld) 0.8 % Normal 0-5 [facility] Comment on above: Performed By: #### L 100.0100, L501.4021, L500.2500 #### [facility] [address] [place], [address] Erythrocyte distribution width (RBC) [Ratio] 13.3 % Normal 11.6-14.6 [facility] Comment on above: Performed By: #### L 100.0100, L501.4021, L500.2500 #### [facility] [address] [place], [address] Hematocrit (Bld) [Volume fraction] 39.6 % Low 40-54 [facility] Comment on above: Performed By: #### L 100.0100, L501.4021, L500.2500 #### [facility] [address] [place], [address] Hemoglobin (Bld) [Mass/Vol] 13.6 g/dL Normal 13.0-16.5 [facility] Comment on above: Performed By: #### L 100.0100, L501.4021, L500.2500 #### [facility] [address] [place], [address] IG% 0.400 Normal 0.0-0.9 [facility] Comment on above: Result Comment: IG% - Immature Granulocytes (promyelocytes, myelocytes and metamyelocytes) > 1% indicates that a LEFT SHIFT is Present. Performed By: #### L 100.0100, L501.4021, L500.2500 #### [facility] [address] [place], [address] Lymphocytes/100 WBC (Bld) 33.6 % Normal 19-41 [facility] Comment on above: Performed By: #### L 100.0100, L501.4021, L500.2500 #### [facility] [address] [place], [address] MCH (RBC) [Entitic mass] 32.5 pg High 27.0-32.0 [facility] Comment on above: Performed By: #### L 100.0100, L501.4021, L500.2500 #### [facility] [address] [place], [address] MCHC (RBC) [Mass/Vol] 34.3 g/dL Normal 32-36 [facility] Comment on above: Performed By: #### L 100.0100, L501.4021, L500.2500 #### [facility] [address] [place], [address] MCV (RBC) [Entitic vol] 94.5 fL High 80-94 [facility] Comment on above: Performed By: #### L 100.0100, L501.4021, L500.2500 #### [facility] [address] [place], [address] Monocytes/100 WBC (Bld) 8.0 % Normal 0-10 [facility] Comment on above: Performed By: #### L 100.0100, L501.4021, L500.2500 #### [facility] [address] [place], [address] Neutrophils/100 WBC (Bld) 56.7 % Normal 47-70 [facility] Comment on above: Performed By: #### L 100.0100, L501.4021, L500.2500 #### [facility] [address] [place], [address] Nucleated RBC (Bld) [#/Vol] 0 10*3/uL Normal 0-5 [facility] Comment on above: Performed By: #### L 100.0100, L501.4021, L500.2500 #### [facility] [address] [place], [address] Platelet mean volume (Bld) [Entitic vol] 11.0 fL Normal 6.2-12.0 [facility] Comment on above: Performed By: #### L 100.0100, L501.4021, L500.2500 #### [facility] [address] [place], [address] Platelets (Bld) [#/Vol] 239 10*3/uL Normal 150-450 [facility] Comment on above: Performed By: #### L 100.0100, L501.4021, L500.2500 #### [facility] [address] [place], [address] RBC (Bld) [#/Vol] 4.19 10*6/uL Low 4.6-6.2 [facility] Comment on above: Performed By: #### L 100.0100, L501.4021, L500.2500 #### [facility] [address] [place], [address] RDW SD 46.2 fl High 35.1-43.9 [facility] Comment on above: Performed By: #### L 100.0100, L501.4021, L500.2500 #### [facility] [address] [place], [address] WBC (Bld) [#/Vol] 8.3 10*3/uL Normal 4.4-11.0 [facility] Comment on above: Performed By: #### L 100.0100, L501.4021, L500.2500 #### [facility] [address] [place], [address] Absolute Lymph 2.63 X10 3/uL Normal 0.83-4.51 [facility] Comment on above: Performed By: #### L 503.7505, L501.9520, L3600.5100, L500.4050, L100.0100, L501.3620, L505.5000, L501.4021, L300.8000, M100.678 ####[facility] [address] [place], [address] Absolute Neut 4.8 X10 3/uL Normal 2.0-7.7 [facility] Comment on above: Performed By: #### L 503.7505, L501.9520, L3600.5100, L500.4050, L100.0100, L501.3620, L505.5000, L501.4021, L300.8000, M100.678 ####[facility] [address] [place], [address] Basophils/100 WBC (Bld) 0.6 % Normal 0-1 [facility] Comment on above: Performed By: #### L 503.7505, L501.9520, L3600.5100, L500.4050, L100.0100, L501.3620, L505.5000, L501.4021, L300.8000, M100.678 ####[facility] [address] [place], [address] Eosinophils/100 WBC (Bld) 1.2 % Normal 0-5 [facility] Comment on above: Performed By: #### L 503.7505, L501.9520, L3600.5100, L500.4050, L100.0100, L501.3620, L505.5000, L501.4021, L300.8000, M100.678 ####[facility] [address], [address] Erythrocyte distribution width (RBC) [Ratio] 13.3 % Normal 11.6-14.6 [facility] Comment on above: Performed By: #### L 503.7505, L501.9520, L3600.5100, L500.4050, L100.0100, L501.3620, L505.5000, L501.4021, L300.8000, M100.678 ####[facility] [address] [place], [address] Hematocrit (Bld) [Volume fraction] 42.2 % Normal 40-54 [facility] Comment on above: Performed By: #### L 503.7505, L501.9520, L3600.5100, L500.4050, L100.0100, L501.3620, L505.5000, L501.4021, L300.8000, M100.678 ####[facility] [address] [place], [place], [address] Hemoglobin (Bld) [Mass/Vol] 14.4 g/dL Normal 13.0-16.5 [facility] Comment on above: Performed By: #### L 503.7505, L501.9520, L3600.5100, L500.4050, L100.0100, L501.3620, L505.5000, L501.4021, L300.8000, M100.678 ####[facility] [address] [place], [place], [phone] IG% 0.400 Normal 0.0-0.9 [facility] Comment on above: Result Comment: IG% - Immature Granulocytes (promyelocytes, myelocytes and metamyelocytes) > 1% indicates that a LEFT SHIFT is Present. Performed By: #### L 503.7505, L501.9520, L3600.5100, L500.4050, L100.0100, L501.3620, L505.5000, L501.4021, L300.8000, M100.678 ####[facility] [address] [place], [place], [phone] Lymphocytes/100 WBC (Bld) 32.2 % Normal 19-41 [facility] Comment on above: Performed By: #### L 503.7505, L501.9520, L3600.5100, L500.4050, L100.0100, L501.3620, L505.5000, L501.4021, L300.8000, M100.678 ####[facility] [address] [place], [place], [address] MCH (RBC) [Entitic mass] 32.4 pg High 27.0-32.0 [facility] Comment on above: Performed By: #### L 503.7505, L501.9520, L3600.5100, L500.4050, L100.0100, L501.3620, L505.5000, L501.4021, L300.8000, M100.678 ####[facility] [address] [place], [address] MCHC (RBC) [Mass/Vol] 34.1 g/dL Normal 32-36 [facility] Comment on above: Performed By: #### L 503.7505, L501.9520, L3600.5100, L500.4050, L100.0100, L501.3620, L505.5000, L501.4021, L300.8000, M100.678 ####[facility] [address] [place], [address] MCV (RBC) [Entitic vol] 94.8 fL High 80-94 [facility] Comment on above: Performed By: #### L 503.7505, L501.9520, L3600.5100, L500.4050, L100.0100, L501.3620, L505.5000, L501.4021, L300.8000, M100.678 ####[facility] [address] [place], [address] Monocytes/100 WBC (Bld) 7.3 % Normal 0-10 [facility] Comment on above: Performed By: #### L 503.7505, L501.9520, L3600.5100, L500.4050, L100.0100, L501.3620, L505.5000, L501.4021, L300.8000, M100.678 ####[facility] [address] [place], [address] Neutrophils/100 WBC (Bld) 58.3 % Normal 47-70 [facility] Comment on above: Performed By: #### L 503.7505, L501.9520, L3600.5100, L500.4050, L100.0100, L501.3620, L505.5000, L501.4021, L300.8000, M100.678 ####[facility] [address] [place], [address] Nucleated RBC (Bld) [#/Vol] 0 10*3/uL Normal 0-5 [facility] Comment on above: Performed By: #### L 503.7505, L501.9520, L3600.5100, L500.4050, L100.0100, L501.3620, L505.5000, L501.4021, L300.8000, M100.678 ####[facility] [address] [place], [address] Platelet mean volume (Bld) [Entitic vol] 10.8 fL Normal 6.2-12.0 [facility] Comment on above: Performed By: #### L 503.7505, L501.9520, L3600.5100, L500.4050, L100.0100, L501.3620, L505.5000, L501.4021, L300.8000, M100.678 ####[facility] [address] [place], [address] Platelets (Bld) [#/Vol] 237 10*3/uL Normal 150-450 [facility] Comment on above: Performed By: #### L 503.7505, L501.9520, L3600.5100, L500.4050, L100.0100, L501.3620, L505.5000, L501.4021, L300.8000, M100.678 ####[facility] [address] [place], [address] RBC (Bld) [#/Vol] 4.45 10*6/uL Low 4.6-6.2 [facility] Comment on above: Performed By: #### L 503.7505, L501.9520, L3600.5100, L500.4050, L100.0100, L501.3620, L505.5000, L501.4021, L300.8000, M100.678 ####[facility] [address] [place], [address] RDW SD 46.7 fl High 35.1-43.9 [facility] Comment on above: Performed By: #### L 503.7505, L501.9520, L3600.5100, L500.4050, L100.0100, L501.3620, L505.5000, L501.4021, L300.8000, M100.678 ####[facility] [address] [place], [address] WBC (Bld) [#/Vol] 8.2 10*3/uL Normal 4.4-11.0 [facility] Comment on above: Performed By: #### L 503.7505, L501.9520, L3600.5100, L500.4050, L100.0100, L501.3620, L505.5000, L501.4021, L300.8000, M100.678 ####[facility] [address] [place], [address] CPK Total, Creatine Kinaseon 06-21-2024 CPK TOTAL 34 U/L Normal 24-195 [facility] Comment on above: Performed By: #### L 503.7505, L501.9520, L3600.5100, L500.4050, L100.0100, L501.3620, L505.5000, L501.4021, L300.8000, M100.678 ####[facility] [address] [place], [address] CTA Chest W/WO Contraston CTA Chest W/WO Contrast [facility] Imaging Services [address] [place] [address] CTA Chest W/WO Contrast MR#: [id number] Acct: [id number] Name: GEN POTTS Rep #: [id number] : 1965 M 58 From: Tamika Isaac MD PCP: Dr. Rogelio Velazquez MD Status: REG ER Study: CTA Chest W/WO Contrast Date of Exam: 06/21/24 Exam# [id number] Ordering Dr: Bolivar Lockett DO PROCEDURE: CTA [...] are not well assessed. Reading Location: [facility] CC: Dr. Rogelio Velazquez MD; Bolivar Lockett DO Die Casting Machine Operator: Signed Normal [facility] Chest PA and Lateralon 06-21 Chest PA and Lateral [facility] Imaging Services [address] [place] [address] Chest PA and Lateral MR#: [id number] Acct: [id number] Name: GEN POTTS Rep #: [id number] : 1965 M 58 From: Kamlesh Panchal i, DO PCP: Dr. Rogelio Velazquez MD Status: REG CLI Study: Chest PA and Lateral Date of Exam: 06/21/24 Exam# [id number] Ordering Dr: Rogelio Velazquez MD PROCEDURE: PA [...] CT evaluation may be considered. Reading Location: [facility] CC: Dr. Rogelio Velazquez MD Die Casting Machine Operator: Signed Normal [facility] Comprehensive Metabolic Prof ilon 06-21-2024 Albumin [Mass/Vol] 3.9 g/dL Normal 3.5-5.0 [facility] Comment on above: Performed By: #### L 503.7505, L501.9520, L3600.5100, L500.4050, L100.0100, L501.3620, L505.5000, L501.4021, L300.8000, M100.678 ####[facility] [address] [place], [address] Albumin/Globulin [Mass ratio] 1.1 {ratio} Normal 0.9-2.4 [facility] Comment on above: Performed By: #### L 503.7505, L501.9520, L3600.5100, L500.4050, L100.0100, L501.3620, L505.5000, L501.4021, L300.8000, M100.678 ####[facility] [address] [place], [address] ALK PHOS 87 U/L Normal 40-129 [facility] Comment on above: Performed By: #### L 503.7505, L501.9520, L3600.5100, L500.4050, L100.0100, L501.3620, L505.5000, L501.4021, L300.8000, M100.678 ####[facility] [address] [place], [address] ALT [Catalytic activity/Vol] 10 U/L Normal <=46 [facility] Comment on above: Performed By: #### L 503.7505, L501.9520, L3600.5100, L500.4050, L100.0100, L501.3620, L505.5000, L501.4021, L300.8000, M100.678 ####[facility] [address] [place], [address] AST [Catalytic activity/Vol] 16 U/L Normal <=37 [facility] Comment on above: Performed By: #### L 503.7505, L501.9520, L3600.5100, L500.4050, L100.0100, L501.3620, L505.5000, L501.4021, L300.8000, M100.678 ####[facility] [address] [place], [address] Bilirubin [Mass/Vol] 0.51 mg/dL Normal 0.00-1.30 [facility] Comment on above: Performed By: #### L 503.7505, L501.9520, L3600.5100, L500.4050, L100.0100, L501.3620, L505.5000, L501.4021, L300.8000, M100.678 ####[facility] [address] [place], [address] BUN/CRE 19.0 RATIO Normal 10-20 [facility] Comment on above: Performed By: #### L 503.7505, L501.9520, L3600.5100, L500.4050, L100.0100, L501.3620, L505.5000, L501.4021, L300.8000, M100.678 ####[facility] [address] [place], [address] Calcium [Mass/Vol] 9.1 mg/dL Normal 7.6-11.0 [facility] Comment on above: Performed By: #### L 503.7505, L501.9520, L3600.5100, L500.4050, L100.0100, L501.3620, L505.5000, L501.4021, L300.8000, M100.678 ####[facility] [address] [facility] [place], [address] Chloride [Moles/Vol] 108 mmol/L Normal 98-108 [facility] Comment on above: Performed By: #### L 503.7505, L501.9520, L3600.5100, L500.4050, L100.0100, L501.3620, L505.5000, L501.4021, L300.8000, M100.678 ####[facility] [address] [place], [address] CO2 [Moles/Vol] 20.3 mmol/L Low 21.0-32.0 [facility] Comment on above: Performed By: #### L 503.7505, L501.9520, L3600.5100, L500.4050, L100.0100, L501.3620, L505.5000, L501.4021, L300.8000, M100.678 ####[facility] [address] [facility] [place], [address] Creatinine [Mass/Vol] 0.81 mg/dL Normal 0.70-1.20 [facility] Comment on above: Performed By: #### L 503.7505, L501.9520, L3600.5100, L500.4050, L100.0100, L501.3620, L505.5000, L501.4021, L300.8000, M100.678 ####[facility] [address] [place], [address] GAP 12 Normal 5-15 [facility] Comment on above: Performed By: #### L 503.7505, L501.9520, L3600.5100, L500.4050, L100.0100, L501.3620, L505.5000, L501.4021, L300.8000, M100.678 ####[facility] [address] [place], [address] GFR/1.73 sq M.predicted among non-blacks MDRD (S/P/Bld) [Vol rate/Area] 102 mL/min/{1.73_m2} Normal >60 [facility] Comment on above: Result Comment: mL/m in/1.73m2 CKD-EPI Creatinine Equation (2020) Performed By: #### L 503.7505, L501.9520, L3600.5100, L500.4050, L100.0100, L501.3620, L505.5000, L501.4021, L300.8000, M100.678 ####[facility] [address] [place], [address] Globulin (S) [Mass/Vol] 3.5 g/dL Normal 2.2-4.2 [facility] Comment on above: Performed By: #### L 503.7505, L501.9520, L3600.5100, L500.4050, L100.0100, L501.3620, L505.5000, L501.4021, L300.8000, M100.678 ####[facility] [address] [place], [address] Glucose [Mass/Vol] 84 mg/dL Normal 70-99 [facility] Comment on above: Performed By: #### L 503.7505, L501.9520, L3600.5100, L500.4050, L100.0100, L501.3620, L505.5000, L501.4021, L300.8000, M100.678 ####[facility] [address] [place], [address] Potassium [Moles/Vol] 4.2 mmol/L Normal 3.3-5.1 [facility] Comment on above: Performed By: #### L 503.7505, L501.9520, L3600.5100, L500.4050, L100.0100, L501.3620, L505.5000, L501.4021, L300.8000, M100.678 ####[facility] [address] [place], [address] Sodium [Moles/Vol] 140 mmol/L Normal 133-145 [facility] Comment on above: Performed By: #### L 503.7505, L501.9520, L3600.5100, L500.4050, L100.0100, L501.3620, L505.5000, L501.4021, L300.8000, M100.678 ####[facility] [address] [place], [address] T PROT 7.4 g/dL Normal 5.9-8.4 [facility] Comment on above: Performed By: #### L 503.7505, L501.9520, L3600.5100, L500.4050, L100.0100, L501.3620, L505.5000, L501.4021, L300.8000, M100.678 ####[facility] [address] [place], [address] Urea nitrogen [Mass/Vol] 15 mg/dL Normal 4-19 [facility] Comment on above: Performed By: #### L 503.7505, L501.9520, L3600.5100, L500.4050, L100.0100, L501.3620, L505.5000, L501.4021, L300.8000, M100.678 ####[facility] [address] [place], [place], [id number] D-Dimer Quantitative (DVT/PE )on 06-21-2024 D-DIMER QUANT 0.47 FEU/ug/m Normal 0.27-0.49 [facility] Comment on above: Result Comment: NORM AL D-Dimer level (<0.50) indicates no DVT or PE. Performed By: #### L 503.7505, L501.9520, L3600.5100, L500.4050, L100.0100, L501.3620, L505.5000, L501.4021, L300.8000, M100.678 ####[facility] [address] [place], [place], [id number] L501.4021on 06-21-2024 Trop T High Sen 84 ng/L Invalid Interpretation Code <=22 [facility] Comment on above: Result Comment: Crit ical Result(s) Called at:2323 by:??MORENO LANGLEY TO IKE LOPEZ Results read back by same. Performed By: #### L 100.0100, L501.4021, L500.2500 ####[facility] [address] [place], [place], [id number] Trop T High Sen 73 ng/L Invalid Interpretation Code <=22 [facility] Comment on above: Result Comment: Crit ical Result(s) Called at: 2100 by: JEFF [place] TO DR. VELAZQUEZ??Results read back by same. Performed By: #### L 503.7505, L501.9520, L3600.5100, L500.4050, L100.0100, L501.3620, L505.5000, L501.4021, L300.8000, M100.678 ####[facility] [address] [place], [place], [address] L503.7505on 06-21-2024 Natriuretic peptide B (Bld) [Mass/Vol] 368 pg/mL Normal <=900 [facility] Comment on above: Result Comment: Hear t Failure Unlikely: < 300 pg/mL Heart Failure Likely < 50 Years: > 450 pg/mL 50-75 Years: > 900 pg/mL >75 Years: > 1800 pg/mL Performed By: #### L 503.7505 #### [facility] [address] [place], [place], [address] Natriuretic peptide B (Bld) [Mass/Vol] 370 pg/mL Normal <=900 [facility] Comment on above: Result Comment: Hear t Failure Unlikely: < 300 pg/mL Heart Failure Likely < 50 Years: > 450 pg/mL 50-75 Years: > 900 pg/mL >75 Years: > 1800 pg/mL Performed By: #### L 503.7505, L501.9520, L3600.5100, L500.4050, L100.0100, L501.3620, L505.5000, L501.4021, L300.8000, M100.678 ####[facility] [address] [facility]. [place], [place], [id number] M100.678on 06-21-2024 M100.678 Pending SARS-CoV-2 (COVID 19) Negative INFLUENZA A Negative INFLUENZA B Negative RSV PCR Negative [facility] Comment on above: Performed By: #### L 503.7505, L501.9520, L3600.5100, L500.4050, L100.0100, L501.3620, L505.5000, L501.4021, L300.8000, M100.678 ####[facility] [address] [place], [address] M100.678 Pending SARS-CoV-2 (COVID 19) Negative INFLUENZA A Negative INFLUENZA B Negative RSV PCR Negative [facility] Comment on above: Performed By: #### L 100.0500, L500.4100, L300.8000, L500.4050, L501.9520 #### [facility] [address] [place], [address] Partial Thromboplast Timeon 06-21-2024 aPTT Coag (Bld) [Time] 28.6 s Normal 24.1-36.2 [facility] Comment on above: Performed By: #### L 100.0500, L500.4100, L300.8000, L500.4050, L501.9520 #### [facility] [address] [place], [address] Prothrombin Time w/INRon INR Coag (PPP) [Relative time] 1.0 {INR} Normal [facility] Comment on above: Performed By: #### L 100.0500, L500.4100, L300.8000, L500.4050, L501.9520 #### [facility] [address] [place], [address] PT Coag (PPP) [Time] 13.1 s Normal 11.7-14.9 [facility] Comment on above: Performed By: #### L 100.0500, L500.4100, L300.8000, L500.4050, L501.9520 #### [facility] [address] [place], [address] Thyroid Stim Hormone (TSH)on 06-21-2024 TSH 5.800 uIU/mL High 0.300-4.200 [facility] Comment on above: Performed By: #### L 503.7505, L501.9520, L3600.5100, L500.4050, L100.0100, L501.3620, L505.5000, L501.4021, L300.8000, M100.678 ####[facility] [address] [place], [address] Urine Drug Screen (VISTA)on 06-21-2024 AMPHETAMINES Negative Normal <1000 ng/mL [facility] Comment on above: Order Comment: UNKNO WN Performed By: #### L 503.7505, L501.9520, L3600.5100, L500.4050, L100.0100, L501.3620, L505.5000, L501.4021, L300.8000, M100.678 ####[facility] [address] [place], [place], [phone](078) BARBITIURATES Negative Normal < 200 ng/mL [facility] Comment on above: Order Comment: UNKNO WN Performed By: #### L 503.7505, L501.9520, L3600.5100, L500.4050, L100.0100, L501.3620, L505.5000, L501.4021, L300.8000, M100.678 ####[facility] [address] [place], [place], [phone]([phone] BENZODIAZIPINE Positive Normal < 200 ng/mL [facility] Comment on above: Order Comment: UNKNO WN Result Comment: If c onfirmation testing is needed, a separate order will be required to send out testing to the reference laboratory. Performed By: #### L 503.7505, L501.9520, L3600.5100, L500.4050, L100.0100, L501.3620, L505.5000, L501.4021, L300.8000, M100.678 ####[facility] [address] [place], [place], [phone](649) BUP Ur Drug Scr Negative Normal < 200 ng/mL [facility] Comment on above: Order Comment: UNKNO WN Performed By: #### L 503.7505, L501.9520, L3600.5100, L500.4050, L100.0100, L501.3620, L505.5000, L501.4021, L300.8000, M100.678 ####[facility] [address] [place], [place], [phone](839) COCAINE Negative Normal < 300 ng/mL [facility] Comment on above: Order Comment: UNKNO WN Performed By: #### L 503.7505, L501.9520, L3600.5100, L500.4050, L100.0100, L501.3620, L505.5000, L501.4021, L300.8000, M100.678 ####[facility] [address] [place], [address] Fentanyl Negative Normal [facility] Comment on above: Order Comment: UNKNO WN Performed By: #### L 503.7505, L501.9520, L3600.5100, L500.4050, L100.0100, L501.3620, L505.5000, L501.4021, L300.8000, M100.678 ####[facility] [address] [place], [place], [phone] METHADONE Negative Normal < 300 ng/mL [facility] Comment on above: Order Comment: UNKNO WN Performed By: #### L 503.7505, L501.9520, L3600.5100, L500.4050, L100.0100, L501.3620, L505.5000, L501.4021, L300.8000, M100.678 ####[facility] [address] [place], [address] OPIATES Negative Normal < 300 ng/mL [facility] Comment on above: Order Comment: UNKNO WN Performed By: #### L 503.7505, L501.9520, L3600.5100, L500.4050, L100.0100, L501.3620, L505.5000, L501.4021, L300.8000, M100.678 ####[facility] [address] [place], [address] OXYCODONE Negative Normal < 100 ng/mL [facility] Comment on above: Order Comment: UNKNO WN Performed By: #### L 503.7505, L501.9520, L3600.5100, L500.4050, L100.0100, L501.3620, L505.5000, L501.4021, L300.8000, M100.678 ####[facility] [address] [place], [address] PCP Negative Normal < 25 ng/mL [facility] Comment on above: Order Comment: UNKNO WN Performed By: #### L 503.7505, L501.9520, L3600.5100, L500.4050, L100.0100, L501.3620, L505.5000, L501.4021, L300.8000, M100.678 ####[facility] [address] [place], [address] THC Negative Normal < 50 ng/mL [facility] Comment on above: Order Comment: UNKNO WN Performed By: #### L 503.7505, L501.9520, L3600.5100, L500.4050, L100.0100, L501.3620, L505.5000, L501.4021, L300.8000, M100.678 ####[facility] [address] [place], [address] CBC W/Diff, Automatedon 05-15 Absolute Lymph 3.44 X10 3/uL Normal 0.83-4.51 [facility] Comment on above: Performed By: #### L 100.0100, L501.9520, L500.4050, L501.9910 ####[facility] [address] [place], [address] Absolute Neut 4.8 X10 3/uL Normal 2.0-7.7 [facility] Comment on above: Performed By: #### L 100.0100, L501.9520, L500.4050, L501.9910 ####[facility] [address] [place], [address] Basophils/100 WBC (Bld) 0.5 % Normal 0-1 [facility] Comment on above: Performed By: #### L 100.0100, L501.9520, L500.4050, L501.9910 ####[facility] [address] [place], [address] Eosinophils/100 WBC (Bld) 0.8 % Normal 0-5 [facility] Comment on above: Performed By: #### L 100.0100, L501.9520, L500.4050, L501.9910 ####[facility] [address] [place], [address] Erythrocyte distribution width (RBC) [Ratio] 13.7 % Normal 11.6-14.6 [facility] Comment on above: Performed By: #### L 100.0100, L501.9520, L500.4050, L501.9910 ####[facility] [address] [place], [address] Hematocrit (Bld) [Volume fraction] 41.1 % Normal 40-54 [facility] Comment on above: Performed By: #### L 100.0100, L501.9520, L500.4050, L501.9910 ####[facility] [address] [place], [address] Hemoglobin (Bld) [Mass/Vol] 14.0 g/dL Normal 13.0-16.5 [facility] Comment on above: Performed By: #### L 100.0100, L501.9520, L500.4050, L501.9910 ####[facility] [address] [place], [address] IG% 0.300 Normal 0.0-0.9 [facility] Comment on above: Result Comment: IG% - Immature Granulocytes (promyelocytes, myelocytes and metamyelocytes) > 1% indicates that a LEFT SHIFT is Present. Performed By: #### L 100.0100, L501.9520, L500.4050, L501.9910 ####[facility] [address] [place], [address] Lymphocytes/100 WBC (Bld) 38.7 % Normal 19-41 [facility] Comment on above: Performed By: #### L 100.0100, L501.9520, L500.4050, L501.9910 ####[facility] [address] [place], [address] MCH (RBC) [Entitic mass] 32.0 pg Normal 27.0-32.0 [facility] Comment on above: Performed By: #### L 100.0100, L501.9520, L500.4050, L501.9910 ####[facility] [address] [place], [address] MCHC (RBC) [Mass/Vol] 34.1 g/dL Normal 32-36 [facility] Comment on above: Performed By: #### L 100.0100, L501.9520, L500.4050, L501.9910 ####[facility] [address] [place], [address] MCV (RBC) [Entitic vol] 93.8 fL Normal 80-94 [facility] Comment on above: Performed By: #### L 100.0100, L501.9520, L500.4050, L501.9910 ####[facility] [address] [place], [address] Monocytes/100 WBC (Bld) 6.2 % Normal 0-10 [facility] Comment on above: Performed By: #### L 100.0100, L501.9520, L500.4050, L501.9910 ####[facility] [address] [place], [address] Neutrophils/100 WBC (Bld) 53.5 % Normal 47-70 [facility] Comment on above: Performed By: #### L 100.0100, L501.9520, L500.4050, L501.9910 ####[facility] [address] [place], [address] Nucleated RBC (Bld) [#/Vol] 0 10*3/uL Normal 0-5 [facility] Comment on above: Performed By: #### L 100.0100, L501.9520, L500.4050, L501.9910 ####[facility] [address] [place], [address] Platelet mean volume (Bld) [Entitic vol] 10.8 fL Normal 6.2-12.0 [facility] Comment on above: Performed By: #### L 100.0100, L501.9520, L500.4050, L501.9910 ####[facility] [address] [place], [address] Platelets (Bld) [#/Vol] 268 10*3/uL Normal 150-450 [facility] Comment on above: Performed By: #### L 100.0100, L501.9520, L500.4050, L501.9910 ####[facility] [address] [place], [address] RBC (Bld) [#/Vol] 4.38 10*6/uL Low 4.6-6.2 [facility] Comment on above: Performed By: #### L 100.0100, L501.9520, L500.4050, L501.9910 ####[facility] [address] [place], [address] RDW SD 47.3 fl High 35.1-43.9 [facility] Comment on above: Performed By: #### L 100.0100, L501.9520, L500.4050, L501.9910 ####[facility] [address] [place], [address] WBC (Bld) [#/Vol] 8.9 10*3/uL Normal 4.4-11.0 [facility] Comment on above: Performed By: #### L 100.0100, L501.9520, L500.4050, L501.9910 ####[facility] [address] [place], [address] Comprehensive Metabolic Prof ilon 05-25-2024 Albumin [Mass/Vol] 4.1 g/dL Normal 3.5-5.0 [facility] Comment on above: Performed By: #### L 100.0100, L501.9520, L500.4050, L501.9910 ####[facility] [address] [place], [address] Albumin/Globulin [Mass ratio] 1.4 {ratio} Normal 0.9-2.4 [facility] Comment on above: Performed By: #### L 100.0100, L501.9520, L500.4050, L501.9910 ####[facility] [address] [place], [address] ALK PHOS 74 U/L Normal 40-129 [facility] Comment on above: Performed By: #### L 100.0100, L501.9520, L500.4050, L501.9910 ####[facility] [address] [place], [address] ALT [Catalytic activity/Vol] 18 U/L Normal <=46 [facility] Comment on above: Performed By: #### L 100.0100, L501.9520, L500.4050, L501.9910 ####[facility] [address] [place], [address] AST [Catalytic activity/Vol] 19 U/L Normal <=37 [facility] Comment on above: Performed By: #### L 100.0100, L501.9520, L500.4050, L501.9910 ####[facility] [address] [place], [address] Bilirubin [Mass/Vol] 0.87 mg/dL Normal 0.00-1.30 [facility] Comment on above: Performed By: #### L 100.0100, L501.9520, L500.4050, L501.9910 ####[facility] [address] [place], [address] BUN/CRE 19.0 RATIO Normal 10-20 [facility] Comment on above: Performed By: #### L 100.0100, L501.9520, L500.4050, L501.9910 ####[facility] [address] [place], [address] Calcium [Mass/Vol] 9.2 mg/dL Normal 7.6-11.0 [facility] Comment on above: Performed By: #### L 100.0100, L501.9520, L500.4050, L501.9910 ####[facility] [address] [place], [address] Chloride [Moles/Vol] 104 mmol/L Normal 98-108 [facility] Comment on above: Performed By: #### L 100.0100, L501.9520, L500.4050, L501.9910 ####[facility] [address] [place], [address] CO2 [Moles/Vol] 24.2 mmol/L Normal 21.0-32.0 [facility] Comment on above: Performed By: #### L 100.0100, L501.9520, L500.4050, L501.9910 ####[facility] [address] [place], [address] Creatinine [Mass/Vol] 0.96 mg/dL Normal 0.70-1.20 [facility] Comment on above: Performed By: #### L 100.0100, L501.9520, L500.4050, L501.9910 ####[facility] [address] [place], [address] GAP 10 Normal 5-15 [facility] Comment on above: Performed By: #### L 100.0100, L501.9520, L500.4050, L501.9910 ####[facility] [address] [place], [address] GFR/1.73 sq M.predicted among non-blacks MDRD (S/P/Bld) [Vol rate/Area] 91 mL/min/{1.73_m2} Normal >60 [facility] Comment on above: Result Comment: mL/m in/1.73m2 CKD-EPI Creatinine Equation (2020) Performed By: #### L 100.0100, L501.9520, L500.4050, L501.9910 ####[facility] [address] [place], [address] Globulin (S) [Mass/Vol] 2.8 g/dL Normal 2.2-4.2 [facility] Comment on above: Performed By: #### L 100.0100, L501.9520, L500.4050, L501.9910 ####[facility] [address] [place], [address] Glucose [Mass/Vol] 86 mg/dL Normal 70-99 [facility] Comment on above: Performed By: #### L 100.0100, L501.9520, L500.4050, L501.9910 ####[facility] [address] [place], [address] Potassium [Moles/Vol] 4.0 mmol/L Normal 3.3-5.1 [facility] Comment on above: Performed By: #### L 100.0100, L501.9520, L500.4050, L501.9910 ####[facility] [address] [place], [address] Sodium [Moles/Vol] 138 mmol/L Normal 133-145 [facility] Comment on above: Performed By: #### L 100.0100, L501.9520, L500.4050, L501.9910 ####[facility] [address] [place], [address] T PROT 6.9 g/dL Normal 5.9-8.4 [facility] Comment on above: Performed By: #### L 100.0100, L501.9520, L500.4050, L501.9910 ####[facility] [address] [place], [address] Urea nitrogen [Mass/Vol] 18 mg/dL Normal 4-19 [facility] Comment on above: Performed By: #### L 100.0100, L501.9520, L500.4050, L501.9910 ####[facility] [address] [place], [address] PSA,Total - Annual Screenon 05-25-2024 PSA,TOT SCREEN 0.17 ng/mL Normal 0.02-4.00 [facility] Comment on above: Result Comment: This [...] By: #### L 100.0100, L501.9520, L500.4050, L501.9910 ####[facility] [address] [place], [address] Thyroid Stim Hormone (TSH)on 05-25-2024 TSH 3.110 uIU/mL Normal 0.300-4.200 [facility] Comment on above: Performed By: #### L 100.0100, L501.9520, L500.4050, L501.9910 ####[facility] [address] [place], [address] M100.678on 05-18-2024 M100.678 SARS-CoV-2 (COVID 19 ) Negative INFLUENZA A Negative INFLUENZA B Negative RSV PCR Negative Normal [facility] Comment on above: Performed By: #### L 100.0500, L500.4100, L300.8000, L500.4050, L501.9520 #### [facility] [address] [facility] [place], [address] M100.678on 05-10-2024 M100.678 SARS-CoV-2 (COVID 19 ) Negative INFLUENZA A Negative INFLUENZA B Negative RSV PCR Negative Normal [facility] Comment on above: Performed By: #### L 100.0500, L500.4100, L300.8000, L500.4050, L501.9520 #### [facility] [address] [facility] [place], [address] Miscellaneous Lab Procedureo n 03-26-2024 [facility] [place] Normal [facility] Comment on above: Order Comment: [id number] [...] includes Oxycodone and Oxymorphone. TESTING PERFORMED AT [facility]. ORIGINAL REPORT ON FILE IN LAB CONTAINS ADDITIONAL TEST SITE INFORMATION. Performed By: #### L 100.0500, L500.4100, L300.8000, L500.4050, L501.9520 #### [facility] [address] [place], [address] [facility] 03-26-2024 [facility] [place] 2 Normal [facility] Comment on above: Order Comment: [id number] Result Comment: TEST RESULTS LIMITS Tramadol, Urine Tramadol Positive Xobvyt=007 Tramadol Conf, [place], [place] 6667 ng/mL Wgpkbb=969 Tramadol detected; this finding can be consistent with use of medications that include Ultram, Topalgic, Tradol, Zydol, or generic formulations. Drugs listed are provider service representative of common sources of the compound detected and are not intended to include all possible sources. Please Note: Drug test results should be interpreted in the context of clinical information. Patient metabolic variables, specific drug chemistry, and specimen characteristics can affect test outcome. Technical consultation is available if a test result is inconsistent with an expected outcome. Email: [email or web address] TESTING PERFORMED AT [facility]. ORIGINAL REPORT ON FILE IN LAB CONTAINS ADDITIONAL TEST SITE INFORMATION. Performed By: #### L 100.0500, L500.4100, L300.8000, L500.4050, L501.9520 #### [facility] [address] [place], [address] Urine Drug Screen (VISTA)on 03-22-2024 AMPHETAMINES Negative Normal <1000 ng/mL [facility] Comment on above: Order Comment: UNK Performed By: #### L 100.0500, L500.4100, L300.8000, L500.4050, L501.9520 #### [facility] [address] [place], [address] BARBITIURATES Negative Normal < 200 ng/mL [facility] Comment on above: Order Comment: UNK Performed By: #### L 100.0500, L500.4100, L300.8000, L500.4050, L501.9520 #### [facility] [address] [place], [address] BENZODIAZIPINE Negative Normal < 200 ng/mL [facility] Comment on above: Order Comment: UNK Performed By: #### L 100.0500, L500.4100, L300.8000, L500.4050, L501.9520 #### [facility] [address] [place], [address] COCAINE Negative Normal < 300 ng/mL [facility] Comment on above: Order Comment: UNK Performed By: #### L 100.0500, L500.4100, L300.8000, L500.4050, L501.9520 #### [facility] [address] [place], [address] ECSTACY Negative Normal < 500 ng/mL [facility] Comment on above: Order Comment: UNK Performed By: #### L 100.0500, L500.4100, L300.8000, L500.4050, L501.9520 #### [facility] [address] [place], [address] METHADONE Negative Normal < 300 ng/mL [facility] Comment on above: Order Comment: UNK Performed By: #### L 100.0500, L500.4100, L300.8000, L500.4050, L501.9520 #### [facility] [address] [place], [address] OPIATES Negative Normal < 300 ng/mL [facility] Comment on above: Order Comment: UNK Performed By: #### L 100.0500, L500.4100, L300.8000, L500.4050, L501.9520 #### [facility] [address] [place], [address] PCP Negative Normal < 25 ng/mL [facility] Comment on above: Order Comment: UNK Performed By: #### L 100.0500, L500.4100, L300.8000, L500.4050, L501.9520 #### [facility] [address] [place], [address] THC Negative Normal < 50 ng/mL [facility] Comment on above: Order Comment: UNK Performed By: #### L 100.0500, L500.4100, L300.8000, L500.4050, L501.9520 #### [facility] [address] [place], [address] VISTA UDS PH 5 Normal [facility] Comment on above: Order Comment: UNK Performed By: #### L 100.0500, L500.4100, L300.8000, L500.4050, L501.9520 #### [facility] [address] [place], [address] Knee 4 or More Viewson 03-04 Knee 4 or More Views [facility] [address] [place] [address] Knee 4 or More Views MR#: [id number] Acct: [id number] Name: GEN POTTS Rep #: [id number] : 1965 M 58 From: Darryn Butler MD PCP: Dr. Rogelio Velazquez MD Status: DEP AMB Study: Knee 4 or More Views Date of Exam: 03/04/24 Exam# [id number] Ordering Dr: James Justin MD [id number] STUDY: X-RAY - LEFT KNEE REASON FOR [...] 15:10 EST Reading Location ID and State: [address] [place] [address] , Service support , CC: Dr. James Justin MD; Dr. 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 Rogelio Velazquez MD Status: DEP AMB Study: Knee 4 or More Views Date of Exam: 03/04/24 Exam# [id number] Ordering Dr: James Justin MD [id number] STUDY: X-RAY - RIGHT KNEE REASON FOR [...] 15:09 EST Reading Location ID and State: [facility] / [place] , Service support , CC: Dr. James Justin MD; Dr. 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 James lagunas MD Age/Sex: 58/M Location: [facility] Status: Signed Intake Vital Signs 06/17/23 09:14 [...] Performing Provider: James Justin MD Performing Location: [facility] Administered by: James Justin MD on 03/04/24 10:57 Dose Route Admin Location Dispensed Lot Number Expiration Date MIKE Tadeo ufacturer 80 mg intra-articular Left Knee 2 mL [id number] 07/15/25 [id number] [facility] Supplemental Info X-rays 4 views of both knees obtained today that shows some moderate medial compartment joint space narrowing on both sides. 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 Normal [facility] JUSTICEOVon 02-22-2024 OV Office Visit (WALKWA ) CREADONGEN ([id number]) 1965 M Date Time Provider Department 02/22/24 [...] tenderness or frontal sinus tenderness. Mouth/Throat: Lips: [place]. No lesions. Mouth: Mucous membranes are moist. No oral lesions. Dentition: No gum lesions. Tongue: No lesions. Tongue does not deviate from midline. Palate: No mass and lesions. Pharynx: Oropharynx is clear. No pharyngeal swelling, oropharyngeal exudate, posterior oropharyngeal erythema or uvula swelling. Tonsils: No tonsillar exudate or tonsillar abscesses. Eyes: General: Lids are normal. No scleral ict (more content not included)... Normal [facility] Basic Metabolic Profile (BMP )on 01-14-2024 BUN/CRE 19.0 RATIO Normal 01-03 [facility] Comment on above: Performed By: #### L 100.0500, L500.4100, L300.8000, L500.4050, L501.9520 #### [facility] [address] [place], [address] [place],Total 9.1 mg/dL Normal 8.5-10.1 [facility] Comment on above: Performed By: #### L 100.0500, L500.4100, L300.8000, L500.4050, L501.9520 #### [facility] [address] [place], [address] Chloride [Moles/Vol] 107 mmol/L Normal 98-107 [facility] Comment on above: Performed By: #### L 100.0500, L500.4100, L300.8000, L500.4050, L501.9520 #### [facility] [address] [place], [address] CO2 [Moles/Vol] 30.0 mmol/L Normal 21.0-32.0 [facility] Comment on above: Performed By: #### L 100.0500, L500.4100, L300.8000, L500.4050, L501.9520 #### [facility] [address] [place], [address] Creatinine [Mass/Vol] 0.84 mg/dL Normal 0.70-1.30 [facility] Comment on above: Result Comment: The validity of the calculated GFR GFRAA in patients over 70 years has not been determined. Clinical correlation is essential. Performed By: #### L 100.0500, L500.4100, L300.8000, L500.4050, L501.9520 #### [facility] [address] [place], [address] EST GFR - AA 120 mL/min Normal >60 [facility] Comment on above: Result Comment: Afri can [place] GFR Calc Performed By: #### L 100.0500, L500.4100, L300.8000, L500.4050, L501.9520 #### [facility] [address] [place], [address] GAP 3 Low 5-15 [facility] Comment on above: Performed By: #### L 100.0500, L500.4100, L300.8000, L500.4050, L501.9520 #### [facility] [address] [place], [address] GFR/1.73 sq M.predicted among non-blacks MDRD (S/P/Bld) [Vol rate/Area] 99 mL/min/{1.73_m2} Normal >60 [facility] Comment on above: Result Comment: Non- GFR Calc Performed By: #### L 100.0500, L500.4100, L300.8000, L500.4050, L501.9520 #### [facility] [address] [place], [address] Glucose [Mass/Vol] 83 mg/dL Normal 74-106 [facility] Comment on above: Performed By: #### L 100.0500, L500.4100, L300.8000, L500.4050, L501.9520 #### [facility] [address] [place], [address] Potassium [Moles/Vol] 3.9 mmol/L Normal 3.5-5.1 [facility] Comment on above: Performed By: #### L 100.0500, L500.4100, L300.8000, L500.4050, L501.9520 #### [facility] [address] [place], [address] Sodium [Moles/Vol] 139 mmol/L Normal 136-145 [facility] Comment on above: Performed By: #### L 100.0500, L500.4100, L300.8000, L500.4050, L501.9520 #### [facility] [address] [place], [address] Urea nitrogen [Mass/Vol] 16 mg/dL Normal 7-18 [facility] Comment on above: Performed By: #### L 100.0500, L500.4100, L300.8000, L500.4050, L501.9520 #### [facility] [address] [place], [address] Myoglobin, Serumon 4 Myoglobin, Ser 28 ng/mL Normal 28-72 [facility] Comment on above: Result Comment: Perf ormed at: - [facility] [address] [id number] [employer]: Mata Green PhD, Phone: [phone] Performed By: #### L 100.0500, L500.4100, L300.8000, L500.4050, L501.9520 #### [facility] [address] [place], [address] CTA Chest W/WO Contraston CTA Chest W/WO Contrast [facility] Imaging Services [address] [place], [place] [id number] CTA Chest W/WO Contrast MR#: [id number] Acct: [id number] Name: GEN POTTS Rep #: [id number] : 1965 M 58 From: Skylar Ambrosio MD PCP: Dr. Rogelio Velazquez MD Status: REG CLI Study: CTA Chest W/WO Contrast Date of Exam: 01/13/24 Exam# [id number] Ordering Dr: Rogelio Velazquez MD [id number] STUDY: CTA CHEST REASON FOR EXAM: Male, [...] EDT , CC: Dr. Rogelio Velazquez MD [employer] Casting Machine Operator: Signed Normal [facility] M100.678on 01-13-2024 M100.678 Pending SARS-CoV-2 (COVID 19) Negative INFLUENZA A Negative INFLUENZA B Negative RSV PCR Negative [facility] Comment on above: Performed By: #### L 100.0500, L500.4100, L300.8000, L500.4050, L501.9520 #### [facility] [address] [place], [address] CBC W/Diff, Automatedon 12-16 Absolute Lymph 3.42 X10 3/uL Normal 0.83-4.51 [facility] Comment on above: Performed By: #### L 100.0500, L500.4100, L300.8000, L500.4050, L501.9520 #### [facility] [address] [place], [address] Absolute Neut 4.1 X10 3/uL Normal 2.0-7.7 [facility] Comment on above: Performed By: #### L 100.0500, L500.4100, L300.8000, L500.4050, L501.9520 #### [facility] [address] [place], [address] Basophils/100 WBC (Bld) 0.7 % Normal 0-1 [facility] Comment on above: Performed By: #### L 100.0500, L500.4100, L300.8000, L500.4050, L501.9520 #### [facility] [address] [place], [address] Eosinophils/100 WBC (Bld) 4.8 % Normal 0-5 [facility] Comment on above: Performed By: #### L 100.0500, L500.4100, L300.8000, L500.4050, L501.9520 #### [facility] [address] [place], [address] Erythrocyte distribution width (RBC) [Ratio] 13.1 % Normal 11.6-14.6 [facility] Comment on above: Performed By: #### L 100.0500, L500.4100, L300.8000, L500.4050, L501.9520 #### [facility] [address] [place], [address] Hematocrit (Bld) [Volume fraction] 45.5 % Normal 40-54 [facility] Comment on above: Performed By: #### L 100.0500, L500.4100, L300.8000, L500.4050, L501.9520 #### [facility] [address] [place], [address] Hemoglobin (Bld) [Mass/Vol] 14.8 g/dL Normal 13.0-16.5 [facility] Comment on above: Performed By: #### L 100.0500, L500.4100, L300.8000, L500.4050, L501.9520 #### [facility] [address] [place], [address] IG% 0.300 Normal 0.0-0.9 [facility] Comment on above: Result Comment: IG% - Immature Granulocytes (promyelocytes, myelocytes and metamyelocytes) > 1% indicates that a LEFT SHIFT is Present. Performed By: #### L 100.0500, L500.4100, L300.8000, L500.4050, L501.9520 #### [facility] [address] [place], [address] Lymphocytes/100 WBC (Bld) 39.8 % Normal 19-41 [facility] Comment on above: Performed By: #### L 100.0500, L500.4100, L300.8000, L500.4050, L501.9520 #### [facility] [address] [place], [address] MCH (RBC) [Entitic mass] 30.3 pg Normal 27.0-32.0 [facility] Comment on above: Performed By: #### L 100.0500, L500.4100, L300.8000, L500.4050, L501.9520 #### [facility] [address] [place], [address] MCHC (RBC) [Mass/Vol] 32.5 g/dL Normal 32-36 [facility] Comment on above: Performed By: #### L 100.0500, L500.4100, L300.8000, L500.4050, L501.9520 #### [facility] [address] [place], [address] MCV (RBC) [Entitic vol] 93.2 fL Normal 80-94 [facility] Comment on above: Performed By: #### L 100.0500, L500.4100, L300.8000, L500.4050, L501.9520 #### [facility] [address] [place], [address] Monocytes/100 WBC (Bld) 6.7 % Normal 0-10 [facility] Comment on above: Performed By: #### L 100.0500, L500.4100, L300.8000, L500.4050, L501.9520 #### [facility] [address] [place], [address] Neutrophils/100 WBC (Bld) 47.7 % Normal 47-70 [facility] Comment on above: Performed By: #### L 100.0500, L500.4100, L300.8000, L500.4050, L501.9520 #### [facility] [address] [place], [address] Nucleated RBC (Bld) [#/Vol] 0 10*3/uL Normal 0-5 [facility] Comment on above: Performed By: #### L 100.0500, L500.4100, L300.8000, L500.4050, L501.9520 #### [facility] [address] [place], [address] Platelet mean volume (Bld) [Entitic vol] 10.0 fL Normal 6.2-12.0 [facility] Comment on above: Performed By: #### L 100.0500, L500.4100, L300.8000, L500.4050, L501.9520 #### [facility] [address] [place], [address] Platelets (Bld) [#/Vol] 311 10*3/uL Normal 150-450 [facility] Comment on above: Performed By: #### L 100.0500, L500.4100, L300.8000, L500.4050, L501.9520 #### [facility] [address] [place], [address] RBC (Bld) [#/Vol] 4.88 10*6/uL Normal 4.6-6.2 [facility] Comment on above: Performed By: #### L 100.0500, L500.4100, L300.8000, L500.4050, L501.9520 #### [facility] [address] [place], [address] RDW SD 44.9 fl High 35.1-43.9 [facility] Comment on above: Performed By: #### L 100.0500, L500.4100, L300.8000, L500.4050, L501.9520 #### [facility] [address] [place], [address] WBC (Bld) [#/Vol] 8.6 10*3/uL Normal 4.4-11.0 [facility] Comment on above: Performed By: #### L 100.0500, L500.4100, L300.8000, L500.4050, L501.9520 #### [facility] [address] [place], [address] CPK Total, Creatine Kinaseon 01-12-2024 CPK TOTAL 88 U/L Normal 39-308 [facility] Comment on above: Order Comment: 1 Performed By: #### L 100.0500, L500.4100, L300.8000, L500.4050, L501.9520 #### [facility] [address] [place], [address] Chest PA and Lateralon 01-11 Chest PA and Lateral [facility] Imaging Services [address] [place] [address] Chest PA and Lateral MR#: [id number] Acct: [id number] Name: GEN POTTS Rep #: [id number] : 1965 M 58 From: Hussein Lua PCP: Dr. Rogelio Velazquez MD Status: [facility] Study: Chest PA and Lateral Date of Exam: 01/12/24 Exam# [id number] Ordering Dr: Rogelio Velazquez MD [id number] INDICATION: CHEST PAIN AND SOB EXAMINATION/TECHNIQUE : [...] EDT , CC: Dr. Rogelio Velazquez MD [employer] Operator: Signed Normal [facility] Comprehensive Metabolic Prof ilon 01-12-2024 Albumin [Mass/Vol] 4.1 g/dL Normal 3.2-5.0 [facility] Comment on above: Order Comment: 1 Performed By: #### L 100.0500, L500.4100, L300.8000, L500.4050, L501.9520 #### [facility] [address] [place], [address] Albumin/Globulin [Mass ratio] 0.9 {ratio} Normal 0.9-2.4 [facility] Comment on above: Order Comment: 1 Performed By: #### L 100.0500, L500.4100, L300.8000, L500.4050, L501.9520 #### [facility] [address] [place], [address] ALK P 128 U/L High 45-117 [facility] Comment on above: Order Comment: 1 Performed By: #### L 100.0500, L500.4100, L300.8000, L500.4050, L501.9520 #### [facility] [address] [place], [address] ALT [Catalytic activity/Vol] 25 U/L Normal 16-61 [facility] Comment on above: Order Comment: 1 Performed By: #### L 100.0500, L500.4100, L300.8000, L500.4050, L501.9520 #### [facility] [address] [place], [address] AST [Catalytic activity/Vol] 14 U/L Low 15-37 [facility] Comment on above: Order Comment: 1 Performed By: #### L 100.0500, L500.4100, L300.8000, L500.4050, L501.9520 #### [facility] [address] [place], [address] Bilirubin [Mass/Vol] 0.60 mg/dL Normal 0.20-1.00 [facility] Comment on above: Order Comment: 1 Result Comment: For patients on eltrombopag therapy, use of Dimension [place] TBIL is not recommended. Performed By: #### L 100.0500, L500.4100, L300.8000, L500.4050, L501.9520 #### [facility] [address] [place], [address] BUN/CRE 18.3 RATIO Normal 10-20 [facility] Comment on above: Order Comment: 1 Performed By: #### L 100.0500, L500.4100, L300.8000, L500.4050, L501.9520 #### [facility] [address] [place], [address] CA,Total 9.9 mg/dL Normal 8.5-10.1 [facility] Comment on above: Order Comment: 1 Performed By: #### L 100.0500, L500.4100, L300.8000, L500.4050, L501.9520 #### [facility] [address] [place], [address] Chloride [Moles/Vol] 107 mmol/L Normal 98-107 [facility] Comment on above: Order Comment: 1 Performed By: #### L 100.0500, L500.4100, L300.8000, L500.4050, L501.9520 #### [facility] [address] [place], [address] CO2 [Moles/Vol] 29.0 mmol/L Normal 21.0-32.0 [facility] Comment on above: Order Comment: 1 Performed By: #### L 100.0500, L500.4100, L300.8000, L500.4050, L501.9520 #### [facility] [address] [place], [address] Creatinine [Mass/Vol] 0.87 mg/dL Normal 0.70-1.30 [facility] Comment on above: Order Comment: 1 Result Comment: The validity of the calculated GFR GFRAA in patients over 70 years has not been determined. Clinical correlation is essential. Performed By: #### L 100.0500, L500.4100, L300.8000, L500.4050, L501.9520 #### [facility] [address] [place], [address] EST GFR - AA 115 mL/min Normal >60 [facility] Comment on above: Order Comment: 1 Result Comment: Afri can [place] GFR Calc Performed By: #### L 100.0500, L500.4100, L300.8000, L500.4050, L501.9520 #### [facility] [address] [place], [address] GAP 1 Low 5-15 [facility] Comment on above: Order Comment: 1 Performed By: #### L 100.0500, L500.4100, L300.8000, L500.4050, L501.9520 #### [facility] [address] [place], [address] GFR/1.73 sq M.predicted among non-blacks MDRD (S/P/Bld) [Vol rate/Area] 95 mL/min/{1.73_m2} Normal >60 [facility] Comment on above: Order Comment: 1 Result Comment: Non- GFR Calc Performed By: #### L 100.0500, L500.4100, L300.8000, L500.4050, L501.9520 #### [facility] [address] [place], [address] Globulin (S) [Mass/Vol] 4.4 g/dL High 2.2-4.2 [facility] Comment on above: Order Comment: 1 Performed By: #### L 100.0500, L500.4100, L300.8000, L500.4050, L501.9520 #### [facility] [address] [place], [address] Glucose [Mass/Vol] 88 mg/dL Normal 74-106 [facility] Comment on above: Order Comment: 1 Performed By: #### L 100.0500, L500.4100, L300.8000, L500.4050, L501.9520 #### [facility] [address] [place], [address] Potassium [Moles/Vol] 5.4 mmol/L High 3.5-5.1 [facility] Comment on above: Order Comment: 1 Performed By: #### L 100.0500, L500.4100, L300.8000, L500.4050, L501.9520 #### [facility] [address] [place], [address] Sodium [Moles/Vol] 137 mmol/L Normal 136-145 [facility] Comment on above: Order Comment: 1 Performed By: #### L 100.0500, L500.4100, L300.8000, L500.4050, L501.9520 #### [facility] [address] [place], [address] T PROT 8.5 g/dL High 6.4-8.2 [facility] Comment on above: Order Comment: 1 Performed By: #### L 100.0500, L500.4100, L300.8000, L500.4050, L501.9520 #### [facility] [address] [place], [address] Urea nitrogen [Mass/Vol] 16 mg/dL Normal 7-18 [facility] Comment on above: Order Comment: 1 Performed By: #### L 100.0500, L500.4100, L300.8000, L500.4050, L501.9520 #### [facility] [address] [place], [address] D-Dimer Quantitative (DVT/PE )on 01-12-2024 D-DIMER QUANT 0.51 FEU/ug/m Invalid Interpretation Code 0.27-0.49 [facility] Comment on above: Order Comment: CRITI EDNA VALUE CALLED TO DR.TAI CARMEN VELAZQUEZ01/12/24 1815 EMILY SAMANIEGO.RESULTS READ BACK BY SAME. Result Comment: D-Di marcia ELEVATED (>0.49): Additional studies and clinical assessments are indicated to conclude diagnosis of: Deep Vein Thrombosis (DVT) or Pulmonary Embolism (PE) Performed By: #### L 100.0500, L500.4100, L300.8000, L500.4050, L501.9520 #### [facility] [address] [place], [address] L501.4020on 01-12-2024 TROPONIN-I HS 10 pg/mL Normal 3.0-78.0 [facility] Comment on above: Order Comment: 1 Result Comment: Plea se Note: New Test Units and Gender Specific Reference Ranges. For more information see Policy Stat Procedure [place] High Sensitivity Troponin (TNIH) and attachments. Performed By: #### L 100.0500, L500.4100, L300.8000, L500.4050, L501.9520 #### [facility] [address] [place], [address] ED NOTEon 01-03-2024 ED NOTE HNO ID: [id number] Author: PATRICIA BARRAGAN, RN Service: Emergency Medicine Author Type: Registered Nurse Type: ED Notes Filed: 01/03/2024 15:34 Note Text: Pt awake and alert at time of discharge. patient verbalizes understanding of discharge instructions and will follow up as recommended. Pt taken out to waiting room in wheelchair. Normal [facility] ED NOTE HNO ID: [id number] Author: TEJAS VENTURA RN Service: Emergency Medicine Author Type: Registered Nurse Type: ED Notes Filed: 01/03/2024 14:57 Note Text: pt tolerating eye wash station irrigation well Normal [facility] ED NOTE HNO ID: [id number] Author: CHEVY HERNANDEZ RN Service: Emergency Medicine Author Type: Registered Nurse Type: ED Notes Filed: 01/03/2024 14:43 Note Text: Pt states that today he accidentally got PVC primer in his right eye. PT states that he flushed his eyes 3 times after it happened and continues to have discomfort. 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 [...] DO Shaneka Lindsey ALAN 01/03/24 1631 Normal [facility] Orthopedic Visit Reporton Orthopedic Visit Report [facility] [address] [place] [address] OFFICE VISIT Date of Service: 10/30/23 MR#: [id number] Acct: [id number] Name: GEN POTTS Rep #: [id number] : 1965 Provider: Dr. James lagunas MD Age/Sex: 58/M Location: [facility] Status: Signed Intake Vital Signs 06/17/23 09:14 [...] Romeroign Signature: Date (if applicable) CC: Normal [facility] Absolute lymphocyte countOrd ered By: Rogelio Velazquez on 04-29-2023 Lymphocytes Auto (Unsp spec) [#/Vol] 3.17 10*3/uL 0.83-4.51 [facility] Automated lymphocyte count a s percentage of total leukocytesOrdered By: Rogelio Velazquez on 04-29-2023 Lymphocytes/100 WBC Auto (Unsp spec) 45.4 % 19-41 [facility] Basophil percentageOrdered B y: Rogelio Velazquez on 04-29-2023 Basophils/100 WBC (Bld) 0.7 % 0-1 [facility] Bilirubin [Mass/Vol] 0.40 mg/dL 0.20-1.00 [facility] Comment on above: For patients on eltr ombopag therapy, use of Dimension [place] TBIL is not recommended. Chloride [Moles/Vol] 108 mmol/L 98-107 [facility] Eosinophils/100 WBC (Bld) 5.3 % 0-5 [facility] Glucose [Mass/Vol] 85 mg/dL 74-106 [facility] Hemoglobin (Bld) [Mass/Vol] 13.0 g/dL 13.0-16.5 [facility] Monocytes/100 WBC (Bld) 5.0 % 0-10 [facility] Neutrophils (Bld) [#/Vol] 3.0 10*3/uL 2.0-7.7 [facility] Neutrophils/100 WBC (Bld) 43.3 % 47-70 [facility] Potassium [Moles/Vol] 3.9 mmol/L 3.5-5.1 [facility] Protein [Mass/Vol] 7.0 g/dL 6.4-8.2 [facility] Sodium [Moles/Vol] 142 mmol/L 136-145 [facility] WBC (Bld) [#/Vol] 7.0 10*3/uL 4.4-11.0 [facility] Determination of erythrocyte mean corpuscular volume (MCV)Ordered By: Rogelio Velazquez on 04-29-2023 MCV (RBC) [Entitic vol] 93.4 fL 80-94 [facility] Erythrocyte distribution wid th ratioOrdered By: Rogelio Justin on 04-29-2023 Erythrocyte distribution width (RBC) [Ratio] 12.4 % 11.6-14.6 [facility] Erythrocyte distribution wid th standard deviationOrdered By: [facility] Justin on 04-29-2023 Erythrocyte distribution width (RBC) [Entitic vol] 42.5 fL 35.1-43.9 [facility] Hematocrit Auto (Bld) [Volum e fraction]Ordered By: Rogelio Velazquez on 04-29-2023 Hematocrit (Bld) [Volume fraction] 39.9 % 40-54 [facility] Immature granulocytes/100 WB C Auto (Bld)Ordered By: Rogelio Velazquez on 04-29-2023 Immature granulocytes/100 WBC (Bld) 0.300 % 0.0-0.9 [facility] Comment on above: IG% - Immature Granu locytes (promyelocytes, myelocytes and metamyelocytes) > 1% indicates that a LEFT SHIFT is Present. Laboratory - Chemistry and C hemistry - challengeOrdered By: Rogelio Velazquez on 04-29-2023 Albumin/Globulin [Mass ratio] 1.1 {ratio} 0.9-2.4 [facility] ALP [Catalytic activity/Vol] 109 U/L 45-117 [facility] ALT [Catalytic activity/Vol] 18 U/L 16-61 [facility] CO2 [Moles/Vol] 29.0 mmol/L 21.0-32.0 [facility] Globulin (S) [Mass/Vol] 3.4 g/dL 2.2-4.2 [facility] Urea nitrogen/Creatinine [Mass ratio] 18.5 mg/mg 10-20 [facility] - Hematology and Cell countsOrdered By: Rogelio Velazquez on 04-29-2023 MCH (RBC) [Entitic mass] 30.4 pg 27.0-32.0 [facility] MCHC (RBC) [Mass/Vol] 32.6 g/dL 32-36 [facility] Nucleated RBC/100 WBC (Bld) [Ratio] 0 % 0-5 [facility] Platelet mean volume (Bld) [Entitic vol] 11.1 fL 6.2-12.0 [facility] Platelets (Bld) [#/Vol] 266 10*3/uL 150-450 [facility] No Panel InformationOrdered By: Rogelio Velazquez on 04-29-2023 Estimated GFR (MDRD) Amer 125 mL/min >60 [facility] Comment on above: GFR Calc Estimated GFR (MDRD) Non-Af Amer 103 mL/min >60 [facility] Comment on above: Non- GFR Calc Prostate Specific Antigen Screen 0.26 ng/mL 0.00-4.00 [facility] Comment on above: This test was perfor med using the TPSA assay method for the[employer] [employer] chemistry system. Values obtained with differentassay methods cannot be used interchangably.When changing PSA assays in the course of monitoring apatient, additional sequential testing should be carriedout to confirm baseline values. RBC Auto (Bld) [#/Vol]Ordere d By: Rogelio Velazquez on 04-29-2023 RBC (Bld) [#/Vol] 4.27 10*6/uL 4.6-6.2 [facility] Serum or plasma calcium vinnie urement (mass/volume)Ordered By: Rogelio Velazquez on 04-29-2023 Calcium [Mass/Vol] 8.8 mg/dL 8.5-10.1 [facility] Serum or plasma creatinine m easurement (mass/volume)Ordered By: Rogelio Velazquez on 04-29-2023 Creatinine [Mass/Vol] 0.81 mg/dL 0.70-1.30 [facility] Comment on above: The validity of the calculated GFR & GFRAA in patients over 70 years has not been determined. Clinical correlation is essential. Serum or plasma thyroid stim ulating hormone (TSH) measurement (units/volume)Ordered By: Rogelio Velazquez on 04-29-2023 TSH Qn 2.63 uIU/mL 0.358-3.74 [facility] Serum or plasma urea nitroge n measurement (mass/volume)Ordered By: Rogelio Velazquez on 04-29-2023 Urea nitrogen [Mass/Vol] 15 mg/dL 7-18 [facility] Thin prep Papanicolaou smear with manual screeningOrdered By: Rogelio Velazquez on 04-29-2023 Thin prep Papanicolaou smear with manual screening 3.6 g/dL 3.2-5.0 [facility] Thin prep Papanicolaou smear with manual screening 16 U/L 15-37 [facility] Thin prep Papanicolaou smear with manual screening 5 5-15 [facility] Absolute lymphocyte counton 02-13-2022 Lymphocytes Auto (Unsp spec) [#/Vol] 2.83 10*3/uL 0.83-4.51 [facility] Work Phone: Basophil percentageon 2021 Basophils/100 WBC (Bld) 0.8 % 0-1 [facility] Work Phone: Bilirubin [Mass/Vol] 0.60 mg/dL 0.20-1.00 [facility] Work Phone: Comment on above: For patients on eltr ombopag therapy, use of Dimension [place] TBIL is not recommended. Chloride [Moles/Vol] 109 mmol/L 98-107 [facility] Work Phone: Eosinophils/100 WBC (Bld) 4.6 % 0-5 [facility] Work Phone: Glucose [Mass/Vol] 77 mg/dL 74-106 [facility] Work Phone: Neutrophils (Bld) [#/Vol] 2.8 10*3/uL 2.0-7.7 [facility] Work Phone: Neutrophils/100 WBC (Bld) 43.3 % 47-70 [facility] Work Phone: Potassium [Moles/Vol] 3.8 mmol/L 3.5-5.1 [facility] Work Phone: Protein [Mass/Vol] 6.6 g/dL 6.4-8.2 [facility] Work Phone: Sodium [Moles/Vol] 142 mmol/L 136-145 [facility] Work Phone: WBC (Bld) [#/Vol] 6.5 10*3/uL 4.4-11.0 [facility] Work Phone: Blood erythrocytes count (nu mber/volume)on 02-13-2022 RBC (Bld) [#/Vol] 4.52 10*6/uL 4.6-6.2 [facility] Work Phone: Blood hemoglobin measurement (mass/volume)on 02-13-2022 Hemoglobin (Bld) [Mass/Vol] 14.4 g/dL 13.0-16.5 [facility] Work Phone: Blood lymphocytes/100 leukoc yteson 02-13-2022 Lymphocytes/100 WBC (Bld) 43.5 % 19-41 [facility] Work Phone: Blood monocytes/100 leukocyt eson 02-13-2022 Monocytes/100 WBC (Bld) 7.5 % 0-10 [facility] Work Phone: Blood platelet mean volumeon 02-13-2022 Platelet mean volume (Bld) [Entitic vol] 11.4 fL 6.2-12.0 [facility] Work Phone: Determination of erythrocyte mean corpuscular volume (MCV)on 02-13-2022 MCV (RBC) [Entitic vol] 95.1 fL 80-94 [facility] Work Phone: Hematocrit Auto (Bld) [Volum e fraction]on 02-13-2022 Hematocrit (Bld) [Volume fraction] 43.0 % 40-54 [facility] Work Phone: Laboratory - Chemistry and C hemistry - challengeon 02-13-2022 ALP [Catalytic activity/Vol] 83 U/L 45-117 [facility] Work Phone: ALT [Catalytic activity/Vol] 27 U/L 16-61 [facility] Work Phone: CO2 [Moles/Vol] 28.0 mmol/L 21.0-32.0 [facility] Work Phone: [phone] Globulin (S) [Mass/Vol] 2.9 g/dL 2.2-4.2 [facility] Work Phone: Urea nitrogen/Creatinine [Mass ratio] 21.1 mg/mg 10-20 [facility] Work Phone: Laboratory - Hematology and Cell countson 02-13-2022 Erythrocyte distribution width (RBC) [Entitic vol] 46.5 fL 35.1-43.9 [facility] Work Phone: Erythrocyte distribution width (RBC) [Ratio] 13.2 % 11.6-14.6 [facility] Work Phone: Immature granulocytes/100 WBC (Bld) 0.300 % 0.0-0.9 [facility] Work Phone: Comment on above: IG% - Immature Granu locytes (promyelocytes, myelocytes and metamyelocytes) > 1% indicates that a LEFT SHIFT is Present. MCH (RBC) [Entitic mass] 31.9 pg 27.0-32.0 [facility] Work Phone: Nucleated RBC/100 WBC (Bld) [Ratio] 0 % 0-5 [facility] Work Phone: MCHC Auto (RBC) [Mass/Vol]on 02-13-2022 MCHC (RBC) [Mass/Vol] 33.5 g/dL 32-36 [facility] Work Phone: No Panel Informationon 02-13 Estimated GFR (MDRD) Amer 119 mL/min >60 [facility] Work Phone: Comment on above: GFR Calc Estimated GFR (MDRD) Non-Af Amer 98 mL/min >60 [facility] Work Phone: Comment on above: Non- GFR Calc Prostate Specific Antigen Screen 0.21 ng/mL 0.00-4.00 [facility] Work Phone: Comment on above: This test was perfor med using the TPSA assay method for the[employer] chemistry system. Values obtained with differentassay methods cannot be used interchangably.When changing PSA assays in the course of monitoring apatient, additional sequential testing should be carriedout to confirm baseline values. Thyroid Stimulating Hormone (TSH) 3.03 uIU/mL 0.358-3.74 [facility] Work Phone: Platelets bldon 02-13-2022 Platelets (Bld) [#/Vol] 208 10*3/uL 150-450 [facility] Work Phone: Serum or plasma albumin vinnie urement (mass/volume)on 02-13-2022 Albumin [Mass/Vol] 3.7 g/dL 3.2-5.0 [facility] Work Phone: [phone] Serum or plasma albumin/glob ulin mass ratioon 02-13-2022 Albumin/Globulin [Mass ratio] 1.3 {ratio} 0.9-2.4 [facility] Work Phone: [phone] Serum or plasma calcium vinnie urement (mass/volume)on 02-13-2022 Calcium [Mass/Vol] 8.6 mg/dL 8.5-10.1 [facility] Work Phone: [phone] Serum or plasma creatinine m easurement (mass/volume)on 02-13-2022 Creatinine [Mass/Vol] 0.85 mg/dL 0.70-1.30 [facility] Work Phone: Comment on above: The validity of the calculated GFR & GFRAA in patients over 70 years has not been determined. Clinical correlation is essential. Serum or plasma urea nitroge n measurement (mass/volume)on 02-13-2022 Urea nitrogen [Mass/Vol] 18 mg/dL 7-18 [facility] Work Phone: Thin prep Papanicolaou smear with manual screeningon 02-13-2022 Thin prep Papanicolaou smear with manual screening 14 U/L 15-37 [facility] Work Phone: [phone] Thin prep Papanicolaou smear with manual screening 5 5-15 [facility] Work Phone: [phone] Absolute lymphocyte counton 08-24-2021 Lymphocytes Auto (Unsp spec) [#/Vol] 2.88 10*3/uL 0.83-4.51 [facility] Work Phone: Basophil percentageon 2021 Basophils/100 WBC (Bld) 0.4 % 0-1 [facility] Work Phone: [phone] Bilirubin [Mass/Vol] 0.70 mg/dL 0.20-1.00 [facility] Work Phone: [phone] Comment on above: For patients on eltr ombopag therapy, use of Dimension [place] TBIL is not recommended. Chloride [Moles/Vol] 105 mmol/L 98-107 [facility] Work Phone: Eosinophils/100 WBC (Bld) 0.3 % 0-5 [facility] Work Phone: Glucose [Mass/Vol] 99 mg/dL 74-106 [facility] Work Phone: Neutrophils (Bld) [#/Vol] 6.5 10*3/uL 2.0-7.7 [facility] Work Phone: Neutrophils/100 WBC (Bld) 64.8 % 47-70 [facility] Work Phone: Potassium [Moles/Vol] 4.3 mmol/L 3.5-5.1 [facility] Work Phone: Protein [Mass/Vol] 7.7 g/dL 6.4-8.2 [facility] Work Phone: Sodium [Moles/Vol] 139 mmol/L 136-145 [facility] Work Phone: WBC (Bld) [#/Vol] 10.1 10*3/uL 4.4-11.0 [facility] Work Phone: Blood erythrocytes count (nu mber/volume)on 08-24-2021 RBC (Bld) [#/Vol] 4.56 10*6/uL 4.6-6.2 [facility] Work Phone: Blood hemoglobin measurement (mass/volume)on 08-24-2021 Hemoglobin (Bld) [Mass/Vol] 14.9 g/dL 13.0-16.5 [facility] Work Phone: Blood lymphocytes/100 leukoc yteson 08-24-2021 Lymphocytes/100 WBC (Bld) 28.6 % 19-41 [facility] Work Phone: Blood monocytes/100 leukocyt eson 08-24-2021 Monocytes/100 WBC (Bld) 5.4 % 0-10 [facility] Work Phone: Blood platelet mean volumeon 08-24-2021 Platelet mean volume (Bld) [Entitic vol] 11.6 fL 6.2-12.0 [facility] Work Phone: [phone] Determination of erythrocyte mean corpuscular volume (MCV)on 08-24-2021 MCV (RBC) [Entitic vol] 96.3 fL 80-94 [facility] Work Phone: [phone] Hematocrit Auto (Bld) [Volum e fraction]on 08-24-2021 Hematocrit (Bld) [Volume fraction] 43.9 % 40-54 [facility] Work Phone: [phone] Laboratory - Chemistry and C hemistry - challengeon 08-24-2021 ALP [Catalytic activity/Vol] 82 U/L 45-117 [facility] Work Phone: [phone] ALT [Catalytic activity/Vol] 63 U/L 16-61 [facility] Work Phone: [phone] CO2 [Moles/Vol] 29.0 mmol/L 21.0-32.0 [facility] Work Phone: [phone] Globulin (S) [Mass/Vol] 3.5 g/dL 2.2-4.2 [facility] Work Phone: [phone] Urea nitrogen/Creatinine [Mass ratio] 16.6 mg/mg 10-20 [facility] Work Phone: [phone] Laboratory - Hematology and Cell countson 08-24-2021 Erythrocyte distribution width (RBC) [Entitic vol] 46.0 fL 35.1-43.9 [facility] Work Phone: [phone] Erythrocyte distribution width (RBC) [Ratio] 13.1 % 11.6-14.6 [facility] Work Phone: [phone] Immature granulocytes/100 WBC (Bld) 0.500 % 0.0-0.9 [facility] Work Phone: [phone] Comment on above: IG% - Immature Granu locytes (promyelocytes, myelocytes and metamyelocytes) > 1% indicates that a LEFT SHIFT is Present. MCH (RBC) [Entitic mass] 32.7 pg 27.0-32.0 [facility] Work Phone: Nucleated RBC/100 WBC (Bld) [Ratio] 0 % 0-5 [facility] Work Phone: MCHC Auto (RBC) [Mass/Vol]on 08-24-2021 MCHC (RBC) [Mass/Vol] 33.9 g/dL 32-36 [facility] Work Phone: No Panel Informationon 08-24 Estimated GFR (MDRD) Amer 111 mL/min >60 [facility] Work Phone: Comment on above: GFR Calc Estimated GFR (MDRD) Non-Af Amer 92 mL/min >60 [facility] Work Phone: Comment on above: Non- GFR Calc Platelets bldon 08-24-2021 Platelets (Bld) [#/Vol] 271 10*3/uL 150-450 [facility] Work Phone: Serum or plasma albumin vinnie urement (mass/volume)on 08-24-2021 Albumin [Mass/Vol] 4.2 g/dL 3.2-5.0 [facility] Work Phone: Serum or plasma albumin/glob ulin mass ratioon 08-24-2021 Albumin/Globulin [Mass ratio] 1.2 {ratio} 0.9-2.4 [facility] Work Phone: Serum or plasma calcium vinnie urement (mass/volume)on 08-24-2021 Calcium [Mass/Vol] 9.7 mg/dL 8.5-10.1 [facility] Work Phone: Serum or plasma creatinine m easurement (mass/volume)on 08-24-2021 Creatinine [Mass/Vol] 0.90 mg/dL 0.70-1.30 [facility] Work Phone: Comment on above: The validity of the calculated GFR & GFRAA in patients over 70 years has not been determined. Clinical correlation is essential. Serum or plasma urea nitroge n measurement (mass/volume)on 08-24-2021 Urea nitrogen [Mass/Vol] 15 mg/dL 7-18 [facility] Work Phone: Thin prep Papanicolaou smear with manual screeningon 08-24-2021 Thin prep Papanicolaou smear with manual screening 21 U/L 15-37 [facility] Work Phone: Thin prep Papanicolaou smear with manual screening 5 5-15 [facility] Work Phone: Vital Signs Date Time Vital Sign Value Performing Clinician Johnny johnston 02-22-2024 13:36-0500 Body height 180.3 cm Bigg Slabaugh PA-C Work Phone: [facility] 02-22-2024 13:36-0500 Body mass index (BMI) [Ratio] 25.26 kg/m2 Bigg Slabaugh PA-C Work Phone: [facility] 02-22-2024 13:36-0500 Body temperature 98.4 [degF] Bigg Slabaugh PA-C Work Phone: [facility] 02-22-2024 13:36-0500 Body weight 82.15 kg Bigg Slabaugh PA-C Work Phone: [facility] 02-22-2024 13:36-0500 Diastolic blood pressure 92 mm[Hg] Bigg Slabaugh PA-C Work Phone: [facility] 02-22-2024 13:36-0500 Heart rate 67 /min Bigg Slabaugh PA-C Work Phone: [facility] 02-22-2024 13:36-0500 Respiratory rate 18 /min Bigg Slabaugh PA-C Work Phone: [facility] 02-22-2024 13:36-0500 SaO2% (BldA) [Mass fraction] 98 % Bigg Slabaugh PA-C Work Phone: [facility] 02-22-2024 13:36-0500 Systolic blood pressure 172 mm[Hg] Bigg Slabaugh PA-C Work Phone: [facility] 05-07-2023 13:31-0500 Body temperature 97.8 [degF] Dr. Rogelio Velazquez Work Phone: [facility] 05-07-2023 13:31-0500 Diastolic blood pressure 84 mm[Hg] Dr. Rogelio Velazquez Work Phone: [facility] 05-07-2023 13:31-0500 Heart rate 51 /min Dr. Rogelio Velazquez Work Phone: [facility] 05-07-2023 13:31-0500 Respiratory rate 16 /min Dr. Rogelio Velazquez Work Phone: [facility] 05-07-2023 13:31-0500 SaO2% (BldA) [Mass fraction] 97 % Dr. Rogelio Velazquez Work Phone: [facility] 05-07-2023 13:31-0500 Systolic blood pressure 145 mm[Hg] Dr. Rogelio Velazquez Work Phone: [facility] 05-07-2023 08:25-0500 Body height 180.[address] Rogelio Velazquez Work Phone: [facility] 05-07-2023 08:25-0500 Body mass index (BMI) [Ratio] 22.4 kg/m2 Dr. Rogelio Velazquez Work Phone: [facility] 05-07-2023 08:25-0500 Body weight 73.[address] Rogelio Velazquez Work Phone: [facility] 10-23-2021 14:22-0400 Body height 180.3 cm Nicolle Parishye ENGINEERING AND DEVELOPMENT DIRECTOR.AMMONIA BOX OPERATOR Work Phone: [facility] 10-23-2021 14:22-0400 Body weight 78.47 kg Nicolle Brewer ENGINEERING AND DEVELOPMENT DIRECTOR.AMMONIA BOX OPERATOR Work Phone: [facility] 10-23-2021 14:22-0400 Diastolic blood pressure 80 mm[Hg] Nicolle Parishye ENGINEERING AND DEVELOPMENT DIRECTOR.AMMONIA BOX OPERATOR Work Phone: [facility] 10-23-2021 14:22-0400 Heart rate 69 /min Nicolle Brewer ENGINEERING AND DEVELOPMENT DIRECTOR.AMMONIA BOX OPERATOR Work Phone: [facility] 10-23-2021 14:22-0400 Respiratory rate 16 /min Nicolle Osman ENGINEERING AND DEVELOPMENT DIRECTOR.AMMONIA BOX OPERATOR Work Phone: [facility] 10-23-2021 14:22-0400 Systolic blood pressure 153 mm[Hg] Nicollepauline Parishye ENGINEERING AND DEVELOPMENT DIRECTOR.AMMONIA BOX OPERATOR Work Phone: [facility] Encounters Encounter Date Encounter Type Care Provider Facility Start: 10-04-2024 End: 10-04-2024 ambulatory Ayman Basali Facility:[facility] Start: 09-08-2024 End: 09-08-2024 ambulatory Saira Wylie Facility:[facility] Start: 08-02-2024 End: 08-02-2024 [facility] Start: 07-29-2024 ambulatory Rogelio Chi Justin Facility:[facility] Start: 07-14-2024 End: 07-14-2024 ambulatory Rogelio Chi Justin Facility:[facility] Start: 06-22-2024 ambulatory Rogelio Chi Justin [facility] Start: 06-22-2024 End: 06-22-2024 Evaluation and management of inpatient Rogelio Chi Justin Facility:[facility] Start: 06-21-2024 End: 06-21-2024 ambulatory Rogelio Chi Justin Facility:[facility] Start: 05-25-2024 End: 05-25-2024 ambulatory Rogelio Chi Justin Facility:[facility] Start: 05-18-2024 End: 05-18-2024 ambulatory Rogelio Chi Justin Facility:[facility] Start: 05-10-2024 End: 05-10-2024 ambulatory Rogelio Chi Justin Facility:[facility] Start: 03-22-2024 End: 03-22-2024 ambulatory Ayman Basali Facility:[facility] Start: 03-04-2024 End: 03-04-2024 ambulatory Rogelio Chi Justin Facility:[facility] Start: 02-22-2024 End: 02-22-2024 ambulatory ROGELIO CHI JUSTIN Facility:[facility] Start: 02-22-2024 End: 02-22-2024 Patient encounter procedure Bigg West PA-C Work Phone: [facility] Comment on above: URI with cough and c ongestion (Primary Dx); Sinus drainage Start: 02-19-2024 ambulatory Rogelio Chi Justin Facility:[facility] Start: 01-14-2024 End: 01-14-2024 ambulatory [facility] Justin Facility:[facility] Start: 01-13-2024 End: 01-13-2024 ambulatory Rogelio [facility] Justin Facility:[facility] Start: 01-12-2024 End: 01-12-2024 ambulatory Orgelio Chi Justin Facility:[facility] Start: 01-05-2024 ambulatory Rogelio [facility] Justin [facility] Start: 01-03-2024 End: 01-03-2024 Emergency department patient visit SAMSON QUIROS Facility:[facility] Start: 10-30-2023 End: 10-30-2023 ambulatory Rogelio Castillook Facility:[facility] Start: 05-07-2023 Non-patient / Non-visit Dr. Gil Velazquez Work Phone: [facility] Start: 05-07-2023 End: 05-07-2023 Admission to same day surgery center Dr. Rogelio Velazquez Work Phone: [facility] Start: 05-07-2023 End: 05-07-[address] Rogelio Velazquez Work Phone: [facility] Work Phone: Start: 04-29-2023 End: 04-29-[address] Rogelio Velazquez Work Phone: [facility] Work Phone: Start: 04-29-2023 End: 04-29-[address] Rogelio Velazquez Work Phone: [facility] Phy [facility] 3rd Flr Start: 04-29-2023 End: 04-29-2023 Non-patient / Non-visit Dr. Rogelio Velazquez Work Phone: [facility] Work Phone: Start: 03-14-2023 End: 03-14-[address] Rogelio Velazquez Work Phone: [facility] Work Phone: Start: 03-05-2023 End: 03-05-[address] Rogelio Velazquez Work Phone: [facility] Work Phone: Start: 02-13-2022 End: 02-13-[address] Rogelio Velazquez Work Phone: [facility] Work Phone: Start: 02-13-2022 End: 02-13-[address] Rogelio Velazquez Work Phone: [facility]y [facility] 3rd Flr Start: 11-22-2021 End: 11-22-2021 ambulatory CARI SINGH APRN-[facility] Facility:[facility] Start: 11-21-2021 End: 11-21-[address] Rogelio Velazquez Work Phone: [facility] Start: 10-23-2021 End: 10-23-2021 Patient encounter procedure Nicolle Brewer APRN.[facility] Work Phone: [facility] Comment on above: Antibiotic treatment within past 2 months (Primary Dx); Elevated blood pressure reading; Viral URI with cough Start: 08-24-2021 End: 08-24-[address] Rogelio Velazquez Work Phone: [facility] Start: 08-16-2021 End: 08-16-[address] Rogelio Velazquez Work Phone: [facility] Start: 06-06-2021 End: 06-06-[address] Rogelio Velazquez Work Phone: [facility] Start: 05-29-2021 End: 05-29-[address] [facility] Procedures Date Procedure Procedure Detail Performing Clinician [...] Screening for malign ant neoplasm of colon [facility] Start: 11-16-2023 Covid-19 Vaccine () Covid-19 Vaccine () [facility] Start: 05-07-2023 Patient discharge [facility] Start: 05-07-2023 Application of ice collar, cap or bag [facility] Start: 05-07-2023 Assessment of risk o f venous thromboembolism [facility] Start: 05-07-2023 Catheterization of vein [facility] Start: 05-07-2023 Deep breathing and coughing exercises [facility] Start: 05-07-2023 Following clinical pathway protocol [facility] Start: 05-07-2023 Incentive spirometry [facility] Start: 05-07-2023 Introduction of urin vane catheter [facility] Start: 05-07-2023 Patient education [facility] Start: 05-07-2023 Taking patient vital signs [facility] Start: 05-07-2023 Vital signs measurements [facility] Start: 05-07-2023 End: 05-07-2023 [facility] Start: 05-07-2023 Medication education [facility] Start: 11-15-2021 Influenza vaccination INFLUENZA (#1) [facility] Start: 08-10-2019 PROSTATE CANCER SCRE ENING DISCUSSION PROSTATE CANCER SCREENING DISCUSSION [facility] Start: 08-10-2019 Prostate specific an tigen measurement Prostate Cancer Screening Discussion [facility] Start: 2014 SHINGRIX VACCINE (1 of 2) KLINE GRIX VACCINE (1 of 2) [facility] Start: 10-28-2012 Urine microalbumin profile DTaP,Tdap,Td Vaccine (1 - Tdap) [facility] Start: 2009 COLOGUARD (FIT-DNA) COLOGUARD (FIT-D NA) [facility] Start: 2009 Colonoscopy COLONOSCOPY [facility] Start: 2009 COLORECTAL CANCER SCREENING COLORECTAL CANCER SCREENING [facility] Start: [address] COLONOGRAPHY [facility] Start: 2009 DIABETES SCREEN DIABETES SCREEN [facility] Start: 2009 Diabetes Screening Diabetes Screenin g [facility] Start: 2009 FECAL OCCULT BLOOD FECAL OCCULT BLOO D [facility] Start: 2009 Screening for malign ant neoplasm of colon [facility] Start: 2009 SIGMOIDOSCOPY SIGMOIDOSCOPY [facility] Start: 08-10-1999 Lipid panel Lipid Screening [facility] Start: 08-10-1999 LIPID SCREEN LIPID SCREEN [facility] Start: 08-10-1983 Urine microalbumin profile DTAP,TDAP,TD (1 - Tdap) [facility] Start: 1982 Anxiety Screening Anxiety Screening [facility] Start: 1982 Depression Screening Depression Scre [facility] Start: 1982 HEPATITIS C SCREENING HEPATITIS C [facility] Start: 1982 Hepatitis C screening Hepatitis C [facility] Start: 1982 HIV SCREENING HIV SCREENING [facility] Start: 1982 HIV screening HIV Screening [facility] Start: 1976 Adult depression screening assessment DEPRESSION SCREENING [facility] Start: 02-09-1965 COVID-19 VACCINE (#1) COVID-19 VACCI NE (#1) [facility] Start: 1964 HEPATITIS B (1 of 3 - 3-dose series) HEPATITIS B (1 of 3 - 3-dose series) [facility] Patient Education After Shoulder Arthroscopy [facility] Work Phone: Patient referral [facility] Work Phone: SARS-CoV-2 (COVID-19 ) RNA [Presence] in Respiratory specimen by PO with probe detection 2019 CORONAVIRUS Microbiology Routine Viral URI with cough Ordered: 10/23/2021 [facility] Work Phone: Comment on above: Ordered: 10/23/2021 End: 03-23-2025 XR Chest PA and Lateral XR CHEST 2V FRONTAL/LAT Radiology STAT URI with cough and congestion 1 Occurrences starting 02/22/2024 until 03/23/2025 [facility] Work Phone: Comment on above: 1 Occurrences starti ng 02/22/2024 until 03/23/2025 Payers Date Payer Category Payer Unknown [id number] 2023 Self-pay [id number] 2022 Unknown [id number] 2021 Unknown [id number] 2016 Unknown [id number] 1965 Unknown [id number] 2.16.8 [id number] Unknown [id number] Unknown [id number] 2.16.8 [id number] Unknown [id number] 2.16.8 40.1.031056.3.579.2.462 Unknown [id number] 2.16.8 40.1.571549.3.579.2.462 Unknown [id number] 2.16.8 40.1.984803.3.579.2.462 Unknown [id number] 2.16.8 40.1.784353.3.579.2.462 Unknown [id number] 2.16.8 40.1.305139.3.579.2.462 Unknown [id number] 2.16.8 40.1.329609.3.579.2.462 Unknown [id number] 2.16.8 40.1.289407.3.579.2.462 Unknown [id number] 2.16.8 40.1.999465.3.579.2.462 Unknown [id number] 2.16.8 40.1.225888.3.579.2.462 Unknown [id number] 2.16.8 40.1.592598.3.579.2.462 Unknown [id number] 2.16.8 40.1.119064.3.579.2.462 Unknown [id number] 2.16.8 40.1.576856.3.579.2.462 Unknown [id number] 2.16.8 40.1.251063.3.579.2.462 Unknown [id number] 2.16.8 40.1.954524.3.579.2.462 Unknown [id number] 2.16.8 40.1.904411.3.579.2.462 Unknown [id number] 2.16.8 40.1.510726.3.579.2.462 Unknown [id number] 2.16.8 40.1.840355.3.579.2.462 Unknown [id number] 2.16.8 40.1.438020.3.579.2.462 Unknown [id number] 2.16.8 40.1.500931.3.579.2.462 Unknown [id number] 2.16.8 40.1.888860.3.579.2.462 Unknown [id number] 2.16.8 40.1.219931.3.579.2.462 Unknown [id number] 2.16.8 40.1.744733.3.579.2.462 Social History Date Type Detail Facility Start: 08-16-2021 End: 04-28-2023 Tobacco smoking status NHIS Unknown if ever smoked [facility] Start: 09-16-2019 Cigarettes [facility] Start: 1965 Sex Assigned At Male [facility] Start: 1965 Sex Assigned At Not on file [facility] Start: 10-13-2021 End: 10-23-2021 Exposure to SARS-CoV-2 (event) Not sure [facility] Start: 01-04-2024 History of Social function [facility] Start: 01-04-2024 Area Deprivation Index [facility] National Score (1-10 0), lower number is lower risk 59 [facility] Medical Equipment Procedure Code Equipment Code [...] Assessment Result Facility 05-07-2023 Cognitive function Voice/Name [facility] Work Phone: Clinical Notes 08-23-2021 to 06-22-2024 Patient InstructionsSBigg bledsoe PA-C - 02/22/2024 1:47 PM EST Note Date & Type Note Facility 06-22-2024 Note [facility] Medical Records Department [address] [place] [id number] Discharge Summary 06/22/24 1524 MR#: [id number] Acct: [id number] Name: GEN POTTS Rep #: [id number] : 1965 58 From: Yadira Cruz MD PCP: Dr. Rogelio Velazquez MD Status:DIS IN Location: [place] [address] Providers Date of Admission: 06/22/24 Date of [...] Conti of pain management who presents to [facility] ER complaining of chest pain, shortness [...] 84 ng/L suspicious for early non-ST elevation CA in the setting of ongoing tobacco abuse [...] for lab wor (more content not included)... [facility] 02-22-2024 Instructions Bigg West PA-C - 02/22/2024 1:51 PM EST ASSESSMENT/PLAN: 1. URI with cough and congestion - - XR CHEST 2V FRONTAL/LAT Get your chest x-ray as an outpatient [facility] in [place] [address], [facility] [address] Outpatient radiology department Walk in 7am -6:30pm [...] Bigg West PA-C documented in this encounter [facility] 02-22-2024 Note HNO ID: [id number] Author: BIGG WEST PA-C Service: ? Author Type: Physician Prosthetic Aides Teacher Type: Progress Notes Filed: 02/22/2024 14:12 Note [...] tenderness or frontal sinus tenderness. Mouth/Throat: Lips: [place]. No lesions. Mouth: Mucous membranes are moist. [...] rhythm. Heart sound (more content not included)... [facility] 02-22-2024 History of Presen t illness Narrative [...] tenderness or frontal sinus tenderness. Mouth/Throat: Lips: [place]. No lesions. Mouth: Mucous membranes are moist. [...] Get your chest x-ray as an outpatient [facility]/ [facility] [address], [facility] [address] Outpatient radiology department Walk in 7am -6:30pm [...] which included preparing to see the patient, [id number] patient care, completing clinical documentation, performing a medically appropriate examination, counseling and educating the patient/family/caregiver, and ordering medications, tests, or procedures. documented in this encounter [facility] 05-07-2023 History and physi edna note Note Date/Time May 07, 2023 11:17am [facility] Medical Records Department [address] [place] [id number] History & Physical Exam 05/07/23 1114 MR#: [id number] Acct: [id number] Name: GEN POTTS Rep #:[id number] : 1965 57 From: James Justin MD PCP: Dr. Rogelio Velazquez MD Status:REG S DC Location: [place] [address]-1 HPI - General HPI Narrative GEN POTTS, is a 57 M who presents for left shoulder arthroscopy, subacromial decompression, rotator cuff repair. no changes to h and p. shoulder marked. ok to proceed, rab and narcotic counselling, post op instructions given. MR#: [id number] Acct: [id number] Name: GEN POTTS Rep #: [id number] : 1965 Provider: Dr. James Justin MD Age/Sex: 57/M Location: [facility] Status: Signed Intake Vital Signs 04/21/2107:30 Height [...] by me, Dr. James Justin MD 03/14/23 7961. Part of today?s visit was documented by [...] up at night. PT - went to [facility] for a[facility]. Ortho Exam General General: Yes [...] TTP AC Joint, Yes empty can, No [place], No scapular winging and Yes belly press normal SHOULDER: normal motor and sens to ax nerve, and MRU and AIN/PIN active fe 120, passive 160, er 45 Strength in forward elevation and external rotation both 4+/5. Strong radial pulse. Supplemental Info [facility] Imaging Services [address] [place] [address] Shoulder min 2 Views MR#: [id number] Acct: [id number] Name: GEN POTTS Jr. Rep #: [id number] : 1965 M 54 From: Silver Blair MD PCP: Dr. Rgoelio Velazquez MD Status: REG CLI Study: Shoulder min 2 Views Date of Exam: 08/26/19 Exam# [id number] Ordering Dr: Sowmya Conti MD STUDY: X-RAY [...] at 14:58 EDT , Service support , [facility] Imaging Services [address] [place] [id number] Shoulder min 2 Views MR#: [id number] Acct: [id number] Name: GEN POTTS Jr. Rep #: [id number] : 1965 M 54 From: Silver Blair MD PCP: Dr. Rogelio Velazquez MD Status: REG CLI Study: Shoulder min 2 Views Date of Exam: 08/26/19 Exam# [id number] Ordering Dr: Sowmya Conti MD STUDY: X-RAY [...] at 20:25 EDT , Service support , [facility] Imaging Services [address] [place] [address] Upper Ext Joint Only(Routine) MR#: [id number] Acct: [id number] Name: GEN POTTS Rep #: [id number] : 1965 M 55 From: Orville Chandler MD PCP: Dr. Rogelio Velazquez MD Status: REG CLI Study: Upper Ext Joint Only(Routine) Date of Exam: 05/29/21 Exam# [id number] Ordering Dr: Sean Mckeon DO STUDY: MRI [...] 8:37 EDT Reading Location ID and State: [facility] / [place] Tel , Service support , [facility] Imaging Services [address] [place] [id number] Upper Ext Joint Only(Routine) MR#: [id number] Acct: [id number] Name: GEN POTTS Rep #: [id number] : 1965 M 55 From: Bolivar Mcpherson MD PCP: Dr. Rogelio Velazquez MD Status: REG CLI Study: Upper Ext Joint Only(Routine) Date of Exam: 05/29/21 Exam# [id number] Ordering Dr: Sean Mckeon DO EXAM: MR LEFT UPPER EXTREMITY WITHOUT INTRAVENOUS CONTRAST, SHOULDER CLINICAL INDICATION: pain TECHNIQUE: Multiplanar and multisequence MR images of the left shoulder without intravenous contrast. This report was created using [employer] report generation technology. COMPARISON: None. FINDINGS: TENDONS: [...] signed the informed consent documentation. [facility] Medical History (Updated 04/28/23 @ 11:20 by Soco Tan) Anxiety Arthritis Back pain Cervicalgia Former smoker [...] applicable): CC: Dr. James Justin MD; Dr. Rogleio Velazquez MD~ Signed [facility] Work Phone: 1(311) 318-745002-21-2024 Procedure [facility] 10-23-2021 History of Present illness Narrative* Nicolle Brewer APRN.AMMONIA BOX OPERATOR - 10/23/2021 2:19 PM EDT This note [...] which included preparing to see the patient, gyzo-ov-tudc patient care, completing clinical documentation, obtaining and/or reviewing separately obtained history, performing a medically appropriate examination, counseling and educating the pat ient/family/caregiver, and ordering medications, tests, or procedures. This patient encounter involved the screening or treatment of novel coronavirus infection (COVID-19). [facility] Inst[facility]* Patient Instructions* Nicolle Brewer APRN.CNP [...] Colds inevitably last 10 to 14 days. [place] down and wait it out. Green. Your immune system is really fighting back. The mucus is thick with white cells and other wreckage from the oliva. If you re still sick after about 12 days, you may want to see a doctor.It could be sinusitis, a bacterial infection. If you re feverish or nauseated, see a doctor soon. [place] or red. This is blood. Your nasal tissue in the nose has somehow become broken -- perhaps because it s dry, irritated or suffered some kind of impact. Brown. This shade could be blood, but likely it s something inhaled, like dirt, snuff or paprika. [facility] Evaluation note* Diagnosis Antibiotic treatment within past 2 months- Primary Elevated blood pressure reading Elevated blood pressure reading without diagnosis of hypertension Viral URI with cough Acute upper respiratory infections of unspecified site [facility] Author James Justin [facility] May 07, 2023 1:03pm Note Date/Time May 07, 2023 1:02pm [facility] Medical Records Department [address] [place] [address] Instructions for Home/Discharge Instructions 05/07/23 1301 MR#: [id number] Acct: [id number] Name: GEN POTTS Rep #:[id number] : 1965 57 From: James Justin MD [...] CC: Dr. Rogelio Velazquez MD ~ Signed [facility] Work Phone: Evaluation note* Diagnosis Onset Date Resolution Status Subacromial bursitis of both shoulders acute Biceps tendinitis of both upper extremities acute Subacromial bursitis of both shoulders acute Subacromial impingement of left shoulder acute Subacromial impingement of right shoulder acute [facility] Work Phone: Evaluation note* Diagnosis Onset Date Resolution Status Biceps tendinitis of both upper extremities acute Degenerative cervical disc a cute Subacromial bursitis of both shoulders acute [facility] Work Phone: Evaluation note* Diagnosis Onset Date Resolution Status Subacromial bursitis of both shoulders acute Left rotator cuff tear acute Right rotator cuff tear acut e Subacromial bursitis of both shoulders acute Subacromial impingement of left shoulder acute Subacromial impingement of right shoulder acute [facility] Work Phone: Evaluation note* Diagnosis Onset Date Resolution Status Subacromial bursitis of both shoulders acute Left rotator cuff tear acute Right rotator cuff tear acut e Subacromial bursitis of both shoulders acute Subacromial impingement of left shoulder acute Subacromial impingement of right shoulder acute Left rotator cuff tear acute Subacromial impingement of left shoulder acute [facility] Work Phone: Evaluation note* Diagnosis URI with cough and congestion- Primary Sinus drainage Other diseases of nasal cavity and sinuses documented in this encounter [facility] Chief Complaint and Reason for Visit [...] August 07, 2020 1 :52pm Power of Dairy Tester No August 07, 2020 1:52pm Advance Directive Response Recorded Date/ Time Living Will No August 07, 2020 1 2:52pm Power of Dairy Tester No August 07, 2020 12:52pm Advance Directive Response Recorded Date/ Time Living Will No April 28 11:09am Power of Dairy Tester No April 28, 2023 11:09am Summary Purpose [...] or prosecute any alcohol or drug abuse patient.[facility] the event this information is protected by the Federal Confidentiality of Alcohol and Drug Abuse Patient Records regulations: The Federal rules restrict any use of the information to criminally investigate or prosecute any alcohol or drug abuse patient.[facility] Reason for Visit (unrecogniz ed section and content) Reason Comments Viral Syndrome Started 4 days ago Reason Comments Viral Syndrome Sinus congestion, co ughing up yellow mucous, sinus pressure in the frontal and maxillary sinus cavities, headaches, hot/cold, Right ear pain(pt has a blown ear drum), Care Teams (unrecognized sec tion and content) Wildlife Refuge Manager Relationship Specialty Start Date End Date JustinRogelio lai Chi [address] [facility] [address] [place], [place] [address] PCP - General Gerontology 04/02/19 Team Status: [...] MD Attending Provider, Referring Prov ider Active Wildlife Refuge Manager Relationship Specialty Start Date End Date Justin Rogelio Martinez [address] [facility] [address] [place], [place] [address] PCP - General Gerontology 04/02/19 (unrecognized sect ion and content) No Status Records FoundNo Status Records FoundNo Status Records Found INFORMATION SOURCE (unrecogn ized section and content) DATE CREATED AUTHOR 11/27/2021 [facility] ([place]) DATE CREATED AUTHOR AUTHOR'S ORGANIZ ATION 02/25/2024 [facility] CREATED AUTHOR AUTHOR'S HUDSON ATION 10/09/2024 [facility] FOR RECORDS PERTAINING TO PATIENTS WHO ARE [...] BE BASED ON THE PRIMARY CLINICAL RECORDS. [employer] [facility]. provides no warranty or guarantee of the accuracy or completeness of information in this document.
[2024-10-21 18:20] LABS: Hematocrit 41.1 % (40-54); Hemoglobin 13.8 g/dL (13.0-16.5); Immature Granulocytes Count 0.010 X10^3/uL (0.0-0.0); Mean Corp Hgb Conc 33.6 g/dL (32-36); Mean Corpuscular Volume 93.6 fL (80-94); Mean Platelet Vol. 10.7 fl (6.2-12.0); NRBC Flagged by Analyzer 0 % (0-5); Platelet Count 307 K/mm3 (150-450); RBC Distribution Width CV 12.7 % (11.6-14.6); RBC Distribution Width SD 43.8 fl (35.1-43.9); Red Blood Count 4.39 M/mm3 (4.6-6.2); White Blood Count 6.3 K/mm3 (4.4-11.0)
[2024-10-21 20:05] LABS: AST(SGOT) 20 U/L (<=37); Alanine Aminotransfer ALT/SGPT 15 U/L (<=46); Albumin, Serum 4.2 g/dL (3.4-4.8); Alkaline Phosphatase 99 U/L (40-129); Anion Gap 12 (5-15); BUN 19 mg/dL (4-19); BUN/Creat Ratio 22.6 RATIO (10-20); Calcium,Total 9.6 mg/dL (7.6-11.0); Carbon Dioxide 24.7 mmol/L (21.0-32.0); Chloride 103 mmol/L (98-108); Globulin 3.6 g/dL (2.2-4.2); Glucose 92 mg/dL (70-99); Potassium 4.6 mmol/L (3.3-5.1)
[2024-10-22 01:42] LABS: Xtra Tube Kwok EXTRA TUBE
== END | disposition home or self-care (01) ==
LOC: POLAB3 17:41
PROVIDERS: PCP Family Medicine Geriatric Medicine; Visit Provider Family Medicine Geriatric Medicine
DX: E03.9 Hypothyroidism, unspecified (principal); I10 Essential (primary) hypertension
CPT/HCPCS: 36415; 80053; 84443; 85025

== ENCOUNTER → 2024-12-08 | Outpatient (CLI) | payer BC, SELFPAY ==
[2024-12-08 16:21] LABS: Hematocrit 41.7 % (40-54); Hemoglobin 14.4 g/dL (13.0-16.5); Immature Granulocytes Count 0.010 X10^3/uL (0.0-0.0); Mean Corp Hgb Conc 34.5 g/dL (32-36); Mean Corpuscular Volume 90.7 fL (80-94); Mean Platelet Vol. 10.6 fl (6.2-12.0); NRBC Flagged by Analyzer 0 % (0-5); Platelet Count 275 K/mm3 (150-450); RBC Distribution Width CV 12.5 % (11.6-14.6); RBC Distribution Width SD 41.2 fl (35.1-43.9); Red Blood Count 4.60 M/mm3 (4.6-6.2); White Blood Count 7.6 K/mm3 (4.4-11.0)
[2024-12-08 17:17] LABS: AST(SGOT) 20 U/L (<=37); Alanine Aminotransfer ALT/SGPT 16 U/L (<=46); Albumin, Serum 4.4 g/dL (3.4-4.8); Alkaline Phosphatase 98 U/L (40-129); Anion Gap 10 (5-15); BUN 13 mg/dL (4-19); BUN/Creat Ratio 13.9 RATIO (10-20); Calcium,Total 9.5 mg/dL (7.6-11.0); Carbon Dioxide 27.0 mmol/L (21.0-32.0); Chloride 102 mmol/L (98-108); Globulin 2.9 g/dL (2.2-4.2); Glucose 84 mg/dL (70-99); Potassium 4.2 mmol/L (3.3-5.1)
--- OUTSIDE RECORDS SUMMARY | 2024-12-08 18:59 | XMS RPT_ITS | CCD ---
Author Organization [facility] Care Team Providers Care Bowling Ball Marker Name Role Phone Justin, Dr. Rogelio Martinez Primary Care Provider 1([facility])[phone] Justin, Dr. Rogelio Martinez Referring Provider 1([facility])[phone] Sean Mckeon Attending Provider 1([facility])[phone] Justin, Rogelio Chi Primary Care Provider 1([facility])[phone] CARI BRIAN Attending [facility] PHYSICIAN, NONE Primary Care Unavailable Justin, Dr. Rogelio Martinez Primary Care Provider 1([facility])[phone] Justin, Dr. Rogelio Martinez Referring Provider 1([facility])[phone] Sean Mckeon Attending Provider 1([facility])[phone] Dr. Tejinder Hebert Attending Provider 1([facility])[phone] Justin, Dr. Rogelio Martinez Primary Care Provider 1([facility])[phone] Justin, Dr. Rogelio Martinez Referring Provider 1([facility])[phone] Sean Mckeon Attending Provider 1([facility]) 3420 MD James Justin Attending Provider 1([facility]) 342 Dr. Chilo Johnson Attending Provider 1([facility]) 570 MD James Justin Referring Provider 1([facility])- 342 MD James Justin Other Provider 1([facility])[phone] Justin, Rogelio Chi Primary Care Provider 1([facility])[phone] SAMSON QUIROS Attending Unavailable JUSTIN, ROGELIO CHI Primary Care Unavailable JUSTIN, ROGELIO CHI Primary Care Unavailable Justin, Rogelio Chi Primary Care Unavailable Justin, Rogelio Chi Attending Unavailable Justin, Rogelio Chi Primary Care Unavailable Yadira Cruz Attending Unavailable Humberto Martinez Admitting Unavailable Tejinder Hebert Consulting Unavailable Humberto Martinez Consulting Unavailable Justin, Rogelio Chi Primary Care Unavailable Justin, Rogelio Chi Attending Unavailable Justin, Rogelio Chi Primary Care Unavailable Jamarcus Hebertl Attending Unavailable James Justin Attending Unavailable Justin, Rogelio Chi Primary Care Unavailable Justin, Rogelio Chi Referring Unavailable Justin, Rogelio Chi Attending Unavailable Justin, Rogelio Chi Primary Care Unavailable Justin, Rogelio Chi Referring Unavailable Justin, Rogelio Chi Referring Unavailable Justin, [...] Care Unavailable Justin, Rogelio Chi Attending Unavailable Basali Ayman Attending Unavailable Justin, Rogelio Chi Primary Care Unavailable Basali Ayman Attending Unavailable Justin, Rogelio Chi Primary Care Unavailable Basali, Ayman Referring Unavailable Justin, Rogelio Chi Primary Care Unavailable Justin, Rogelio Chi Attending Unavailable Justin, Rogelio Chi Primary Care Unavailable Justin, Rogelio Chi Attending Unavailable Justin, Rogelio Chi Primary Care Unavailable Humberto Martinez Admitting Unavailable Anup, [place] Attending Unavailable Anup, Tejinder Consulting Unavailable Humberto Martinez Consulting Unavailable Yadira Cruz Consulting Unavailable James Justin Attending Unavailable Justin, Rogelio Chi Referring Unavailable Justin, Rogelio Chi Primary Care Unavailable Justin, Rogelio Chi Primary Care Unavailable Saira Wylie Attending Unavailable Justin, Rogelio Chi Primary Care Unavailable Saira Wylie Attending Unavailable Humberto Martinez Attending Unavailable Justin, Rogelio Chi Primary Care Unavailable Justin, Rogelio Chi Attending Unavailable Justin, Rogelio Chi Referring Unavailable Justin, Rogelio Chi Primary Care Unavailable Justin, Rogelio Chi Attending Unavailable Allergies Allergy Classification Reported Allergen(s) Allergy Type Date of Onset Reaction(s) Facility (2 sources) Acetaminophen / oxyCODONE; Translations: [OXYCODONE-ACETAMI NOPHEN] Drug Allergy 7 Other: See Comments [facility] (3 sources) Clarithromycin; Translations: [CLARITHROMYCIN] Drug Allergy 5 GI Upset [facility] Medications Current Medications Medication Drug [...] extended release oral tablet (1 source) Uncompetitive R-mbthhq-D-aspartat e Receptor Antagonist, Sigma-1 Agonist Start: 10-23-2021 [...] Indications: Viral URI with cough Use 1 [place] in each nostril twice daily. 1 Each 10/23/2021 02/22/2024 Discontinued Start: 05-31-2019 End: 05-12-2020 Fluticasone Propionate Disco ntinued 9.9 ML NS DAILY May 30, 2019 11:00pm May 12, 2020 8:14am Comment on above: Use 1 [place] in each nostril twice daily. melatonin 10 [...] source) Hypothyroidism, unspecified; Translations: [Hypothyroidism, unspecified] Onset: 10-29-2024 Chronic Past or Other Problems Problem Classification [...] Test Name Value Interpretation Reference Range Facility CBC W/Diff, Automatedon 080 Absolute Lymph 2.27 X10 3/uL Normal 0.83-4.51 [facility] Comment on above: Performed By: #### L 501.8184, L100.0100, L500.4050 #### [facility] [address] [place], [address] Absolute Neut 3.3 X10 3/uL Normal 2.0-7.7 [facility] Comment on above: Performed By: #### L 501.9520, L100.0100, L500.4050 #### [facility] [address] [place], [address] Basophils/100 WBC (Bld) 0.8 % Normal 0-1 [facility] Comment on above: Performed By: #### L 501.9520, L100.0100, L500.4050 #### [facility] [address] [place], [address] Eosinophils/100 WBC (Bld) 2.9 % Normal 0-5 [facility] Comment on above: Performed By: #### L 501.9520, L100.0100, L500.4050 #### [facility] [address] [place], [address] Erythrocyte distribution width (RBC) [Ratio] 12.7 % Normal 11.6-14.6 [facility] Comment on above: Performed By: #### L 501.9520, L100.0100, L500.4050 #### [facility] [address] [place], [address] Hematocrit (Bld) [Volume fraction] 41.1 % Normal 40-54 [facility] Comment on above: Performed By: #### L 501.9520, L100.0100, L500.4050 #### [facility] [address] [place], [address] Hemoglobin (Bld) [Mass/Vol] 13.8 g/dL Normal 13.0-16.5 [facility] Comment on above: Performed By: #### L 501.9520, L100.0100, L500.4050 #### [facility] [address] [place], [address] IG% 0.200 Normal 0.0-0.9 [facility] Comment on above: Result Comment: IG% - Immature Granulocytes (promyelocytes, myelocytes and metamyelocytes) > 1% indicates that a LEFT SHIFT is Present. Performed By: #### L 501.9520, L100.0100, L500.4050 #### [facility] [address] [place], [address] Lymphocytes/100 WBC (Bld) 36.0 % Normal 19-41 [facility] Comment on above: Performed By: #### L 501.9520, L100.0100, L500.4050 #### [facility] [address] [place], [address] MCH (RBC) [Entitic mass] 31.4 pg Normal 27.0-32.0 [facility] Comment on above: Performed By: #### L 501.9520, L100.0100, L500.4050 #### [facility] [address] [place], [address] MCHC (RBC) [Mass/Vol] 33.6 g/dL Normal 32-36 [facility] Comment on above: Performed By: #### L 501.9520, L100.0100, L500.4050 #### [facility] [address] [place], [address] MCV (RBC) [Entitic vol] 93.6 fL Normal 80-94 [facility] Comment on above: Performed By: #### L 501.9520, L100.0100, L500.4050 #### [facility] [address] [place], [address] Monocytes/100 WBC (Bld) 8.1 % Normal 0-10 [facility] Comment on above: Performed By: #### L 501.9520, L100.0100, L500.4050 #### [facility] [address] [place], [address] Neutrophils/100 WBC (Bld) 52.0 % Normal 47-70 [facility] Comment on above: Performed By: #### L 501.9520, L100.0100, L500.4050 #### [facility] [address] [place], [address] Nucleated RBC (Bld) [#/Vol] 0 10*3/uL Normal 0-5 [facility] Comment on above: Performed By: #### L 501.9520, L100.0100, L500.4050 #### [facility] [address] [place], [address] Platelet mean volume (Bld) [Entitic vol] 10.7 fL Normal 6.2-12.0 [facility] Comment on above: Performed By: #### L 501.9520, L100.0100, L500.4050 #### [facility] [address] [place], [address] Platelets (Bld) [#/Vol] 307 10*3/uL Normal 150-450 [facility] Comment on above: Performed By: #### L 501.9520, L100.0100, L500.4050 #### [facility] [address] [place], [address] RBC (Bld) [#/Vol] 4.39 10*6/uL Low 4.6-6.2 [facility] Comment on above: Performed By: #### L 501.9520, L100.0100, L500.4050 #### [facility] [address] [place], [address] RDW SD 43.8 fl Normal 35.1-43.9 [facility] Comment on above: Performed By: #### L 501.9520, L100.0100, L500.4050 #### [facility] [address] [place], [address] WBC (Bld) [#/Vol] 6.3 10*3/uL Normal 4.4-11.0 [facility] Comment on above: Performed By: #### L 501.9520, L100.0100, L500.4050 #### [facility] [address] [place], [address] Comprehensive Metabolic [facility] ilon 10-21-2024 Albumin [Mass/Vol] 4.2 g/dL Normal 3.4-4.8 [facility] Comment on above: Performed By: #### L 501.9520, L100.0100, L500.4050 #### [facility] [address] [place], [address] Albumin/Globulin [Mass ratio] 1.2 {ratio} Normal 0.9-2.4 [facility] Comment on above: Performed By: #### L 501.9520, L100.0100, L500.4050 #### [facility] [address] [place], [address] ALK PHOS 99 U/L Normal 40-129 [facility] Comment on above: Performed By: #### L 501.9520, L100.0100, L500.4050 #### [facility] [address] [place], [address] ALT [Catalytic activity/Vol] 15 U/L Normal <=46 [facility] Comment on above: Performed By: #### L 501.9520, L100.0100, L500.4050 #### [facility] [address] [place], [address] AST [Catalytic activity/Vol] 20 U/L Normal <=37 [facility] Comment on above: Performed By: #### L 501.9520, L100.0100, L500.4050 #### [facility] [address] [place], [address] Bilirubin [Mass/Vol] 0.61 mg/dL Normal 0.00-1.30 [facility] Comment on above: Performed By: #### L 501.9520, L100.0100, L500.4050 #### [facility] [address] [place], [address] BUN/CRE 22.6 RATIO High 10-20 [facility] Comment on above: Performed By: #### L 501.9520, L100.0100, L500.4050 #### [facility] [address] [place], [address] Calcium [Mass/Vol] 9.6 mg/dL Normal 7.6-11.0 [facility] Comment on above: Performed By: #### L 501.9520, L100.0100, L500.4050 #### [facility] [address] [place], [address] Chloride [Moles/Vol] 103 mmol/L Normal 98-108 [facility] Comment on above: Performed By: #### L 501.9520, L100.0100, L500.4050 #### [facility] [address] [place], [address] CO2 [Moles/Vol] 24.7 mmol/L Normal 21.0-32.0 [facility] Comment on above: Performed By: #### L 501.9520, L100.0100, L500.4050 #### [facility] [address] [place], [address] Creatinine [Mass/Vol] 0.82 mg/dL Normal 0.70-1.20 [facility] Comment on above: Performed By: #### L 501.9520, L100.0100, L500.4050 #### [facility] [address] [place], [address] GAP 12 Normal 5-15 [facility] Comment on above: Performed By: #### L 501.9520, L100.0100, L500.4050 #### [facility] [address] [place], [address] GFR/1.73 sq M.predicted among non-blacks MDRD (S/P/Bld) [Vol rate/Area] 101 mL/min/{1.73_m2} Normal >60 [facility] Comment on above: Result Comment: mL/m in/1.73m2 CKD-EPI Creatinine Equation (2020) Performed By: #### L 501.9520, L100.0100, L500.4050 #### [facility] [address] [place], [address] Globulin (S) [Mass/Vol] 3.6 g/dL Normal 2.2-4.2 [facility] Comment on above: Performed By: #### L 501.9520, L100.0100, L500.4050 #### [facility] [address] [place], [address] Glucose [Mass/Vol] 92 mg/dL Normal 70-99 [facility] Comment on above: Performed By: #### L 501.9520, L100.0100, L500.4050 #### [facility] [address] [place], [address] Potassium [Moles/Vol] 4.6 mmol/L Normal 3.3-5.1 [facility] Comment on above: Performed By: #### L 501.9520, L100.0100, L500.4050 #### [facility] [address] [place], [address] Sodium [Moles/Vol] 139 mmol/L Normal 133-145 [facility] Comment on above: Performed By: #### L 501.9520, L100.0100, L500.4050 #### [facility] [address] [place], [address] T PROT 7.8 g/dL Normal 5.9-8.4 [facility] Comment on above: Performed By: #### L 501.9520, L100.0100, L500.4050 #### [facility] [address] [place], [address] Urea nitrogen [Mass/Vol] 19 mg/dL Normal 4-19 [facility] Comment on above: Performed By: #### L 501.9520, L100.0100, L500.4050 #### [facility] [address] [place], [address] Thyroid Stim Hormone (TSH)on 10-21-2024 TSH 0.780 uIU/mL Normal 0.300-4.200 [facility] Comment on above: Performed By: #### L 501.9520, L100.0100, L500.4050 #### [facility] [address] [place], [address] L3410.9992on 10-08-2024 [facility] Misc. COMMENT Normal . [facility] Comment on above: Order Comment: [id number] 0URINE TOX Result Comment: Test Ordered: [id number] Amphetamines Screen, Urine Negative ng/mL UI Reference Range: Kqrhze=891 Amphetamine test includes Amphetamine and Methamphetamine. Barbiturates Negative ng/mL UI Reference Range: Ydwytf=721 Benzodiazepines Negative ng/mL UI Reference Range: Rzbemu=795 Cocaine (Metab.), Urine Negative ng/mL UI Reference Range: Iziakq=995 Opiates Negative ng/mL UI Reference Range: Jtebhe=214 Opiate test includes Codeine, Morphine, Hydromorphone, Hydrocodone. 6-Acetylmorphine, Urine Negative ng/mL UI Reference Range: Cutoff=10 Oxycodone/Oxymorphone, Urine Negative ng/mL UI Reference Range: Edsiit=276 Test includes Oxycodone and Oxymorphone PCP, Urine Negative ng/mL UI Reference Range: Cutoff=25 Methadone Screen, Urine Negative ng/mL UI Reference Range: Wrjjpe=249 Propoxyphene, Urine Negative ng/mL UI Reference Range: Kzaeby=323 Fentanyl, Urine Negative ng/mL UI Reference Range: Cutoff=2.0 Test includes Fentanyl and Norfentanyl This test was developed and its performance characteristics determined by [facility]. It has not been cleared or approved by the Food and Drug Administration. Tramadol Note: ng/mL UI See Final Results Reference Range: Pehkpc=052 Tramadol Positive [A ] UI Reference Range: Yukdbe=493 Tramadol Conf, [place], [place] >[address] ng/mL UI Reference Range: Yqqspx=944 Buprenorphine, Urine Negative ng/mL UI Reference Range: Cutoff=10 Creatinine, Urine 351.6 [H ] mg/dL UI Reference Range: 20.0-300.0 pH, Urine 5.2 UI Reference Range: 4.5-8.9 Performed at: [address] [id number] Rotor Winder: Jos Villafuerte PhD, Phone: [phone] Performed at: [address] [id number] Rotor Winder: Mata Green PhD, Phone: [phone] Performed By: #### L 505.5000, L3410.9992 ####[facility] [address] [facility]. [facility] [address] Urine Drug Screen (VISTA)on 10-04-2024 AMPHETAMINES Negative Normal <1000 ng/mL [facility] Comment on above: Order Comment: UNK Performed By: #### L 505.5000, L3410.9992 ####[facility] [address] [place], [place], [address] BARBITIURATES Negative Normal < 200 ng/mL [facility] Comment on above: Order Comment: UNK Performed By: #### L 505.5000, L3410.9992 ####[facility] [address] [facility] [id number] BENZODIAZIPINE Positive Normal < 200 ng/mL [facility] Comment on above: Order Comment: UNK Result Comment: If c onfirmation testing is needed, a separate order will be required to send out testing to the reference laboratory. Performed By: #### L 505.5000, L3410.9992 ####[facility] [address] [place], [address] BUP Ur Drug Scr Negative Normal < 200 ng/mL [facility] Comment on above: Order Comment: UNK Performed By: #### L 505.5000, L3410.9992 ####[facility] [address] [place], [address] COCAINE Negative Normal < 300 ng/mL [facility] Comment on above: Order Comment: UNK Performed By: #### L 505.5000, L3410.9992 ####[facility] [address] [facility] [address] Fentanyl Negative Normal [facility] Comment on above: Order Comment: UNK Performed By: #### L 505.5000, L3410.9992 ####[facility] [address] [place], [address] METHADONE Positive Normal < 300 ng/mL [facility] Comment on above: Order Comment: UNK Result Comment: If c onfirmation testing is needed, a separate order will be required to send out testing to the reference laboratory. Performed By: #### L 505.5000, L3410.9992 ####[facility] [address] [place], [address] OPIATES Negative Normal < 300 ng/mL [facility] Comment on above: Order Comment: UNK Performed By: #### L 505.5000, L3410.9992 ####[facility] [address] [place] [id number] OXYCODONE Negative Normal < 100 ng/mL [facility] Comment on above: Order Comment: UNK Performed By: #### L 505.5000, L3410.9992 ####[facility] [address] [place] [id number] PCP Negative Normal < 25 ng/mL [facility] Comment on above: Order Comment: UNK Performed By: #### L 505.5000, L3410.9992 ####[facility] [address] [place], [place], [address] THC Negative Normal < 50 ng/mL [facility] Comment on above: Order Comment: UNK Performed By: #### L 505.5000, L3410.9992 ####[facility] [address] [place], [place], [address] MR/BMS.BPon 09-08-2024 MR/BMS.BP [address], [address] [place] [address] OFFICE VISIT Date of Service: 09/08/24 MR#: [id number] Acct: [id number] Name: GEN POTTS Rep #: [id number] : 1965 Provider: ADDIE cho Age/Sex: 59/M Location: [facility] Status: Signed Intake Vital Signs 07/14/24 08:07 [...] mg tablet 50 mg PO TID pain 05/20/2309/08/ 5 History carbidopa 25 mg-levodopa 100 mg 1 tab PO QHS 07/14/24 09/08/24 His tory tablet clonazepam 0.5 mg tablet 0.5 mg PO TID 08/02/24 09/08/24 Hi story levothyroxine 50 mcg tablet 50 mcg PO QDAY 08/02/24 09/08/24 H istory PFS Medical History Blurring of vision Elevated troponin [...] ) Sensorium/O (more content not included)... Normal [facility] Orthopedic Visit Reporton Orthopedic Visit Report [facility] [address] [place] [address] OFFICE VISIT Date of Service: 08/02/24 MR#: [id number] Acct: [id number] Name: GEN POTTS Rep #: [id number] : 1965 Provider: Dr. James lagunas MD Age/Sex: 58/M Location: [facility] Status: Signed with Addenda ADDENDUM by JULIO [...] Performing Provider: James Justin MD Performing Location: [facility] Administered by: James Justin MD on 08/02/24 15:39 Dose Route Admin Location Dispensed Lot Number Expiration Date MIKE Tadeo ufacturer 40 mg intra-articular Left knee 1 mL [id number] 10/15/26 3291-8484-47 [facility] Date cc: * Signed Intake [...] mcg PO QDAY 08/02/24 08/02/24 H istory [facility] Medical History Blurring of vision Elevated troponin [...] by me, Dr. James Justin MD 08/02/24 1341. Part of today???s visit was documented by [...] far. Coding Level of Care Code Attention Physical Science Technician Diagnoses Bilateral primary osteoarthritis of knee M17.0 Comment 79528 and cpt inject major joint x2 Assessmen (more content not included)... Normal [facility] MR/BMS.BPbebo 07-14-2024 MR/BMS.BP [facility] [address] [facility], [address] [place] [address] OFFICE VISIT Date of Service: 07/14/24 MR#: [id number] Acct: [id number] Name: GEN POTTS Rep #: [id number] : 1965 Provider: ADDIE cho Age/Sex: 58/M Location: [facility] Status: Signed Intake Vital Signs 03/04/24 10:13 [...] WNL Suicide: Denies SI/HI. Memory: Short and alf memory intact. Does report some forgetfulness. Will [...] about it. (more content not included)... Normal [facility] Myoglobin, Serumon 5 Myoglobin, Ser < 21 Low 28-72 [facility] Comment on above: Result Comment: Perf ormed at: CB - [facility] [place] [id number] Rotor Winder: Mata Green PhD, Phone: [phone] Performed By: #### L 735.3544, Z833.7031, Q093.6011 #### [facility] [address] [place], [address] 12 Lead EKGon 06-22-2024 12 Lead EKG [facility] [address] [place] [address] 12 Lead EKG 06/22/24 0344 MR#: [id number] Acct: [id number] Name: GEN POTTS Rep #: [id number] : 1965 58 From: Tejinder Hebert MD Attending Dr: Dr. Yadira Cruz MD Status: ADM IN Ordering Dr: Humberto Martinez DO Date: 06/22/24 Location: [facility] Sex: M C Admitted: 06/22/24 Test Reason [...] UNCONFIRMED Confirmed by ANUP BARBOUR, TEJINDER ([id number]), editorial specialist TRAMAINE CORTÉS ([id number]) on 06/22/2024 8:11:27 AM Referred By: Confirmed By: TEJINDER HEBERT MD 06/22/24810 Date Tejinder Hebert MD CC: Dr. Humberto Martinez DO; Dr. Yadira Cruz MD; Dr. Rogelio Velazquez MD Signed Normal [facility] CBC-Complete Blood Cnt No Di ffon 06-22-2024 Erythrocyte distribution width (RBC) [Ratio] 13.5 % Normal 11.6-14.6 [facility] Comment on above: Performed By: #### L 100.0500, L500.4100, L300.8000, L500.4050, L501.9520 #### [facility] [address] [place], [address] Hematocrit (Bld) [Volume fraction] 40.0 % Normal 40-54 [facility] Comment on above: Performed By: #### L 100.0500, L500.4100, L300.8000, L500.4050, L501.9520 #### [facility] [address] [place], [address] Hemoglobin (Bld) [Mass/Vol] 13.4 g/dL Normal 13.0-16.5 [facility] Comment on above: Performed By: #### L 100.0500, L500.4100, L300.8000, L500.4050, L501.9520 #### [facility] [address] [place], [address] MCH (RBC) [Entitic mass] 32.1 pg High 27.0-32.0 [facility] Comment on above: Performed By: #### L 100.0500, L500.4100, L300.8000, L500.4050, L501.9520 #### [facility] [address] [place], [address] MCHC (RBC) [Mass/Vol] 33.5 g/dL Normal 32-36 [facility] Comment on above: Performed By: #### L 100.0500, L500.4100, L300.8000, L500.4050, L501.9520 #### [facility] [address] [place], [address] MCV (RBC) [Entitic vol] 95.7 fL High 80-94 [facility] Comment on above: Performed By: #### L 100.0500, L500.4100, L300.8000, L500.4050, L501.9520 #### [facility] [address] [place], [address] Platelet mean volume (Bld) [Entitic vol] 10.8 fL Normal 6.2-12.0 [facility] Comment on above: Performed By: #### L 100.0500, L500.4100, L300.8000, L500.4050, L501.9520 #### [facility] [address] [place], [address] Platelets (Bld) [#/Vol] 225 10*3/uL Normal 150-450 [facility] Comment on above: Performed By: #### L 100.0500, L500.4100, L300.8000, L500.4050, L501.9520 #### [facility] [address] [place], [address] RBC (Bld) [#/Vol] 4.18 10*6/uL Low 4.6-6.2 [facility] Comment on above: Performed By: #### L 100.0500, L500.4100, L300.8000, L500.4050, L501.9520 #### [facility] [address] [place], [address] RDW SD 48.3 fl High 35.1-43.9 [facility] Comment on above: Performed By: #### L 100.0500, L500.4100, L300.8000, L500.4050, L501.9520 #### [facility] [address] [place], [address] WBC (Bld) [#/Vol] 7.3 10*3/uL Normal 4.4-11.0 [facility] Comment on above: Performed By: #### L 100.0500, L500.4100, L300.8000, L500.4050, L501.9520 #### [facility] [address] [place], [address] Comprehensive Metabolic Prof ilon 06-22-2024 Albumin [Mass/Vol] 3.7 g/dL Normal 3.5-5.0 [facility] Comment on above: Performed By: #### L 100.0500, L500.4100, L300.8000, L500.4050, L501.9520 #### [facility] Laboratory [address] [place], [address] Albumin/Globulin [Mass ratio] 1.2 {ratio} Normal 0.9-2.4 [facility] Comment on above: Performed By: #### L 100.0500, L500.4100, L300.8000, L500.4050, L501.9520 #### [facility] [address] [place], [address] ALK PHOS 81 U/L Normal 40-129 [facility] Comment on above: Performed By: #### L 100.0500, L500.4100, L300.8000, L500.4050, L501.9520 #### [facility] [address] [place], [address] ALT [Catalytic activity/Vol] 11 U/L Normal <=46 [facility] Comment on above: Performed By: #### L 100.0500, L500.4100, L300.8000, L500.4050, L501.9520 #### [facility] [address] [place], [address] AST [Catalytic activity/Vol] 14 U/L Normal <=37 [facility] Comment on above: Performed By: #### L 100.0500, L500.4100, L300.8000, L500.4050, L501.9520 #### [facility] [address] [place], [address] Bilirubin [Mass/Vol] 0.58 mg/dL Normal 0.00-1.30 [facility] Comment on above: Performed By: #### L 100.0500, L500.4100, L300.8000, L500.4050, L501.9520 #### [facility] [address] [place], [address] BUN/CRE 17.9 RATIO Normal 10-20 [facility] Comment on above: Performed By: #### L 100.0500, L500.4100, L300.8000, L500.4050, L501.9520 #### [facility] [address] [place], [address] Calcium [Mass/Vol] 8.9 mg/dL Normal 7.6-11.0 [facility] Comment on above: Performed By: #### L 100.0500, L500.4100, L300.8000, L500.4050, L501.9520 #### [facility] [address] [place], [address] Chloride [Moles/Vol] 107 mmol/L Normal 98-108 [facility] Comment on above: Performed By: #### L 100.0500, L500.4100, L300.8000, L500.4050, L501.9520 #### [facility] [address] [place], [address] CO2 [Moles/Vol] 21.5 mmol/L Normal 21.0-32.0 [facility] Comment on above: Performed By: #### L 100.0500, L500.4100, L300.8000, L500.4050, L501.9520 #### [facility] [address] [place], [address] Creatinine [Mass/Vol] 0.83 mg/dL Normal 0.70-1.20 [facility] Comment on above: Performed By: #### L 100.0500, L500.4100, L300.8000, L500.4050, L501.9520 #### [facility] [address] [place], [address] ECRCL 102.06 ml/min Normal 50-250 [facility] Comment on above: Performed By: #### L 100.0500, L500.4100, L300.8000, L500.4050, L501.9520 #### [facility] [address] [place], [address] GAP 11 Normal 5-15 [facility] Comment on above: Performed By: #### L 100.0500, L500.4100, L300.8000, L500.4050, L501.9520 #### [facility] [address] [place], [address] GFR/1.73 sq M.predicted among non-blacks MDRD (S/P/Bld) [Vol rate/Area] 101 mL/min/{1.73_m2} Normal >60 [facility] Comment on above: Result Comment: mL/m in/1.73m2 CKD-EPI Creatinine Equation (2020) Performed By: #### L 100.0500, L500.4100, L300.8000, L500.4050, L501.9520 #### [facility] [address] [place], [address] Globulin (S) [Mass/Vol] 3.2 g/dL Normal 2.2-4.2 [facility] Comment on above: Performed By: #### L 100.0500, L500.4100, L300.8000, L500.4050, L501.9520 #### [facility] [address] [place], [address] Glucose [Mass/Vol] 87 mg/dL Normal 70-99 [facility] Comment on above: Performed By: #### L 100.0500, L500.4100, L300.8000, L500.4050, L501.9520 #### [facility] [address] [place], [address] Potassium [Moles/Vol] 4.3 mmol/L Normal 3.3-5.1 [facility] Comment on above: Performed By: #### L 100.0500, L500.4100, L300.8000, L500.4050, L501.9520 #### [facility] [address] [place], [address] Sodium [Moles/Vol] 140 mmol/L Normal 133-145 [facility] Comment on above: Performed By: #### L 100.0500, L500.4100, L300.8000, L500.4050, L501.9520 #### [facility] [address] [place], [address] T PROT 7.0 g/dL Normal 5.9-8.4 [facility] Comment on above: Performed By: #### L 100.0500, L500.4100, L300.8000, L500.4050, L501.9520 #### [facility] [address] [place], [address] Urea nitrogen [Mass/Vol] 15 mg/dL Normal 4-19 [facility] Comment on above: Performed By: #### L 100.0500, L500.4100, L300.8000, L500.4050, L501.9520 #### [facility] [address] [place], [address] Consultation - Cardiologyon 06-22-2024 Consultation - Cardiology [facility] Medical Records Department [address] [place] [address] Consultation - Cardiology 06/22/24 0717 MR#: [id number] Acct: [id number] Name: GEN POTTS Rep #: [id number] : 1965 58 From: Tejinder Hebert MD PCP: Dr. Rogelio Velazquez MD Status:ADM IN Location: [place] [address] Assessment Plan Assessment/Plan (1) Essential hypertension: PLAN: [...] with sinus bradycardia and no acute changes. [facility] Medical History Bilateral primary osteoarthritis of knee [...] fatigue Hematologic/Lymphat (more content not included)... Normal [facility] D-Dimer Quantitative (DVT/PE )on 06-22-2024 D-DIMER QUANT 0.44 FEU/ug/m Normal 0.27-0.49 [facility] Comment on above: Result Comment: NORM AL D-Dimer level (<0.50) indicates no DVT or PE. Performed By: #### L 100.0500, L500.4100, L300.8000, L500.4050, L501.9520 #### [facility] [address] [place], [address] Discharge Instructionon Discharge Instruction [facility] Medical Records Department [address] [place] [address] Instructions for Home/Discharge Instructions 06/22/24 1512 MR#: [id number] Acct: [id number] Name: GEN POTTS Rep #: [id number] : 1965 58 From: Yadira Cruz MD [...] DO; Dr. Rogelio Velazquez MD Signed Normal [facility] Echo Completeon 06-22-2024 Echo Complete [facility] Cardiovascular Services [address] [place] [address] Echo Complete 06/22/24 0750 MR#: [id number] Acct: [id number] Name: ANDREAADOGEN Perea Rep #: [id number] : 1965 58 From: Tejinder Hebert MD Attending Dr: Dr. Yadira Cruz MD Status: ADM IN Ordering Dr: Humberto Martinez DO Date: 06/22/24 Location: [facility] Sex: M C Admitted: 06/22/24 Reason For [...] MD Date Dictated: 06/22/24 0750 Date Transcribed: 06/22/24 1318 Marketing Proposal Coordinator: Signed Normal [facility] Emergency Department Summary on 06-22-2024 Emergency Department Summary [facility] Medical Records Department [address] [place] [address] Emergency Department Summary 06/22/24 MR#: [id number] Acct: [id number] Name: GEN POTTS Rep #: [id number] : 1965 58 From: Bolivar Lockett DO PCP: Dr. Rogelio Velazquez MD Status:ADM IN Location: [address] History of Present Illness Chief Complaint: Shortness [...] of ches (more content not included)... Normal [facility] H AND P Exam - Hospitaliston 06-22-2024 H&P Exam - Hospitalist [facility] Medical Records Department [address] [place] [address] H P Exam - Hospitalist 06/22/24 0147 MR#: [id number] Acct: [id number] Name: GEN POTTS Rep #: [id number] : 1965 58 From: Humberto Martinez DO PCP: Dr. Rogelio Velazquez MD Status:ADM IN Location: [place] [address] HPI - General General Date of Admission: 06/22/24 Date of Service: 06/22/24 Chief Complaint: Chest Pain, SOB and Difficulty Focusing Vision. HPI Narrative GEN MENDEZADON, is a 58 M with a past [...] Conti of pain management who presents to [facility] ER complaining of chest pain, shortness [...] 84 ng/L suspicious for early non-ST elevation [place] in the setting of ongoing tobacco abuse and he was then admitted to the PCU for ongoing care for a stay that is expected to extend beyond 2 midnights. [facility] Medical History (Updated 06/22/24 @ 05:[address] Bolivar Lockett, ) Bilateral primary osteoarthritis of knee Bilateral knee [...] denies heada (more content not included)... Normal [facility] Hemoglobin A1con 06-22-2024 HbA1c (Bld) [Mass fraction] 5.4 % Low <=5.6 [facility] Comment on above: Performed By: #### L 501.9985 #### [facility] [address] [place], [address] L499.0042on 06-22-2024 Trop T High Sen 76 ng/L Invalid Interpretation Code <=22 [facility] Comment on above: Result Comment: Crit ical Result(s) Called at:0130 by: MORENO HERNANDEZN TO MARTINA BRANDT??Results read back by same. Performed By: #### L 501.9985 #### [facility] [address] [place], [address] L499.0043on 06-22-2024 Trop T High Sen 73 ng/L Invalid Interpretation Code <=22 [facility] Comment on above: Result Comment: Crit ical Result(s) Called at: 0338 by:??MORENO HAVEN TO JOSR TRACEY Results read back by same. Performed By: #### L 499.0043 ####[facility] [address] [place], [address] Lipid Profileon 06-22-2024 CHOL:HDL 4.60 Normal [facility] Comment on above: Performed By: #### L 100.0500, L500.4100, L300.8000, L500.4050, L501.9520 ####[facility] [address] [place], [address] Cholesterol [Mass/Vol] 177 mg/dL Normal <=200 [facility] Comment on above: Result Comment: Chol esterol level, Desirable <200 mg/dL Borderline high cholesterol 200-239 mg/dL High cholesterol >=240 mg/dL Recommendations of the NCEP Adult Treatment Panel for the following risk-cutoff thresholds for the [place] population. Performed By: #### L 100.0500, L500.4100, L300.8000, L500.4050, L501.9520 ####[facility] [address] [place], [address] Cholesterol in HDL [Mass/Vol] 39 mg/dL Low [facility] Comment on above: Result Comment: [place] Cholesterol Education Program (NCEP) guidelines: <40 mg/dL: Low HDL-cholesterol (major risk factor for CHD) >= 60 mg/dL: High HDL-cholesterol (negative risk factor for CHD) HDL-cholesterol is affected by a number of factors, e.g. smoking, exercise, hormones, sex and age. Performed By: #### L 100.0500, L500.4100, L300.8000, L500.4050, L501.9520 ####[facility] [address] [place], [address] Cholesterol in LDL [Mass/Vol] 130 mg/dL Normal [facility] Comment on above: Result Comment: Bord gbblvj=010-526 mg/dL Higher Tlik=360 mg/dL or greater Performed By: #### L 100.0500, L500.4100, L300.8000, L500.4050, L501.9520 ####[facility] [address] [place], [address] Cholesterol in VLDL [Mass/Vol] 9 mg/dL Normal 5-40 [facility] Comment on above: Performed By: #### L 100.0500, L500.4100, L300.8000, L500.4050, L501.9520 ####[facility] [address] [place], [address] Triglyceride [Mass/Vol] 43 mg/dL Normal [facility] Comment on above: Result Comment: The drugs N-Acetylcysteine and Metamizole may falsely depress this assay. Normal range: <150 mg/dL Borderline High: 150-199 mg/dL High: 200-499 mg/dL Very High: >500 mg/dL Performed By: #### L 100.0500, L500.4100, L300.8000, L500.4050, L501.9520 ####[facility] [address] [place], [address] Stress Reporton 06-22-2024 Stress Report [facility] Cardiovascular Services [address] [place] [address] MR#: [id number] Acct: [id number] Name: GEN POTTS Rep #: [id number] : 1965 58 From: Tejinder Hebert MD [...] DO Date Dictated: 06/22/24 1231 Date Transcribed: 06/22/241230 Marketing Proposal Coordinator: [place] Signed Normal [facility] Thyroid Stim Hormone (TSH)on 06-22-2024 TSH 5.630 uIU/mL High 0.300-4.200 [facility] Comment on above: Performed By: #### L 100.0500, L500.4100, L300.8000, L500.4050, L501.9520 ####[facility] [address] [place], [address] 12 Lead EKGon 06-21-2024 12 Lead EKG [facility] Cardiovascular Services [address] [place] [address] 12 Lead EKG 06/21/24 2238 MR#: [id number] Acct: [id number] Name: GEN POTTS Rep #: [id number] : 1965 58 From: Tejinder Hebert MD Attending Dr: Dr. Yadira Cruz MD Status: DIS IN Ordering Dr: Bolivar Lockett DO Date: 06/21/24 Location: [facility] Sex: M C Admitted: 06/22/24 Test Reason [...] Abnormal ECG Confirmed by TEJINDER HEBERT MD ([id number]), editorial specialist TRAMAINE CORTÉS ([id number]) on 06/24/2024 8:27:34 AM Referred By: NELLI Confirmed By: TEJINDER HEBERT MD 06/24/24 0827 Date Tejinder Hebert MD CC: Dr. Yadira Cruz MD; Dr. Rogelio Velazquez MD; Bolivar Lockett DO Signed Normal [facility] Basic Metabolic Profile (BMP )on 06-21-2024 BUN/CRE 18.9 RATIO Normal 10-20 [facility] Comment on above: Performed By: #### L 500.2500, L100.0100, L501.4021 ####[facility] [address] [place], [address] Calcium [Mass/Vol] 8.7 mg/dL Normal 7.6-11.0 [facility] Comment on above: Performed By: #### L 500.2500, L100.0100, L501.4021 ####[facility] [address] [place], [address] Chloride [Moles/Vol] 108 mmol/L Normal 98-108 [facility] Comment on above: Performed By: #### L 500.2500, L100.0100, L501.4021 ####[facility] [address] [place], [address] CO2 [Moles/Vol] 21.2 mmol/L Normal 21.0-32.0 [facility] Comment on above: Performed By: #### L 500.2500, L100.0100, L501.4021 ####[facility] [address] [place], [address] Creatinine [Mass/Vol] 0.81 mg/dL Normal 0.70-1.20 [facility] Comment on above: Performed By: #### L 500.2500, L100.0100, L501.4021 ####[facility] [address] [place], [address] ECRCL 104.58 ml/min Normal 50-250 [facility] Comment on above: Performed By: #### L 500.2500, L100.0100, L501.4021 ####[facility] [address] [place], [address] GAP 12 Normal 5-15 [facility] Comment on above: Performed By: #### L 500.2500, L100.0100, L501.4021 ####[facility] [address] [place], [address] GFR/1.73 sq M.predicted among non-blacks MDRD (S/P/Bld) [Vol rate/Area] 102 mL/min/{1.73_m2} Normal >60 [facility] Comment on above: Result Comment: mL/m in/1.73m2 CKD-EPI Creatinine Equation (2020) Performed By: #### L 500.2500, L100.0100, L501.4021 ####[facility] [address] [place], [address] Glucose [Mass/Vol] 105 mg/dL High 70-99 [facility] Comment on above: Performed By: #### L 500.2500, L100.0100, L501.4021 ####[facility] [address] [place], [address] Potassium [Moles/Vol] 4.2 mmol/L Normal 3.3-5.1 [facility] Comment on above: Performed By: #### L 500.2500, L100.0100, L501.4021 ####[facility] [address] [place], [address] Sodium [Moles/Vol] 141 mmol/L Normal 133-145 [facility] Comment on above: Performed By: #### L 500.2500, L100.0100, L501.4021 ####[facility] [address] [place], [address] Urea nitrogen [Mass/Vol] 15 mg/dL Normal 4-19 [facility] Comment on above: Performed By: #### L 500.2500, L100.0100, L501.4021 ####[facility] [address] [place], [address] Brain/Head without Contrasto n 06-21-2024 Brain/Head without Contrast [facility] Imaging Services [address] [place] [address] Brain/Head without Contrast MR#: [id number] Acct: [id number] Name: GEN POTTS Rep #: [id number] : 1965 M 58 From: Merritt caldera MD PCP: Dr. Rogelio Velazquez MD Status: REG CLI Study: Brain/Head without Contrast Date of Exam: 10/08 Exam# [id number] Ordering Dr: Rogelio Velazquez MD PROCEDURE: BRAIN/HEAD [...] IMPRESSION: No acute intracranial abnormality. [facility] CC: Dr. Rogelio Velazquez MD Marketing Proposal Coordinator: Signed Normal [facility] CBC W/Diff, Automatedon Absolute Lymph 2.79 X10 3/uL Normal 0.83-4.51 [facility] Comment on above: Performed By: #### L 500.2500, L100.0100, L501.4021 ####[facility] [address] [place], [address] Absolute Neut 4.7 X10 3/uL Normal 2.0-7.7 [facility] Comment on above: Performed By: #### L 500.2500, L100.0100, L501.4021 ####[facility] [address] [place], [address] Basophils/100 WBC (Bld) 0.5 % Normal 0-1 [facility] Comment on above: Performed By: #### L 500.2500, L100.0100, L501.4021 ####[facility] [address] [place], [address] Eosinophils/100 WBC (Bld) 0.8 % Normal 0-5 [facility] Comment on above: Performed By: #### L 500.2500, L100.0100, L501.4021 ####[facility] [address] [place], [address] Erythrocyte distribution width (RBC) [Ratio] 13.3 % Normal 11.6-14.6 [facility] Comment on above: Performed By: #### L 500.2500, L100.0100, L501.4021 ####[facility] [address] [place], [address] Hematocrit (Bld) [Volume fraction] 39.6 % Low 40-54 [facility] Comment on above: Performed By: #### L 500.2500, L100.0100, L501.4021 ####[facility] [address] [place], [address] Hemoglobin (Bld) [Mass/Vol] 13.6 g/dL Normal 13.0-16.5 [facility] Comment on above: Performed By: #### L 500.2500, L100.0100, L501.4021 ####[facility] [address] [place], [address] IG% 0.400 Normal 0.0-0.9 [facility] Comment on above: Result Comment: IG% - Immature Granulocytes (promyelocytes, myelocytes and metamyelocytes) > 1% indicates that a LEFT SHIFT is Present. Performed By: #### L 500.2500, L100.0100, L501.4021 ####[facility] [address] [place], [address] Lymphocytes/100 WBC (Bld) 33.6 % Normal 19-41 [facility] Comment on above: Performed By: #### L 500.2500, L100.0100, L501.4021 ####[facility] [address] [place], [address] MCH (RBC) [Entitic mass] 32.5 pg High 27.0-32.0 [facility] Comment on above: Performed By: #### L 500.2500, L100.0100, L501.4021 ####[facility] [address] [place], [address] MCHC (RBC) [Mass/Vol] 34.3 g/dL Normal 32-36 [facility] Comment on above: Performed By: #### L 500.2500, L100.0100, L501.4021 ####[facility] [address] [place], [address] MCV (RBC) [Entitic vol] 94.5 fL High 80-94 [facility] Comment on above: Performed By: #### L 500.2500, L100.0100, L501.4021 ####[facility] [address] [place], [address] Monocytes/100 WBC (Bld) 8.0 % Normal 0-10 [facility] Comment on above: Performed By: #### L 500.2500, L100.0100, L501.4021 ####[facility] [address] [place], [address] Neutrophils/100 WBC (Bld) 56.7 % Normal 47-70 [facility] Comment on above: Performed By: #### L 500.2500, L100.0100, L501.4021 ####[facility] [address] [place], [address] Nucleated RBC (Bld) [#/Vol] 0 10*3/uL Normal 0-5 [facility] Comment on above: Performed By: #### L 500.2500, L100.0100, L501.4021 ####[facility] [address] [place], [address] Platelet mean volume (Bld) [Entitic vol] 11.0 fL Normal 6.2-12.0 [facility] Comment on above: Performed By: #### L 500.2500, L100.0100, L501.4021 ####[facility] [address] [place], [address] Platelets (Bld) [#/Vol] 239 10*3/uL Normal 150-450 [facility] Comment on above: Performed By: #### L 500.2500, L100.0100, L501.4021 ####[facility] [address] [place], [address] RBC (Bld) [#/Vol] 4.19 10*6/uL Low 4.6-6.2 [facility] Comment on above: Performed By: #### L 500.2500, L100.0100, L501.4021 ####[facility] [address] [place], [address] RDW SD 46.2 fl High 35.1-43.9 [facility] Comment on above: Performed By: #### L 500.2500, L100.0100, L501.4021 ####[facility] [address] [place], [address] WBC (Bld) [#/Vol] 8.3 10*3/uL Normal 4.4-11.0 [facility] Comment on above: Performed By: #### L 500.2500, L100.0100, L501.4021 ####[facility] [address] [place], [address] Absolute Lymph 2.63 X10 3/uL Normal 0.83-4.51 [facility] Comment on above: Performed By: #### L 501.9520, L100.0100, L500.4050 #### [facility] [address] [place], [address] Absolute Neut 4.8 X10 3/uL Normal 2.0-7.7 [facility] Comment on above: Performed By: #### L 501.9520, L100.0100, L500.4050 #### [facility] [address] [place], [address] Basophils/100 WBC (Bld) 0.6 % Normal 0-1 [facility] Comment on above: Performed By: #### L 501.9520, L100.0100, L500.4050 #### [facility] [address] [place], [address] Eosinophils/100 WBC (Bld) 1.2 % Normal 0-5 [facility] Comment on above: Performed By: #### L 501.9520, L100.0100, L500.4050 #### [facility] [address] [place], [address] Erythrocyte distribution width (RBC) [Ratio] 13.3 % Normal 11.6-14.6 [facility] Comment on above: Performed By: #### L 501.9520, L100.0100, L500.4050 #### [facility] [address] [place], [address] Hematocrit (Bld) [Volume fraction] 42.2 % Normal 40-54 [facility] Comment on above: Performed By: #### L 501.9520, L100.0100, L500.4050 #### [facility] [address] [place], [address] Hemoglobin (Bld) [Mass/Vol] 14.4 g/dL Normal 13.0-16.5 [facility] Comment on above: Performed By: #### L 501.9520, L100.0100, L500.4050 #### [facility] [address] [place], [address] IG% 0.400 Normal 0.0-0.9 [facility] Comment on above: Result Comment: IG% - Immature Granulocytes (promyelocytes, myelocytes and metamyelocytes) > 1% indicates that a LEFT SHIFT is Present. Performed By: #### L 501.9520, L100.0100, L500.4050 #### [facility] [address] [place], [address] Lymphocytes/100 WBC (Bld) 32.2 % Normal 19-41 [facility] Comment on above: Performed By: #### L 501.9520, L100.0100, L500.4050 #### [facility] [address] [place], [address] MCH (RBC) [Entitic mass] 32.4 pg High 27.0-32.0 [facility] Comment on above: Performed By: #### L 501.9520, L100.0100, L500.4050 #### [facility] [address] [place], [address] MCHC (RBC) [Mass/Vol] 34.1 g/dL Normal 32-36 [facility] Comment on above: Performed By: #### L 501.9520, L100.0100, L500.4050 #### [facility] [address] [place], [address] MCV (RBC) [Entitic vol] 94.8 fL High 80-94 [facility] Comment on above: Performed By: #### L 501.9520, L100.0100, L500.4050 #### [facility] [address] [place], [address] Monocytes/100 WBC (Bld) 7.3 % Normal 0-10 [facility] Comment on above: Performed By: #### L 501.9520, L100.0100, L500.4050 #### [facility] [address] [place], [address] Neutrophils/100 WBC (Bld) 58.3 % Normal 47-70 [facility] Comment on above: Performed By: #### L 501.9520, L100.0100, L500.4050 #### [facility] [address] [place], [address] Nucleated RBC (Bld) [#/Vol] 0 10*3/uL Normal 0-5 [facility] Comment on above: Performed By: #### L 501.9520, L100.0100, L500.4050 #### [facility] [address] [place], [address] Platelet mean volume (Bld) [Entitic vol] 10.8 fL Normal 6.2-12.0 [facility] Comment on above: Performed By: #### L 501.9520, L100.0100, L500.4050 #### [facility] [address] [place], [address] Platelets (Bld) [#/Vol] 237 10*3/uL Normal 150-450 [facility] Comment on above: Performed By: #### L 501.9520, L100.0100, L500.4050 #### [facility] [address] [place], [address] RBC (Bld) [#/Vol] 4.45 10*6/uL Low 4.6-6.2 [facility] Comment on above: Performed By: #### L 501.9520, L100.0100, L500.4050 #### [facility] [address] [place], [address] RDW SD 46.7 fl High 35.1-43.9 [facility] Comment on above: Performed By: #### L 501.9520, L100.0100, L500.4050 #### [facility] [address] [place], [address] WBC (Bld) [#/Vol] 8.2 10*3/uL Normal 4.4-11.0 [facility] Comment on above: Performed By: #### L 501.9520, L100.0100, L500.4050 #### [facility] Laboratory [address] [place], [address] CPK Total, Creatine Kinaseon 06-21-2024 CPK TOTAL 34 U/L Normal 24-195 [facility] Comment on above: Performed By: #### L 501.9520, L100.0100, L500.4050 #### [facility] [address] [place], [address] CTA Chest W/WO Contraston CTA Chest W/WO Contrast [facility] Imaging Services [address] [place] [address] CTA Chest W/WO Contrast MR#: [id number] Acct: [id number] Name: GEN POTTS Rep #: [id number] : 1965 M 58 From: Tamika Isaac MD PCP: Dr. Rogelio Velazquez MD Status: [facility] ER Study: CTA Chest W/WO Contrast Date of Exam: 06/21/24 Exam# [id number] Ordering Dr: Bolivar Lockett DO PROCEDURE: CTA [...] vessels are not well assessed. Reading Location: [facility] CC: Dr. Rogelio Velazquez MD; Bolivar Lockett DO Marketing Proposal Coordinator: Signed Normal [facility] Chest PA and Lateralon 06-21 Chest PA and Lateral [facility] Imaging Services [address] [place] [address] Chest PA and Lateral MR#: [id number] Acct: [id number] Name: GEN POTTS Rep #: [id number] : 1965 M 58 From: Kamlesh Panchal i, DO PCP: Dr. Rogelio Velazquez MD Status: REG CLI Study: Chest PA and Lateral Date of Exam: 06/21/24 Exam# [id number] Ordering Dr: Rogelio Velazquez MD PROCEDURE: PA [...] CT evaluation may be considered. Reading [facility] CC: Dr. Rogelio Velazquez MD Marketing Proposal Coordinator: Signed Normal [facility] Comprehensive Metabolic Prof ilon 06-21-2024 Albumin [Mass/Vol] 3.9 g/dL Normal 3.5-5.0 [facility] Comment on above: Performed By: #### L 501.9520, L100.0100, L500.4050 #### [facility] [address] [place], [address] Albumin/Globulin [Mass ratio] 1.1 {ratio} Normal 0.9-2.4 [facility] Comment on above: Performed By: #### L 501.9520, L100.0100, L500.4050 #### [facility] [address] [place], [address] ALK PHOS 87 U/L Normal 40-129 [facility] Comment on above: Performed By: #### L 501.9520, L100.0100, L500.4050 #### [facility] [address] [place], [address] ALT [Catalytic activity/Vol] 10 U/L Normal <=46 [facility] Comment on above: Performed By: #### L 501.9520, L100.0100, L500.4050 #### [facility] [address] [place], [address] AST [Catalytic activity/Vol] 16 U/L Normal <=37 [facility] Comment on above: Performed By: #### L 501.9520, L100.0100, L500.4050 #### [facility] [address] [place], [address] Bilirubin [Mass/Vol] 0.51 mg/dL Normal 0.00-1.30 [facility] Comment on above: Performed By: #### L 501.9520, L100.0100, L500.4050 #### [facility] [address] [place], [address] BUN/CRE 19.0 RATIO Normal 10-20 [facility] Comment on above: Performed By: #### L 501.9520, L100.0100, L500.4050 #### [facility] [address] [place], [address] Calcium [Mass/Vol] 9.1 mg/dL Normal 7.6-11.0 [facility] Comment on above: Performed By: #### L 501.9520, L100.0100, L500.4050 #### [facility] [address] [place], [address] Chloride [Moles/Vol] 108 mmol/L Normal 98-108 [facility] Comment on above: Performed By: #### L 501.9520, L100.0100, L500.4050 #### [facility] [address] [place], [address] CO2 [Moles/Vol] 20.3 mmol/L Low 21.0-32.0 [facility] Comment on above: Performed By: #### L 501.9520, L100.0100, L500.4050 #### [facility] [address] [place], [address] Creatinine [Mass/Vol] 0.81 mg/dL Normal 0.70-1.20 [facility] Comment on above: Performed By: #### L 501.9520, L100.0100, L500.4050 #### [facility] [address] [place], [address] GAP 12 Normal 5-15 [facility] Comment on above: Performed By: #### L 501.9520, L100.0100, L500.4050 #### [facility] [address] [place], [address] GFR/1.73 sq M.predicted among non-blacks MDRD (S/P/Bld) [Vol rate/Area] 102 mL/min/{1.73_m2} Normal >60 [facility] Comment on above: Result Comment: mL/m in/1.73m2 CKD-EPI Creatinine Equation (2020) Performed By: #### L 501.9520, L100.0100, L500.4050 #### [facility] [address] [place], [address] Globulin (S) [Mass/Vol] 3.5 g/dL Normal 2.2-4.2 [facility] Comment on above: Performed By: #### L 501.9520, L100.0100, L500.4050 #### [facility] [address] [place], [address] Glucose [Mass/Vol] 84 mg/dL Normal 70-99 [facility] Comment on above: Performed By: #### L 501.9520, L100.0100, L500.4050 #### [facility] [address] [place], [address] Potassium [Moles/Vol] 4.2 mmol/L Normal 3.3-5.1 [facility] Comment on above: Performed By: #### L 501.9520, L100.0100, L500.4050 #### [facility] [address] [place], [address] Sodium [Moles/Vol] 140 mmol/L Normal 133-145 [facility] Comment on above: Performed By: #### L 501.9520, L100.0100, L500.4050 #### [facility] [address] [place], [address] T PROT 7.4 g/dL Normal 5.9-8.4 [facility] Comment on above: Performed By: #### L 501.9520, L100.0100, L500.4050 #### [facility] [address] [place], [address] Urea nitrogen [Mass/Vol] 15 mg/dL Normal 4-19 [facility] Comment on above: Performed By: #### L 501.9520, L100.0100, L500.4050 #### [facility] [address] [place], [address] D-Dimer Quantitative (DVT/PE )on 06-21-2024 D-DIMER QUANT 0.47 FEU/ug/m Normal 0.27-0.49 [facility] Comment on above: Result Comment: NORM AL D-Dimer level (<0.50) indicates no DVT or PE. Performed By: #### L 501.9520, L100.0100, L500.4050 #### [facility] [address] [place], [address] L501.4021on 06-21-2024 Trop T High Sen 84 ng/L Invalid Interpretation Code <=22 [facility] Comment on above: Result Comment: Crit ical Result(s) Called at:2323 by:??MORENO HAVEN TO IKE LOPEZ Results read back by same. Performed By: #### L 500.2500, L100.0100, L501.4021 ####[facility] [address] [place], [address] Trop T High Sen 73 ng/L Invalid Interpretation Code <=22 [facility] Comment on above: Result Comment: Crit ical Result(s) Called at: 2100 by: JEFF [place] TO DR. VELAZQUEZ??Results read back by same. Performed By: #### L 501.9506, L100.0100, L500.4050 #### [facility] [address] [place], [address] L503.7505on 06-21-2024 Natriuretic peptide B (Bld) [Mass/Vol] 368 pg/mL Normal <=900 [facility] Comment on above: Result Comment: Hear t Failure Unlikely: < 300 pg/mL Heart Failure Likely < 50 Years: > 450 pg/mL 50-75 Years: > 900 pg/mL >75 Years: > 1800 pg/mL Performed By: #### L 503.7505 ####[facility] [address] [place], [address] Natriuretic peptide B (Bld) [Mass/Vol] 370 pg/mL Normal <=900 [facility] Comment on above: Result Comment: Hear t Failure Unlikely: < 300 pg/mL Heart Failure Likely < 50 Years: > 450 pg/mL 50-75 Years: > 900 pg/mL >75 Years: > 1800 pg/mL Performed By: #### L 501.9520, L100.0100, L500.4050 #### [facility] [address] [place], [address] M100.678on 06-21-2024 M100.678 Pending SARS-CoV-2 (COVID 19) Negative INFLUENZA A Negative INFLUENZA B Negative RSV PCR Negative Normal [facility] Comment on above: Performed By: #### L 501.9520, L100.0100, L500.4050 #### [facility] [address] [place], [address] M100.678 Pending SARS-CoV-2 (COVID 19) Negative INFLUENZA A Negative INFLUENZA B Negative RSV PCR Negative Normal [facility] Comment on above: Performed By: #### M 100.678 ####[facility] [address] [place], [address] Partial Thromboplast Timeon 06-21-2024 aPTT Coag (Bld) [Time] 28.6 s Normal 24.1-36.2 [facility] Comment on above: Performed By: #### L 501.9985 #### [facility] [address] [place], [address] Prothrombin Time w/INRon INR Coag (PPP) [Relative time] 1.0 {INR} Normal [facility] Comment on above: Performed By: #### L 501.9985 #### [facility] [address] [place], [address] PT Coag (PPP) [Time] 13.1 s Normal 11.7-14.9 [facility] Comment on above: Performed By: #### L 501.9985 #### [facility] [address] [place], [address] Thyroid Stim Hormone (TSH)on 06-21-2024 TSH 5.800 uIU/mL High 0.300-4.200 [facility] Comment on above: Performed By: #### L 501.9520, L100.0100, L500.4050 #### [facility] [address] [place], [address] Urine Drug Screen (VISTA)on 06-21-2024 AMPHETAMINES Negative Normal <1000 ng/mL [facility] Comment on above: Order Comment: UNKNO WN Performed By: #### L 501.9520, L100.0100, L500.4050 #### [facility] [address] [place], [address] BARBITIURATES Negative Normal < 200 ng/mL [facility] Comment on above: Order Comment: UNKNO WN Performed By: #### L 501.9520, L100.0100, L500.4050 #### [facility] [address] [place], [address] BENZODIAZIPINE Positive Normal < 200 ng/mL [facility] Comment on above: Order Comment: UNKNO WN Result Comment: If c onfirmation testing is needed, a separate order will be required to send out testing to the reference laboratory. Performed By: #### L 501.9520, L100.0100, L500.4050 #### [facility] [address] [place], [address] BUP Ur Drug Scr Negative Normal < 200 ng/mL [facility] Comment on above: Order Comment: UNKNO WN Performed By: #### L 501.9520, L100.0100, L500.4050 #### [facility] [address] [place], [address] COCAINE Negative Normal < 300 ng/mL [facility] Comment on above: Order Comment: UNKNO WN Performed By: #### L 501.9520, L100.0100, L500.4050 #### [facility] [address] [place], [address] Fentanyl Negative Normal [facility] Comment on above: Order Comment: UNKNO WN Performed By: #### L 501.9520, L100.0100, L500.4050 #### [facility] [address] [place], [address] METHADONE Negative Normal < 300 ng/mL [facility] Comment on above: Order Comment: UNKNO WN Performed By: #### L 501.9520, L100.0100, L500.4050 #### [facility] [address] [place], [address] OPIATES Negative Normal < 300 ng/mL [facility] Comment on above: Order Comment: UNKNO WN Performed By: #### L 501.9520, L100.0100, L500.4050 #### [facility] [address] [place], [address] OXYCODONE Negative Normal < 100 ng/mL [facility] Comment on above: Order Comment: UNKNO WN Performed By: #### L 501.9520, L100.0100, L500.4050 #### [facility] [address] [place], [address] PCP Negative Normal < 25 ng/mL [facility] Comment on above: Order Comment: UNKNO WN Performed By: #### L 501.9520, L100.0100, L500.4050 #### [facility] [address] [place], [address] THC Negative Normal < 50 ng/mL [facility] Comment on above: Order Comment: UNKNO WN Performed By: #### L 501.9520, L100.0100, L500.4050 #### [facility] [address] [place], [address] CBC W/Diff, Automatedon 03- Absolute Lymph 3.44 X10 3/uL Normal 0.83-4.51 [facility] Comment on above: Performed By: #### L 100.0100, L501.9520, L500.4050, L501.9910 ####[facility] [address] [place], [address] Absolute Neut 4.8 X10 3/uL Normal 2.0-7.7 [facility] Comment on above: Performed By: #### L 100.0100, L501.9520, L500.4050, L501.9910 ####[facility] [address] [place], [address] Basophils/100 WBC (Bld) 0.5 % Normal 0-1 [facility] Comment on above: Performed By: #### L 100.0100, L501.9520, L500.4050, L501.9910 ####[facility] [address] [place], [address] Eosinophils/100 WBC (Bld) 0.8 % Normal 0-5 [facility] Comment on above: Performed By: #### L 100.0100, L501.9520, L500.4050, L501.9910 ####[facility] [address] [place], [address] Erythrocyte distribution width (RBC) [Ratio] 13.7 % Normal 11.6-14.6 [facility] Comment on above: Performed By: #### L 100.0100, L501.9520, L500.4050, L501.9910 ####[facility] [address] [place], [address] Hematocrit (Bld) [Volume fraction] 41.1 % Normal 40-54 [facility] Comment on above: Performed By: #### L 100.0100, L501.9520, L500.4050, L501.9910 ####[facility] [address] [place], [address] Hemoglobin (Bld) [Mass/Vol] 14.0 g/dL Normal 13.0-16.5 [facility] Comment on above: Performed By: #### L 100.0100, L501.9520, L500.4050, L501.9910 ####[facility] [address] [place], [address] IG% 0.300 Normal 0.0-0.9 [facility] Comment on above: Result Comment: IG% - Immature Granulocytes (promyelocytes, myelocytes and metamyelocytes) > 1% indicates that a LEFT SHIFT is Present. Performed By: #### L 100.0100, L501.9520, L500.4050, L501.9910 ####[facility] [address] [place], [address] Lymphocytes/100 WBC (Bld) 38.7 % Normal 19-41 [facility] Comment on above: Performed By: #### L 100.0100, L501.9520, L500.4050, L501.9910 ####[facility] [address] [place], [address] MCH (RBC) [Entitic mass] 32.0 pg Normal 27.0-32.0 [facility] Comment on above: Performed By: #### L 100.0100, L501.9520, L500.4050, L501.9910 ####[facility] [address] [place], [address] MCHC (RBC) [Mass/Vol] 34.1 g/dL Normal 32-36 [facility] Comment on above: Performed By: #### L 100.0100, L501.9520, L500.4050, L501.9910 ####[facility] [address] [place], [address] MCV (RBC) [Entitic vol] 93.8 fL Normal 80-94 [facility] Comment on above: Performed By: #### L 100.0100, L501.9520, L500.4050, L501.9910 ####[facility] [address] [place], [address] Monocytes/100 WBC (Bld) 6.2 % Normal 0-10 [facility] Comment on above: Performed By: #### L 100.0100, L501.9520, L500.4050, L501.9910 ####[facility] [address] [place], [address] Neutrophils/100 WBC (Bld) 53.5 % Normal 47-70 [facility] Comment on above: Performed By: #### L 100.0100, L501.9520, L500.4050, L501.9910 ####[facility] [address] [place], [address] Nucleated RBC (Bld) [#/Vol] 0 10*3/uL Normal 0-5 [facility] Comment on above: Performed By: #### L 100.0100, L501.9520, L500.4050, L501.9910 ####[facility] [address] [place], [address] Platelet mean volume (Bld) [Entitic vol] 10.8 fL Normal 6.2-12.0 [facility] Comment on above: Performed By: #### L 100.0100, L501.9520, L500.4050, L501.9910 ####[facility] [address] [place], [address] Platelets (Bld) [#/Vol] 268 10*3/uL Normal 150-450 [facility] Comment on above: Performed By: #### L 100.0100, L501.9520, L500.4050, L501.9910 ####[facility] [address] [place], [address] RBC (Bld) [#/Vol] 4.38 10*6/uL Low 4.6-6.2 [facility] Comment on above: Performed By: #### L 100.0100, L501.9520, L500.4050, L501.9910 ####[facility] [address] [place], [address] RDW SD 47.3 fl High 35.1-43.9 [facility] Comment on above: Performed By: #### L 100.0100, L501.9520, L500.4050, L501.9910 ####[facility] [address] [place], [address] WBC (Bld) [#/Vol] 8.9 10*3/uL Normal 4.4-11.0 [facility] Comment on above: Performed By: #### L 100.0100, L501.9520, L500.4050, L501.9910 ####[facility] [address] [place], [address] Comprehensive Metabolic Prof ilon 05-25-2024 Albumin [Mass/Vol] 4.1 g/dL Normal 3.5-5.0 [facility] Comment on above: Performed By: #### L 100.0100, L501.9520, L500.4050, L501.9910 ####[facility] [address] [place], [address] Albumin/Globulin [Mass ratio] 1.4 {ratio} Normal 0.9-2.4 [facility] Comment on above: Performed By: #### L 100.0100, L501.9520, L500.4050, L501.9910 ####[facility] [address] [place], [address] ALK PHOS 74 U/L Normal 40-129 [facility] Comment on above: Performed By: #### L 100.0100, L501.9520, L500.4050, L501.9910 ####[facility] [address] [place], [address] ALT [Catalytic activity/Vol] 18 U/L Normal <=46 [facility] Comment on above: Performed By: #### L 100.0100, L501.9520, L500.4050, L501.9910 ####[facility] [address] [place], [address] AST [Catalytic activity/Vol] 19 U/L Normal <=37 [facility] Comment on above: Performed By: #### L 100.0100, L501.9520, L500.4050, L501.9910 ####[facility] [address] [place], [address] Bilirubin [Mass/Vol] 0.87 mg/dL Normal 0.00-1.30 [facility] Comment on above: Performed By: #### L 100.0100, L501.9520, L500.4050, L501.9910 ####[facility] [address] [place], [address] BUN/CRE 19.0 RATIO Normal 10-20 [facility] Comment on above: Performed By: #### L 100.0100, L501.9520, L500.4050, L501.9910 ####[facility] [address] [place], [address] Calcium [Mass/Vol] 9.2 mg/dL Normal 7.6-11.0 [facility] Comment on above: Performed By: #### L 100.0100, L501.9520, L500.4050, L501.9910 ####[facility] [address] [place], [address] Chloride [Moles/Vol] 104 mmol/L Normal 98-108 [facility] Comment on above: Performed By: #### L 100.0100, L501.9520, L500.4050, L501.9910 ####[facility] [address] [place], [address] CO2 [Moles/Vol] 24.2 mmol/L Normal 21.0-32.0 [facility] Comment on above: Performed By: #### L 100.0100, L501.9520, L500.4050, L501.9910 ####[facility] [address] [place], [address] Creatinine [Mass/Vol] 0.96 mg/dL Normal 0.70-1.20 [facility] Comment on above: Performed By: #### L 100.0100, L501.9520, L500.4050, L501.9910 ####[facility] [address] [place], [address] GAP 10 Normal 5-15 [facility] Comment on above: Performed By: #### L 100.0100, L501.9520, L500.4050, L501.9910 ####[facility] [address] [place], [address] GFR/1.73 sq M.predicted among non-blacks MDRD (S/P/Bld) [Vol rate/Area] 91 mL/min/{1.73_m2} Normal >60 [facility] Comment on above: Result Comment: mL/m in/1.73m2 CKD-EPI Creatinine Equation (2020) Performed By: #### L 100.0100, L501.9520, L500.4050, L501.9910 ####[facility] [address] [place], [address] Globulin (S) [Mass/Vol] 2.8 g/dL Normal 2.2-4.2 [facility] Comment on above: Performed By: #### L 100.0100, L501.9520, L500.4050, L501.9910 ####[facility] [address] [place], [address] Glucose [Mass/Vol] 86 mg/dL Normal 70-99 [facility] Comment on above: Performed By: #### L 100.0100, L501.9520, L500.4050, L501.9910 ####[facility] [address] [place], [address] Potassium [Moles/Vol] 4.0 mmol/L Normal 3.3-5.1 [facility] Comment on above: Performed By: #### L 100.0100, L501.9520, L500.4050, L501.9910 ####[facility] [address] [place], [address] Sodium [Moles/Vol] 138 mmol/L Normal 133-145 [facility] Comment on above: Performed By: #### L 100.0100, L501.9520, L500.4050, L501.9910 ####[facility] [address] [place], [address] T PROT 6.9 g/dL Normal 5.9-8.4 [facility] Comment on above: Performed By: #### L 100.0100, L501.9520, L500.4050, L501.9910 ####[facility] [address] [place], [address] Urea nitrogen [Mass/Vol] 18 mg/dL Normal 4-19 [facility] Comment on above: Performed By: #### L 100.0100, L501.9520, L500.4050, L501.9910 ####[facility] [address] [place], [address] PSA,Total - Annual Screenon 05-25-2024 PSA,TOT SCREEN 0.17 ng/mL Normal 0.02-4.00 [facility] Comment on above: Result Comment: This [...] By: #### L 100.0100, L501.9520, L500.4050, L501.9910 ####[facility] [address] [place], [address] Thyroid Stim Hormone (TSH)on 05-25-2024 TSH 3.110 uIU/mL Normal 0.300-4.200 [facility] Comment on above: Performed By: #### L 100.0100, L501.9520, L500.4050, L501.9910 ####[facility] [address] [place], [address] M100.678on 05-18-2024 M100.678 SARS-CoV-2 (COVID 19 ) Negative INFLUENZA A Negative INFLUENZA B Negative RSV PCR Negative Normal [facility] Comment on above: Performed By: #### L 501.9520, L100.0100, L500.4050 #### [facility] [address] [place], [address] M100.678on 05-10-2024 M100.678 SARS-CoV-2 (COVID 19 ) Negative INFLUENZA A Negative INFLUENZA B Negative RSV PCR Negative Normal [facility] Comment on above: Performed By: #### L 501.9520, L100.0100, L500.4050 #### [facility] [address] [place], [address] Miscellaneous Lab Procedureo n 03-26-2024 [facility] TEST Normal [facility] Comment on above: Order Comment: [id number] [...] includes Oxycodone and Oxymorphone. TESTING PERFORMED AT [facility]. ORIGINAL REPORT ON FILE IN LAB CONTAINS ADDITIONAL TEST SITE INFORMATION. Performed By: #### L 501.9985 #### [facility] [address] [place], [address] Miscellaneous Lab Procedure 2on 03-26-2024 [place] TEST 2 Normal [facility] Comment on above: Order Comment: [id number] Result Comment: TEST RESULTS LIMITS Tramadol, Urine Tramadol Positive Jcgsek=604 Tramadol Conf, [place], [place] 6667 ng/mL Wlabmw=718 Tramadol detected; this finding can be consistent with use of medications that include Ultram, Topalgic, Tradol, Zydol, or generic formulations. Drugs listed are advertising account representative of common sources of the compound detected and are not intended to include all possible sources. Please Note: Drug test results should be interpreted in the context of clinical information. Patient metabolic variables, specific drug chemistry, and specimen characteristics can affect test outcome. Technical consultation is available if a test result is inconsistent with an expected outcome. Email: [email or web address] TESTING PERFORMED AT [facility]. ORIGINAL REPORT ON FILE IN LAB CONTAINS ADDITIONAL TEST SITE INFORMATION. Performed By: #### L 501.9985 #### [facility] [address] [place], [address] Urine Drug Screen (VISTA)on 03-22-2024 AMPHETAMINES Negative Normal <1000 ng/mL [facility] Comment on above: Order Comment: UNK Performed By: #### L 501.9985 #### [facility] [address] [place], [address] BARBITIURATES Negative Normal < 200 ng/mL [facility] Comment on above: Order Comment: UNK Performed By: #### L 501.9985 #### [facility] [address] [place], [address] BENZODIAZIPINE Negative Normal < 200 ng/mL [facility] Comment on above: Order Comment: UNK Performed By: #### L 501.9985 #### [facility] [address] [place], [address] COCAINE Negative Normal < 300 ng/mL [facility] Comment on above: Order Comment: UNK Performed By: #### L 501.9985 #### [facility] [address] [place], [address] ECSTACY Negative Normal < 500 ng/mL [facility] Comment on above: Order Comment: UNK Performed By: #### L 501.9985 #### [facility] [address] [place], [address] METHADONE Negative Normal < 300 ng/mL [facility] Comment on above: Order Comment: UNK Performed By: #### L 501.9985 #### [facility] [address] [place], [address] OPIATES Negative Normal < 300 ng/mL [facility] Comment on above: Order Comment: UNK Performed By: #### L 501.9985 #### [facility] [address] [place], [address] PCP Negative Normal < 25 ng/mL [facility] [facility] Comment on above: Order Comment: UNK Performed By: #### L 501.9985 #### [facility] [address] [place], [address] THC Negative Normal < 50 ng/mL [facility] Comment on above: Order Comment: UNK Performed By: #### L 501.9985 #### [facility] [address] [place], [address] VISTA UDS PH 5 Normal [facility] Comment on above: Order Comment: UNK Performed By: #### L 501.9985 #### [facility] [address] [place], [address] Knee 4 or More Viewson 03-04 Knee 4 or More Views [facility] [address] [place] [address] Knee 4 or More Views MR#: [id number] Acct: [id number] Name: GEN POTTS Rep #: [id number] : 1965 M 58 From: Darryn Butler MD PCP: Dr. Rogelio Velazquez MD Status: DEP AMB Study: Knee 4 or More Views Date of Exam: 03/04/24 Exam# [id number] Ordering Dr: James Justin MD [id number] STUDY: X-RAY - LEFT KNEE REASON FOR [...] Signed: Darryn Butler MD at 15:10 EST , CC: Dr. James Justin MD; Dr. Rogelio Velazquez MD Marketing Proposal Coordinator: Signed Normal [facility] Knee 4 or More Views [facility] [address] [place] [address] Knee 4 or More Views MR#: [id number] Acct: [id number] Name: GEN POTTS Rep #: [id number] : 1965 M 58 From: Darryn Butler MD PCP: Dr. Rogelio Velazquez MD Status: DEP AMB Study: Knee 4 or More Views Date of Exam: 03/04/24 Exam# [id number] Ordering Dr: James Justin MD [id number] STUDY: X-RAY - RIGHT KNEE REASON FOR [...] 15:09 EST Reading Location ID and State: [address] [place] [address] , Service support , CC: Dr. James Justin MD; Dr. Rogelio Velazquez MD Marketing Proposal Coordinator: Signed Normal [facility] Orthopedic Visit Reporton Orthopedic Visit Report [facility] [address] [place] [address] OFFICE VISIT Date of Service: 03/04/24 MR#: [id number] Acct: [id number] Name: GEN POTTS Rep #: [id number] : 1965 Provider: Dr. James lagunas MD Age/Sex: 58/M Location: [facility] Status: Signed Intake Vital Signs 06/17/23 09:14 [...] Performing Provider: James Justin MD Performing Location: [facility] Administered by: James Justin MD on 03/04/24 10:57 Dose Route Admin Location Dispensed Lot Number Expiration Date CANDE Carlyle ufacturer 80 mg intra-articular Left Knee 2 mL [id number] 07/15/25 1359-7496-43 [facility] Supplemental Info X-rays 4 views of both knees obtained today that shows some moderate medial compartment joint space narrowing on both sides. 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 Normal [facility] CNOVon 02-22-2024 CNOV Office Visit (WALKWA ) GEN POTTS ([id number]) 1965 M Date Time Provider Department 02/22/24 [...] Tympanic) Resp 18 Ht 180.3 cm (5' 11") Wt 82.2 kg (181 lb 1.7 oz) [...] tenderness or frontal sinus tenderness. Mouth/Throat: Lips: [place]. No lesions. Mouth: Mucous membranes are moist. No oral lesions. Dentition: No gum lesions. Tongue: No lesions. Tongue does not deviate from midline. Palate: No mass and lesions. Pharynx: Oropharynx is clear. No pharyngeal swelling, oropharyngeal exudate, posterior oropharyngeal erythema or uvula swelling. Tonsils: No tonsillar exudate or tonsillar abscesses. Eyes: General: Lids are normal. No scleral ict (more content not included)... Normal [facility] Basic Metabolic Profile (BMP )on 01-14-2024 BUN/CRE 19.0 RATIO Normal 01-03 [facility] Comment on above: Performed By: #### L 500.2500 #### [facility] [address] [place], [address] CA,Total 9.1 mg/dL Normal 8.5-10.1 [facility] Comment on above: Performed By: #### L 500.2500 #### [facility] [address] [place], [address] Chloride [Moles/Vol] 107 mmol/L Normal 98-107 [facility] Comment on above: Performed By: #### L 500.2500 #### [facility] [address] [place], [address] CO2 [Moles/Vol] 30.0 mmol/L Normal 21.0-32.0 [facility] Comment on above: Performed By: #### L 500.2500 #### [facility] [address] [place], [address] Creatinine [Mass/Vol] 0.84 mg/dL Normal 0.70-1.30 [facility] Comment on above: Result Comment: The validity of the calculated GFR GFRAA in patients over 70 years has not been determined. Clinical correlation is essential. Performed By: #### L 500.2500 #### [facility] [address] [place], [address] EST GFR - AA 120 mL/min Normal >60 [facility] Comment on above: Result Comment: Afri can Ghanaian GFR Calc Performed By: #### L 500.2500 #### [facility] [address] [place], [address] GAP 3 Low 5-15 [facility] Comment on above: Performed By: #### L 500.2500 #### [facility] [address] [place], [address] GFR/1.73 sq M.predicted among non-blacks MDRD (S/P/Bld) [Vol rate/Area] 99 mL/min/{1.73_m2} Normal >60 [facility] Comment on above: Result Comment: Non- GFR Calc Performed By: #### L 500.2500 #### [facility] [address] [place], [address] Glucose [Mass/Vol] 83 mg/dL Normal 74-106 [facility] Comment on above: Performed By: #### L 500.2500 #### [facility] [address] [place], [address] Potassium [Moles/Vol] 3.9 mmol/L Normal 3.5-5.1 [facility] Comment on above: Performed By: #### L 500.2500 #### [facility] [address] [place], [place], [address] Sodium [Moles/Vol] 139 mmol/L Normal 136-145 [facility] Comment on above: Performed By: #### L 500.2500 #### [facility] [address] [place], [place], [address] Urea nitrogen [Mass/Vol] 16 mg/dL Normal 7-18 [facility] Comment on above: Performed By: #### L 500.2500 #### [facility] [address] [place], [place], [address] Myoglobin, Serumon 4 Myoglobin, Ser 28 ng/mL Normal 28-72 [facility] Comment on above: Result Comment: Perf ormed at: CB - [facility] [address] [id number] Rotor Winder: Mata Green PhD, Phone: [phone] Performed By: #### L 861.9919 #### [facility] [address] [place], [place], [address] CTA Chest W/WO Contraston CTA Chest W/WO Contrast [facility] Imaging Services [address] [place] [id number] CTA Chest W/WO Contrast MR#: [id number] Acct: [id number] Name: GEN POTTS Rep #: [id number] : 1965 M 58 From: Skylar Ambrosio MD PCP: Dr. Rogelio Velazquez MD Status: REG CLI Study: CTA Chest W/WO Contrast Date of Exam: 01/13/24 Exam# [id number] Ordering Dr: Rogelio Velazquez MD [id number] STUDY: CTA CHEST REASON FOR EXAM: Male, [...] EDT , CC: Dr. Rogelio Velazquez MD Marketing Proposal Coordinator: Signed Normal [facility] M100.678on 01-13-2024 M100.678 Pending SARS-CoV-2 (COVID 19) Negative INFLUENZA A Negative INFLUENZA B Negative RSV PCR Negative Normal [facility] Comment on above: Performed By: #### L 501.9520, L100.0100, L500.4050 #### [facility] [address] [place], [address] CBC W/Diff, Automatedon 10-2 Absolute Lymph 3.42 X10 3/uL Normal 0.83-4.51 [facility] Comment on above: Performed By: #### L 501.9520, L100.0100, L500.4050 #### [facility] [address] [place], [address] Absolute Neut 4.1 X10 3/uL Normal 2.0-7.7 [facility] Comment on above: Performed By: #### L 501.9520, L100.0100, L500.4050 #### [facility] [address] [place], [address] Basophils/100 WBC (Bld) 0.7 % Normal 0-1 [facility] Comment on above: Performed By: #### L 501.9520, L100.0100, L500.4050 #### [facility] [address] [place], [address] Eosinophils/100 WBC (Bld) 4.8 % Normal 0-5 [facility] Comment on above: Performed By: #### L 501.9520, L100.0100, L500.4050 #### [facility] [address] [place], [address] Erythrocyte distribution width (RBC) [Ratio] 13.1 % Normal 11.6-14.6 [facility] Comment on above: Performed By: #### L 501.9520, L100.0100, L500.4050 #### [facility] [address] [place], [address] Hematocrit (Bld) [Volume fraction] 45.5 % Normal 40-54 [facility] Comment on above: Performed By: #### L 501.9520, L100.0100, L500.4050 #### [facility] [address] [place], [address] Hemoglobin (Bld) [Mass/Vol] 14.8 g/dL Normal 13.0-16.5 [facility] Comment on above: Performed By: #### L 501.9520, L100.0100, L500.4050 #### [facility] [address] [place], [address] IG% 0.300 Normal 0.0-0.9 [facility] Comment on above: Result Comment: IG% - Immature Granulocytes (promyelocytes, myelocytes and metamyelocytes) > 1% indicates that a LEFT SHIFT is Present. Performed By: #### L 501.9520, L100.0100, L500.4050 #### [facility] [address] [place], [address] Lymphocytes/100 WBC (Bld) 39.8 % Normal 19-41 [facility] Comment on above: Performed By: #### L 501.9520, L100.0100, L500.4050 #### [facility] [address] [place], [address] MCH (RBC) [Entitic mass] 30.3 pg Normal 27.0-32.0 [facility] Comment on above: Performed By: #### L 501.9520, L100.0100, L500.4050 #### [facility] [address] [place], [address] MCHC (RBC) [Mass/Vol] 32.5 g/dL Normal 32-36 [facility] Comment on above: Performed By: #### L 501.9520, L100.0100, L500.4050 #### [facility] [address] [place], [address] MCV (RBC) [Entitic vol] 93.2 fL Normal 80-94 [facility] Comment on above: Performed By: #### L 501.9520, L100.0100, L500.4050 #### [facility] [address] [place], [address] Monocytes/100 WBC (Bld) 6.7 % Normal 0-10 [facility] Comment on above: Performed By: #### L 501.9520, L100.0100, L500.4050 #### [facility] [address] [place], [address] Neutrophils/100 WBC (Bld) 47.7 % Normal 47-70 [facility] Comment on above: Performed By: #### L 501.9520, L100.0100, L500.4050 #### [facility] [address] [place], [address] Nucleated RBC (Bld) [#/Vol] 0 10*3/uL Normal 0-5 [facility] Comment on above: Performed By: #### L 501.9520, L100.0100, L500.4050 #### [facility] [address] [place], [address] Platelet mean volume (Bld) [Entitic vol] 10.0 fL Normal 6.2-12.0 [facility] Comment on above: Performed By: #### L 501.9520, L100.0100, L500.4050 #### [facility] [address] [place], [address] Platelets (Bld) [#/Vol] 311 10*3/uL Normal 150-450 [facility] Comment on above: Performed By: #### L 501.9520, L100.0100, L500.4050 #### [facility] [address] [place], [address] RBC (Bld) [#/Vol] 4.88 10*6/uL Normal 4.6-6.2 [facility] Comment on above: Performed By: #### L 501.9520, L100.0100, L500.4050 #### [facility] [address] [place], [address] RDW SD 44.9 fl High 35.1-43.9 [facility] Comment on above: Performed By: #### L 501.9520, L100.0100, L500.4050 #### [facility] [address] [place], [address] WBC (Bld) [#/Vol] 8.6 10*3/uL Normal 4.4-11.0 [facility] Comment on above: Performed By: #### L 501.9520, L100.0100, L500.4050 #### [facility] [address] [place], [address] CPK Total, Creatine Kinaseon 01-12-2024 CPK TOTAL 88 U/L Normal 39-308 [facility] Comment on above: Order Comment: 1 Performed By: #### L 501.9520, L100.0100, L500.4050 #### [facility] [address] [place], [address] Chest PA and Lateralon 01-11 Chest PA and Lateral [facility] Imaging Services [address] [place] [address] Chest PA and Lateral MR#: [id number] Acct: [id number] Name: GEN POTTS Rep #: [id number] : 1965 M 58 From: Hussein Lua PCP: Dr. Rogelio Velazquez MD Status: REG CLI Study: Chest PA and Lateral Date of Exam: 01/12/24 Exam# [id number] Ordering Dr: Rogelio Velazquez MD [id number] INDICATION: CHEST PAIN AND SOB EXAMINATION/TECHNIQUE : [...] EDT , CC: Dr. Rogelio Velazquez MD Marketing Proposal Coordinator: Signed Normal [facility] Comprehensive Metabolic Prof ilon 01-12-2024 Albumin [Mass/Vol] 4.1 g/dL Normal 3.2-5.0 [facility] Comment on above: Order Comment: 1 Performed By: #### L 501.9520, L100.0100, L500.4050 #### [facility] [address] [place], [address] Albumin/Globulin [Mass ratio] 0.9 {ratio} Normal 0.9-2.4 [facility] Comment on above: Order Comment: 1 Performed By: #### L 501.9520, L100.0100, L500.4050 #### [facility] [address] [place], [address] ALK P 128 U/L High 45-117 [facility] Comment on above: Order Comment: 1 Performed By: #### L 501.9520, L100.0100, L500.4050 #### [facility] [address] [place], [address] ALT [Catalytic activity/Vol] 25 U/L Normal 16-61 [facility] Comment on above: Order Comment: 1 Performed By: #### L 501.9520, L100.0100, L500.4050 #### [facility] [address] [place], [address] AST [Catalytic activity/Vol] 14 U/L Low 15-37 [facility] Comment on above: Order Comment: 1 Performed By: #### L 501.9520, L100.0100, L500.4050 #### [facility] [address] [place], [address] Bilirubin [Mass/Vol] 0.60 mg/dL Normal 0.20-1.00 [facility] Comment on above: Order Comment: 1 Result Comment: For patients on eltrombopag therapy, use of Dimension Fairchance TBIL is not recommended. Performed By: #### L 501.9520, L100.0100, L500.4050 #### [facility] [address] [place], [address] BUN/CRE 18.3 RATIO Normal 10-20 [facility] Comment on above: Order Comment: 1 Performed By: #### L 501.9520, L100.0100, L500.4050 #### [facility] [address] [place], [address] CA,Total 9.9 mg/dL Normal 8.5-10.1 [facility] Comment on above: Order Comment: 1 Performed By: #### L 501.9520, L100.0100, L500.4050 #### [facility] [address] [place], [address] Chloride [Moles/Vol] 107 mmol/L Normal 98-107 [facility] Comment on above: Order Comment: 1 Performed By: #### L 501.9520, L100.0100, L500.4050 #### [facility] [address] [place], [address] CO2 [Moles/Vol] 29.0 mmol/L Normal 21.0-32.0 [facility] Comment on above: Order Comment: 1 Performed By: #### L 501.9520, L100.0100, L500.4050 #### [facility] [address] [place], [address] Creatinine [Mass/Vol] 0.87 mg/dL Normal 0.70-1.30 [facility] Comment on above: Order Comment: 1 Result Comment: The validity of the calculated GFR GFRAA in patients over 70 years has not been determined. Clinical correlation is essential. Performed By: #### L 501.9520, L100.0100, L500.4050 #### [facility] [address] [place], [address] EST GFR - AA 115 mL/min Normal >60 [facility] Comment on above: Order Comment: 1 Result Comment: Afri can Ghanaian GFR Calc Performed By: #### L 501.9520, L100.0100, L500.4050 #### [facility] [address] [place], [address] GAP 1 Low 5-15 [facility] Comment on above: Order Comment: 1 Performed By: #### L 501.9520, L100.0100, L500.4050 #### [facility] [address] [place], [address] GFR/1.73 sq M.predicted among non-blacks MDRD (S/P/Bld) [Vol rate/Area] 95 mL/min/{1.73_m2} Normal >60 [facility] Comment on above: Order Comment: 1 Result Comment: Non- GFR Calc Performed By: #### L 501.9520, L100.0100, L500.4050 #### [facility] [address] [place], [address] Globulin (S) [Mass/Vol] 4.4 g/dL High 2.2-4.2 [facility] Comment on above: Order Comment: 1 Performed By: #### L 501.9520, L100.0100, L500.4050 #### [facility] [address] [place], [address] Glucose [Mass/Vol] 88 mg/dL Normal 74-106 [facility] Comment on above: Order Comment: 1 Performed By: #### L 501.9520, L100.0100, L500.4050 #### [facility] [address] [place], [address] Potassium [Moles/Vol] 5.4 mmol/L High 3.5-5.1 [facility] Comment on above: Order Comment: 1 Performed By: #### L 501.9520, L100.0100, L500.4050 #### [facility] [address] [place], [address] Sodium [Moles/Vol] 137 mmol/L Normal 136-145 [facility] Comment on above: Order Comment: 1 Performed By: #### L 501.9520, L100.0100, L500.4050 #### [facility] [address] [place], [address] T PROT 8.5 g/dL High 6.4-8.2 [facility] Comment on above: Order Comment: 1 Performed By: #### L 501.9520, L100.0100, L500.4050 #### [facility] [address] [place], [address] Urea nitrogen [Mass/Vol] 16 mg/dL Normal 7-18 [facility] Comment on above: Order Comment: 1 Performed By: #### L 501.9520, L100.0100, L500.4050 #### [facility] [address] [place], [address] D-Dimer Quantitative (DVT/PE )on 01-12-2024 D-DIMER QUANT 0.51 FEU/ug/m Invalid Interpretation Code 0.27-0.49 [facility] Comment on above: Order Comment: CRITI EDNA VALUE CALLED TO DR.TAI CARMEN VELAZQUEZ01/12/24 1815 EMILY SAMANIEGO.RESULTS READ BACK BY SAME. Result Comment: D-Di marcia ELEVATED (>0.49): Additional studies and clinical assessments are indicated to conclude diagnosis of: Deep Vein Thrombosis (DVT) or Pulmonary Embolism (PE) Performed By: #### L 501.9520, L100.0100, L500.4050 #### [facility] [address] [place], [address] L501.4020on 01-12-2024 TROPONIN-I HS 10 pg/mL Normal 3.0-78.0 [facility] Comment on above: Order Comment: 1 Result Comment: Shae daly Note: New Test Units and Gender Specific Reference Ranges. For more information see Policy Stat Procedure Fairchance High Sensitivity Troponin (TNIH) and attachments. Performed By: #### L 501.9520, L100.0100, L500.4050 #### [facility] [address] [place], [address] ED NOTEon 01-03-2024 ED NOTE HNO ID: [id number] Author: PATRICIA BARRAGAN RN Service: Emergency Medicine Author Type: Registered Nurse Type: ED Notes Filed: 01/03/2024 15:34 Note Text: Pt awake and alert at time of discharge. patient verbalizes understanding of discharge instructions and will follow up as recommended. Pt taken out to waiting room in wheelchair. Normal [facility] ED NOTE HNO ID: [id number] Author: TEJAS VENTURA RN Service: Emergency Medicine Author Type: Registered Nurse Type: ED Notes Filed: 01/03/2024 14:57 Note Text: pt tolerating eye wash station irrigation well Normal [facility] ED NOTE HNO ID: [id number] Author: CHEVY HERNANDEZ RN Service: Emergency Medicine Author Type: Registered Nurse Type: ED Notes Filed: 01/03/2024 14:43 Note Text: Pt states that today he accidentally got PVC primer in his right eye. PT states that he flushed his eyes 3 times after it happened and continues to have discomfort. Normal [facility] ED PROV NOTEon 01-03-2024 ED PROV NOTE HNO ID: [id number] Author: SAMSON QUIROS DO Service: Emergency Medicine [...] the MDS. The pH of this is "not available" on the MDS. Poison control contacted. Patient [...] have asked to be referred to the [facility] locally down the street from our facility. [...] DO Shaneka Lindsey ALAN 01/03/24 1631 Normal [facility] Absolute lymphocyte countOrd ered By: Rogelio Velazquez on 04-29-2023 Lymphocytes Auto (Unsp spec) [#/Vol] 3.17 10*3/uL 0.83-4.51 [facility] Automated lymphocyte count a s percentage of total leukocytesOrdered By: Rogelio Velazquez on 04-29-2023 Lymphocytes/100 WBC Auto (Unsp spec) 45.4 % 19-41 [facility] Basophil percentageOrdered B y: Rogelio Velazquez on 04-29-2023 Basophils/100 WBC (Bld) 0.7 % 0-1 [facility] Bilirubin [Mass/Vol] 0.40 mg/dL 0.20-1.00 [facility] Comment on above: For patients on eltr ombopag therapy, use of Dimension [place]ance TBIL is not recommended. Chloride [Moles/Vol] 108 mmol/L 98-107 [facility] Eosinophils/100 WBC (Bld) 5.3 % 0-5 [facility] Glucose [Mass/Vol] 85 mg/dL 74-106 [facility] Hemoglobin (Bld) [Mass/Vol] 13.0 g/dL 13.0-16.5 [facility] Monocytes/100 WBC (Bld) 5.0 % 0-10 [facility] Neutrophils (Bld) [#/Vol] 3.0 10*3/uL 2.0-7.7 [facility] Neutrophils/100 WBC (Bld) 43.3 % 47-70 [facility] Potassium [Moles/Vol] 3.9 mmol/L 3.5-5.1 [facility] Protein [Mass/Vol] 7.0 g/dL 6.4-8.2 [facility] Sodium [Moles/Vol] 142 mmol/L 136-145 [facility] WBC (Bld) [#/Vol] 7.0 10*3/uL 4.4-11.0 [facility] Determination of erythrocyte mean corpuscular volume (MCV)Ordered By: Rogelio Velazquez on 04-29-2023 MCV (RBC) [Entitic vol] 93.4 fL 80-94 [facility] Erythrocyte distribution wid th ratioOrdered By: Rogelio Velazquez on 04-29-2023 Erythrocyte distribution width (RBC) [Ratio] 12.4 % 11.6-14.6 [facility] Erythrocyte distribution wid th standard deviationOrdered By: Rogelio Justin on 04-29-2023 Erythrocyte distribution width (RBC) [Entitic vol] 42.5 fL 35.1-43.9 [facility] Hematocrit Auto (Bld) [Volum e fraction]Ordered By: Rogelio Velazquez on 04-29-2023 Hematocrit (Bld) [Volume fraction] 39.9 % 40-54 [facility] Immature granulocytes/100 WB C Auto (Bld)Ordered By: Rogelio Velazquez 04-29-2023 Immature granulocytes/100 WBC (Bld) 0.300 % 0.0-0.9 [facility] Comment on above: IG% - Immature Granu locytes (promyelocytes, myelocytes and metamyelocytes) > 1% indicates that a LEFT SHIFT is Present. Laboratory - Chemistry and C hemistry - challengeOrdered By: Rogelio Velazquez 04-29-2023 Albumin/Globulin [Mass ratio] 1.1 {ratio} 0.9-2.4 [facility] ALP [Catalytic activity/Vol] 109 U/L 45-117 [facility] ALT [Catalytic activity/Vol] 18 U/L 16-61 [facility] CO2 [Moles/Vol] 29.0 mmol/L 21.0-32.0 [facility] Globulin (S) [Mass/Vol] 3.4 g/dL 2.2-4.2 [facility] Urea nitrogen/Creatinine [Mass ratio] 18.5 mg/mg 10-20 [facility] - Hematology and Cell countsOrdered By: Rogelio Velazquez 04-29-2023 MCH (RBC) [Entitic mass] 30.4 pg 27.0-32.0 [facility] MCHC (RBC) [Mass/Vol] 32.6 g/dL 32-36 [facility] Nucleated RBC/100 WBC (Bld) [Ratio] 0 % 0-5 [facility] Platelet mean volume (Bld) [Entitic vol] 11.1 fL 6.2-12.0 [facility] Platelets (Bld) [#/Vol] 266 10*3/uL 150-450 [facility] No Panel InformationOrdered By: Rogelio Velazquez on 04-29-2023 Estimated GFR (MDRD) Amer 125 mL/min >60 [facility] Comment on above: GFR Calc Estimated GFR (MDRD) Non-Af Amer 103 mL/min >60 [facility] Comment on above: Non- GFR Calc Prostate Specific Antigen Screen 0.26 ng/mL 0.00-4.00 [facility] Comment on above: This test was perfor med using the TPSA assay method for theSpreedly chemistry system. Values obtained with differentassay methods cannot be used interchangably.When changing PSA assays in the course of monitoring apatient, additional sequential testing should be carriedout to confirm baseline values. RBC Auto (Bld) [#/Vol]Ordere d By: Rogelio Velazquez on 04-29-2023 RBC (Bld) [#/Vol] 4.27 10*6/uL 4.6-6.2 [facility] Serum or plasma calcium vinnie urement (mass/volume)Ordered By: Rogelio Velazquez 04-29-2023 Calcium [Mass/Vol] 8.8 mg/dL 8.5-10.1 [facility] Serum or plasma creatinine m easurement (mass/volume)Ordered By: Rogelio Velazquez 04-29-2023 Creatinine [Mass/Vol] 0.81 mg/dL 0.70-1.30 [facility] Comment on above: The validity of the calculated GFR & GFRAA in patients over 70 years has not been determined. Clinical correlation is essential. Serum or plasma thyroid stim ulating hormone (TSH) measurement (units/volume)Ordered By: Rogelio Velazquez on 04-29-2023 TSH Qn 2.63 uIU/mL 0.358-3.74 [facility] Serum or plasma urea nitroge n measurement (mass/volume)Ordered By: Rogelio Velazquez on 04-29-2023 Urea nitrogen [Mass/Vol] 15 mg/dL 7-18 [facility] Thin prep Papanicolaou smear with manual screeningOrdered By: Rogelio Velazquez on 04-29-2023 Thin prep Papanicolaou smear with manual screening 3.6 g/dL 3.2-5.0 [facility] Thin prep Papanicolaou smear with manual screening 16 U/L 15-37 [facility] Thin prep Papanicolaou smear with manual screening 5 5-15 [facility] Absolute lymphocyte counton 02-13-2022 Lymphocytes Auto (Unsp spec) [#/Vol] 2.83 10*3/uL 0.83-4.51 [facility] Work Phone: Basophil percentageon 2021 Basophils/100 WBC (Bld) 0.8 % 0-1 [facility] Work Phone: Bilirubin [Mass/Vol] 0.60 mg/dL 0.20-1.00 [facility] Work Phone: Comment on above: For patients on eltr ombopag therapy, use of Dimension [place] TBIL is not recommended. Chloride [Moles/Vol] 109 mmol/L 98-107 [facility] Work Phone: Eosinophils/100 WBC (Bld) 4.6 % 0-5 [facility] Work Phone: Glucose [Mass/Vol] 77 mg/dL 74-106 [facility] Work Phone: Neutrophils (Bld) [#/Vol] 2.8 10*3/uL 2.0-7.7 [facility] Work Phone: Neutrophils/100 WBC (Bld) 43.3 % 47-70 [facility] Work Phone: Potassium [Moles/Vol] 3.8 mmol/L 3.5-5.1 [facility] Work Phone: Protein [Mass/Vol] 6.6 g/dL 6.4-8.2 [facility] Work Phone: Sodium [Moles/Vol] 142 mmol/L 136-145 [facility] Work Phone: [phone] WBC (Bld) [#/Vol] 6.5 10*3/uL 4.4-11.0 [facility] Work Phone: Blood erythrocytes count (nu mber/volume)on 02-13-2022 RBC (Bld) [#/Vol] 4.52 10*6/uL 4.6-6.2 [facility] Work Phone: Blood hemoglobin measurement (mass/volume)on 02-13-2022 Hemoglobin (Bld) [Mass/Vol] 14.4 g/dL 13.0-16.5 [facility] Work Phone: [phone] Blood lymphocytes/100 leukoc yteson 02-13-2022 Lymphocytes/100 WBC (Bld) 43.5 % 19-41 [facility] Work Phone: [phone] Blood monocytes/100 leukocyt eson 02-13-2022 Monocytes/100 WBC (Bld) 7.5 % 0-10 [facility] Work Phone: [phone] Blood platelet mean volumeon 02-13-2022 Platelet mean volume (Bld) [Entitic vol] 11.4 fL 6.2-12.0 [facility] Work Phone: [phone] Determination of erythrocyte mean corpuscular volume (MCV)on 02-13-2022 MCV (RBC) [Entitic vol] 95.1 fL 80-94 [facility] Work Phone: [phone] Hematocrit Auto (Bld) [Volum e fraction]on 02-13-2022 Hematocrit (Bld) [Volume fraction] 43.0 % 40-54 [facility] Work Phone: [phone] Laboratory - Chemistry and C hemistry - challengeon 02-13-2022 ALP [Catalytic activity/Vol] 83 U/L 45-117 [facility] Work Phone: ALT [Catalytic activity/Vol] 27 U/L 16-61 [facility] Work Phone: CO2 [Moles/Vol] 28.0 mmol/L 21.0-32.0 [facility] Work Phone: [phone] Globulin (S) [Mass/Vol] 2.9 g/dL 2.2-4.2 [facility] Work Phone: [phone] Urea nitrogen/Creatinine [Mass ratio] 21.1 mg/mg 10-20 [facility] Work Phone: [phone] Laboratory - Hematology and Cell countson 02-13-2022 Erythrocyte distribution width (RBC) [Entitic vol] 46.5 fL 35.1-43.9 [facility] Work Phone: [phone] Erythrocyte distribution width (RBC) [Ratio] 13.2 % 11.6-14.6 [facility] Work Phone: [phone] Immature granulocytes/100 WBC (Bld) 0.300 % 0.0-0.9 [facility] Work Phone: [phone] Comment on above: IG% - Immature Granu locytes (promyelocytes, myelocytes and metamyelocytes) > 1% indicates that a LEFT SHIFT is Present. MCH (RBC) [Entitic mass] 31.9 pg 27.0-32.0 [facility] Work Phone: [phone] Nucleated RBC/100 WBC (Bld) [Ratio] 0 % 0-5 [facility] Work Phone: [phone] MCHC Auto (RBC) [Mass/Vol]on 02-13-2022 MCHC (RBC) [Mass/Vol] 33.5 g/dL 32-36 [facility] Work Phone: [phone] Panel Informationon 02-13 Estimated GFR (MDRD) Amer 119 mL/min >60 [facility] Work Phone: [phone] Comment on above: GFR Calc Estimated GFR (MDRD) Non-Af Amer 98 mL/min >60 [facility] Work Phone: [phone] Comment on above: Non- GFR Calc Prostate Specific Antigen Screen 0.21 ng/mL 0.00-4.00 [facility] Work Phone: Comment on above: This test was perfor med using the TPSA assay method for [employer] chemistry system. Values obtained with differentassay methods cannot be used interchangably.When changing PSA assays in the course of monitoring apatient, additional sequential testing should be carriedout to confirm baseline values. Thyroid Stimulating Hormone (TSH) 3.03 uIU/mL 0.358-3.74 [facility] Work Phone: [phone] Platelets bldon 02-13-2022 Platelets (Bld) [#/Vol] 208 10*3/uL 150-450 [facility] Work Phone: Serum or plasma albumin vinnie urement (mass/volume)on 02-13-2022 Albumin [Mass/Vol] 3.7 g/dL 3.2-5.0 [facility] Work Phone: [phone] Serum or plasma albumin/glob ulin mass ratioon 02-13-2022 Albumin/Globulin [Mass ratio] 1.3 {ratio} 0.9-2.4 [facility] Work Phone: [phone] Serum or plasma calcium vinnie urement (mass/volume)on 02-13-2022 Calcium [Mass/Vol] 8.6 mg/dL 8.5-10.1 [facility] Work Phone: [phone] Serum or plasma creatinine m easurement (mass/volume)on 02-13-2022 Creatinine [Mass/Vol] 0.85 mg/dL 0.70-1.30 [facility] Work Phone: Comment on above: The validity of the calculated GFR & GFRAA in patients over 70 years has not been determined. Clinical correlation is essential. Serum or plasma urea nitroge n measurement (mass/volume)on 02-13-2022 Urea nitrogen [Mass/Vol] 18 mg/dL 7-18 [facility] Work Phone: Thin prep Papanicolaou smear with manual screeningon 02-13-2022 Thin prep Papanicolaou smear with manual screening 14 U/L 15-37 [facility] Work Phone: [phone] Thin prep Papanicolaou smear with manual screening 5 5-15 [facility] Work Phone: Absolute lymphocyte counton 08-24-2021 Lymphocytes Auto (Unsp spec) [#/Vol] 2.88 10*3/uL 0.83-4.51 [facility] Work Phone: Basophil percentageon 2021 Basophils/100 WBC (Bld) 0.4 % 0-1 [facility] Work Phone: Bilirubin [Mass/Vol] 0.70 mg/dL 0.20-1.00 [facility] Work Phone: Comment on above: For patients on eltr ombopag therapy, use of Dimension [place] TBIL is not recommended. Chloride [Moles/Vol] 105 mmol/L 98-107 [facility] Work Phone: Eosinophils/100 WBC (Bld) 0.3 % 0-5 [facility] Work Phone: Glucose [Mass/Vol] 99 mg/dL 74-106 [facility] Work Phone: Neutrophils (Bld) [#/Vol] 6.5 10*3/uL 2.0-7.7 [facility] Work Phone: Neutrophils/100 WBC (Bld) 64.8 % 47-70 [facility] Work Phone: Potassium [Moles/Vol] 4.3 mmol/L 3.5-5.1 [facility] Work Phone: Protein [Mass/Vol] 7.7 g/dL 6.4-8.2 [facility] Work Phone: Sodium [Moles/Vol] 139 mmol/L 136-145 [facility] Work Phone: WBC (Bld) [#/Vol] 10.1 10*3/uL 4.4-11.0 [facility] Work Phone: Blood erythrocytes count (nu mber/volume)on 08-24-2021 RBC (Bld) [#/Vol] 4.56 10*6/uL 4.6-6.2 [facility] Work Phone: Blood hemoglobin measurement (mass/volume)on 08-24-2021 Hemoglobin (Bld) [Mass/Vol] 14.9 g/dL 13.0-16.5 [facility] Work Phone: Blood lymphocytes/100 leukoc yteson 08-24-2021 Lymphocytes/100 WBC (Bld) 28.6 % 19-41 [facility] Work Phone: [phone] Blood monocytes/100 leukocyt eson 08-24-2021 Monocytes/100 WBC (Bld) 5.4 % 0-10 [facility] Work Phone: Blood platelet mean volumeon 08-24-2021 Platelet mean volume (Bld) [Entitic vol] 11.6 fL 6.2-12.0 [facility] Work Phone: Determination of erythrocyte mean corpuscular volume (MCV)on 08-24-2021 MCV (RBC) [Entitic vol] 96.3 fL 80-94 [facility] Work Phone: Hematocrit Auto (Bld) [Volum e fraction]on 08-24-2021 Hematocrit (Bld) [Volume fraction] 43.9 % 40-54 [facility] Work Phone: Laboratory - Chemistry and C hemistry - challengeon 08-24-2021 ALP [Catalytic activity/Vol] 82 U/L 45-117 [facility] Work Phone: ALT [Catalytic activity/Vol] 63 U/L 16-61 [facility] Work Phone: CO2 [Moles/Vol] 29.0 mmol/L 21.0-32.0 [facility] Work Phone: Globulin (S) [Mass/Vol] 3.5 g/dL 2.2-4.2 [facility] Work Phone: Urea nitrogen/Creatinine [Mass ratio] 16.6 mg/mg 10-20 [facility] Work Phone: Laboratory - Hematology and Cell countson 08-24-2021 Erythrocyte distribution width (RBC) [Entitic vol] 46.0 fL 35.1-43.9 [facility] Work Phone: [phone] Erythrocyte distribution width (RBC) [Ratio] 13.1 % 11.6-14.6 [facility] Work Phone: [phone] Immature granulocytes/100 WBC (Bld) 0.500 % 0.0-0.9 [facility] Work Phone: [phone] Comment on above: IG% - Immature Granu locytes (promyelocytes, myelocytes and metamyelocytes) > 1% indicates that a LEFT SHIFT is Present. MCH (RBC) [Entitic mass] 32.7 pg 27.0-32.0 [facility] Work Phone: Nucleated RBC/100 WBC (Bld) [Ratio] 0 % 0-5 [facility] Work Phone: [phone] MCHC Auto (RBC) [Mass/Vol]on 08-24-2021 MCHC (RBC) [Mass/Vol] 33.9 g/dL 32-36 [facility] Work Phone: No Panel Informationon 08-24 Estimated GFR (MDRD) Amer 111 mL/min >60 [facility] Work Phone: [phone] Comment on above: GFR Calc Estimated GFR (MDRD) Non-Af Amer 92 mL/min >60 [facility] Work Phone: [phone] Comment on above: Non- GFR Calc Platelets bldon 08-24-2021 Platelets (Bld) [#/Vol] 271 10*3/uL 150-450 [facility] Work Phone: [phone] Serum or plasma albumin vinnie urement (mass/volume)on 08-24-2021 Albumin [Mass/Vol] 4.2 g/dL 3.2-5.0 [facility] Work Phone: Serum or plasma albumin/glob ulin mass ratioon 08-24-2021 Albumin/Globulin [Mass ratio] 1.2 {ratio} 0.9-2.4 [facility] Work Phone: Serum or plasma calcium vinnie urement (mass/volume)on 08-24-2021 Calcium [Mass/Vol] 9.7 mg/dL 8.5-10.1 [facility] Work Phone: Serum or plasma creatinine m easurement (mass/volume)on 08-24-2021 Creatinine [Mass/Vol] 0.90 mg/dL 0.70-1.30 [facility] Work Phone: Comment on above: The validity of the calculated GFR & GFRAA in patients over 70 years has not been determined. Clinical correlation is essential. Serum or plasma urea nitroge n measurement (mass/volume)on 08-24-2021 Urea nitrogen [Mass/Vol] 15 mg/dL 7-18 [facility] Work Phone: Thin prep Papanicolaou smear with manual screeningon 08-24-2021 Thin prep Papanicolaou smear with manual screening 21 U/L 15-37 [facility] Work Phone: Thin prep Papanicolaou smear with manual screening 5 5-15 [facility] Work Phone: Vital Signs Date Time Vital Sign Value Performing Clinician Johnny johnston 02-22-2024 13:36-0500 Body height 180.3 cm Bigg [employer] Work Phone: [facility] 02-22-2024 13:36-0500 Body mass index (BMI) [Ratio] 25.26 kg/m2 [employer] Work Phone: [facility] 02-22-2024 13:36-0500 Body temperature 98.4 [degF] [employer]g [employer] Work Phone: [facility] 02-22-2024 13:36-0500 Body weight 82.15 kg Bigg [employer] Work Phone: [facility] 02-22-2024 13:36-0500 Diastolic blood pressure 92 mm[Hg] [employer] Work Phone: [facility] 02-22-2024 13:36-0500 Heart rate 67 /min Bigg West PA-C Work Phone: [facility] 02-22-2024 13:36-0500 Respiratory rate 18 /min Biggtae Beauchampaugh PA-C Work Phone: [facility] 02-22-2024 13:36-0500 SaO2% (BldA) [Mass fraction] 98 % Biggtae West PA-C Work Phone: [facility] 02-22-2024 13:36-0500 Systolic blood pressure 172 mm[Hg] Bigg West PA-C Work Phone: [facility] 05-07-2023 13:31-0500 Body temperature 97.8 [degF] Dr. Rogelio Velazquez Work Phone: [facility] 05-07-2023 13:31-0500 Diastolic blood pressure 84 mm[Hg] Dr. Rogelio Velazquez Work Phone: [facility] 05-07-2023 13:31-0500 Heart rate 51 /min Dr. Rogelio Velazquez Work Phone: [facility] 05-07-2023 13:31-0500 Respiratory rate 16 /min Dr. Rogelio Velazquez Work Phone: [facility] 05-07-2023 13:31-0500 SaO2% (BldA) [Mass fraction] 97 % Dr. Rogleio Velazquez Work Phone: [facility] 05-07-2023 13:31-0500 Systolic blood pressure 145 mm[Hg] Dr. Rogelio Velazquez Work Phone: [facility] 05-07-2023 08:25-0500 Body height 180.[address] Rogelio Velazquez Work Phone: [facility] 05-07-2023 08:25-0500 Body mass index (BMI) [Ratio] 22.4 kg/m2 Dr. Rogelio Velazquez Work Phone: [facility] 05-07-2023 08:25-0500 Body weight 73.[address] 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PERFECT BIND MACHINE OPERATOR Work Phone: [facility] 10-23-2021 14:220400 Systolic blood pressure 153 mm[Hg] Nicolle Brewer HISTORICAL MANUSCRIPTS CURATOR.PERFECT BIND MACHINE OPERATOR Work Phone: [facility] Encounters Encounter Date Encounter Type Care Provider Facility Start: 10-21-2024 End: 10-21-2024 ambulatory Rogelio Chi Justin Facility:[facility] Start: 10-04-2024 End: 10-04-2024 ambulatory Sowmya Dietzi Facility:[facility] Start: 09-08-2024 End: 09-08-2024 ambulatory Rogelio Chi Justin Facility:[facility] Start: 08-02-2024 End: 08-02-2024 ambulatory James Justin Facility:[facility] Start: 07-14-2024 End: 07-14-2024 ambulatory Rogelio Chi Justin Facility:[facility] Start: 06-22-2024 ambulatory Rogelio Chi Justin Facility:[facility] Start: 06-22-2024 End: 06-22-2024 Evaluation and management of inpatient Rogelio Chi Justin Facility:[facility] Start: 06-21-2024 End: 06-21-2024 ambulatory Rogelio Chi Justin Facility:[facility] Start: 05-25-2024 End: 05-25-2024 ambulatory Rogelio Chi Justin Facility:[facility] Start: 05-18-2024 End: 05-18-2024 ambulatory Rogelio Chi Justin Facility:[facility] Start: 05-10-2024 End: 05-10-2024 ambulatory Rogelio Chi Justin Facility:[facility] Start: 03-22-2024 End: 03-22-2024 ambulatory Sowmya Dietzi Facility:[facility] Start: 03-04-2024 End: 03-04-2024 ambulatory Rogelio Chi Justin Facility:[facility] Start: 02-22-2024 End: 02-22-2024 ambulatory ROGELIO CHI JUSTIN Facility:[facility] Start: 02-22-2024 End: 02-22-2024 Patient encounter procedure Bigg West PA-C Work Phone: [facility] Comment on above: URI with cough and c ongestion (Primary Dx); Sinus drainage Start: 02-19-2024 ambulatory Rogelio Chi Justin Facility:[facility] Start: 01-14-2024 End: 01-14-2024 ambulatory Rogelio Chi Justin Facility:[facility] Start: 01-13-2024 End: 01-13-2024 ambulatory Rogelio Chi Justin Facility:[facility] Start: 01-12-2024 End: 01-12-2024 ambulatory Rogelio Chi Justin Facility:[facility] Start: 01-05-2024 ambulatory James Justin Facility :[facility] Start: 01-03-2024 End: 01-03-2024 Emergency department patient visit SAMSON QUIROS Facility:[facility] Start: 05-07-2023 Non-patient / Non-visit Dr. Gil Velazquez Work Phone: [facility] Start: 05-07-2023 End: 05-07-2023 Admission to same day surgery center Dr. Rogelio Velazquez Work Phone: [facility] Start: 05-07-2023 End: 05-07-[address] Rogelio Velazquez Work Phone: [facility] Work Phone: Start: 04-29-2023 End: 04-29-[address] Rogelio Velazquez Work Phone: [facility] Work Phone: Start: 04-29-2023 End: 04-29-[address] Rogelio Velazquez Work Phone: [facility] y Office 3rd Flr Start: 04-29-2023 End: 04-29-2023 Non-patient / Non-visit Dr. Rogelio Velazquez Work Phone: [facility] Work Phone: Start: 03-14-2023 End: 03-14-[address] Rogelio Velazquez Work Phone: [facility] Work Phone: Start: 03-05-2023 End: 03-05-[address] Rogelio Velazquez Work Phone: [facility] Work Phone: Start: 02-13-2022 End: 02-13-[address] Rogelio Velazquez Work Phone: [facility] Work Phone: Start: 02-13-2022 End: 02-13-[address] Rogelio Velazquez Work Phone: [facility] Office 3rd Flr Start: 11-22-2021 End: 11-22-2021 ambulatory CARI SINGH APRN-PERFECT BIND MACHINE OPERATOR Facility:[facility] Start: 11-21-2021 End: 11-21-[address] Rogelio Velazquez Work Phone: [facility] Start: 10-23-2021 End: 10-23-2021 Patient encounter procedure Nicolle Brewer APRN.PERFECT BIND MACHINE OPERATOR Work Phone: [facility] Comment on above: Antibiotic treatment within past 2 months (Primary Dx); Elevated blood pressure reading; Viral URI with cough Start: 08-24-2021 End: 08-24-[address] [facility]azquez [facility] Start: 08-16-2021 End: 08-16-[address] Rogelio Velazquez Work Phone: [facility] Start: 06-06-2021 End: 06-06-[address] Rogelio Velazquez Work Phone: [facility] Start: 05-29-2021 End: 05-29-[address] Rogelio Velazquez [facility] Procedures Date Procedure Procedure Detail Performing Clinician [...] for malign ant neoplasm of colon [facility] Start: 11-16-2023 Covid-19 Vaccine ( season) Covid-19 Vaccine () [facility] Start: 05-07-2023 Patient discharge [facility] Start: 05-07-2023 Application of ice collar, cap or bag [facility] Start: 05-07-2023 Assessment of risk o f venous thromboembolism [facility] Start: 05-07-2023 Catheterization of vein [facility] Start: 05-07-2023 Deep breathing and coughing exercises [facility] Start: 05-07-2023 Following clinical pathway protocol [facility] Start: 05-07-2023 Incentive spirometry [facility] Start: 05-07-2023 Introduction of urin vane catheter [facility] Start: 05-07-2023 Patient education [facility] Start: 05-07-2023 Taking patient vital signs [facility] Start: 05-07-2023 Vital signs measurements [facility] Start: 05-07-2023 End: 05-07-2023 [facility] Start: 05-07-2023 Medication education [facility] Start: 11-15-2021 Influenza vaccination INFLUENZA (#1) [facility] Start: 08-10-2019 PROSTATE CANCER SCRE ENING DISCUSSION PROSTATE CANCER SCREENING DISCUSSION [facility] Start: 08-10-2019 Prostate specific an tigen measurement Prostate Cancer Screening Discussion [facility] Start: 2014 SHINGRIX VACCINE (1 of 2) KLINE GRIX VACCINE (1 of 2) [facility] Start: 10-28-2012 Urine microalbumin profile DTaP,Tdap,Td Vaccine (1 - Tdap) [facility] Start: 2009 COLOGUARD (FIT-DNA) COLOGUARD (FIT-D NA) [facility] Start: 2009 Colonoscopy COLONOSCOPY [facility] Start: 2009 COLORECTAL CANCER SCREENING COLORECTAL CANCER SCREENING [facility] Start: [address] COLONOGRAPHY [facility] Start: 2009 DIABETES SCREEN DIABETES SCREEN [facility] Start: 2009 Diabetes Screening Diabetes Screenin g [facility] Start: 2009 FECAL OCCULT BLOOD FECAL OCCULT BLOO D [facility] Start: 2009 Screening for malign ant neoplasm of colon [facility] Start: 2009 SIGMOIDOSCOPY SIGMOIDOSCOPY [facility] Start: 08-10-1999 Lipid panel Lipid Screening [facility] Start: 08-10-1999 LIPID SCREEN LIPID SCREEN [facility] Start: 08-10-1983 Urine microalbumin profile DTAP,TDAP,TD (1 - Tdap) [facility] Start: 1982 Anxiety Screening Anxiety Screening [facility] Start: 1982 Depression Screening Depression Scre ening [facility] Start: 1982 HEPATITIS C SCREENING HEPATITIS C [facility] Start: 1982 Hepatitis C screening Hepatitis C [facility] Start: 1982 HIV SCREENING HIV SCREENING [facility] Start: 1982 HIV screening HIV Screening [facility] Start: 1976 Adult depression screening assessment DEPRESSION SCREENING [facility] Start: 02-09-1965 COVID-19 VACCINE (#1) COVID-19 VACCI NE (#1) [facility] Start: 1964 HEPATITIS B (1 of 3 - 3-dose series) HEPATITIS B (1 of 3 - 3-dose series) [facility] Patient Education After Shoulder Arthroscopy [facility] Work Phone: Patient referral [facility] Work Phone: SARS-CoV-2 (COVID-19 ) RNA [Presence] in Respiratory specimen by PO with probe detection 2019 CORONAVIRUS Microbiology Routine Viral URI with cough Ordered: 10/23/2021 [facility] Work Phone: Comment on above: Ordered: 10/23/2021 End: 03-23-2025 XR Chest PA and Lateral XR CHEST 2V FRONTAL/LAT Radiology STAT URI with cough and congestion 1 Occurrences starting 02/22/2024 until 03/23/2025 [facility] Work Phone: Comment on above: 1 Occurrences starti ng 02/22/2024 until 03/23/2025 Payers Date Payer Category Payer Unknown [id number] 2024 Self-pay [id number] 2022 Unknown [id number] 2021 Unknown [id number] 2016 Unknown [id number] 1964 Unknown [id number] 2.16.8 [id number] Unknown [id number] Unknown [id number] 2.16.8 [id number] Unknown [id number] 2.16.8 [id number] Unknown [id number] 2.16.8 40.1.741476.3.579.2.462 Unknown [id number] 2.16.8 40.1.749453.3.579.2.462 Unknown [id number] 2.16.8 40.1.710711.3.579.2.462 Unknown [id number] 2.16.8 40.1.911053.3.579.2.462 Unknown [id number] 2.16.8 40.1.191990.3.579.2.462 Unknown [id number] 2.16.8 40.1.740162.3.579.2.462 Unknown [id number] 2.16.8 40.1.303475.3.579.2.462 Unknown [id number] 2.16.8 40.1.980499.3.579.2.462 Unknown [id number] 2.16.8 40.1.419145.3.579.2.462 Unknown [id number] 2.16.8 40.1.593649.3.579.2.462 Unknown [id number] 2.16.8 40.1.772434.3.579.2.462 Unknown [id number] 2.16.8 40.1.087850.3.579.2.462 Unknown [id number] 2.16.8 40.1.617191.3.579.2.462 Unknown [id number] 2.16.8 40.1.500359.3.579.2.462 Unknown [id number] 2.16.8 40.1.138453.3.579.2.462 Unknown [id number] 2.16.8 40.1.943733.3.579.2.462 Unknown [id number] 2.16.8 40.1.269919.3.579.2.462 Unknown [id number] 2.16.8 40.1.644759.3.579.2.462 Unknown [id number] 2.16.8 40.1.492774.3.579.2.462 Unknown [id number] 2.16.8 40.1.121625.3.579.2.462 Social History Date Type Detail Facility Start: 08-16-2021 End: 04-28-2023 Tobacco smoking status NHIS Unknown if ever smoked [facility] Start: 09-16-2019 Cigarettes [facility] Start: 1965 Sex Assigned At Male W [facility] Start: 1965 Sex Assigned At Not on file C [facility] Start: 10-13-2021 End: 10-23-2021 Exposure to SARS-CoV-2 (event) Not sure [facility] Start: 01-04-2024 History of Social function [facility] Start: 01-04-2024 Area Deprivation Index [facility] National Score (1-10 0), lower number is lower risk 59 [facility] Medical Equipment Procedure Code Equipment Code [...] Assessment Result Facility 05-07-2023 Cognitive function Voice/Name [facility] Work Phone: Clinical Notes 08-23-2021 to 06-22-2024 Patient InstructionsSBigg bledsoe PA-C - 02/22/2024 1:47 PM EST Note Date & Type Note Facility 06-22-2024 Note [facility] Medical Records Department [address] [place] [address] Discharge Summary 06/22/24 1524 MR#: [id number] Acct: [id number] Name: GEN POTTS Rep #: [id number] : 1965 58 From: Yadira Cruz MD PCP: Dr. Rogelio Velazquez MD Status:DIS IN Location: [facility] [id number] Providers Date of Admission: 06/22/24 Date of Discharge: 06/22/24 Primary Care Physician: Dr. Rogelio Velazquez MD Consultations 06/22/24 03:29 Consult: Cardiology Routine Consulting Provider: Tejinder Hebert Reason for Consult: Chest Pain EMERGENT Consult: No MD Notified: Yes Date Notified: 06/22/24 Time Notified: 03:05 Method of Notification: ED [...] Spent on Discharge: 22 Hospital Course: Per HPI:"GEN POTTS, is a 58 M with a [...] Conti of pain management who presents to [facility] ER complaining of chest pain, shortness [...] 84 ng/L suspicious for early non-ST elevation [place] in the setting of ongoing tobacco abuse and he was then admitted to the PCU for ongoing care for a stay that is expected to extend beyond 2 midnights." INTERVAL HISTORY: Patient's symptoms improved, his metoprolol [...] for lab wor (more content not included)... [facility] 02-22-2024 Instructions Bigg West PA-C - 02/22/2024 1:51 PM EST ASSESSMENT/PLAN: 1. URI with cough and congestion - - XR CHEST 2V FRONTAL/LAT Get your chest x-ray as an outpatient [facility]/ [facility] in [facility] [address], [facility] [address] Outpatient radiology department Walk in 7am -6:30pm [...] West PA-C documented in this encounter [facility] 02-22-2024 Note HNO ID: [id number] Author: BIGG WEST PA-C Service: ? Author Type: Physician Re Examiner Type: Progress Notes Filed: 02/22/2024 14:12 Note [...] Tympanic) Resp 18 Ht 180.3 cm (5' 11") Wt 82.2 kg (181 lb 1.7 oz) [...] tenderness or frontal sinus tenderness. Mouth/Throat: Lips: [place]. No lesions. Mouth: Mucous membranes are moist. [...] rhythm. Heart sound (more content not included)... [facility] 02-22-2024 History of Presen t illness Narrative [...] Tympanic) Resp 18 Ht 180.3 cm (5' 11") Wt 82.2 kg (181 lb 1.7 oz) [...] tenderness or frontal sinus tenderness. Mouth/Throat: Lips: [place]. No lesions. Mouth: Mucous membranes are moist. [...] Get your chest x-ray as an outpatient [facility]/ [facility] in [facility] [address] [place] [address] Outpatient radiology department Walk in 7am -6:30pm [...] which included preparing to see the patient, [id number] patient care, completing clinical documentation, performing a medically appropriate examination, counseling and educating the patient/family/caregiver, and ordering medications, tests, or procedures. documented in this encounter [facility] 05-07-2023 History and physi edna note Note Date/Time May 07, 2023 11:17am [facility] Medical Records Department [address] [place] [address] History & Physical Exam 05/07/23 1114 MR#: [id number] Acct: [id number] Name: GEN POTTS Rep #:[id number] : 1965 57 From: James Justin MD PCP: Dr. Rogelio Velazquez MD Status:REG S DC Location: [facility]03-1 HPI - General HPI Narrative GEN POTTS, is a 57 M who presents for left shoulder arthroscopy, subacromial decompression, rotator cuff repair. no changes to h and p. shoulder marked. ok to proceed, rab and narcotic counselling, post op instructions given. MR#: [id number] Acct: [id number] Name: GEN POTTS Rep #: [id number] : 1965 Provider: Dr. James Justin MD Age/Sex: 57/M Location: [facility] Status: Signed Intake Vital Signs 04/21/2107:30 Height [...] by me, Dr. James Justin MD 03/14/23 8989. Part of today?s visit was documented by [...] up at night. PT - went [facility] in [place] for ayear. Ortho Exam General General: Yes [...] TTP AC Joint, Yes empty can, No [place], No scapular winging and Yes belly press normal SHOULDER: normal motor and sens to ax nerve, and MRU and AIN/PIN active fe 120, passive 160, er 45 Strength in forward elevation and external rotation both 4+/5. Strong radial pulse. Supplemental Info [facility] Imaging Services [address] [place] [address] Shoulder min 2 Views MR#: [id number] Acct: [id number] Name: GEN POTTS Jr. Rep #: [id number] : 1965 M 54 From: Silver Blair MD PCP: Dr. Rogelio Velazquez MD Status: REG CLI Study: Shoulder min 2 Views Date of Exam: 08/26/19 Exam# [id number] Ordering Dr: Sowmya Conti MD STUDY: X-RAY [...] at 14:58 EDT , Service support , [facility] Imaging Services [address] [place] [address] Shoulder min 2 Views MR#: [id number] Acct: [id number] Name: GEN POTTS Jr. Rep #: [id number] : 1965 M 54 From: Silver Blair MD PCP: Dr. Rogelio Velazquez MD Status: REG CLI Study: Shoulder min 2 Views Date of Exam: 08/26/19 Exam# [id number] Ordering Dr: Sowmya Conti MD STUDY: X-RAY [...] at 20:25 EDT , Service support , [facility] Imaging Services [address] [place] [address] Upper Ext Joint Only(Routine) MR#: [id number] Acct: [id number] Name: GEN POTTS Rep #: [id number] : 1965 M 55 From: Orville Chandler MD PCP: Dr. Rogelio Velazquez MD Status: REG CLI Study: Upper Ext Joint Only(Routine) Date of Exam: 05/29/21 Exam# [id number] Ordering Dr: Sean Mckeon DO STUDY: MRI [...] Signed: Orville Chandler MD at 8:37 EDT , [facility] Imaging Services [address] [place] [address] Upper Ext Joint Only(Routine) MR#: [id number] Acct: [id number] Name: GEN POTTS #: [id number] : 1965 M 55 From: Bolivar Mcpherson MD PCP: Dr. Rogelio Velazquez MD Status: REG CLI Study: Upper Ext Joint Only(Routine) Date of Exam: 05/29/21 Exam# [id number] Ordering Dr: Sean Mckeon DO EXAM: MR LEFT UPPER EXTREMITY WITHOUT INTRAVENOUS CONTRAST, SHOULDER CLINICAL INDICATION: pain TECHNIQUE: Multiplanar and multisequence MR images of the left shoulder without intravenous contrast. This report was created using [employer] report [employer] [employer] technology. COMPARISON: None. FINDINGS: TENDONS: SUPRASPINATUS: Full-thickness [...] with surgery,and signed the informed consent documentation. [facility] Medical History (Updated 04/28/23 @ 11:20 by [...] Taken Unknown] multivitamin 1 tab PO DAILY 04/28/23 [History Last Taken Unknown] Allergy/AdvReac Type Severity [...] Justin MD; Dr. Rogelio Velazquez MD~ Signed [facility] Work Phone: 1(784) 831-467902-21-2024 [facility] History of Present illness Narrative* Nicolle Brewer APRN.PERFECT BIND MACHINE OPERATOR - 10/23/2021 2:19 PM EDT This [...] 69 Resp 16 Ht 180.3 cm (5' 11") Wt 78.5 kg (173 lb) BMI 24.13 [...] which included preparing to see the patient, [id number] patient care, completing clinical documentation, obtaining and/or reviewing separately obtained history, performing a medically appropriate examination, counseling and educating the pat ient/family/caregiver, and ordering medications, tests, or procedures. This patient encounter involved the screening or treatment of novel coronavirus infection (COVID-19). [facility] Instructions* Patient Instructions* Nicolle Brewer APRN.CNP [...] Colds inevitably last 10 to 14 days. [place] down and wait it out. Green. Your immune system is really fighting back. The mucus is thick with white cells and other wreckage from the oliva. If you re still sick after about 12 days, you may want to see a doctor.It could be sinusitis, a bacterial infection. If you re feverish or nauseated, see a doctor soon. White [place] or red. This is blood. Your nasal tissue in the nose has somehow become broken -- perhaps because it s dry, irritated or suffered some kind of impact. Brown. This shade could be blood, but likely it s something inhaled, like dirt, snuff or paprika. [facility] Evaluation note* Diagnosis Antibiotic treatment within past 2 months- Primary Elevated blood pressure reading Elevated blood pressure reading without diagnosis of hypertension Viral URI with cough Acute upper respiratory infections of unspecified site [facility] Author James Justin [facility] May 07, 2023 1:03pm Note Date/Time May 07, 2023 1:02pm [facility] Medical Records Department [address] [place] [address] Instructions for Home/Discharge Instructions 05/07/23 1301 MR#: [id number] Acct: [id number] Name: GEN POTTS Rep #:[id number] : 1965 57 From: James Justin MD [...] CC: Dr. Rogelio Velazquez MD ~ Signed [facility] Work Phone: Evaluation note* Diagnosis Onset Date Resolution Status Subacromial bursitis of both shoulders acute Biceps tendinitis of both upper extremities acute Subacromial bursitis of both shoulders acute Subacromial impingement of left shoulder acute Subacromial impingement of right shoulder acute [facility] Work Phone: Evaluation note* Diagnosis Onset Date Resolution Status Biceps tendinitis of both upper extremities acute Degenerative cervical disc a cute Subacromial bursitis of both shoulders acute [facility] Work Phone: Evaluation note* Diagnosis Onset Date Resolution Status Subacromial bursitis of both shoulders acute Left rotator cuff tear acute Right rotator cuff tear acut e Subacromial bursitis of both shoulders acute Subacromial impingement of left shoulder acute Subacromial impingement of right shoulder acute [facility] Work Phone: Evaluation note* Diagnosis Onset Date Resolution Status Subacromial bursitis of both shoulders acute Left rotator cuff tear acute Right rotator cuff tear acut e Subacromial bursitis of both shoulders acute Subacromial impingement of left shoulder acute Subacromial impingement of right shoulder acute Left rotator cuff tear acute Subacromial impingement of left shoulder acute [facility] Work Phone: Evaluation note* Diagnosis URI with cough and congestion- Primary Sinus drainage Other diseases of nasal cavity and sinuses documented in this encounter [facility] Chief Complaint and Reason for Visit [...] August 07, 2020 1 :52pm Power of Irrigating Pump Operator No August 07, 2020 1:52pm Advance Directive Response Recorded Date/ Time Living Will No August 07, 2020 1 2:52pm Power of Irrigating Pump Operator No August 07, 2020 12:52pm Advance Directive Response Recorded Date/ Time Living Will No April 28 11:09am Power of Irrigating Pump Operator No April 28, 2023 11:09am Summary Purpose [...] prosecute any alcohol or drug abuse patient.[facility] Hospital[facility] the event this information is protected by the Federal Confidentiality of Alcohol and Drug Abuse Patient Records regulations: The Federal rules restrict any use of the information to criminally investigate or prosecute any alcohol or drug abuse patient.[facility] Reason for Visit (unrecogniz ed section and content) Reason Comments Viral Syndrome Started 4 days ago Reason Comments Viral Syndrome Sinus congestion, co ughing up yellow mucous, sinus pressure in the frontal and maxillary sinus cavities, headaches, hot/cold, Right ear pain(pt has a blown ear drum), Care Teams (unrecognized sec tion and content) Bowling Ball Marker Relationship Specialty Start Date End Date Rogelio Velazquez [facility] [address] [address] PCP - General Gerontology 04/02/19 Team Status: [...] MD Attending Provider, Referring Prov ider Active Bowling Ball Marker Relationship Specialty Start Date End Date Rogelio Velazquez [address] [facility] [address] [place] [address] PCP - General Gerontology 04/02/19 (unrecognized sect ion and content) No Status Records FoundNo Status Records FoundNo Status Records Found INFORMATION SOURCE (unrecogn ized section and content) DATE CREATED AUTHOR 11/27/2021 [facility] DATE CREATED AUTHOR AUTHOR'S ORGANIZ ATION 02/25/2024 [facility] DATE CREATED AUTHOR AUTHOR'S ORGANIZ ATION 10/31/2024 [facility] FOR RECORDS PERTAINING TO PATIENTS WHO ARE [...] BE BASED ON THE PRIMARY CLINICAL RECORDS. [facility]. provides no warranty or guarantee of the accuracy or completeness of information in this document.
[2024-12-09 00:11] LABS: Xtra Tube Kwok EXTRA TUBE
== END | disposition home or self-care (01) ==
LOC: POLAB3 16:10
PROVIDERS: PCP Family Medicine Geriatric Medicine; Visit Provider Family Medicine Geriatric Medicine
DX: I10 Essential (primary) hypertension (principal); E03.9 Hypothyroidism, unspecified
CPT/HCPCS: 36415; 80053; 84443; 85025